=== PATIENT | male | born 1945 | race Caucasian/White ===

== ENCOUNTER 2023-05-05 20:52 | Emergency (ER) | payer OTHER ==
--- OUTSIDE RECORDS SUMMARY | 2023-05-05 21:01 | XMS REPORT | Clinical Summary ---
:1945 Author Organization [facility] MD [facility] Address [address] [place] [address] Care Team Providers Name Role Phone Rosa Walden MD Primary Care Provider Leonel Abbott MD Unavailable Helena Lemos MD Unavailable Carlene Tuttle MD Unavailable Helena Lemos MD Primary Care Provider Rosa Walden MD Unavailable Wanda Ahn MD Unavailable Vera De La Rosa DDS Unavailable [phone] Allergies Active Allergy Reactions Severity Noted Date Comments Iodinated Contrast Media Anaphylaxis High 02/14/2023 Iodine Anaphylaxis High 07/14/2022 Patient stopped breathing during administ ration of iodine. Penicillin 07/14/2022 childhood Medications Medication Sig Dispensed Refills Start Date End Date Status albuterol (VENTOLIN Inhale 1 puff by 0 Active HFA,PROAIR HFA) 90 mouth as needed. mcg/puff inhaler fluticasone Inhale 1 puff by 0 A ctive propionate-salmeterol mouth as needed. (ADVAIR) 250 mcg-50 mcg/inhalation diskus inhaler abiraterone (ZYTIGA) Take 4 tablets 120 tablet 3 02/01/2023 Active 250 mg (1,000 mg) by tabletIndications: mouth once daily. 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 atorvastatin (LIPITOR) Take 1 tablet (40 0 3 Active 40 mg tablet mg) by mouth at bedtime. clopidogrel (PLAVIX) Take 1 tablet (75 0 01/11/2023 Active 75 mg tablet mg) by mouth daily. predniSONE (DELTASONE) Take 1 tablet (5 60 tablet 3 02/15/2023 Active 5 mg mg) by mouth tabletIndications: twice daily. 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 xyloxylin oral Swish and swallow 480 mL 1 03/08/2023 Active suspension 10 mL every 6 (AMB-CMPD)Indications: (six) hours as Metastatic malignant needed for mouth neoplasm to bone, pain or throat Dysphagia, not pain. otherwise specified Additional Information Patient not taking. Reason: No longer taking, Reported on 04/19/2023 pantoprazole (Protonix) Take 1 tablet (40 30 tablet 2 03/09/20 23 Active 40 mg EC mg) by mouth every tabletIndications: morning before Metastatic malignant breakfast. neoplasm to bone lidocaine (XYLOCAINE) Swish and swallow 100 mL 3 03/09/2023 Active 20 mg/mL (2%) viscous 5 mL every 6 (six) solutionIndications: hours as needed Metastatic malignant (painful neoplasm to bone swallowing). metoprolol succinate Take 1 tablet (25 0 03/23/2023 Active (TOPROL XL) 25 mg 24 hr mg) by mouth tablet daily. indomethacin (INDOCIN) Take 1 capsule (50 0 04/08/20 23 Active 50 mg capsule mg) by mouth 4 (four) times a day as needed. fluoride, sodium, Apply 1 Dose to 100 mL 12 04/19/2023 Active (PreviDent 5000 Booster teeth twice daily. Plus) 1.1 % psteIndications: Malignant neoplasm of prostate, Metastatic malignant neoplasm to bone morphine (MS CONTIN) 30 Take 1 tablet (30 90 tablet 0 04/19/20 23 Active mg 12 hr mg) by mouth every tabletIndications: 8 (eight) hours. Malignant neoplasm of prostate, Cancer associated pain, Metastatic malignant neoplasm to bone morphine (MSIR) 15 mg Take 1 tablet (15 120 tablet 0 3 Active IR tabletIndications: mg) by mouth every Malignant neoplasm of 4 (four) hours as prostate, Cancer needed for pain. associated pain, Metastatic malignant neoplasm to bone senna (SENOKOT) 8.6 mg Take 2 tablets by 240 tablet 3 04/19/20 Active tabletIndications: mouth twice daily. Malignant neoplasm of May adjust up to 8 prostate, Slow transit tablets/day as constipation, needed. Metastatic malignant neoplasm to bone polyethylene glycol Take 17 g by mouth 255 g 3 04/19/2023 Active (Miralax) 17 gram/dose daily as needed powderIndications: (constipation). Malignant neoplasm of prostate, Slow transit constipation, Metastatic malignant neoplasm to bone lactulose 20 g/30 mL Take 15 mL (10 g) 900 mL 1 04/19/2023 Active soln by mouth 2 (two) solutionIndications: times a day as Malignant neoplasm of needed prostate, Metastatic (constipation). malignant neoplasm to bone metFORMIN Take 2 tablets 180 tablet 3 04/21/2023 Act stacia (GLUCOPHAGE-XR) 500 mg (1,000 mg) by 24 hr mouth 2 (two) tabletIndications: Drug times a day with induced diabetes meals. mellitus with hyperglycemia glipiZIDE (GlucotroL) 5 Take 0.5 tablets 60 tablet 3 3 Active mg tabletIndications: (2.5 mg) by mouth Drug induced diabetes daily as needed mellitus with (for blood glucose hyperglycemia greater than 150 mg/dL prior to taking prednisone). blood sugar diagnostic 1 strip by 200 strip 5 04/26/2023 Active (glucose blood) miscellaneous strpIndications: Drug route daily. 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 Type kit) kitIndications: 2 diabetes, ICD Drug induced diabetes 11.9 mellitus with hyperglycemia lancets 1 Units by 200 each 5 04/26/2023 Active miscIndications: Drug miscellaneous induced diabetes route daily. Check mellitus with glucose daily. hyperglycemia Type 2 diabetes, ICD 11.9 acetaminophen-codeine Take 1 tablet by 0 06/29/202207/06 Discontinued (TYLENOL #3) 300 mg-30 mouth as needed. 04/23 (Therapy mg tablet 22 completed) HYDROcodone-acetaminoph Take 1 tablet by 40 tablet 0 2 07/06 Discontinued en (Clemons) 7.5 mg-325 mouth every 6 04/23 (Therapy mg per (six) hours as 22 compl eted) tabletIndications: needed for Neoplasm related pain moderate pain. (acute) (chronic) miscellaneous medical Please provide 1 1 each 0 07/21/202207/05 Discontinued supply miscIndications: wheelchair, 1 Impaired mobility walker,1 bedside 22 commode. darolutamide (Nubeqa) Take 2 tablets 120 tablet 3 08/01/2022 0 Discontinued 300 mg (600 mg) by mouth 09/23 (T herapy tabletIndications: twice daily. 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 fentaNYL (DURAGESIC) 50 Place 1 patch (50 0 01/31/2002/02 mcg/hr transdermal mcg) on the skin. 09/05 0 patch 23 predniSONE (DELTASONE) Take 1 tablet (5 60 tablet 3 02/01/202302/02 Discontinued 5 mg tabletIndications: mg) by mouth twice 12/22 (Reorder) Malignant neoplasm of daily. 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 23 Malignant neoplasm of prostate, Cancer associated pain morphine (MSIR) 15 mg Take half of a 60 tablet 0 02/15/2023 Discontinued IR tabletIndications: tablet (7.5 mg) by 09/23 (Reorder) Malignant neoplasm of mouth every 4 23 prostate, Cancer (four) hours as associated pain needed for pain. senna-docusate Take 1 tablet by 0 02/02 Discontinued (SENOKOT-S) 8.6 mg-50 mouth 2 (two) 12/22 (Stop Taking at mg tablet times a day as 23 Disch arge) needed for constipation. polyethylene glycol Take 17 g by mouth 0 0 04/04 Discontinued (GLYCOLAX) 17 gram/dose daily as needed 02/21 powder (constipation). 23 senna (SENOKOT) 8.6 mg Take 2 tablets by 120 tablet 1 02/16/2004/04 Discontinued tabletIndications: Slow mouth twice daily. 02/21 transit constipation 23 lactulose (CHRONULAC) Take 15 mL (10 g) 473 mL 0 02/15/202304/04 Discontinued 10 gram/15 mL by mouth 2 (two) 02/21 solutionIndications: times a day as Slow transit needed for constipation constipation. morphine (MS CONTIN) 15 Take 1 tablet (15 30 tablet 0 03/15/2004/04 Discontinued mg ER mg) by mouth every 02/21 tabletIndications: 12 (twelve) hours. 23 Malignant neoplasm of prostate, Cancer associated pain morphine (MSIR) 15 mg Take half of a 35 tablet 0 03/24/2023 Discontinued IR tabletIndications: tablet (7.5 mg) by 02/21 (Reorder) Malignant neoplasm of mouth every 4 23 prostate, Cancer (four) hours as associated pain needed for pain. cyclobenzaprine Take 1 tablet (5 0 12/24/202204/04 Discontinued (FLEXERIL) 5 mg tablet mg) by mouth 02/21 nightly as needed. 23 blood sugar diagnostic 1 strip by 200 strip 5 04/21/202304/05 Discontinued (glucose blood) miscellaneous 11/21 (Reorder) strpIndications: Drug route 4 (four) 23 induced diabetes times a day before mellitus with meals and nightly. hyperglycemia lancets 1 Units by 200 each 5 04/21/202304/05 Disconti nued miscIndications: Drug miscellaneous 11/21 (Reorder) induced diabetes route 4 (four) 23 mellitus with times a day before hyperglycemia meals and nightly. blood-glucose meter Use to check blood 1 each 0 04/21/202304/05 Discontinued (glucose monitoring sugar 1-2 times a (Reorder) kit) kitIndications: day. 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 Malignant neoplasm of prostate 07/25/2022 Multinodular goiter 07/05/2022 Encounters Date Type Specialty Care Team Description 05/05/2023 Nurse Triage Maggie Lima RN 04/28/2023 Travel 04/27/2023 Hospital Encounter Gynecology Keshav, Malignant neoplasm of prostate; - AGUSTO Clemente Secondary and unspecified malignant neop lasm of lymph nodes of multiple regions, not otherwise specified; 04/28/2023 Jose Kunz, Encounter for other preprocedural examination Sona Solorio, Shalom Hassan MD 04/27/2023 Anesthesia Event Radiology Shalom Marvin MD Chan, Toi Nei, CRNA 04/27/2023 Hospital Encounter Cardiology Steffany Draper PA 04/27/2023 Hospital Encounter Lab Steffany Draper PA 04/27/2023 Travel 04/26/2023 Anesthesia Event Anesthesiology Mel Bains RN 04/26/2023 POEM Appointments Anesthesiology Steffany Draper PA 04/26/2023 Orders Only Endocrinology Brie, Drug induced d luis Mercado APRN mellitus with hyperglycemia 04/24/2023 Hospital Encounter Radiology Canelo, Encounter for other preprocedural examination (Primary Dx); MD Helena Pain in lumbar spine; Jose Kunz, Metastatic mal ignant neoplasm to bone; Malignant neopl asm of prostate 04/24/2023 Orders Only Radiology Maylin Riley PA 04/21/2023 Clinical Support Endocrinology Abraham, Drug induc ed diabetes MD Samantha mellitus with Sal, Diana hyperglycemia A, RD 04/21/2023 Follow-Up Endocrinology Abraham, Drug induced d iabetes mellitus with hyperglycemia (Primary Dx); MD Samantha Thyroid nodule 04/21/2023 Travel 04/20/2023 Infusion Infusion Services Deinert, Metastatic malignant neoplasm to bone; Chyna, ADMISSIONS RN 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, not otherwise specified 04/20/2023 Travel 04/19/2023 Ancillary Procedure Radiology Deinert, Malignan t neoplasm of prostate; Chyna, ADMISSIONS RN 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, not otherwise specified 04/19/2023 Ancillary Procedure Radiology Deinert, Malignan t neoplasm of prostate; Chyna, ADMISSIONS RN 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, not otherwise specified 04/19/2023 Follow-Up Genitourinary Deinert, Malignant neop lasm of prostate (Primary Dx); Oncology Chyna, ADMISSIONS RN 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, not otherwise specified 04/19/2023 Hospital Encounter Dental Oncology Vasquez-No Gonsales nter for Vera, observation for other DDS suspected disea se ruled out 04/19/2023 Hospital Encounter Dental Oncology VasquezRd Gonsales nter for observation for other suspected disease ruled out (Primary Dx); , Vera Gipson, Malignant neopl asm of prostate; DDS Secondary and u nspecified malignant neoplasm of lymph nodes of multiple regions, not otherwise specified; Metastatic justice gnant neoplasm to bone; Active dental c adele; Class II partia l loss of teeth due to other specified cause; Accretion on te eth 04/19/2023 Hospital Encounter Lab Deinert, Malignant neoplasm of prostate; Chyna, ADMISSIONS RN 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, not otherwise specified; Metastatic justice gnant neoplasm to bone; Other abnormal glucose 04/19/2023 Orders Only Endocrinology Brie, Drug induced d luis Mercado APRN mellitus with hyperglycemia (Primary Dx) 04/19/2023 Orders Only Genitourinary Deinert, Metastatic mal ignant neoplasm to bone (Primary Dx); Oncology AGUSTO Clemente Other abnormal glucose 04/19/2023 Orders Only Genitourinary Deinert, Metastatic mal ignant neoplasm to bone (Primary Dx); Oncology Chyna ADMISSIONS RN 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, not otherwise specified 04/19/2023 Travel 04/18/2023 Orders Only Dental Oncology Omar Mora, Xerostomia (Primary Dx); BDS Encounter for o bservation for other suspected disease ruled out 04/17/2023 Education Radiology Rafaela Savage MA 04/10/2023 Telephone Oncology Donavan Flaherty RN 04/06/2023 Travel 04/05/2023 Orders Only Genitourinary Deinert, Metastatic mal ignant neoplasm to bone (Primary Dx); Oncology AGUSTO Clemente 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, not otherwise specified 04/03/2023 Consult Pain Medicine Alysia, oysterman cur rent use of opiate analgesic (Primary Dx); Percy, Metastatic mal ignant neoplasm to bone; Neoplasm relate d pain (acute) (chronic) 04/03/2023 Travel 03/28/2023 Specialty Pharmacy Ibrahima Cash, PharmD 03/22/2023 Infusion Infusion Services Deinert, Antineopla stic AGUSTO Clemente chemotherapy i nduced anemia 03/22/2023 Travel 03/21/2023 Orders Only Genitourinary Deinert, Antineoplastic chemotherapy induced anemia (Primary Dx); Oncology AGUSTO Clemente Metastatic mal ignant neoplasm to bone 03/21/2023 Travel 03/21/2023 Orders Only Genitourinary Deinert, 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, not otherwise specified (Primary Dx); Oncology AGUSTO Clemente Malignant neop lasm of prostate 03/20/2023 Orders Only Genitourinary Deinert, Malignant neop lasm of prostate (Primary Dx); Oncology AGUSTO Clemente 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, not otherwise specified 03/16/2023 Orders Only Genitourinary Deinert, Malignant neop lasm of prostate (Primary Dx); Oncology Chyna, ADMISSIONS RN 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, not otherwise specified 03/15/2023 Hospital Encounter Infusion Services Harry, Justice gnant neoplasm of prostate; BREANA Lewis Anemia due to antineoplastic chemotherap y Elle Fields RN 03/15/2023 Hospital Encounter Lab Harry, Malignant neoplasm of prostate; BREANA Lewis Anemia due to antineoplastic chemotherapy 03/15/2023 Follow-Up Genitourinary Lemos, Metastatic mal ignant neoplasm to bone (Primary Dx); Oncology MD Helena Malignant neopl asm of prostate; Secondary and u nspecified malignant neoplasm of lymph nodes of multiple regions, not otherwise specified; Anemia due to a ntineoplastic chemotherapy 03/15/2023 Ancillary Procedure Radiology Deinert, Malignan t neoplasm of prostate; Chyna, ADMISSIONS RN 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, not otherwise specified; Dehydration; Metastatic justice gnant neoplasm to bone 03/15/2023 Hospital Encounter Lab Dedonya, Malignant neoplasm of prostate; Chyna, ADMISSIONS RN 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, not otherwise specified 03/15/2023 Travel 03/14/2023 Nutrition Nutrition Helena Lemos MD Martin, Cathy A, RD 03/13/2023 Clinical Support Radiation Oncology Corina Martinez MD 03/13/2023 Documentation Radiation Oncology Corina Martinez MD 03/13/2023 Travel 03/10/2023 Travel 03/09/2023 Clinical Support Radiation Oncology Corina Martinez MD neoplasm to britt rod (Primary Dx) 03/09/2023 Orders Only Radiation Oncology Safia, Metastati c malignant Emma neoplasm to BREANA Varma (Primary Dx) 03/09/2023 Travel 03/08/2023 Clinical Support Radiation Oncology Helena Lemos MD Perry, Amber L, RN 03/08/2023 Travel 03/08/2023 Orders Only Radiation Oncology Safia, Metastati c malignant neoplasm to bone (Primary Dx); Emma Dysphagia, not otherwise specified BREANA Donnelly 03/06/2023 Travel 03/03/2023 Travel 03/02/2023 Nutrition Nutrition Helena Lemos MD Martin, Cathy A, ELISHA 03/02/2023 Travel 03/01/2023 Travel 02/28/2023 Travel 02/27/2023 Clinical Support Radiation Oncology Corina Martinez MD 02/27/2023 Documentation Radiation Oncology Corina Martinez MD 02/27/2023 Travel 02/27/2023 Documentation Radiation Oncology Corina Martinez MD 02/23/2023 Consult Radiation Oncology Corina Martinez Malignant neoplasm of prostate; MD Allison Secondary and u nspecified malignant neoplasm of lymph nodes of multiple regions, not otherwise specified 02/23/2023 Documentation Radiation Oncology oCrina Martinez MD 02/23/2023 Documentation Radiation Oncology Corina Martinez MD 02/23/2023 Orders Only Genitourinary Deinert, Malignant neop lasm of prostate (Primary Dx); Oncology Chyna, ADMISSIONS RN Metastatic mal ignant neoplasm to bone; Secondary and u nspecified malignant neoplasm of lymph nodes of multiple regions, not otherwise specified 02/23/2023 Travel 02/23/2023 Orders Only Radiation Oncology Corina Martinez Metastati c malignant MD Allison neoplasm to bon e (Primary Dx) 02/22/2023 Orders Only Radiation Oncology Emma Baig PA 02/22/2023 Telephone Radiation Oncology Greta Justice RN 02/21/2023 Telephone Genitourinary Deinert, Oncology Chyna, ADMISSIONS RN 02/21/2023 Orders Only Radiology Steffany Draper PA 02/21/2023 Orders Only Genitourinary Deinert, Oncology Chyna, ADMISSIONS RN 02/16/2023 Orders Only Genitourinary Deinert, Malignant neop lasm of prostate (Primary Dx); Oncology Chyna, ADMISSIONS RN 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, not otherwise specified 02/15/2023 Orders Only Genitourinary Deinert, Malignant neop lasm of prostate; Oncology Chyna, ADMISSIONS RN 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, not otherwise specified 02/14/2023 Emergency Clinical Decision Markides, Acute low back pain (Primary Dx); - Flaquita Sherman MD Acute pelvic pain; 02/15/2023 Wattana, Pain in right h ip joint; MD Greta Anemia; Roly, Hypophosphatemi a; Shon Gipson, Metastatic justice gnant neoplasm to bone; Malignant neopl asm of prostate; Cancer associat ed pain; Slow transit co nstipation 02/14/2023 Travel 02/14/2023 Telephone Genitourinary Deinert, Oncology AGUSTO Clemente 02/13/2023 Orders Only Genitourinary Deinert, Malignant neop lasm of Oncology Chyna, ADMISSIONS RN prostate (Prim joelle Dx) 02/02/2023 Specialty Pharmacy [facility] Marilyn , [facility] 02/01/2023 Infusion Infusion Services Deinert, Dehydratio n (Primary Chyna, ADMISSIONS RN Dx) Sally Hale RN 02/01/2023 Follow-Up Genitourinary Lemos, Malignant neop lasm of prostate (Primary Dx); Oncology MD Helena Secondary and u nspecified malignant neoplasm of lymph nodes of multiple regions, not otherwise specified; Dehydration; Metastatic justice gnant neoplasm to bone 02/01/2023 Hospital Encounter Lab Deinert, Malignant neoplasm of prostate; AGUSTO Clemente 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, not otherwise specified 02/01/2023 Travel 01/31/2023 Orders Only Genitourinary Deinert, Malignant neop lasm of Oncology Chyna ADMISSIONS RN prostate (Prim joelle Dx) 01/31/2023 Orders Only Genitourinary Deinert, Malignant neop lasm of prostate (Primary Dx); Oncology Chyna ADMISSIONS RN 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, not otherwise specified 01/16/2023 Telephone Genitourinary Lemos, Canceled (Manuela ent Oncology MD Helena Request) 12/26/2022 Telephone Genitourinary Lemos, Canceled (Manuela ent Oncology MD Helena Request) 12/19/2022 Follow-Up Genitourinary Lemos, Malignant neop lasm of prostate (Primary Dx); Oncology MD Helena Secondary and u nspecified malignant neoplasm of lymph nodes of multiple regions, not otherwise specified 12/19/2022 Ancillary Procedure Radiology Deinert, Chyna, ADMISSIONS RN 12/19/2022 Ancillary Procedure Radiology Deinert, Malignan t neoplasm of prostate; Chyna, ADMISSIONS RN 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, not otherwise specified 12/19/2022 Travel 12/18/2022 Hospital Encounter Radiology Deinert, Malignant neoplasm of prostate; Chyna, ADMISSIONS RN 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, not otherwise specified 12/18/2022 Hospital Encounter Lab Deinert, Malignant neoplasm of prostate; Chyna, ADMISSIONS RN 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, not otherwise specified 12/18/2022 Travel 12/13/2022 Orders Only Genitourinary Deinert, Malignant neop lasm of prostate (Primary Dx); Oncology Chyna, ADMISSIONS RN 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, not otherwise specified 12/13/2022 Orders Only Genitourinary Deinert, Allergy to con trast media (Primary Dx); Oncology AMI ClementeN Malignant neop lasm of prostate 12/09/2022 Telephone Genitourinary Deinert, Oncology AGUSTO Clemente 12/09/2022 Hospital Encounter Lab Deinert, Malignant neoplasm of prostate; Chyna, ADMISSIONS RN 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, not otherwise specified; Metastatic darinel ocarcinoma to bone; Thyroid nodule 12/09/2022 Orders Only Genitourinary Jaelyn Oncology Michelle [facility] 11/18/2022 Consult Endocrinology Calderon, Malignant neop lasm of prostate; Eliza Sherman MD Thyroid nodule Samantha Rosario MD 11/18/2022 Travel 11/02/2022 Follow-Up Genitourinary Lemos, Malignant neop lasm of prostate (Primary Dx); Oncology MD Helena Secondary and u nspecified malignant neoplasm of lymph nodes of multiple regions, not otherwise specified; Secondary adeno carcinoma of bone 11/02/2022 Hospital Encounter Lab Deinert, Malignant neoplasm of prostate; Chyna ADMISSIONS RN 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, not otherwise specified; Secondary adeno carcinoma of bone 11/02/2022 Travel 10/23/2022 Orders Only Genitourinary Anita Wood Oncology BREANA Robertson 09/02/2022 Orders Only Genitourinary Deinert, Secondary darinel ocarcinoma of bone (Primary Dx); Oncology Chyna, ADMISSIONS RN 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, not otherwise specified; Malignant neopl asm of prostate 08/09/2022 Telephone Genitourinary Deinert, Oncology Chyna, ADMISSIONS RN 08/09/2022 Orders Only Genitourinary Deinert, Malignant neop lasm of prostate (Primary Dx); Oncology Chyna, ADMISSIONS RN 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, not otherwise specified 08/09/2022 Orders Only Genitourinary Deinert, Malignant neop lasm of prostate (Primary Dx); Oncology Chyna, ADMISSIONS RN 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, not otherwise specified; Secondary adeno carcinoma of bone 08/08/2022 Orders Only Genitourinary Deinert, Malignant neop lasm of prostate (Primary Dx); Oncology Chyna, ADMISSIONS RN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 nodes of multiple regions, not otherwise specified TOTAL PROTEIN Routine 03/15/2023 7:04 Malignant neoplasm of Re sults for AM CDT prostate this procedure Secondary and are in the unspecified malignant result s neoplasm of lymph section. nodes of multiple regions, not otherwise specified ASPARTATE Routine 03/15/2023 7:04 Malignant neoplasm of Res ults for AMINOTRANSFERASE AM CDT prostate this procedure Secondary and are in the unspecified malignant result s neoplasm of lymph section. nodes of multiple regions, not otherwise specified ALANINE Routine 03/15/2023 7:04 Malignant neoplasm of Res ults for AMINOTRANSFERASE AM CDT prostate this procedure Secondary and are in the unspecified malignant result s neoplasm of lymph section. nodes of multiple regions, not otherwise specified ALKALINE PHOSPHATASE Routine 03/15/2023 7:04 Malignant neoplas m of Results for AM CDT prostate this procedure Secondary and are in the unspecified malignant result s neoplasm of lymph section. nodes of multiple regions, not otherwise specified ALBUMIN LEVEL Routine 03/15/2023 7:04 Malignant neoplasm of Re sults for AM CDT prostate this procedure Secondary and are in the unspecified malignant result s neoplasm of lymph section. nodes of multiple regions, not otherwise specified CALCIUM LEVEL TOTAL Routine 03/15/2023 7:04 Malignant neoplasm of Results for AM CDT prostate this procedure Secondary and are in the unspecified malignant result s neoplasm of lymph section. nodes of multiple regions, not otherwise specified .GLOMERULAR FILTRATION Routine 03/15/2023 7:04 Malignant neopl asm of Results for RATE AM CDT prostate this procedure Secondary and are in the unspecified malignant result s neoplasm of lymph section. nodes of multiple regions, not otherwise specified SERUM CREATININE Routine 03/15/2023 7:04 Malignant neoplasm of Results for AM CDT prostate this procedure Secondary and are in the unspecified malignant result s neoplasm of lymph section. nodes of multiple regions, not otherwise specified ELECTROLYTE PANEL Routine 03/15/2023 7:04 Malignant neoplasm o f Results for AM CDT prostate this procedure Secondary and are in the unspecified malignant result s neoplasm of lymph section. nodes of multiple regions, not otherwise specified BLOOD UREA NITROGEN Routine 03/15/2023 7:04 Malignant neoplasm of Results for AM CDT prostate this procedure Secondary and are in the unspecified malignant result s neoplasm of lymph section. nodes of multiple regions, not otherwise specified GLUCOSE LEVEL Routine 03/15/2023 7:04 Malignant neoplasm of Re sults for AM CDT prostate this procedure Secondary and are in the unspecified malignant result s neoplasm of lymph section. nodes of multiple regions, not otherwise specified MANUAL DIFFERENTIAL Routine 03/15/2023 7:04 Malignant neoplasm of Results for AM CDT prostate this procedure Secondary and are in the unspecified malignant result s neoplasm of lymph section. nodes of multiple regions, not otherwise specified Results CBC Routine 03/15/2023 7:04 Malignant neoplasm of Res ults for AM CDT prostate this procedure Secondary and are in the unspecified malignant result s neoplasm of lymph section. nodes of multiple regions, not otherwise specified LACTATE DEHYDROGENASE Routine 03/15/2023 7:04 Malignant neopla sm of Results for AM CDT prostate this procedure Secondary and are in the unspecified malignant result s neoplasm of lymph section. 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 nodes of multiple regions, not otherwise specified TESTOSTERONE LEVEL Routine 03/15/2023 7:04 Malignant neoplasm of Results for AM CDT prostate this procedure Secondary and are in the unspecified malignant result s neoplasm of lymph section. nodes of multiple regions, not otherwise specified PROSTATE SPECIFIC Routine 03/15/2023 7:04 Malignant neoplasm o f Results for ANTIGEN AM CDT prostate this procedure Secondary and are in the unspecified malignant result s neoplasm of lymph section. nodes of multiple regions, not otherwise specified PHOSPHORUS LEVEL Routine 03/15/2023 7:04 Malignant neoplasm of Results for AM CDT prostate this procedure Secondary and are in the unspecified malignant result s neoplasm of lymph section. nodes of multiple regions, not otherwise specified MAGNESIUM LEVEL Routine 03/15/2023 7:04 Malignant neoplasm of Results for AM CDT prostate this procedure Secondary and are in the unspecified malignant result s neoplasm of lymph section. nodes of multiple regions, not otherwise specified COMPLETE BLOOD COUNT W/ Routine 03/15/2023 7:04 Malignant neop lasm of DIFFERENTIAL AM CDT prostate 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, not otherwise specified TMP INTERPRETATION Routine 02/20/2023 12:09 Resul ts for ANTIBODY SCREEN PM CDT this procedu re NEGATIVE are in the results section. CLOT EXPIRATION DATE Routine 02/20/2023 12:09 Res ults for PM CDT this procedure are in the results section. ANTIBODY SCREEN Routine 02/20/2023 12:09 Malignant neoplasm of Results for PM CDT prostate this procedure Secondary and are in the unspecified malignant result s neoplasm of lymph section. nodes of multiple regions, not otherwise specified ABORH Routine 02/20/2023 12:09 Malignant neoplasm of Re sults for PM CDT prostate this procedure Secondary and are in the unspecified malignant result s neoplasm of lymph section. nodes of multiple regions, not otherwise specified FRACTIONATED BILIRUBIN Routine 02/20/2023 12:09 Malignant neop lasm of Results for PM CDT prostate this procedure Secondary and are in the unspecified malignant result s neoplasm of lymph section. nodes of multiple regions, not otherwise specified TOTAL PROTEIN Routine 02/20/2023 12:09 Malignant neoplasm of R esults for PM CDT prostate this procedure Secondary and are in the unspecified malignant result s neoplasm of lymph section. nodes of multiple regions, not otherwise specified ASPARTATE Routine 02/20/2023 12:09 Malignant neoplasm of Re sults for AMINOTRANSFERASE PM CDT prostate this procedure Secondary and are in the unspecified malignant result s neoplasm of lymph section. nodes of multiple regions, not otherwise specified ALANINE Routine 02/20/2023 12:09 Malignant neoplasm of Re sults for AMINOTRANSFERASE PM CDT prostate this procedure Secondary and are in the unspecified malignant result s neoplasm of lymph section. nodes of multiple regions, not otherwise specified ALKALINE PHOSPHATASE Routine 02/20/2023 12:09 Malignant neopla sm of Results for PM CDT prostate this procedure Secondary and are in the unspecified malignant result s neoplasm of lymph section. nodes of multiple regions, not otherwise specified ALBUMIN LEVEL Routine 02/20/2023 12:09 Malignant neoplasm of R esults for PM CDT prostate this procedure Secondary and are in the unspecified malignant result s neoplasm of lymph section. nodes of multiple regions, not otherwise specified CALCIUM LEVEL TOTAL Routine 02/20/2023 12:09 Malignant neoplas m of Results for PM CDT prostate this procedure Secondary and are in the unspecified malignant result s neoplasm of lymph section. nodes of multiple regions, not otherwise specified .GLOMERULAR FILTRATION Routine 02/20/2023 12:09 Malignant neop lasm of Results for RATE PM CDT prostate this procedure Secondary and are in the unspecified malignant result s neoplasm of lymph section. nodes of multiple regions, not otherwise specified SERUM CREATININE Routine 02/20/2023 12:09 Malignant neoplasm o f Results for PM CDT prostate this procedure Secondary and are in the unspecified malignant result s neoplasm of lymph section. nodes of multiple regions, not otherwise specified ELECTROLYTE PANEL Routine 02/20/2023 12:09 Malignant neoplasm of Results for PM CDT prostate this procedure Secondary and are in the unspecified malignant result s neoplasm of lymph section. nodes of multiple regions, not otherwise specified BLOOD UREA NITROGEN Routine 02/20/2023 12:09 Malignant neoplas m of Results for PM CDT prostate this procedure Secondary and are in the unspecified malignant result s neoplasm of lymph section. nodes of multiple regions, not otherwise specified GLUCOSE LEVEL Routine 02/20/2023 12:09 Malignant neoplasm of R esults for PM CDT prostate this procedure Secondary and are in the unspecified malignant result s neoplasm of lymph section. nodes of multiple regions, not otherwise specified MANUAL DIFFERENTIAL Routine 02/20/2023 12:09 Malignant neoplas m of Results for PM CDT prostate this procedure Secondary and are in the unspecified malignant result s neoplasm of lymph section. nodes of multiple regions, not otherwise specified Results CBC Routine 02/20/2023 12:09 Malignant neoplasm of Re sults for PM CDT prostate this procedure Secondary and are in the unspecified malignant result s neoplasm of lymph section. 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 Results CBC AM 02/15/2023 12:38 Results for PM CDT this procedure are in the results section. CALCIUM LEVEL TOTAL AM 02/15/2023 12:38 Resu lts for PM CDT this procedure are in the results section. .GLOMERULAR FILTRATION AM 02/15/2023 12:38 R esults for RATE PM CDT this procedure are in the results section. SERUM CREATININE AM 02/15/2023 12:38 Results for PM CDT this procedure are in the results section. ELECTROLYTE PANEL AM 02/15/2023 12:38 Result s for PM CDT this procedure are in the results section. BLOOD UREA NITROGEN AM 02/15/2023 12:38 Resu lts for PM CDT this procedure are in the results section. GLUCOSE LEVEL AM 02/15/2023 12:38 Results fo r PM CDT this procedure are in the results section. COMPLETE BLOOD COUNT W/ AM 02/15/2023 12:38 DIFFERENTIAL PM CDT PHOSPHORUS LEVEL AM 02/15/2023 12:38 Results for PM CDT this procedure are in the results section. MAGNESIUM LEVEL AM 02/15/2023 12:38 Results for PM CDT this procedure are in the results section. BASIC METABOLIC PANEL, AM 02/15/2023 12:38 CALCIUM TOTAL PM CDT TRANSFUSE RED BLOOD Routine 02/15/2023 5:40 CELLS AM CDT TRANSFUSE RED BLOOD Routine 02/15/2023 1:35 CELLS AM CDT MRI CERVICAL THORACIC STAT 02/15/2023 12:44 Re sults for LUMBAR SPINE W WO AM CDT this proce dure CONTRAST are in the results section. URINALYSIS MICROSCOPIC Routine 02/14/2023 10:25 R esults for EXAM PM CDT this procedure are in the results section. URINALYSIS WITH Routine 02/14/2023 10:25 Results for MICROSCOPIC IF PM CDT this procedur e INDICATED are in the results section. URINE CULTURE Routine 02/14/2023 10:25 Results fo r PM CDT this procedure are in the results section. CONFIRM ABORH TYPE Routine 02/14/2023 7:51 Result s for PM CDT this procedure are in the results section. TMP CROSSMATCH Routine 02/14/2023 7:36 Results fo r INTERPRETATION PM CDT this procedur e are in the results section. TMP INTERPRETATION Routine 02/14/2023 7:36 Result s for ANTIBODY SCREEN PM CDT this procedu re NEGATIVE are in the results section. CLOT EXPIRATION DATE Routine 02/14/2023 7:36 Resu lts for PM CDT this procedure are in the results section. ANTIBODY SCREEN Routine 02/14/2023 7:36 Results f or PM CDT this procedure are in the results section. ABORH Routine 02/14/2023 7:36 Results for PM CDT this procedure are in the results section. 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 PREPARE RBC Routine 02/14/2023 7:26 Results for PM CDT this procedure are in the results section. XR HIP 2 OR 3 VW W Routine 02/14/2023 6:44 Result s for PELVIS RIGHT PM CDT this procedure are in the results section. FRACTIONATED BILIRUBIN Routine 02/14/2023 5:18 Re sults for PM CDT this procedure are in the results section. TOTAL PROTEIN Routine 02/14/2023 5:18 Results for PM CDT this procedure are in the results section. ASPARTATE Routine 02/14/2023 5:18 Results for AMINOTRANSFERASE PM CDT this proced ure are in the results section. ALANINE Routine 02/14/2023 5:18 Results for AMINOTRANSFERASE PM CDT this proced ure are in the results section. ALKALINE PHOSPHATASE Routine 02/14/2023 5:18 Resu lts for PM CDT this procedure are in the results section. ALBUMIN LEVEL Routine 02/14/2023 5:18 Results for PM CDT this procedure are in the results section. CALCIUM LEVEL TOTAL Routine 02/14/2023 5:18 Resul ts for PM CDT this procedure are in the results section. .GLOMERULAR FILTRATION Routine 02/14/2023 5:18 Re sults for RATE PM CDT this procedure are in the results section. SERUM CREATININE Routine 02/14/2023 5:18 Results for PM CDT this procedure are in the results section. ELECTROLYTE PANEL Routine 02/14/2023 5:18 Results for PM CDT this procedure are in the results section. BLOOD UREA NITROGEN Routine 02/14/2023 5:18 Resul ts for PM CDT this procedure are in the results section. GLUCOSE LEVEL Routine 02/14/2023 5:18 Results for PM CDT this procedure are in the results section. MANUAL DIFFERENTIAL STAT 02/14/2023 5:18 Resul ts for PM CDT this procedure are in the results section. Results CBC STAT 02/14/2023 5:18 Results for PM CDT this procedure are in the results section. APTT Routine 02/14/2023 5:18 Results for PM CDT this procedure are in the results section. PROTHROMBIN TIME Routine 02/14/2023 5:18 Results for PM CDT this procedure are in the results section. PHOSPHORUS LEVEL Routine 02/14/2023 5:18 Results for PM CDT this procedure are in the results section. MAGNESIUM LEVEL Routine 02/14/2023 5:18 Results f or PM CDT this procedure are in the results section. COMPREHENSIVE METABOLIC Routine 02/14/2023 5:18 PANEL PM CDT COMPLETE BLOOD COUNT W/ Routine 02/14/2023 5:18 DIFFERENTIAL PM CDT FRACTIONATED BILIRUBIN Routine 02/01/2023 7:10 Malignant neopl asm of Results for AM CDT prostate this procedure Secondary and are in the unspecified malignant result s neoplasm of lymph section. nodes of multiple regions, not otherwise specified TOTAL PROTEIN Routine 02/01/2023 7:10 Malignant neoplasm of Re sults for AM CDT prostate this procedure Secondary and are in the unspecified malignant result s neoplasm of lymph section. nodes of multiple regions, not otherwise specified ASPARTATE Routine 02/01/2023 7:10 Malignant neoplasm of Res ults for AMINOTRANSFERASE AM CDT prostate this procedure Secondary and are in the unspecified malignant result s neoplasm of lymph section. nodes of multiple regions, not otherwise specified ALANINE Routine 02/01/2023 7:10 Malignant neoplasm of Res ults for AMINOTRANSFERASE AM CDT prostate this procedure Secondary and are in the unspecified malignant result s neoplasm of lymph section. nodes of multiple regions, not otherwise specified ALKALINE PHOSPHATASE Routine 02/01/2023 7:10 Malignant neoplas m of Results for AM CDT prostate this procedure Secondary and are in the unspecified malignant result s neoplasm of lymph section. nodes of multiple regions, not otherwise specified ALBUMIN LEVEL Routine 02/01/2023 7:10 Malignant neoplasm of Re sults for AM CDT prostate this procedure Secondary and are in the unspecified malignant result s neoplasm of lymph section. nodes of multiple regions, not otherwise specified CALCIUM LEVEL TOTAL Routine 02/01/2023 7:10 Malignant neoplasm of Results for AM CDT prostate this procedure Secondary and are in the unspecified malignant result s neoplasm of lymph section. nodes of multiple regions, not otherwise specified .GLOMERULAR FILTRATION Routine 02/01/2023 7:10 Malignant neop lasm of Results for RATE AM CDT prostate this procedure Secondary and are in the unspecified malignant result s neoplasm of lymph section. nodes of multiple regions, not otherwise specified SERUM CREATININE Routine 02/01/2023 7:10 Malignant neoplasm of Results for AM CDT prostate this procedure Secondary and are in the unspecified malignant result s neoplasm of lymph section. nodes of multiple regions, not otherwise specified ELECTROLYTE PANEL Routine 02/01/2023 7:10 Malignant neoplasm o f Results for AM CDT prostate this procedure Secondary and are in the unspecified malignant result s neoplasm of lymph section. nodes of multiple regions, not otherwise specified BLOOD UREA NITROGEN Routine 02/01/2023 7:10 Malignant neoplasm of Results for AM CDT prostate this procedure Secondary and are in the unspecified malignant result s neoplasm of lymph section. nodes of multiple regions, not otherwise specified GLUCOSE LEVEL Routine 02/01/2023 7:10 Malignant neoplasm of Re sults for AM CDT prostate this procedure Secondary and are in the unspecified malignant result s neoplasm of lymph section. nodes of multiple regions, not otherwise specified MANUAL DIFFERENTIAL Routine 02/01/2023 7:10 Malignant neoplasm of Results for AM CDT prostate this procedure Secondary and are in the unspecified malignant result s neoplasm of lymph section. nodes of multiple regions, not otherwise specified Results CBC Routine 02/01/2023 7:10 Malignant neoplasm of Res ults for AM CDT prostate this procedure Secondary and are in the unspecified malignant result s neoplasm of lymph section. nodes of multiple regions, not otherwise specified VITAMIN D 25 HYDROXY Routine 02/01/2023 7:10 Malignant neoplas m of Results for LEVEL AM CDT prostate this procedure Secondary and are in the unspecified malignant result s neoplasm of lymph section. 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 nodes of multiple regions, not otherwise specified PROSTATE SPECIFIC Routine 02/01/2023 7:10 Malignant neoplasm o f Results for ANTIGEN AM CDT prostate this procedure Secondary and are in the unspecified malignant result s neoplasm of lymph section. nodes of multiple regions, not otherwise specified PHOSPHORUS LEVEL Routine 02/01/2023 7:10 Malignant neoplasm of Results for AM CDT prostate this procedure Secondary and are in the unspecified malignant result s neoplasm of lymph section. nodes of multiple regions, not otherwise specified MAGNESIUM LEVEL Routine 02/01/2023 7:10 Malignant neoplasm of Results for AM CDT prostate this procedure Secondary and are in the unspecified malignant result s neoplasm of lymph section. 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 nodes of multiple regions, not otherwise specified CT CHEST ABDOMEN PELVIS Routine 12/18/2022 6:25 Malignant neop lasm of Results for WO CONTRAST PM CDT prostate this procedure Secondary and are in the unspecified malignant result s neoplasm of lymph section. nodes of multiple regions, not otherwise specified FRACTIONATED BILIRUBIN Routine 12/18/2022 3:24 Malignant neopl asm of Results for PM CDT prostate this procedure Secondary and are in the unspecified malignant result s neoplasm of lymph section. nodes of multiple regions, not otherwise specified TOTAL PROTEIN Routine 12/18/2022 3:24 Malignant neoplasm of Re sults for PM CDT prostate this procedure Secondary and are in the unspecified malignant result s neoplasm of lymph section. nodes of multiple regions, not otherwise specified ASPARTATE Routine 12/18/2022 3:24 Malignant neoplasm of Res ults for AMINOTRANSFERASE PM CDT prostate this procedure Secondary and are in the unspecified malignant result s neoplasm of lymph section. nodes of multiple regions, not otherwise specified ALANINE Routine 12/18/2022 3:24 Malignant neoplasm of Res ults for AMINOTRANSFERASE PM CDT prostate this procedure Secondary and are in the unspecified malignant result s neoplasm of lymph section. nodes of multiple regions, not otherwise specified ALKALINE PHOSPHATASE Routine 12/18/2022 3:24 Malignant neoplas m of Results for PM CDT prostate this procedure Secondary and are in the unspecified malignant result s neoplasm of lymph section. nodes of multiple regions, not otherwise specified ALBUMIN LEVEL Routine 12/18/2022 3:24 Malignant neoplasm of Re sults for PM CDT prostate this procedure Secondary and are in the unspecified malignant result s neoplasm of lymph section. nodes of multiple regions, not otherwise specified CALCIUM LEVEL TOTAL Routine 12/18/2022 3:24 Malignant neoplasm of Results for PM CDT prostate this procedure Secondary and are in the unspecified malignant result s neoplasm of lymph section. nodes of multiple regions, not otherwise specified .GLOMERULAR FILTRATION Routine 12/18/2022 3:24 Malignant neopl asm of Results for RATE PM CDT prostate this procedure Secondary and are in the unspecified malignant result s neoplasm of lymph section. nodes of multiple regions, not otherwise specified SERUM CREATININE Routine 12/18/2022 3:24 Malignant neoplasm of Results for PM CDT prostate this procedure Secondary and are in the unspecified malignant result s neoplasm of lymph section. nodes of multiple regions, not otherwise specified ELECTROLYTE PANEL Routine 12/18/2022 3:24 Malignant neoplasm o f Results for PM CDT prostate this procedure Secondary and are in the unspecified malignant result s neoplasm of lymph section. nodes of multiple regions, not otherwise specified BLOOD UREA NITROGEN Routine 12/18/2022 3:24 Malignant neoplasm of Results for PM CDT prostate this procedure Secondary and are in the unspecified malignant result s neoplasm of lymph section. nodes of multiple regions, not otherwise specified GLUCOSE LEVEL Routine 12/18/2022 3:24 Malignant neoplasm of Re sults for PM CDT prostate this procedure Secondary and are in the unspecified malignant result s neoplasm of lymph section. nodes of multiple regions, not otherwise specified MANUAL DIFFERENTIAL Routine 12/18/2022 3:24 Malignant neoplasm of Results for PM CDT prostate this procedure Secondary and are in the unspecified malignant result s neoplasm of lymph section. nodes of multiple regions, not otherwise specified Results CBC Routine 12/18/2022 3:24 Malignant neoplasm of Res ults for PM CDT prostate this procedure Secondary and are in the unspecified malignant result s neoplasm of lymph section. nodes of multiple regions, not otherwise specified LACTATE DEHYDROGENASE Routine 12/18/2022 3:24 Malignant neopla sm of Results for PM CDT prostate this procedure Secondary and are in the unspecified malignant result s neoplasm of lymph section. 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 nodes of multiple regions, not otherwise specified TESTOSTERONE LEVEL Routine 12/18/2022 3:24 Malignant neoplasm of Results for PM CDT prostate this procedure Secondary and are in the unspecified malignant result s neoplasm of lymph section. nodes of multiple regions, not otherwise specified PROSTATE SPECIFIC Routine 12/18/2022 3:24 Malignant neoplasm o f Results for ANTIGEN PM CDT prostate this procedure Secondary and are in the unspecified malignant result s neoplasm of lymph section. nodes of multiple regions, not otherwise specified PHOSPHORUS LEVEL Routine 12/18/2022 3:24 Malignant neoplasm of Results for PM CDT prostate this procedure Secondary and are in the unspecified malignant result s neoplasm of lymph section. nodes of multiple regions, not otherwise specified MAGNESIUM LEVEL Routine 12/18/2022 3:24 Malignant neoplasm of Results for PM CDT prostate this procedure Secondary and are in the unspecified malignant result s neoplasm of lymph section. 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 THYROID STIMULATING Routine 12/09/2022 1:32 Thyroid nodule Res ults for HORMONE PM CDT this procedure are in the results section. VITAMIN D 25 HYDROXY Routine 12/09/2022 1:32 Malignant neoplas m of Results for LEVEL PM CDT prostate this procedure Secondary and are in the unspecified malignant result s neoplasm of lymph section. nodes of multiple regions, not otherwise specified Metastatic adenocarcinoma to bone TESTOSTERONE LEVEL Routine 12/09/2022 1:32 Malignant neoplasm of Results for PM CDT prostate this procedure Secondary and are in the unspecified malignant result s neoplasm of lymph section. nodes of multiple regions, not otherwise specified Metastatic adenocarcinoma to bone PROSTATE SPECIFIC Routine 12/09/2022 1:32 Malignant neoplasm o f Results for ANTIGEN PM CDT prostate this procedure Secondary and are in the unspecified malignant result s neoplasm of lymph section. nodes of multiple regions, not otherwise specified Metastatic adenocarcinoma to bone FRACTIONATED BILIRUBIN Routine 11/02/2022 1:30 Malignant neopl asm of Results for PM NURSERY HELPER prostate this procedure Secondary and are in the unspecified malignant result s neoplasm of lymph section. nodes of multiple regions, not otherwise specified Secondary adenocarcinoma of bone TOTAL PROTEIN Routine 11/02/2022 1:30 Malignant neoplasm of Re sults for PM NURSERY HELPER prostate this procedure Secondary and are in the unspecified malignant result s neoplasm of lymph section. nodes of multiple regions, not otherwise specified Secondary adenocarcinoma of bone ASPARTATE Routine 11/02/2022 1:30 Malignant neoplasm of Res ults for AMINOTRANSFERASE PM NURSERY HELPER prostate this procedure Secondary and are in the unspecified malignant result s neoplasm of lymph section. nodes of multiple regions, not otherwise specified Secondary adenocarcinoma of bone ALANINE Routine 11/02/2022 1:30 Malignant neoplasm of Res ults for AMINOTRANSFERASE PM NURSERY HELPER prostate this procedure Secondary and are in the unspecified malignant result s neoplasm of lymph section. nodes of multiple regions, not otherwise specified Secondary adenocarcinoma of bone ALKALINE PHOSPHATASE Routine 11/02/2022 1:30 Malignant neoplas m of Results for PM NURSERY HELPER prostate this procedure Secondary and are in the unspecified malignant result s neoplasm of lymph section. nodes of multiple regions, not otherwise specified Secondary adenocarcinoma of bone ALBUMIN LEVEL Routine 11/02/2022 1:30 Malignant neoplasm of Re sults for PM NURSERY HELPER prostate this procedure Secondary and are in the unspecified malignant result s neoplasm of lymph section. nodes of multiple regions, not otherwise specified Secondary adenocarcinoma of bone CALCIUM LEVEL TOTAL Routine 11/02/2022 1:30 Malignant neoplasm of Results for PM NURSERY HELPER prostate this procedure Secondary and are in the unspecified malignant result s neoplasm of lymph section. nodes of multiple regions, not otherwise specified Secondary adenocarcinoma of bone .GLOMERULAR FILTRATION Routine 11/02/2022 1:30 Malignant neopl asm of Results for RATE PM NURSERY HELPER prostate this procedure Secondary and are in the unspecified malignant result s neoplasm of lymph section. nodes of multiple regions, not otherwise specified Secondary adenocarcinoma of bone SERUM CREATININE Routine 11/02/2022 1:30 Malignant neoplasm of Results for PM NURSERY HELPER prostate this procedure Secondary and are in the unspecified malignant result s neoplasm of lymph section. nodes of multiple regions, not otherwise specified Secondary adenocarcinoma of bone ELECTROLYTE PANEL Routine 11/02/2022 1:30 Malignant neoplasm o f Results for PM NURSERY HELPER prostate this procedure Secondary and are in the unspecified malignant result s neoplasm of lymph section. nodes of multiple regions, not otherwise specified Secondary adenocarcinoma of bone BLOOD UREA NITROGEN Routine 11/02/2022 1:30 Malignant neoplasm of Results for PM NURSERY HELPER prostate this procedure Secondary and are in the unspecified malignant result s neoplasm of lymph section. nodes of multiple regions, not otherwise specified Secondary adenocarcinoma of bone GLUCOSE LEVEL Routine 11/02/2022 1:30 Malignant neoplasm of Re sults for PM NURSERY HELPER prostate this procedure Secondary and are in the unspecified malignant result s neoplasm of lymph section. nodes of multiple regions, not otherwise specified Secondary adenocarcinoma of bone MANUAL DIFFERENTIAL Routine 11/02/2022 1:30 Malignant neoplasm of Results for PM NURSERY HELPER prostate this procedure Secondary and are in the unspecified malignant result s neoplasm of lymph section. nodes of multiple regions, not otherwise specified Secondary adenocarcinoma of bone Results CBC Routine 11/02/2022 1:30 Malignant neoplasm of Res ults for PM NURSERY HELPER prostate this procedure Secondary and are in the unspecified malignant result s neoplasm of lymph section. nodes of multiple regions, not otherwise specified Secondary adenocarcinoma of bone MD NGS BLOOD CONTROL Routine 11/02/2022 1:30 Malignant neoplas m of Results for PM NURSERY HELPER prostate this procedure Secondary and are in the unspecified malignant result s neoplasm of lymph section. nodes of multiple regions, not otherwise specified Secondary adenocarcinoma of bone TESTOSTERONE LEVEL Routine 11/02/2022 1:30 Malignant neoplasm of Results for PM NURSERY HELPER prostate this procedure Secondary and are in the unspecified malignant result s neoplasm of lymph section. 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 Malignant neoplasm of prostate HEMATOPATHOLOGY BONE Routine 08/02/2022 2:35 Malignant neoplas m of Results for MARROW DIFFERENTIAL PM NURSERY HELPER prostate this pro cedure are in the results section. HEMATOPATHOLOGY BONE Routine 08/02/2022 2:35 Malignant neoplas m of Results for MARROW INTERPRETATION PM NURSERY HELPER prostate this p rocedure are in the results section. AR DIAGNOSTIC BONE Routine 08/02/2022 2:18 Malignant neoplasm of Results for MARROW BIOPSIES & PM NURSERY HELPER prostate this procedure ASPIRATIONS Secondary are in the adenocarcinoma o f bone results Secondary and section. unspecified malignant neoplasm of lymph nodes of multiple regions, not otherwise specified MANUAL DIFFERENTIAL Routine 08/02/2022 12:03 Malignant neoplas m of Results for PM NURSERY HELPER prostate this procedure Secondary are in the adenocarcinoma o f bone results Secondary and section. unspecified malignant neoplasm of lymph nodes of multiple regions, not otherwise specified Results CBC Routine 08/02/2022 12:03 Malignant neoplasm of Re sults for PM NURSERY HELPER prostate this procedure Secondary are in the adenocarcinoma o f bone results Secondary and section. 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 nodes of multiple regions, not otherwise specified Secondary adenocarcinoma of bone NM BONE SCAN WHOLE BODY Routine 08/01/2022 3:23 Malignant neop lasm of Results for PM NURSERY HELPER prostate this procedure are in the results section. APTT Routine 08/01/2022 11:28 Lymphadenopathy Results for AM NURSERY HELPER Abnormal radiologic this pro cedure finding on diagnostic are in the imaging of other results urinary organ section. 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 POC GLUCOSE SCREEN Routine 07/22/2022 10:27 Resul ts for AM NURSERY HELPER this procedure are in the results section. US THYROID Routine 07/15/2022 10:04 Lymphadenopathy Results for AM NURSERY HELPER this procedure are in the results section. MANUAL DIFFERENTIAL Routine 07/14/2022 3:29 Lymphadenopathy Re sults for PM NURSERY HELPER this procedure are in the results section. Results CBC Routine 07/14/2022 3:29 Lymphadenopathy Results f or PM NURSERY HELPER this procedure are in the results section. FRACTIONATED BILIRUBIN Routine 07/14/2022 3:29 Lymphadenopathy Results for PM NURSERY HELPER this procedure are in the results section. TOTAL PROTEIN Routine 07/14/2022 3:29 Lymphadenopathy Results for PM NURSERY HELPER this procedure are in the results section. ASPARTATE Routine 07/14/2022 3:29 Lymphadenopathy Results f or AMINOTRANSFERASE PM NURSERY HELPER this proced ure are in the results section. ALANINE Routine 07/14/2022 3:29 Lymphadenopathy Results f or AMINOTRANSFERASE PM NURSERY HELPER this proced ure are in the results section. ALKALINE PHOSPHATASE Routine 07/14/2022 3:29 Lymphadenopathy R esults for PM NURSERY HELPER this procedure are in the results section. ALBUMIN LEVEL Routine 07/14/2022 3:29 Lymphadenopathy Results for PM NURSERY HELPER this procedure are in the results section. CALCIUM LEVEL TOTAL Routine 07/14/2022 3:29 Lymphadenopathy Re sults for PM NURSERY HELPER this procedure are in the results section. .GLOMERULAR FILTRATION Routine 07/14/2022 3:29 Lymphadenopathy Results for RATE PM NURSERY HELPER this procedure are in the results section. SERUM CREATININE Routine 07/14/2022 3:29 Lymphadenopathy Resul ts for PM NURSERY HELPER this procedure are in the results section. ELECTROLYTE PANEL Routine 07/14/2022 3:29 Lymphadenopathy Resu lts for PM NURSERY HELPER this procedure are in the results section. BLOOD UREA NITROGEN Routine 07/14/2022 3:29 Lymphadenopathy Re sults for PM NURSERY HELPER this procedure are in the results section. GLUCOSE LEVEL Routine 07/14/2022 3:29 Lymphadenopathy Results for PM NURSERY HELPER this procedure are in the results section. PHOSPHORUS LEVEL Routine 07/14/2022 3:29 Lymphadenopathy Resul ts for PM NURSERY HELPER this procedure are in the results section. MAGNESIUM LEVEL Routine 07/14/2022 3:29 Lymphadenopathy Result s for PM NURSERY HELPER this procedure are in the results section. BETA 2 MICROGLOBULIN Routine 07/14/2022 3:29 Lymphadenopathy R esults for PM NURSERY HELPER this procedure are in the results section. PROSTATE SPECIFIC Routine 07/14/2022 3:29 Lymphadenopathy Resu lts for ANTIGEN PM NURSERY HELPER this procedure are in the results section. THYROXINE Routine 07/14/2022 3:29 Lymphadenopathy Results f or PM NURSERY HELPER this procedure are in the results section. THYROID STIMULATING Routine 07/14/2022 3:29 Lymphadenopathy Re sults for HORMONE PM NURSERY HELPER this procedure are in the results section. HEMOGLOBIN A1C Routine 07/14/2022 3:29 Lymphadenopathy Results for PM NURSERY HELPER this procedure are in the results section. HEPATITIS C VIRUS AB Routine 07/14/2022 3:29 Lymphadenopathy R esults for SCREEN W/REFLEX HCV PCR PM NURSERY HELPER this procedure are in the results section. HEPATITIS B CORE Routine 07/14/2022 3:29 Lymphadenopathy Resul ts for ANTIBODY PM NURSERY HELPER this procedure are in the results section. HEPATITIS B SURFACE Routine 07/14/2022 3:29 Lymphadenopathy Re sults for ANTIGEN, SERUM PM NURSERY HELPER this procedur e are in the results section. HEPATITIS B SURFACE Routine 07/14/2022 3:29 Lymphadenopathy Re sults for ANTIBODY, SERUM PM NURSERY HELPER this procedu re are in the results section. APTT Routine 07/14/2022 3:29 Lymphadenopathy Results f or PM NURSERY HELPER this procedure are in the results section. PROTHROMBIN TIME Routine 07/14/2022 3:29 Lymphadenopathy Resul ts for PM NURSERY HELPER this procedure are in the results section. COMPLETE BLOOD COUNT W/ Routine 07/14/2022 3:29 Lymphadenopath y DIFFERENTIAL PM NURSERY HELPER COMPREHENSIVE METABOLIC Routine 07/14/2022 3:29 Lymphadenopath y PANEL PM NURSERY HELPER EKG, 12-LEAD Routine 07/14/2022 Lymphadenopathy (SCHEDULED) OSI CT CHEST ABDOMEN Routine 06/29/2022 9:02 Cancer Resu lts for PELVIS AM CDT this procedure are in the results section. after 05/05/2022 Results (ABNORMAL) POC Glucose Screen (04/27/2023 11:37 PM CDT)Only the most recent of6 resultswithin the time period is included. P athologist Signature POC Glucose 282 (H) 70 - 99 POC [facility] mg/dL Comment: RN Notified Capillary blood samples, e.g. obtained b y fingerstick, may have inaccurate results in patients with decreased peripheral blood flow. All POC Glucose screen test results, inc luding critical values, must be interpreted and evaluated in the context of the patients clinical findings. It is recommended to confirm any questionable test results by core lab methodology. Method description: All results are avery ured using Electrochemistry test methodology. The glucose in the sample mixes with the reagents on the test strip. The reaction produces an electric current. The amount of current produced is proportion al to the glucose concentration in the blood. PO Sample Type Capillary POC [facility] Performing Lab [facility] POC [facility] R Comment: [facility], [address] [place] [address]; Lab Direct or: Belkis Pierson MD; Waived Point of Care Testing - Johanne Hilliard MD Specimen Anatomical Collection Method Collection Time Receive d Time (Source) Location / / Volume Laterality Blood 04/27/2023 11:37 04/27/2023 PM CDT 11:37 PM CDT Jose Kunz MD POCT ORDERABLES - DEVICE Performing Organization Address City/State/ZIP Code Phon e Number POC [facility] Unless otherwise noted, [place] [address] lab tests performed by: Division of Pathology and Laboratory Medicine [address] [place] [address] Guided Kyphoplasty Lumbar (04/27/2023 1:16 PM CDT) Anatomical Region Laterality Modality Spine Computed Tomography Specimen (Source) Anatomical Location Collection Method / Collectio n Time Received Time / Laterality Volume Narrative 04/28/2023 8:38 AM CDT Date of Procedure: 04/27/23 Attending Physician: Chong Kunz MD Principal Account Clerk: Chong Bustos Pre Procedure Diagnosis: Malignant himanshu plasm of prostate; 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, not otherwise specified; Encounter for other preprocedural examination Post Procedure Diagnosis: Unchanged Indication: Back pain with compression fracture rela juli to metastatic disease Title of Procedure: Percutaneous Image-Guided Vertebral Body Augmentation L2, 3, and 4 Radiofrequency Ablation utilizing OsteoC ool system of L2, 3, and 4 Augmentation System: Kyphon Image Guidance: Computerized Tomography Operative Findings: Successful percutaneous image-guided joanne tebral body augmentation L2, 3, and 4 Radiofrequency Ablation utilizing OsteoC ool system of L2, 3, and 4 Consent: The procedure, risks, indicatio ns and alternatives explained. All questions answered and informed consent obtained. I have reviewed the history and physical dictated by the mid-level practitioner/fellow. Sedation/Anesthesia: Anesthesia provided by Anesthesia Department. Insertion site prepped with: Chlorhexadi ne gluconate Procedure in Detail: A timeout performed prior to the start o f the procedure and the correct patient, procedure, presence of consent, and site confirmed with all members of the team. Insertion site prep ped and cleaned with aseptic technique. Sterile devices and equipment used. Doors closed and traffic kept to a minimum during the procedure. Skin prep agent allowed to dry prior to procedure. Maximum sterile monroe ier precautions utilized including sterile gloves, gown, cap, mask and ster ile full body drape. Hand hygiene performed prior to insertion by all pers ons performing/assisting with procedure. Lidocaine 1% used for local anesthesia. Under image guidance, a 10-gauge introducer needles was advanced into the posterior third of the vertebral body via bilateral transpedicular approa ch at L2, L3, and L4. Measuring bone drills were introduced th rough the working cannulas creating a tunnel into the anterior thir d of the vertebral body. After using the measuring bone drills to selec t the appropriate length, one OsteoCool tip length : 15 mm tip Osteo Cool RFA probes was placed through each working cannula, and ablation was p erformed according to the prescribed power and duration parameters under image guidance. Under image guidance, viscous todd ceme nt was injected through the cannulas. A small amount of cement went into the disc space at L1-2 and injection was immediately stopped. Other colmenares, there was no extravasation of cement or significant leakage. The ne edles were then removed without complication. While allowing time for th e cement to stabilize, incisions were dressed in usual fashion. The patie nt was awoken and transported to the PACU in stable baseline condition. Cement volume: 4cc Posterior wall disruption: No Associated Therapy: None Additional Comments: None Estimated Blood Loss: Minimal Specimens Removed: No Disposition: PACU Plan: Will admit to extended recovery for pain control and monitoring. Follow-up in 1-2 weeks with IR. I certify my physical presence at the ti me of the procedure. I personally reviewed the image(s) and the resident's /fellow's interpretation and agree with the written report. 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, not otherwise specified; Encounter for other preprocedural examination Post Procedure Diagnosis: Unchanged Indication: Back pain with compression fracture rela juli to metastatic disease Title of Procedure: Percutaneous Image-Guided Vertebral Body Augmentation L2, 3, and 4 Radiofrequency Ablation utilizing OsteoC ool system of L2, 3, and 4 Augmentation System: Kyphon Image Guidance: Computerized Tomography Operative Findings: Successful percutaneous image-guided joanne tebral body augmentation L2, 3, and 4 Radiofrequency Ablation utilizing OsteoC ool system of L2, 3, and 4 Consent: The procedure, risks, indicatio ns and alternatives explained. All questions answered and informed consent obtained. I have reviewed the history and physical dictated by the mid-level practitioner/fellow. Sedation/Anesthesia: Anesthesia provided by Anesthesia Department. Insertion site prepped with: Chlorhexadi ne gluconate Procedure in Detail: A timeout performed prior to the start o f the procedure and the correct patient, procedure, presence of consent, and site confirmed with all members of the team. Insertion site prep ped and cleaned with aseptic technique. Sterile devices and equipment used. Doors closed and traffic kept to a minimum during the procedure. Skin prep agent allowed to dry prior to procedure. Maximum sterile monroe ier precautions utilized including sterile gloves, gown, cap, mask and ster ile full body drape. Hand hygiene performed prior to insertion by all pers ons performing/assisting with procedure. Lidocaine 1% used for local anesthesia. Under image guidance, a 10-gauge introducer needles was advanced into the posterior third of the vertebral body via bilateral transpedicular approa ch at L2, L3, and L4. Measuring bone drills were introduced th rough the working cannulas creating a tunnel into the anterior thir d of the vertebral body. After using the measuring bone drills to selec t the appropriate length, one OsteoCool tip length : 15 mm tip Osteo Cool RFA probes was placed through each working cannula, and ablation was p erformed according to the prescribed power and duration parameters under image guidance. Under image guidance, viscous todd ceme nt was injected through the cannulas. A small amount of cement went into the disc space at L1-2 and injection was immediately stopped. Other colmenares, there was no extravasation of cement or significant leakage. The ne edles were then removed without complication. While allowing time for th e cement to stabilize, incisions were dressed in usual fashion. The patie nt was awoken and transported to the PACU in stable baseline condition. Cement volume: 4cc Posterior wall disruption: No Associated Therapy: None Additional Comments: None Estimated Blood Loss: Minimal Specimens Removed: No Disposition: PACU Plan: Will admit to extended recovery for pain control and monitoring. Follow-up in 1-2 weeks with IR. I certify my physical presence at the [facility] the procedure. I personally reviewed the image(s) and the resident's /fellow's interpretation and agree with the written report. Chyna Parr ADMISSIONS RN IMG IR ORDERABLES (ABNORMAL) Glucose, Random (04/27/2023 7:52 AM CDT) athologist Signature Glucose Random 228 (H) 70 - 199 [facility] mg/dL [facility] Comment: Effective 03/30/16, the glucose reference intervals have been updated based on [place] [employer] guidelines (Standards of Medical Care in Diabetes 2016. Diabetes Care 2016; 39: S13-S22). Fasting blood glucose: Normal: 70-99 mg/dL Impaired fasting glucose (increased risk for diabetes or pre-diabetes): 100- 125 mg/dL Diabetes mellitus: >/=126 mg/dL Random blood glucose: Normal: 70-199 mg/dL Note: Random glucose >100 mg/dL is assoc iated with increased risk for diabetes Specimen Anatomical Collection Method Collection Time Receive d Time (Source) Location / / Volume Laterality Blood 04/27/2023 7:52 AM 3 8:06 CDT AM CDT [facility] LAB BLOOD ORDERABLES Performing Organization Address City/[facility]/ZIP Code Phon e Number [facility] DIAGNOSTIC Unless otherwise noted, [address] all lab tests performed by: Division of Pathology and Laboratory Medicine [address] [place] [address] Anion Gap (04/27/2023 7:52 AM CDT) athologist Signature Anion Gap 6 4 - 14 [facility] mEq/L DIAGNOSTIC CENTER Specimen Anatomical Collection Method Collection Time Receive d Time (Source) Location / / Volume Laterality Blood 04/27/2023 7:52 AM 3 8:06 CDT AM CDT Steff[facility] LAB BLOOD ORDERABLES Performing Organization Address [facility] Phon e Number [facility] DIAGNOSTIC Unless otherwise noted, [address] all lab tests performed by: Division of Pathology and Laboratory Medicine [address] [place] [address] (ABNORMAL) .Serum Creatinine (04/27/2023 7:52 AM CDT)Only the most recent of10 resultswithin the time period is included. athologist Signature Creatinine 0.62 (L) 0.67 - [facility] 1.17 mg/dL DIAGNOSTIC CENTER Specimen Anatomical Collection Method Collection Time Receive d Time (Source) Location / / Volume Laterality Blood 04/27/2023 7:52 AM 3 8:06 CDT AM CDT Ste[facility] LAB BLOOD ORDERABLES Performing Organization Address City/[facility] Phon e Number [facility] DIAGNOSTIC Unless otherwise noted, [place] [phone] [address] all lab tests performed by: Division of Pathology and Laboratory Medicine [address] [place] [address] (ABNORMAL) .CBC (04/27/2023 7:52 AM CDT)Only the most recent of13 resultswithin the time period is included. Analysis Performed At Patho logist Time Signature WBC 4.2 4.1 - 10.5 [facility] K/uL DIAGNOSTIC CENTER RBC 3.37 (L) 4.30 - [facility] 6.04 M/uL DI[facility] CENTER Hgb 9.8 (L) 13.3 - [facility] 17.4 gm/dL DIAGNOSTIC CENTER Hct 30.0 (L) 39.5 - [facility] 51.8 % DIAG[facility]STIC CENTER MCV 89 82 - 99 fL [facility] DIAGNOSTIC CENTER MCH 29.1 26.6 - [facility] 33.2 pg DIAGNOSTIC CENTER MCHC 32.7 31.1 - [facility] 35.2 gm/dL DIAGNOSTIC CENTER RDW-SD 52.3 (H) 37.5 - [facility] 49.7 fL DIAGNOSTIC CENTER RDW-CV 16.2 (H) 11.6 - [facility] 15.5 % DIAG[facility]IC CENTER Platelet count 113 (L) 160 - 397 [facility] K/uL DIAGNOSTIC CENTER MPV 9.6 9.1 - 12.6 [facility] fL DIAGNOSTIC CENTER INRBC 0.0 0.0 - 0.1 [facility] /100 WBC DIAGNOSTIC CENTER Comment: The INRBC (instrument NRBC) value reflec ts the enumeration of nucleated red blood cells contained i n a 200uL sample of whole blood analyzed by the instrumen t. This value may differ from the NRBC value reported in a manual differential, which is based on a 100 cell differentia l. Specimen Anatomical Collection Method Collection Time Receive d Time (Source) Location / / Volume Laterality Blood 04/27/2023 7:52 AM 7:57 CDT AM CDT Ste[facility] LAB BLOOD ORDERABLES Performing Organization Address City/State/ZIP Code Phon e Number [facility] DIAGNOSTIC Unless otherwise noted, [place] [phone] [place] all lab tests performed by: Division of Pathology and Laboratory Medicine [facility] Clot Expiration Date (04/27/2023 7:52 AM CDT)Only the most recent of7 results within the time period is included. Patholo gist Method Time Signature T & S 04/30/2023 [facility] CANCER [place] Specimen Anatomical Collection Method Collection Time Receive d Time (Source) Location / / Volume Laterality Blood 04/27/2023 7:52 AM 3 8:17 CDT AM CDT Steff[facility] BLOOD BANK TEST ORDERABLES Performing Organization Address City/[facility] Phon e Number [facility] CANCER Unless otherwise noted, [place] [address] [place] all lab tests performed by: Division of Pathology and Laboratory Medicine [address] Glomerular Filtration Rate (04/27/2023 7:52 AM CDT)Only the most recent of10 resultswithin the time period is included. P athologist Signature eGFR 100 >=60 [facility] mL/min/1.73 DIAGNOSTIC sq. m CENTER Comment: The eGFRcr is calculated with the 2020 KD-EPI creatinine equation using creatinine, patient's age, and sex for adults 18 years of age and older. Other factors, especially muscle mass, may affect accuracy and need to be considered. According to the Kidney Disease: Improvi ng Global Outcomes (KDIGO) CKD Work Group 2012 Clinical Practice Guideline, chronic kidney disease (CKD) is defined as the abnormalities of kidney structure or function, present for more than 3 months, with implications for health. CKD should be c lassified by cause, GFR category, and albuminuria category. KDIGO guidelines provide the following GFR categories Stage Description GFR mL/min/1.73 m2 G1* Normal or high >= 90 G2* Mildly decreased 60-89 G3a Mildly to moderately decreased 45-59 G3b Moderately to severely decreased 30- 44 G4 Severely decreased 15-29 G5 Kidney failure <15 *In the absence of evidence of kidney da mage, neither G1 nor G2 fulfill criteria for CKD. Specimen Anatomical Collection Method Collection Time Receive d Time (Source) Location / / Volume Laterality Blood 04/27/2023 7:52 AM 3 8:06 CDT AM CDT Ste[facility] LAB BLOOD ORDERABLES Performing Organization Address City/[facility] Phon e Number [facility] DIAGNOSTIC Unless otherwise noted, [place], [place] [phone] [place] all lab tests performed by: Division of Pathology and Laboratory Medicine [address] [place] [address] TMP Interpretation Antibody Screen Negative (04/27/2023 7:52 AM CDT)Only the most recent of7 resultswithin the time period is included. Patholo gist Method Time Signature TMP Auto Neg At the [facility] Interp [facility], CANCER CENTER patient plasma shows no evidence of RBC alloantibodi es. Comment: MD Yu SIMONS [id number] Dictated by: MD Yu SIMONS Dictated Date/Time: 04.27.2023 13:42 PM CDT Transcribed Date/Time: 04.27.2023 13:42 PM CDT Electronically Signed By: MD Yu SIMONS76 on 04.27.2023 13:42 PM Specimen Anatomical Collection Method Collection Time Receive d Time (Source) Location / / Volume Laterality Blood 04/27/2023 7:52 AM 3 8:17 CDT AM CDT Steff[facility] BLOOD BANK TEST ORDERABLES Performing Organization Address City/State/ZIP Code Phon e Number [facility] Unless otherwise noted, [address] all lab tests performed by: Division of Pathology and Laboratory Medicine [address] [place] [address] ABORh (04/27/2023 7:52 AM CDT)Only the most recent of7 resultswithin the time period is included. P athologist Signature ABORh. A POS [facility] Specimen Anatomical Collection Method Collection Time Receive d Time (Source) Location / / Volume Laterality Blood 04/27/2023 7:52 AM 3 8:17 CDT AM CDT Steffany [facility] BLOOD BANK TEST ORDERABLES Performing Organization Address City/State/[facility] Phon e Number [facility] CANCER Unless otherwise noted, [address] all lab tests performed by: Division of Pathology and Laboratory Medicine [address] [place] [address] (ABNORMAL) Differential (04/27/2023 7:52 AM CDT)Only the most recent of13 resultswithin the time period is included. athologist Signature Neutrophil % 69.1 43.2 - [facility] 72.7 % DIAGNOSTIC CENTER Lymphocyte % 14.9 (L) 16.8 - [facility] 46.2 % DIAGNOSTIC CENTER Monocyte % 9.9 5.1 - 12.5 [facility] % DIAGNOSTIC CENTER Eosinophil % 1.4 0.4 - 6.3 [facility] % DIAGNOSTIC CENTER Basophil % 0.2 0.2 - 1.4 [facility] % DIAGNOSTIC CENTER IGRE % 4.5 (H) 0.1 - 1.5 [facility] % DIAGNOSTIC CENTER Comment: IGRE % count includes Metamyelo cytes, Myelocytes, and Promyelocytes. Neutrophil Abs 2.92 1.95 - 7.25 K/uL [facility] Lymphocyte Abs 0.63 (L) 1.01 - 3.24 K/uL [facility] Monocyte Abs 0.42 0.24 - 0.85 K/[facility]L [facility] Eosinophil Abs 0.06 0.02 - 0.50 K/uL [facility] Basophil Abs 0.01 (L) 0.02 - 0.09 K/uL [facility] IG Abs 0.19 (H) 0.01 - 0.12 K/uL [place] [facility] DORIE Villarreal [facility] Specimen Anatomical Collection Method Collection Time Receive d Time (Source) Location / / Volume Laterality Blood 04/27/2023 7:52 AM 7:57 CDT AM CDT Steff[facility] LAB BLOOD ORDERABLES Performing Organization Address City/State/ZIP Code Phon e Number [facility] DIAGNOSTIC Unless otherwise noted, [place], [place] [phone] CENTER all lab tests performed by: Division of Pathology and Laboratory Medicine [address] (ABNORMAL) Prothrombin Time (04/27/2023 7:52 AM CDT)Only the most recent of4 resultswithin the time period is included. athologist Signature PT 15.7 (H) 11.9 - 14.5 [facility] second(s) CANCER CENTER INR 1.25 (H) 0.87 - 1.12 [facility] Specimen Anatomical Collection Method Collection Time Receive d Time (Source) Location / / Volume Laterality Blood 04/27/2023 7:52 AM 3 7:59 CDT AM CDT Narrative [facility] - 3 9:31 AM CDT This lab cannot be scheduled at the foll owing locations due to collection/proccessing restrictions: [facility] and [facility]. Steffany [facility] LAB BLOOD ORDERABLES Performing Organization Address City/State/ZIP Code Phon e Number [facility] CANCER Unless otherwise noted, [place] [phone] [place] all lab tests performed by: Division of Pathology and Laboratory Medicine [address] [place] [address] Antibody Screen (04/27/2023 7:52 AM CDT)Only the most recent of7 resultswithin the time period is included. athologist Signature ABSC. Negative ABSC [facility] Specimen Anatomical Collection Method Collection Time Receive d Time (Source) Location / / Volume Laterality Blood 04/27/2023 7:52 AM 3 8:17 CDT AM CDT Steffany [facility] BLOOD BANK TEST ORDERABLES Performing Organization Address City/[facility] Phon e Number [facility] CANCER Unless otherwise noted, [address] all lab tests performed by: Division of Pathology and Laboratory Medicine [address] [place], [place] [address] BUN (04/27/2023 7:52 AM CDT)Only the most recent of10 resultswithin the time period is included. athologist Signature BUN 16 6 - 23 [facility] mg/dL DIAGNOSTIC CENTER Specimen Anatomical Collection Method Collection Time Receive d Time (Source) Location / / Volume Laterality Blood 04/27/2023 7:52 AM 3 8:06 CDT AM CDT Steffany [facility] LAB BLOOD ORDERABLES Performing Organization Address City/[facility]/ZIP Code Phon e Number [facility] DIAGNOSTIC Unless otherwise noted, [place], [place] [phone] [place] all lab tests performed by: Division of Pathology and Laboratory Medicine [facility] ([facility]) Sodium Level (04/27/2023 7:52 AM CDT) athologist Signature Sodium Lvl 132 (L) 136 - 145 [facility] mEq/L DIAGNOSTIC CENTER Specimen Anatomical Collection Method Collection Time Receive d Time (Source) Location / / Volume Laterality Blood 04/27/2023 7:52 AM 3 8:06 CDT AM CDT Steff[facility] LAB BLOOD ORDERABLES Performing Organization Address City/[facility]/ZIP [facility] Phon e Number [facility] DIAGNOSTIC Unless otherwise noted, [place] [phone] [place] all lab tests performed by: Division of Pathology and Laboratory Medicine [address] Potassium (04/27/2023 7:52 AM CDT) athologist Signature Potassium Lvl 4.1 3.5 - 5.1 [facility] mEq/L DIAGNOSTIC CENTER Specimen Anatomical Collection Method Collection Time Receive d Time (Source) Location / / Volume Laterality Blood 04/27/2023 7:52 AM 3 8:06 CDT AM CDT Steffany [facility] LAB BLOOD ORDERABLES Performing Organization Address City/[facility] Phon e Number [facility] DIAGNOSTIC Unless otherwise noted, [place], [place] [phone] [place] all lab tests performed by: Division of Pathology and Laboratory Medicine [address] (ABNORMAL) Hemoglobin A1c (04/27/2023 7:52 AM CDT)Only the most recent of3 resultswithin the time period is included. athologist Signature A1C 7.0 (H) 4.3 - 5.6 % [facility] CANCER [place] Comment: HbA1c values >=6.5% are diagnostic of di abetes mellitus. Diagnosis should be confirmed by repeat testing. Therapeutic Action suggested: >8.0% HbA1 c; Goal of therapy: <7.0% HbA1c Specimen Anatomical Collection Method Collection Time Receive d Time (Source) Location / / Volume Laterality Blood 04/27/2023 7:52 AM 3 8:28 CDT AM CDT Steffany [facility] LAB BLOOD ORDERABLES Performing Organization Address City/[facility]/ZIP Code Phon e Number [facility] CANCER Unless otherwise noted, [place] [address] [place] all lab tests performed by: Division of Pathology and Laboratory Medicine [address] Chloride Level (04/27/2023 7:52 AM CDT) P athologist Signature Chloride 100 98 - 107 [facility] mEq/L [facility] Specimen Anatomical Collection Method Collection Time Receive d Time (Source) Location / / Volume Laterality Blood 04/27/2023 7:52 AM 3 8:06 CDT AM CDT Steffany [facility] LAB BLOOD ORDERABLES Performing Organization Address [facility] Phon e Number [facility] DIAGNOSTIC Unless otherwise noted, [address] all lab tests performed by: Division of Pathology and Laboratory Medicine [address] Carbon Dioxide Level (04/27/2023 7:52 AM CDT) athologist Signature CO2 26 22 - 29 [facility] mEq/L [facility] Specimen Anatomical Collection Method Collection Time Receive d Time (Source) Location / / Volume Laterality Blood 04/27/2023 7:52 AM 3 8:06 CDT AM CDT Steffany [facility] LAB BLOOD ORDERABLES Performing Organization Address [facility] Phon e Number [facility] DIAGNOSTIC Unless otherwise noted, [address] all lab tests performed by: Division of Pathology and Laboratory Medicine [address] EKG, 12-Lead (Scheduled) (04/27/2023)Only the most recent of2 resultswithin the time period is included. Specimen (Source) Anatomical Location Collection Method / Collectio n Time Received Time / Laterality Volume Narrative This result has an attachment that is no t available. Steffany [facility] ECG ORDERABLES Performing Organization Address [facility] Phon e Number [facility] Transfuse RBC:Transfusion Date: 04/20/2023 (04/20/2023 2:55 PM CDT)Only the most recent of7 resultswithin the time period is included. 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 ACTIONABLE ITEMS/RECOMMENDATIONS: None. Narrative 04/19/2023 1:32 PM CDT FULL RESULT: Examination: XR SHOULDER 2+ VW RIGHT, XR SCAPULA RIGHT, 04/19/2023 12:23 PM. Clinical History: Malignant neoplasm of prostate Secondary and unspecified malignant neop lasm of lymph nodes of multiple regions, not otherwise specified Indication: worsening right shoulder jet n Comparison: CT chest assessment 12/19/19 and bone scan evaluation 12/19/2022. Technique: XR SHOULDER 2+ VW RIGHT, XR S CAPULA RIGHT Findings: Probably with December bone scan is not sca ttered heterogeneity of the marrow intensity of the visualized the scapula including glenoid and lateral scapular body consistent osseous chronic metastasis. Oste osclerotic metastasis also demonstrated affecting upper thoracic ribs. No lytic change or expansile changes detected. No impending fracture of shoulder detect ed. Mild osteoarthritic changes acromioclavicular joint appear chronic SHOULDER: Expected alignment of the josi ral head with the glenoid. No subluxation or dislocation demonstrated. Acromioclavicular joint intact. SCAPULA: Expected ossification of scapu la with no lytic or blastic process. Acromioclavicular joint intact. Normal articulation of humeral head with glenoid. Procedure Note Alex Mata MD - 04/19/2023Forma tting of this note might be different from the original. FULL RESULT: Examination: XR SHOULDER 2+ VW RIGHT, XR SCAPULA RIGHT, 04/19/2023 12:23 PM. Clinical History: Malignant neoplasm of prostate Secondary and unspecified malignant neop lasm of lymph nodes of multiple regions, not otherwise specified Indication: worsening right shoulder jet n Comparison: CT chest assessment 12/19/19 and bone scan evaluation 12/19/2022. Technique: XR SHOULDER 2+ VW RIGHT, XR S CAPULA RIGHT Findings: Probably with December bone scan is not sca ttered heterogeneity of the marrow intensity of the visualized the scapula including glenoid and lateral scapular body consistent osseous chronic metastasis. Osteosclerotic metastasis also demonstrated affecting u pper thoracic ribs. No lytic change or expansile changes detected. No impending fracture of shoulder detect ed. Mild osteoarthritic changes acromioclavicular joint appear chronic SHOULDER: Expected alignment of the josi ral head with the glenoid. No subluxation or dislocation demonstrated. Acromioclavicular joint intact. SCAPULA: Expected ossification of scapu la with no lytic or blastic process. Acromioclavicular joint intact. Normal articulation of humeral head with glenoid. IMPRESSION: Correlating with bone scan imaging are o steopenic sclerotic/blastic metastatic changes in the right shoulder region with no lytic change or impending fracture appreciated radiographically. ACTIONABLE ITEMS/RECOMMENDATIONS: None. Chyna Parr AG[facility]O IMG DIAGNOSTIC IMAGING ORDER SUSAN XR Scapula Right (04/19/2023 12:23 PM CDT) Anatomical Region Laterality Modality Shoulder, Extremity Digital Radiography Specimen (Source) Anatomical Collection Method Collection Time Re ceived Time Location / / Volume Laterality 04/19/2023 1:28 PM CDT Impressions 04/19/2023 1:32 PM CDT Correlating with bone scan imaging are osteopenic sclerotic/blastic metastatic changes in the right shoulder region with no lytic change or impending fracture appreciated radiographically. ACTIONABLE ITEMS/RECOMMENDATIONS: None. Narrative 04/19/2023 1:32 PM CDT FULL RESULT: Examination: XR SHOULDER 2+ VW RIGHT, XR SCAPULA RIGHT, 04/19/2023 12:23 PM. Clinical History: Malignant neoplasm of prostate Secondary and unspecified malignant neop lasm of lymph nodes of multiple regions, not otherwise specified Indication: worsening right shoulder jet n Comparison: CT chest assessment 12/19/19 and bone scan evaluation 12/19/2022. Technique: XR SHOULDER 2+ VW RIGHT, XR S CAPULA RIGHT Findings: Probably with December bone scan is not sca ttered heterogeneity of the marrow intensity of the visualized the scapula including glenoid and lateral scapular body consistent osseous chronic metastasis. Oste osclerotic metastasis also demonstrated affecting upper thoracic ribs. No lytic change or expansile changes detected. No impending fracture of shoulder detect ed. Mild osteoarthritic changes acromioclavicular joint appear chronic SHOULDER: Expected alignment of the josi ral head with the glenoid. No subluxation or dislocation demonstrated. Acromioclavicular joint intact. SCAPULA: Expected ossification of scapu la with no lytic or blastic process. Acromioclavicular joint intact. Normal articulation of humeral head with glenoid. Procedure Note Alex Mata MD - 04/19/2023Forma tting of this note might be different from the original. FULL RESULT: Examination: XR SHOULDER 2+ VW RIGHT, XR SCAPULA RIGHT, 04/19/2023 12:23 PM. Clinical History: Malignant neoplasm of prostate Secondary and unspecified malignant neop lasm of lymph nodes of multiple regions, not otherwise specified Indication: worsening right shoulder jet n Comparison: CT chest assessment 12/19/19 and bone scan evaluation 12/19/2022. Technique: XR SHOULDER 2+ VW RIGHT, XR S CAPULA RIGHT Findings: Probably with December bone scan is not sca ttered heterogeneity of the marrow intensity of the visualized the scapula including glenoid and lateral scapular body consistent osseous chronic metastasis. Osteosclerotic metastasis also demonstrated affecting u pper thoracic ribs. No lytic change or expansile changes detected. No impending fracture of shoulder detect ed. Mild osteoarthritic changes acromioclavicular joint appear chronic SHOULDER: Expected alignment of the josi ral head with the glenoid. No subluxation or dislocation demonstrated. Acromioclavicular joint intact. SCAPULA: Expected ossification of scapu la with no lytic or blastic process. Acromioclavicular joint intact. Normal articulation of humeral head with glenoid. IMPRESSION: Correlating with bone scan imaging are o steopenic sclerotic/blastic metastatic changes in the right shoulder region with no lytic change or impending fracture appreciated radiographically. ACTIONABLE ITEMS/RECOMMENDATIONS: None. Chyna Parr ADMISSIONS RN IMG DIAGNOSTIC IMAGING ORDER [facility] Add-On Test (04/19/2023 10:40 AM CDT)Only the most recent of3 resultswithin the time period is included. athologist Signature Ordered Test Added [facility] Comment: Test added to accession [id number] 04/19/2023 1:04:34 PM CDT by faheem Test Needed [facility] Specimen Anatomical Collection Method Collection Time Receive d Time (Source) Location / / Volume Laterality Existing 04/19/2023 10:40 04/19/2023 AM CDT 10:40 AM CDT Chyna Parr APRN LAB BLOOD ORDERABLES Performing Organization Address City/State/ZIP Code Phon e Number [facility] CANCER Unless otherwise noted, [address] all lab tests performed by: Division of Pathology and Laboratory Medicine [facility] RBC Product Ready for Shredding Machine Tender (04/19/2023 9:16 AM CDT)Only the most recent of4 resultswithin the time period is included. Analysis Performed At Patho logist Time Signature PRBC Product B2 Blood [facility] for [facility] Comment: Product is ready for curing pickling packer on April 19, 2023 13:35:36 CDT. Specimen Anatomical Collection Method Collection Time Receive d Time (Source) Location / / Volume Laterality Blood 04/19/2023 9:16 AM 9:17 CDT AM CDT Chyna Parr APRN BLOOD BANK PRODUCT ORDERABLE S Performing Organization Address City/State/ZIP Code Phon e Number [facility] CANCER Unless otherwise noted, [address] all lab tests performed by: Division of Pathology and Laboratory Medicine [address] [place] [address] [employer] Prepare RBC:LC, 2 Units (04/19/2023 9:16 AM CDT)Only the most recent of4 results within the time period is included. P athologist Signature PRBC Product 2 [facility] Comment: Red Blood Cells Available - Ord er Form 03 when ready for product issue. Specimen Anatomical Collection Method Collection Time Receive d Time (Source) Location / / Volume Laterality Blood 04/19/2023 9:16 AM 3 9:17 CDT AM CDT Chyna Parr APRN BLOOD BANK PRODUCT ORDERABLE S Performing Organization Address City/State/ZIP Code Phon e Number [facility] CANCER Unless otherwise noted, [address] all lab tests performed by: Division of Pathology and Laboratory Medicine [address] [place] [address] [employer] 3D Dental Imaging (iCAT) (04/19/2023 9:00 AM CDT) Specimen (Source) Anatomical Location Collection Method / Collectio n Time Received Time / Laterality Volume Narrative Systemgenerated, Documentation - 023 9:00 AM CDT This procedure requires no interpretatio n from the radiologist. Vera De La Rosa DDS IMG NON DI ORDERABLES Fractionated Bilirubin (04/19/2023 8:41 AM CDT)Only the most recent of8 results within the time period is included. athologist Signature Bili Total 0.6 <=1.2 mg/dL [facility] Comment: Indocyanine Green (ICG) may cause falsel y elevated bilirubin results. Total and direct bilirubin must not be measured from samples containing indocyanine green. False elevation of total bilirubin can b e seen in patients with IgG concentrations above 28 g/L. Bili Direct 0.2 <=0.3 mg/dL [facility] Comment: Indocyanine Green (ICG) may cau se falsely elevated bilirubin results. Total and direct bilirubin must not be measure d from samples containing indocyanine green. Bili Indirect 0.4 0.0 - 0.9 mg/dL [facility] Specimen Anatomical Collection Method Collection Time Receive d Time (Source) Location / / Volume Laterality Blood 04/19/2023 8:41 AM 3 9:05 CDT AM CDT Chyna Parr APRN LAB BLOOD ORDERABLES Performing Organization Address City/State/ZIP Code Phon e Number [facility] Unless otherwise noted, [place], [place] [address] CENTER all lab tests performed by: Division of Pathology and Laboratory Medicine [facility] [address] TMP Interpretation Crossmatch (04/19/2023 8:41 AM CDT)Only the most recent of4 resultswithin the time period is included. [facility] gist Method Time Signature TMP XM Interp RBC units [place] crossmatched for [facility] transfusion CANCER [facility] acceptable. Comment: YENI HODGE MD - [id number] Dictated by: YENI HODGE MD - [id number] Dictated Date/Time: 04.19.2023 16:04 PM CDT Transcribed Date/Time: 04.19.2023 16:04 PM CDT Electronically Signed By: YENI DE OLIVEIRA MD - [id number] on 04.19.2023 16:04 PM Specimen Anatomical Collection Method Collection Time Receive d Time (Source) Location / / Volume Laterality Blood 04/19/2023 8:41 AM 3 9:25 CDT AM CDT Chyna Parr ADMISSIONS RN BLOOD BANK TEST ORDERABLES Performing Organization Address [facility] Phon e Number [facility] CANCER Unless otherwise noted, [address] all lab tests performed by: Division of Pathology and Laboratory Medicine [address] [place] [address] Vitamin D 25OH (04/19/2023 8:41 AM CDT)Only the most recent of5 resultswithin the time period is included. P athologist Signature Vitamin D 25 OH 46 30 - 100 [facility] ng/mL CAN[facility]ER CENTER Comment: Reference Range: Deficiency: <=20 ng/mL Insufficiency: 21-29 ng/mL Sufficiency: 30-100 ng/mL Potential toxicity: >100 ng/mL Specimen Anatomical Collection Method Collection Time Receive d Time (Source) Location / / Volume Laterality Blood 04/19/2023 8:41 AM 3 9:03 CDT AM CDT Chynaguru Parr ADMISSIONS RN LAB BLOOD ORDERABLES Performing Organization Address [facility] Phon e Number [facility] CANCER Unless otherwise noted, [address] all lab tests performed by: Division of Pathology and Laboratory Medicine [address] [place] [address] [place] ALT (04/19/2023 8:41 AM CDT)Only the most recent of8 resultswithin the time period is included. P athologist Signature ALT 20 <=41 U/L [facility] DIAGNOSTIC CENTER Specimen Anatomical Collection Method Collection Time Receive d Time (Source) Location / / Volume Laterality Blood 04/19/2023 8:41 AM 3 9:05 CDT AM CDT Chynaguru Barnettt ADMISSIONS RN LAB BLOOD ORDERABLES Performing Organization Address City/State/ZIP Code Phon e Number [facility] DIAGNOSTIC Unless otherwise noted, [place] [phone] [place] all lab tests performed by: Division of Pathology and Laboratory Medicine [address] Aspartate Aminotransferase (04/19/2023 8:41 AM CDT)Only the most recent of8 resultswithin the time period is included. athologist Signature AST 19 <=40 U/L [facility] Specimen Anatomical Collection Method Collection Time Receive d Time (Source) Location / / Volume Laterality Blood 04/19/2023 8:41 AM 3 9:05 CDT AM CDT Chyna Keshav ADMISSIONS RN LAB BLOOD ORDERABLES Performing Organization Address City/[facility]/ZIP Code Phon e Number [facility] DIAGNOSTIC Unless otherwise noted, [place] [phone] [place] all lab tests performed by: Division of Pathology and Laboratory Medicine [address] (ABNORMAL) Testosterone Level (04/19/2023 8:41 AM CDT)Only the most recent of7 resultswithin the time period is included. athologist Signature Testoster Tot <3 (L) 193 - 740 [facility] ng/dL CAN[facility]ER CENTER Comment: Reference Ranges: Male: Age 20 - 49 249 - 836 Age >=50 1 93 - 740 Female: Age 20 - 49 8 - 48 Age >=50 3 - 41 Specimen Anatomical Collection Method Collection Time Receive d Time (Source) Location / / Volume Laterality Blood 04/19/2023 8:41 AM 3 9:04 CDT AM CDT Chyna Parr ADMISSIONS RN LAB BLOOD ORDERABLES Performing Organization Address City/[facility]/ZIP Code Phon e Number [facility] CANCER Unless otherwise noted, [place] [address] [place] all lab tests performed by: Division of Pathology and Laboratory Medicine [address] Total Protein (04/19/2023 8:41 AM CDT)Only the most recent of8 resultswithin the time period is included. athologist Signature Total Protein 6.6 6.4 - 8.3 [facility] g/dL DIAGNOSTIC CENTER Specimen Anatomical Collection Method Collection Time Receive d Time (Source) Location / / Volume Laterality Blood 04/19/2023 8:41 AM 3 9:05 CDT AM CDT Chyna Parr APRN LAB BLOOD ORDERABLES Performing Organization Address City/[facility]/ZIP Code Phon e Number [facility] DIAGNOSTIC Unless otherwise noted, [address] all lab tests performed by: Division of Pathology and Laboratory Medicine [address] (ABNORMAL) PSA (04/19/2023 8:41 AM CDT)Only the most recent of7 resultswithin the time period is included. athologist [facility] PSA 2,732.0 0.0 - 4.0 [facility] (H) ng/mL DIAGNOSTIC CENTER Comment: Results greater than 4519 ng/mL may not be reliable due to matrix effect with extended dilution as it exceeds the design engineer marine equipment's recommended limit. Caution should be exercised when interpreting sanon ch values and done in conjunction with clinical context. PSA Indication Diagnostic [facility] DIAGNOSTIC [place] Specimen Anatomical Collection Method Collection Time Receive d Time (Source) Location / / Volume Laterality Blood 04/19/2023 8:41 AM 3 9:05 CDT AM CDT Chyna Wilsondonya ADMISSIONS RN LAB BLOOD ORDERABLES Performing Organization Address City/[facility] Phon e Number [facility] DIAGNOSTIC Unless otherwise noted, [address] all lab tests performed by: Division of Pathology and Laboratory Medicine [address] Phosphorus Level (04/19/2023 8:41 AM CDT)Only the most recent of7 resultswithin the time period is included. [facility] Phosphorus 2.9 2.5 - 4.5 [facility] mg/dL DIAGNOSTIC CENTER Specimen Anatomical Collection Method Collection Time Receive d Time (Source) Location / / Volume Laterality Blood 04/19/2023 8:41 AM 3 9:05 CDT AM CDT Chyna Barnettyvette ADMISSIONS RN LAB BLOOD ORDERABLES Performing Organization Address City/[facility]/ZIP [facility] Phon e Number [facility] DIAGNOSTIC Unless otherwise noted, [address] all lab tests performed by: Division of Pathology and Laboratory Medicine [address] (ABNORMAL) Alkaline Phosphatase (04/19/2023 8:41 AM CDT)Only the most recent of8 resultswithin the time period is included. athologist Signature Alk Phos 2,199 (H) 40 - 129 [facility] U/L DIAGNOSTIC CENTER Specimen Anatomical Collection Method Collection Time Receive d Time (Source) Location / / Volume Laterality Blood 04/19/2023 8:41 AM 3 9:05 CDT AM CDT Chyna Barnettyvette LIZ LAB BLOOD ORDERABLES Performing Organization Address City/[facility]/ZIP Code Phon e Number [facility] DIAGNOSTIC Unless otherwise noted, [place] [phone] [place] all lab tests performed by: Division of Pathology and Laboratory Medicine [address] [facility] Magn[facility] Level (04/19/2023 8:41 AM CDT)Only the most recent of7 resultswithin the time period is included. [facility] Magnesium 2.1 1.6 - 2.6 [facility] mg/dL DIAGNOSTIC [place] Specimen Anatomical Collection Method Collection Time Receive d Time (Source) Location / / Volume Laterality Blood 04/19/2023 8:41 AM 3 9:05 CDT AM CDT Chyna Barnettyvette ADMISSIONS RN LAB BLOOD ORDERABLES Performing Organization Address City/[facility]/ZIP Code Phon e Number [facility] DIAGNOSTIC Unless otherwise noted, [place] [phone] [place] all lab tests performed by: Division of Pathology and Laboratory Medicine [address] (ABNORMAL) LDH (04/19/2023 8:41 AM CDT)Only the most recent of3 resultswithin the time period is included. athologist [facility] LDH 256 (H) 135 - 225 [facility] U/L DIAG[facility]STIC CENTER Comment: Results greater than 1651 U/L m ay not be reliable due to matrix effect with extended dilution as it exceeds the manu facturer's recommended limit. Caution should be exercised when interpreting such valu es and done in conjunction with clinical context. Specimen Anatomical Collection Method Collection Time Receive d Time (Source) Location / / Volume Laterality Blood 04/19/2023 8:41 AM 3 9:55 CDT AM CDT Chyna Parr APRN LAB BLOOD ORDERABLES Performing Organization Address City/State/ZIP Code Phon e Number [facility] DIAGNOSTIC Unless otherwise noted, [place] [phone] [place] all lab tests performed by: Division of Pathology and Laboratory Medicine [address] [place] [address] (ABNORMAL) Glucose Level (04/19/2023 8:41 AM CDT)Only the most recent of9 resultswithin the time period is included. athologist Signature Glucose Level 257 (H) 70 - 99 [facility] mg/dL DIAGNOSTIC CENTER Comment: Effective 03/30/16, the glucose reference intervals have been updated based on [place] [employer] guidelines (Standards of Medical Care in Diabetes 2016. Diabetes Care 2016; 39: S13-S22). Fasting blood glucose: Normal: 70-99 mg/dL Impaired fasting glucose (increased risk for diabetes or pre-diabetes): 100- 125 mg/dL Diabetes mellitus: >/=126 mg/dL Random blood glucose: Normal: 70-199 mg/dL Note: Random glucose >100 mg/dL is assoc iated with increased risk for diabetes Specimen Anatomical Collection Method Collection Time Receive d Time (Source) Location / / Volume Laterality Blood 04/19/2023 8:41 AM 3 9:05 CDT AM CDT Chyna Parr APRN LAB BLOOD ORDERABLES Performing Organization Address City/State/ZIP Code Phon e Number [facility] DIAGNOSTIC Unless otherwise noted, [place] [phone] [place] all lab tests performed by: Division of Pathology and Laboratory Medicine [facility] CEA (04/19/2023 8:41 AM CDT)Only the most recent of2 resultswithin the time period is included. athologist Signature CEA 1.6 <=3.8 ng/mL [facility] CANCER CENTER Comment: Reference Ranges: Smoker: 0.0 - 5.5 Non-Smoker: 0.0 - 3.8 This test is measured by electrochemilum inescence immunoassay on Richar Kayla immunoassay analyzers. Results obtained in different methods are not interchangeable. Specimen Anatomical Collection Method Collection Time Receive d Time (Source) Location / / Volume Laterality Blood 04/19/2023 8:41 AM 3 9:04 CDT AM CDT Chyna Barnettt ADMISSIONS RN LAB BLOOD ORDERABLES Performing Organization Address City/[facility]/ZIP [facility] Phon e Number [facility] CANCER Unless otherwise noted, [place] [address] [place] all lab tests performed by: Division of Pathology and Laboratory Medicine [address] Calcium Level (04/19/2023 8:41 AM CDT)Only the most recent of9 resultswithin the time period is included. athologist Signature Calcium Lvl 9.1 8.4 - 10.2 [facility] mg/dL DIAGNOSTIC CENTER Specimen Anatomical Collection Method Collection Time Receive d Time (Source) Location / / Volume Laterality Blood 04/19/2023 8:41 AM 3 9:05 CDT AM CDT Chyna Deinert ADMISSIONS RN LAB BLOOD ORDERABLES Performing Organization Address [facility] Phon e Number [facility] DIAGNOSTIC Unless otherwise noted, [place] [address] [place] all lab tests performed by: Division of Pathology and Laboratory Medicine [address] Albumin Level (04/19/2023 8:41 AM CDT)Only the most recent of8 resultswithin the time period is included. athologist [facility] Albumin Lvl 4.1 3.5 - 5.2 [facility] gm/dL DIAGNOSTIC CENTER Specimen Anatomical Collection Method Collection Time Receive d Time (Source) Location / / Volume Laterality Blood 04/19/2023 8:41 AM 3 9:05 CDT AM CDT Chyna Deinert ADMISSIONS RN LAB BLOOD ORDERABLES Performing Organization Address City/[facility]/ZIP [facility] Phon e Number [facility] DIAGNOSTIC Unless otherwise noted, [place], [place] [address] [place] all lab tests performed by: Division of Pathology and Laboratory Medicine [address] (ABNORMAL) Electrolyte Panel (04/19/2023 8:41 AM CDT)Only the most recent of9 resultswithin the time period is included. athologist Signature Sodium Lvl 133 (L) 136 - 145 [facility] mEq/L DIAGNOSTIC CENTER Potassium Lvl 3.9 3.5 - 5.1 [facility] mEq/L DIAGNOSTIC CENTER Chloride 100 98 - 107 [facility] mEq/L DIAGNOSTIC CENTER CO2 27 22 - 29 [facility] mEq/L DIAGNOSTIC CENTER Anion Gap 6 4 - 14 [facility] mEq/L DIAGNOSTIC CENTER Specimen Anatomical Collection Method Collection Time Receive d Time (Source) Location / / Volume Laterality Blood 04/19/2023 8:41 AM 3 9:05 CDT AM CDT Chyna Parr APRN LAB BLOOD ORDERABLES Performing Organization Address City/State/ZIP Code Phon e Number [facility] DIAGNOSTIC Unless otherwise noted, [place] [phone] CENTER all lab tests performed by: Division of Pathology and Laboratory Medicine [address] [facility] DXA Bone Density (03/15/2023 7:42 AM CDT) Anatomical Region Laterality Modality Spine Nuclear Medicine Specimen (Source) Anatomical Collection Method Collection Time Re ceived Time Location / / Volume Laterality 03/15/2023 9:38 AM CDT Impressions 03/15/2023 9:56 AM CDT Osteopenia as measured by the left femoral neck. I personally reviewed these image(s) tim perez with the resident's/fellow's interpretations, certify that if a procedure was performed I was physically present, and agree with the final report. Narrative 03/15/2023 9:56 AM CDT FULL RESULT: Examination: Bone Mineral Density (DXA), 03/15/2023 12:00 AM Clinical History: 77-year-old male with metastatic prostate cancer. Indication: Assessment of bone mineral d ensity. Comparison: None. Technique: Bone mineral density was obta ined using Hologic dual-energy X-ray absorptiometry. Findings: The findings are provided in t he below table(s). Bone Density: Region Exam Date BMD T- Z- g/cm2 Score Score AP Spine (L1-L4) 03/15/2023 1. 242 1.4 2.4 Femoral Neck (Left) 03/15/2023 0. 698 -1.7 -0.3 Total Hip (Left) 03/15/2023 1. 018 -0.1 0.8 Femoral Neck (Right) 03/15/2023 0. 793 -1.0 0.4 Total Hip (Right) 03/15/2023 1. 002 -0.2 0.6 For postmenopausal women and men age 50 and over, the World Health Organization criteria for BMD interpreta tion classify patients as: Normal (T-score at or above -1.0), Osteopenia ( T-score between -1.0 and -2.5), or Osteoporosis (T-score at or be low -2.5). Procedure Note Keven Almaraz MD - 03/15/2023Formatting of t his note might be different from the original. FULL RESULT: Examination: Bone Mineral Density (DXA), 03/15/2023 12:00 AM Clinical History: 77-year-old male with metastatic prostate cancer. Indication: Assessment of bone mineral d ensity. Comparison: None. Technique: Bone mineral density was obta ined using Hologic dual-energy X-ray absorptiometry. Findings: The findings are provided in t he below table(s). Bone Density: Region Exam Date BMD T- Z- g/cm2 Score Score AP Spine (L1-L4) 03/15/2023 1.242 1.4 2.4 Femoral Neck (Left) 03/15/2023 0.698 -1.7 -0.3 Total Hip (Left) 03/15/2023 1.018 -0.1 0.8 Femoral Neck (Right) 03/15/2023 0.793 -1.0 0.4 Total Hip (Right) 03/15/2023 1.002 -0.2 0.6 For postmenopausal women and men age 50 and over, the World Health Organization criteria for BMD interpreta tion classify patients as: Normal (T-score at or above -1.0), Osteopenia ( T-score between -1.0 and -2.5), or Osteoporosis (T-score at or be low -2.5). IMPRESSION: Osteopenia as measured by the left femor al neck. I personally reviewed these image(s) tim ng with the resident's/fellow's interpretations, certify that if a procedure was performed I was physically present, and agree with the final report. Chyna Parr APRN IMG DXA ORDERABLES MRI CERVICAL THORACIC LUMBAR SPINE W WO CONTRAST (02/15/2023 12:44 AM CDT) Anatomical Region Laterality Modality Spine, C-spine, T-spine, L-spine Magneti c Resonance Specimen (Source) Anatomical Collection Method Collection Time Re ceived Time Location / / Volume Laterality 02/15/2023 3:00 AM CDT Impressions 02/15/2023 9:45 AM CDT 1. Redemonstration of diffuse osseous metastases most significant for pathologic compression fractures at T2, T4 and T5 levels with mild retropulsion of the posterior cortices and trace epidural compo nents (Bilsky grade 1a) without any evid ence of cord edema. ACTIONABLE FINDINGS/RECOMMENDATIONS: I personally reviewed these image(s) tim perez with the resident's/fellow's interpretations, certify that if a procedure was performed I was physically present, and agree with the final report. Narrative 02/15/2023 9:45 AM CDT FULL RESULT: Examination: MRI CERVICAL THORACIC LUMBA R SPINE W WO CONTRAST, 02/15/2023 12:44 AM. Clinical History: Back pain Indication: Concern for cord compression Comparison: Correlation the bone scan CT CAP 12/18/2022 Technique: MRI of the cervical, thoracic and lumbar spine was performed without and with intravenous contrast. Findings: There is straightening of the cervical lordosis with preservation of the thoracolumbar curvature. There is is diffuse heterogeneous marrow noted within the spine, imaged sacroiliac bones and r ibs. Multiple enhancing osseous lesions and multilevel endplate bowing are noted was prominent at L2, L4 and L5 levels without retropulsion of the posterior cortex into the spinal canal. There is compre ssion fracture noted at T2 level with jesus wing of the posterior cortex into the spinal canal and epidural component effacing the ventral lateral CSF space (Bilsky grade 1A). Similar changes are also noted at the right ventral T4 and T5 levels. Mild degenerative changes are noted with posterior discussed right complexes from C3-C4 through C5-C6 levels slightly indenting the ventral CSF space. Pulmonary a nd intra-abdominal findings are better e valuated on the dedicated CT CAP study. The cord demonstrates normal caliber and T2 signal intensity. The conus terminates at T12-L1 level. There is no evidence of abnormal enhancement along the surface of the cord or cauda equina. Procedure Note Paulette Evans MD - 02/15/2023F ormatting of this note might be different from the original. FULL RESULT: Examination: MRI CERVICAL THORACIC LUMBA R SPINE W WO CONTRAST, 02/15/2023 12:44 AM. Clinical History: Back pain Indication: Concern for cord compression Comparison: Correlation the bone scan CT CAP 12/18/2022 Technique: MRI of the cervical, thoracic and lumbar spine was performed without and with intravenous contrast. Findings: There is straightening of the cervical lordosis with preservation of the thoracolumbar curvature. There is is diffuse heterogeneous marrow noted within the spine, imaged sacroiliac bones and ribs. Multiple enhancing osseous lesions and multilevel endplate bowing are noted was prominent at L2, L4 and L5 levels without retropulsion of the posterior cortex into the spinal canal. There is compression fracture noted at T2 level with bowing of the pos terior cortex into the spinal canal and epidural component effacing the ventral lateral CSF space (Bilsky grade 1A). Similar changes are also noted at the right ventral T4 and T5 levels. Mild degenerative changes are noted with posterior discussed right complexes from C3-C4 through C5-C6 levels slightly indenting the ventral CSF space. Pulmonary and intra-abdominal findings are better evaluated on the dedicated CT CAP study. The cord demonstrates normal caliber and T2 signal intensity. The conus terminates at T12-L1 level. There is no evidence of abnormal enhancement along the surface of the cord or cauda equina. IMPRESSION: 1. Redemonstration of diffuse osseous me tastases most significant for pathologic compression fractures at T2, T4 and T5 levels with mild retropulsion of the posterior cortices and trace epidural components (Bilsky grade 1a) without any evidence o f cord edema. ACTIONABLE FINDINGS/RECOMMENDATIONS: I personally reviewed these image(s) tim chris with the resident's/fellow's interpretations, certify that if a procedure was performed I was physically present, and agree with the final report. Flaquita Decker MD IMG MRI ORDERABLES (ABNORMAL) Urinalysis Microscopic Exam (02/14/2023 10:25 PM CDT) athologist Signature UA WBC 1 0 - 2 /HPF [facility] Comment: Some reporting parameters within the Uri nalysis test have changed due to the implementation of new instrumentation in the [facility], allowing greater sensitivity of measurement. Urinalysis results rep orted by the [facility] using existing instrumentation, as well as Urinalysis t esting performed manually or by backup methodology at the [facility] will remain relatively unchanged. New reporting parameters and units will not be reported for all campuses. UA RBC 1 0 - 2 /HPF [facility] UA Mucous NOT SEEN Not Seen-Trace /HPF [place] [facility] UA Bacteria 1+ (A) NOT SEEN /HPF [facility] UA Squam Epi NOT SEEN None-Occasional /HPF [facility] Specimen Anatomical Collection Method Collection Time Receive d Time (Source) Location / / Volume Laterality Urine 02/14/2023 10:25 02/14/2023 PM CDT 10:32 PM CDT Yves Lester MD LAB BLOOD ORDERABLES Performing Organization Address City/State/ZIP Code Phon e Number [facility] Unless otherwise noted, [address] all lab tests performed by: Division of Pathology and Laboratory Medicine [address] (ABNORMAL) Urinalysis w/Microscopic if Indicated (02/14/2023 10:25 PM CDT) [facility] Method Time Signature UA Color Straw [place] [facility] UA Appear Hazy (A) Clear [facility] UA Glucose NEG NEG mg/dL [facility] UA Bili NEG NEG [facility] UA Ketones NEG NEG mg/dL [facility] UA Spec Grav 1.011 1.003 - [facility] [[email or web address]] 1.035 [facility] UA Blood NEG NEG [facility] UA pH 7.0 5.0 - 9.0 [facility] UA Protein NEG NEG mg/dL [facility] UA Urobilinogen NEG NEG [facility] UA Nitrite NEG NEG [facility] UA Leuk Est NEG NEG [facility] Specimen Anatomical Collection Method Collection Time Receive d Time (Source) Location / / Volume Laterality Urine 02/14/2023 10:25 02/14/2023 PM CDT 10:32 PM CDT Yves Lester MD URINE ORDERABLES Performing Organization Address City/State/ZIP Code Phon e Number [facility] Unless otherwise noted, [address] all lab tests performed by: Division of Pathology and Laboratory Medicine [address] [employer] (ABNORMAL) Urine Culture (02/14/2023 10:25 PM CDT) [facility] Method Time Signature Final Report <10,000 cfu/ml Normal site isis present. [place] Generally of low significance. [place] Correlate with clinical data and culture history. [facility]ER CENTER (A) Specimen Anatomical Collection Method Collection Time Receive d Time (Source) Location / / Volume Laterality Urine 02/14/2023 10:25 02/14/2023 PM CDT 11:26 PM CDT Yves Lester MD MICROBIOLOGY - GENERAL ORDER SUSAN Performing Organization Address City/State/ZIP Code Phon e Number [facility] Unless otherwise noted, [address] all lab tests performed by: Division of Pathology and Laboratory Medicine [address] [facility] [place] Confirm ABORh (02/14/2023 7:51 PM CDT) P athologist Signature ABORh Confirm. A POS [facility] Specimen Anatomical Collection Method Collection Time Receive d Time (Source) Location / / Volume Laterality Blood 02/14/2023 7:51 PM 8:40 CDT PM CDT Flaquita Decker MD BLOOD BANK TEST ORDERABLES Performing Organization Address City/[facility]/ZIP Code Phon e Number [facility] Unless otherwise noted, [address] all lab tests performed by: Division of Pathology and Laboratory Medicine [facility]5 [address] [place] XR Hip 2 or 3 Views w Pelvis Right (02/14/2023 6:44 PM CDT) Anatomical Region Laterality Modality Hip, Extremity Digital Radiography Specimen (Source) Anatomical Collection Method Collection Time Re ceived Time Location / / Volume Laterality 02/14/2023 6:55 PM CDT Impressions 02/14/2023 6:59 PM CDT 1. Extensive blastic bone metastases. 2. No acute or impending pathologic fr acture. 3. 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 Narrative 02/14/2023 6:59 PM CDT FULL RESULT: Examination: XR Right Hip, Including Pel vis, 3 Views, 02/14/2023 6:44 PM. Clinical History: Prostate cancer. Indication: Right hip pain. Comparison: None. Technique: AP pelvis, and AP and frog-le g lateral views of right hip, 02/14/2023 Findings: Generalized osteoporosis is present. Diffuse blastic bone metastases are seen throughout the pelvis, visualized lower lumbosacral spine and bilateral proximal femurs. Osteoarthritis with disc space narrowing and eburnation along the pincer-type femoroacetabular impingement is seen in the right hip. The left hip is intact. Procedure Note Juan Luis Alexis MD - 02/14/2023Formatti ng of this note might be different from the original. FULL RESULT: Examination: XR Right Hip, Including Pel vis, 3 Views, 02/14/2023 6:44 PM. Clinical History: Prostate cancer. Indication: Right hip pain. Comparison: None. Technique: AP pelvis, and AP and frog-le g lateral views of right hip, 02/14/2023 Findings: Generalized osteoporosis is present. Diffuse blastic bone metastases are seen throughout the pelvis, visualized lower lumbosacral spine and bilateral proximal femurs. Osteoarthritis with disc space narrowing and eburnation along the pincer-type femoroacetabular impingement is seen in the right hip. The left hip is intact. IMPRESSION: 1. Extensive blastic bone metastases. 2. No acute or impending pathologic frac ture. 3. Osteoarthritis and femoroacetabular i mpingement in the right hip. Yves Lester MD IMG DIAGNOSTIC IMAGING ORDER SUSAN aPTT (02/14/2023 5:18 PM CDT)Only the most recent of3 resultswithin the time period is included. P athologist Signature aPTT 29.1 24.1 - 35.5 [place] [facility](s) [facility] CENTER Specimen Anatomical Collection Method Collection Time Receive d Time (Source) Location / / Volume Laterality Blood 02/14/2023 5:18 PM 3 5:40 CDT PM CDT Yves Lester MD LAB BLOOD ORDERABLES Performing Organization Address City/State/ZIP Code Phon e Number [facility] Unless otherwise noted, [place] [address] [address] all lab tests performed by: Division of Pathology and Laboratory Medicine [address] [place] [address] Bone Scan Whole Body (12/19/2022 10:21 AM CDT)Only the most recent of2 resultswithin the time period is included. Anatomical Region Laterality Modality Whole Body Nuclear Medicine Specimen (Source) Anatomical Collection Method Collection Time Re ceived Time Location / / Volume Laterality 12/19/2022 10:31 AM CDT Impressions 12/19/2022 11:09 AM CDT Extensive osseous metastatic disease within the axial and appendicular skeleton with some increase in the extent of activity, compatible with disease progression. I personally reviewed these image(s) tim ng with the resident's/fellow's interpretations, certify that if a procedure was performed I was physically present, and agree with the final report. Narrative 12/19/2022 11:09 AM CDT FULL RESULT: Examination: Whole-Body Bone Scan, 2022 10:21 AM Clinical History: 77-year-old male with metastatic prostate carcinoma Indication: Reevaluation of osseous meta stases Comparison: Bone scan from 08/01/[address] chest, abdomen and pelvis without contrast 12/18/2022 Technique: Following the intravenous adm inistration of 21.9 mCi of technetium- 99m MDP, anterior and posterior delayed whole body planar images were acquired. Findings: Redemonstrated is extensive foci of abno rmal radiotracer uptake within the axial and appendicular skeleton. Involved sites include the bilateral humeri, sternum, bilateral ribs, spine, pelvic bones, pro ximal bilateral femurs. Although many of the lesions appear stable, there are many sites which show increasing extent of activity, illustrated at the posterior skull and posterior ribs. Physiologic tracer uptake within the evelyne dder. Procedure Note Krystyna eMza MD - 12/19/2022 FULL RESULT: Examination: Whole-Body Bone Scan, 2022 10:21 AM Clinical History: 77-year-old male with metastatic prostate carcinoma Indication: Reevaluation of osseous meta stases Comparison: Bone scan from 08/01/[address] chest, abdomen and pelvis without contrast 12/18/2022 Technique: Following the intravenous adm inistration of 21.9 mCi of technetium- 99m MDP, anterior and posterior delayed whole body planar images were acquired. Findings: Redemonstrated is extensive foci of abno rmal radiotracer uptake within the axial and appendicular skeleton. Involved sites include the bilateral humeri, sternum, bilateral ribs, spine, pelvic bones, proximal bilateral femurs. Although many of the lesions gwendolyn ear stable, there are many sites which show increasing extent of activity, illustrated at the posterior skull and posterior ribs. Physiologic tracer uptake within the evelyne dder. IMPRESSION: Extensive osseous metastatic disease wit hin the axial and appendicular skeleton with some increase in the extent of activity, compatible with disease progression. I personally reviewed these image(s) tim perez with the resident's/fellow's interpretations, certify that if a procedure was performed I was physically present, and agree with the final report. Chyna Parr ADMISSIONS RN IMG NM ORDERABLES CT Chest Abdomen Pelvis without Contrast (12/18/2022 6:25 PM CDT) Anatomical Region Laterality Modality Abdomen, Pelvis, Chest Computed Tomograp hy Specimen (Source) Anatomical Collection Method Collection Time Re ceived Time Location / / Volume Laterality 12/19/2022 8:25 AM CDT Impressions 12/19/2022 9:16 AM CDT Increased sclerotic changes throughout t he bones, to be correlated with pending bone scan. See discussion above. Abdominopelvic lymphadenopathy demonstra jaqueline response to therapy. Multinodular thyroid gland was previousl y evaluated sonographically; consider repeat ultrasound with tissue sampling, if indicated. New small likely postinflammatory change s in the lungs with background mild pulmonary emphysema; chest CT follow-up suggested in 3 months. A few mediastinal nodes demonstrate mild interval enlargement, to be followed for reactive versus metastatic change. Prominent Schmorl's nodes have developed with associated central mild to moderate compression deformities in the lumbar spine. Narrative 12/19/2022 9:16 AM CDT Examination: CT CHEST ABDOMEN PELVIS W O CONTRAST, 12/18/2022 6:25 PM. Clinical History: Malignant neoplasm o f prostate. Indication: Restaging. Comparison: Outside hospital CT chest abdomen pelvis 06/29/2022. Technique: CT CHEST ABDOMEN PELVIS WO CONTRAST. Findings: The examination is limited without admin istration of IV contrast. [Chest] No suspicious pulmonary nodule, consolid ation or effusion. A few small scattered pulmonary micronod ules be followed. Diffuse peribronchial thickening again n oted with mild pulmonary emphysema. A few small groundglass regions compatib le with postinflammatory change will be followed such as in the left lower lobe on image 78 of series 301 and in the right lower lobe on image 97. Possibly reactive slight enlargement of 0.8 cm paraesophageal node on image 87 of series 301 adjacent to new suspected postinflammatory lung change, increased subcarinal nodes such as 1.1 cm node on gaviota ge 65 and mild enlargement of 1.1 cm rig ht lower paratracheal node on image 49 will be followed. No other enlarging lymph nodes identifie d. Shotty bilateral perihilar nodes redemon strated. Multinodular thyroid gland redemonstrate d. Trace gastroesophageal reflux noted. Low-density cardiac blood pool suggestin g anemia. Scattered coronary artery calcifications are present. Attenuated size of left subclavian artery redemonstrated. [Abdomen/Pelvis] The overall prostate size is within norm al limits; repeat MRI, if needed, to reassess local extension of prostate cancer. No suspicious lesion in the other solid organs. The pelvic and retroperitoneal lymphaden opathy has decreased; for example, the 0.7 cm left obturator node on image 245 of series 301 was previously 1.3 cm. The gallbladder is unremarkable. No biliary dilatation, ascites or bowel obstruction. Unchanged bilateral pelvicaliectasis of the renal collecting systems. Unremarkable appendix. [Bones] Increased sclerotic lesions are noted th roughout the bones, to be correlated with pending bone scan. Much of this change may relate to healing, however, rising serum PSA is noted since 11/02/2022, but n o imaging is available for comparison on 11/02/2022. Initial healing process with subsequent worsening is possible. Prominent Schmorl's nodes have developed with associated central mild to moderate compression deformities noted in the lumbar spine. Procedure Note Dave Cardenas MD - 12/19/2022Formatt ing of this note might be different from the original. Examination: CT CHEST ABDOMEN PELVIS WO CONTRAST, 12/18/2022 6:25 PM. Clinical History: Malignant neoplasm of prostate. Indication: Restaging. Comparison: Outside hospital CT chest ab domen pelvis 06/29/2022. Technique: CT CHEST ABDOMEN PELVIS WO CO NTRAST. Findings: The examination is limited without admin istration of IV contrast. [Chest] No suspicious pulmonary nodule, consolid ation or effusion. A few small scattered pulmonary micronod ules be followed. Diffuse peribronchial thickening again n oted with mild pulmonary emphysema. A few small groundglass regions compatib le with postinflammatory change will be followed such as in the left lower lobe on image 78 of series 301 and in the right lower lobe on image 97. Possibly reactive slight enlargement of 0.8 cm paraesophageal node on image 87 of series 301 adjacent to new suspected postinflammatory lung change, increased subcarinal nodes such as 1.1 cm node on image 65 and mild enlargement of 1.1 cm right lower p aratracheal node on image 49 will be followed. No other enlarging lymph nodes identifie d. Shotty bilateral perihilar nodes redemon strated. Multinodular thyroid gland redemonstrate d. Trace gastroesophageal reflux noted. Low-density cardiac blood pool suggestin g anemia. Scattered coronary artery calcifications are present. Attenuated size of left subclavian artery redemonstrated. [Abdomen/Pelvis] The overall prostate size is within norm al limits; repeat MRI, if needed, to reassess local extension of prostate cancer. No suspicious lesion in the other solid organs. The pelvic and retroperitoneal lymphaden opathy has decreased; for example, the 0.7 cm left obturator node on image 245 of series 301 was previously 1.3 cm. The gallbladder is unremarkable. No biliary dilatation, ascites or bowel obstruction. Unchanged bilateral pelvicaliectasis of the renal collecting systems. Unremarkable appendix. [Bones] Increased sclerotic lesions are noted th roughout the bones, to be correlated with pending bone scan. Much of this change may relate to healing, however, rising serum PSA is noted since 11/02/2022, but no imaging is available for comparison on 0 11/02/2022. Initial healing process with subsequent worsening is possible. Prominent Schmorl's nodes have developed with associated central mild to moderate compression deformities noted in the lumbar spine. IMPRESSION: Increased sclerotic changes throughout t he bones, to be correlated with pending bone scan. See discussion above. Abdominopelvic lymphadenopathy demonstra jaqueline response to therapy. Multinodular thyroid gland was previousl y evaluated sonographically; consider repeat ultrasound with tissue sampling, if indicated. New small likely postinflammatory change s in the lungs with background mild pulmonary emphysema; chest CT follow-up suggested in 3 months. A few mediastinal nodes demonstrate mild interval enlargement, to be followed for reactive versus metastatic change. Prominent Schmorl's nodes have developed with associated central mild to moderate compression deformities in the lumbar spine. Chyna Parr APRN IMG CT ORDERABLES TSH (12/09/2022 1:32 PM CDT)Only the most recent of2 resultswithin the time period is included. athologist Signature TSH 3.30 0.27 - 4.20 [facility] mcunit/mL Comment: Note: New Methodology and Reference Ra nge change effective 12/21/2017 at 1400 Testing Performed at [facility] Lab [facility] [employer], [address], [address], [place] [address] Specimen Anatomical Collection Method Collection Time Receive d Time (Source) Location / / Volume Laterality Blood 12/09/2022 1:32 PM 3 2:11 CDT PM CDT Samantha Rosario MD LAB BLOOD ORDERABLES Performing Organization Address City/State/ZIP Code Phon e Number [facility] [address] [address] [address] T4 Free (12/09/2022 1:32 PM CDT) athologist Signature T4 Free 1.04 0.93 - 1.70 [facility] ng/dL Comment: Testing Performed at [facility] Lab [facility], [address], [address], [place] [address] Specimen Anatomical Collection Method Collection Time Receive d Time (Source) Location / / Volume Laterality Blood 12/09/2022 1:32 PM 3 2:11 CDT PM CDT Samantha Rosario MD LAB BLOOD ORDERABLES Performing Organization Address City/State/ZIP Code Phon e Number [facility] [address] [place] [address]. [place] [address] [address] NGS Blood Control (11/02/2022 1:30 PM NURSERY HELPER) athologist Signature Molecular Yes [facility] Diagnostics CANCER CENTER (Received) Specimen Anatomical Collection Method Collection Time Receive d Time (Source) Location / / Volume Laterality Blood 11/02/2022 1:30 PM 3 1:29 NURSERY HELPER PM NURSERY HELPER Chyna Parr APRN MDA IP HP MOLECULAR DIAG IF ORDERABLES Performing Organization Address City/State/ZIP Code Phon e Number [facility] CANCER Unless otherwise noted, [place] [address] CENTER all lab tests performed by: Division of Pathology and Laboratory Medicine [address] [place] [address] MRI Pelvis with and without Contrast (08/02/2022 5:48 PM NURSERY HELPER) Anatomical Region Laterality Modality Pelvis Magnetic Resonance Specimen (Source) Anatomical Collection Method Collection Time Re ceived Time Location / / Volume Laterality 08/03/2022 8:16 AM NURSERY HELPER Impressions 08/03/2022 12:45 PM NURSERY HELPER OVERALL PI-RADS category: 5. 1. Diffuse prostate carcinoma spanning the base to apex with left extracapsular extension and invasion of bilateral seminal vesicles. 2. Bilateral pelvic lymphadenopathy. 3. Diffuse osseous metastases in the l umbar spine, bony pelvis, and bilateral femora. I personally reviewed these image(s) tim perez with the resident's/fellow's interpretations, certify that if a procedure was performed I was physically present, and agree with the final report. Narrative 08/03/2022 12:45 PM NURSERY HELPER FULL RESULT: Examination: MRI PELVIS W WO CONTRAST, 1 10/02/2021 5:48 PM. Clinical History: 77-year-old male with history of no prior malignancy until May 2022 when he developed low back pain and decreased strength in the lower extremities. CT abdomen and pelvis without contrast demonstrated numerous retroper itoneal lymph nodes and sclerotic bone metastases. History of enlarged prostate and elevated PSA for over 20 years prior prostate biopsies were reportedly negative for malignancy. PSA: 3830 ng/mL on 08/03/2022. Indication: Prostate cancer, primary, ne wly dx cancer with elevated PSA Comparison: PET/CT dated 07/22/2022 and nuclear medicine bone scan dated 08/01/2022. Technique: Prostate MRI acquired at 3 T with an endorectal coil. Three-plane localizer, axial T1W and axial DWI with ADC reconstruction of the pelvis were performed. Three plane T2W, axial T1W, and ax ial DWI with ADC reconstruction of the p rostate were performed. Axial dynamic contrast-enhanced images were acquired of the prostate. Image quality: Acceptable. Motion artifa ct: Mild. Findings: Prostate measurement (3-plane): 4.9 x 3. 3 x 5.4 cm (transverse by AP by craniocaudal). Hemorrhage: None Benign prostatic hypertrophy: Mild There is diffuse infiltrating tumor invo lving the prostate from the base to the apex with notable extracapsular extension along the left lateral base (10/15) with marked restricted diffusion (950/45) in the left peripheral zone at the level of the base. There is left neurovascular bundle invas ion: (series 07/20-14). There is extracapsular extension posteri roman (03/21-13) with extension into the bilateral seminal vesicles (7/8; 6/10). The prostate demonstrates diffuse abnorm al contrast enhancement on series 15, image 476 and 540. Lesion overall PI-RADS Category: 5. Lymphadenopathy: There is a 1.1 cm left obturator lymph node (4/) and a 1 cm right obturator lymph node (4/), in keeping with metastases. There are prominent mesorectal nodes (02/18-5) and a left pel sarah node anterior to the bladder, best s een on the sagittal projection (02/06) measuring up to 1.5 cm x 0.8 cm. No clear involvement of the distal sphin cter, or rectum. The tumor abuts the anterior rectal wall (07/23 and -); however, evaluation is suboptimal due to motion. No definite invasion is identified. The tumor bulges into the urinary bladde r without definite invasion. Bone lesions: Diffuse osseous metastases involving the lumbar spine, pelvis and bilateral femora. Other: Trabeculation of the bladder, lik oscar secondary to chronic bladder outlet obstruction. Procedure Note Angelina Aguiar MD - 08/03/2022Formatti ng of this note might be different from the original. FULL RESULT: Examination: MRI PELVIS W WO CONTRAST, 1 10/02/2021 5:48 PM. Clinical History: 77-year-old male with history of no prior malignancy until May 2022 when he developed low back pain and decreased strength in the lower extremities. CT abdomen and pelvis without contrast demonstrated numerous retroperitoneal ly mph nodes and sclerotic bone metastases. History of enlarged prostate and elevated PSA for over 20 years prior prostate biopsies were reportedly negative for malignancy. PSA: 3830 ng/mL on 08/03/2022. Indication: Prostate cancer, primary, ne wly dx cancer with elevated PSA Comparison: PET/CT dated 07/22/2022 and nuclear medicine bone scan dated 08/01/2022. Technique: Prostate MRI acquired at 3 T with an endorectal coil. Three-plane localizer, axial T1W and axial DWI with ADC reconstruction of the pelvis were performed. Three plane T2W, axial T1W, and axial DWI with ADC reconstruction of the prostate were performed. Axial dynamic contrast- enhanced images were acquired of the prostate. Image quality: Acceptable. Motion artifa ct: Mild. Findings: Prostate measurement (3-plane): 4.9 x 3. 3 x 5.4 cm (transverse by AP by craniocaudal). Hemorrhage: None Benign prostatic hypertrophy: Mild There is diffuse infiltrating tumor invo lving the prostate from the base to the apex with notable extracapsular extension along the left lateral base (10/15) with marked restricted diffusion (950/45) in the left peripheral zone at the level of the base . There is left neurovascular bundle invas ion: (series 11/16-14). There is extracapsular extension posteri roman (/18-13) with extension into the bilateral seminal vesicles (7/8; 6/10). The prostate demonstrates diffuse abnorm al contrast enhancement on series 15, image 476 and 540. Lesion overall PI-RADS Category: 5. Lymphadenopathy: There is a 1.1 cm left obturator lymph node (4/23) and a 1 cm right obturator lymph node (4/21), in keeping with metastases. There are prominent mesorectal nodes (6/17-5) and a left pelvic node anterior to the bladder, best seen on the sagittal p rojection (6/5) measuring up to 1.5 cm x 0.8 cm. No clear involvement of the distal sphin cter, or rectum. The tumor abuts the anterior rectal wall (/ and 23-25); however, evaluation is suboptimal due to motion. No definite invasion is identified. The tumor bulges into the urinary bladder without definite invasion. Bone lesions: Diffuse osseous metastases involving the lumbar spine, pelvis and bilateral femora. Other: Trabeculation of the bladder, lik oscar secondary to chronic bladder outlet obstruction. IMPRESSION: OVERALL PI-RADS category: 5. 1. Diffuse prostate carcinoma spanning t he base to apex with left extracapsular extension and invasion of bilateral seminal vesicles. 2. Bilateral pelvic lymphadenopathy. 3. Diffuse osseous metastases in the lum bar spine, bony pelvis, and bilateral femora. I personally reviewed these image(s) tim ng with the resident's/fellow's interpretations, certify that if a procedure was performed I was physically present, and agree with the final report. Chyna Parr [facility] MRI ORDERABLES Hematopathology Bone Marrow Interpretation (08/02/2022 2:35 PM NURSERY HELPER) Component Value Ref Test Analysis Performed Pathologis t Range Method Time At Signature Diagnosis Bone marrow, right posterior iliac crest, biopsy, clot section, aspirate smears and touch imprints: 08/04/2022 [facility] Electronically 1:01 PM signed by Jemma METASTATIC CARCINOMA, CONSIS TENT WITH PROSTATIC PRIMARY, EXTENSIVELY INVOLVING BONE MARROW (SEE COMMENT) NURSERY HELPER Zachary woodard MD on 08/04/2022 at Unremarkable trilineage maturation identified 1:01 PM Comment Immunohistochemical stains w ere performed on sections of the biopsy and show that the metastatic tumor cells are positive for cytokeratin and prostate specific antigen (PSA). 08/04/2022 [facility] 1:01 PM According to the clinical hi story, the patient presented in May 2022 developed low back pain and decreased strength in lower extremities. The patient also has a history of enlarged prostate with e NURSERY HELPER levated prostate specific an tigen levels for over 20 years but has not been diagnosed with prostatic carcinoma on previous prostatic biopsies (these biopsies have not been reviewed at [facility]). Microscopic BONE MARROW BIOPSY 08/04/2022 [facility] Description 1:01 PM Quality: Subcortical NURSERY HELPER Cellularity: 80-90% Megakaryocytes: Focally present, unremarkable morphology Infiltrate: Atypical glandul ar infiltrate consistent with metastatic carcinoma in a background of fibrosis and osteosclerosis, replacing approximately 80% of the medullary space BONE MARROW CLOT Quality: No particles, insufficient for evaluation BONE MARROW SMEARS Quality: No particles, markedly hypocellular and hemodiluted BONE MARROW TOUCH IMPRINT Quality: Hypocellular however, hematopoietic cells present Granulocytes: Undergoing maturation, generally with unrema rkable morphology Erythrocytes: Undergoing maturation, generally with unrema rkable morphology Megakaryocytes: Intact megakaryocytes are not identified Lymphocytes: Not significantly increased, small and mature-a ppearing Blasts: Not increased Other: Few scattered atypica l cells of intermediate to large size with round nuclei, and abundant clear cytoplasm are identified. The cells are rarely in clusters. The morphologic findings support metastatic tumor cells. Gross B: 08/04/2022 [facility] Description Iliac crest, right posterior, clot 1:0 1 PM Dimensions: 0.3 x 3.0 x 2.5 cm NURSERY HELPER Specimen is entirely submitted in 1. BB C: Iliac crest, right posterior, biopsy Length: 1.7 cm Submitted in a single cassette for decalcification. BB Disclaimer "Some tests reported 08/04/2022 [facility] here may have been 1:01 PM developed and NURSERY HELPER performance characteristics determined by [facility] Pathology and Laboratory Medicine. These tests have not been specifically cleared or approved by the U.S. Food and Drug Administration. If applicable, controls were reviewed and showed appropriate reactivity." Peripheral CBC w/ Differential 08/02/2022 08/04/20 22 [facility] Blood 1:01 PM 4.05 !Low RBC NURSERY HELPER 10.9 !Low HEMOGLOBIN 33.4 !Low HEMATOCRIT 26.9 !Low MEAN CELL HEMOGLOBIN 9.0 !High MONOCYTE % 0.7 !High IGRE % 5.7 WBC 82 MEAN CELL VOLUME 32.6 MEAN CELL HEMOGLOBIN CONCENTRATION 41.4 RDW-SD 13.9 RDW-CV 253 PLATELET COUNT 9.2 MEAN PLATELET VOLUME 0.0 INRBC 59.3 NEUTROPHIL % 27.1 LYMPHOCYTE % 3.4 EOSINOPHIL % 0.5 BASOPHIL % 3.35 NEUTROPHIL ABS 1.53 LYMPHOCYTE ABS 0.51 MONOCYTE ABS 0.19 EOSINOPHIL ABS 0.03 BASOPHIL ABS 0.04 IG ABS Specimen Anatomical Collection Method Collection Time Receive d Time (Source) Location / / Volume Laterality Bone Marrow Collection / 08/02/2022 2:35 PM 2 3:35 (Iliac Crest, Unknown NURSERY HELPER PM NURSERY HELPER Right Posterior, Aspirate) Bone Marrow Collection / 08/02/2022 2:35 PM 2 3:08 (Iliac Crest, Unknown NURSERY HELPER PM NURSERY HELPER Right Posterior, Clot) Bone Marrow 08/02/2022 2:35 PM 2 3:08 (Iliac Crest, NURSERY HELPER PM NURSERY HELPER Right Posterior, Biopsy) Rosa Walden MD LAB PATHOLOGY ORDERABLES Performing Organization Address City/State/ZIP Code Phon e Number [facility] [place] [phone] (ABNORMAL) Hematopathology Bone Marrow Differential (08/02/2022 2:35 PM NURSERY HELPER) Component Value Ref Test Analysis Performed At [facility] gist Range Method Time Signature Method Touch Prep 08/03/2022 [facility] 1:58 PM NURSERY HELPER Adequacy Suboptimal 08/03/2022 [facility] for 1:58 PM NURSERY HELPER evaluation Total cells 300 08/03/2022 [facility] counted 1:58 PM NURSERY HELPER BM Blast % 0 0 - 5 % 08/03/2022 [facility] 1:58 PM NURSERY HELPER BM Progranulocyte 08/03/2022 [facility] % 1:58 PM NURSERY HELPER BM Myelocyte % 4 (L) 5 - 20 % 08/03/2022 [facility] 1:58 PM NURSERY HELPER BM Metamyelocyte % 8 (L) 13 - 32 08/03/2022 [facility] % 1:58 PM NURSERY HELPER BM Granulocyte % 56 (H) 7 - 30 % 08/03/2022 [facility] 1:58 PM NURSERY HELPER BM Eosinophil % 3 0 - 4 % 08/03/2022 [facility] 1:58 PM NURSERY HELPER BM Lymphocyte % 15 3 - 17 % 08/03/2022 [facility] 1:58 PM NURSERY HELPER BM Plasma Cell % 1 0 - 2 % 08/03/2022 [facility] 1:58 PM NURSERY HELPER BM Monocyte % 1 0 - 5 % 08/03/2022 [facility] 1:58 PM NURSERY HELPER BM Reticulum Cell 08/03/2022 [facility] % 1:58 PM NURSERY HELPER BM Pronormoblast % 08/03/2022 [facility] 1:58 PM NURSERY HELPER BM Normoblast % 12 7 - 32 % 08/03/2022 [facility] 1:58 PM NURSERY HELPER BM M:E Ratio 6.0 (H) 3.0 - 08/03/2022 [facility] 4.0 1:58 PM NURSERY HELPER BM Tumor Cell % 08/03/2022 [facility] 1:58 PM NURSERY HELPER Comment: Few scattered tumor cells and r are clusters noted Specimen Anatomical Collection Method Collection Time Receive d Time (Source) Location / / Volume Laterality Bone Marrow Collection / 08/02/2022 2:35 PM 2 3:35 (Iliac Crest, Unknown NURSERY HELPER PM NURSERY HELPER Right Posterior, Aspirate) Narrative [facility] - 08/03/2022 1:58 PM NURSERY HELPER DISCLAIMER Preliminary BM Diff may have been comple juli by a senior medical billing specialist or a hematopathology fellow and is subject to change. Any pathologist updates will be included on interpretation and appear in the f inal result. Please use caution in evalu ating your patient based on preliminary results. Rosa Walden MD LAB PATHOLOGY ORDERABLES Performing Organization Address City/State/ZIP Code Phon e Number [facility] [place] [place] [address] [id number] [facility] [place] DIAGNOSTIC BONE MARROW BIOPSIES & ASPIRATIONS (08/02/2022 2:18 PM NURSERY HELPER) Specimen (Source) Anatomical Location Collection Method / Collectio n Time Received Time / Laterality Volume Bone Marrow Narrative [facility] - 2 2:18 PM NURSERY HELPER BREANA Cuba 08/02/2022 4:55 PM Procedure: Bone marrow aspiration/biopsy Date/Time: 08/02/2022 2:18 PM Provider Information: Performed by: BREANA Cuba Authorized by: Chyna Parr APN Principal Account Clerk present: yes Principal Account Clerk: Lilo Loepz wash driller helper used?: shareholder n ot needed Patient Diagnosis: 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 Post-procedure diagnosis: unchanged Indication: Indication: evaluation of disease status and diagnosis/evaluation of hematopoietic dysfunction Anesthesia: Anesthesia: local infiltration Patient anesthetized by: advanced practi ce provider Local anesthetic: lidocaine 1% without e pinephrine Anesthetic total (ml): 20 Sedation: Patient sedated?: patient not sedated Aspirate Site(s): Laterality: right Site location: posterior iliac crest Instrument(s) used: [place] needle Instruments placed by: advanced practice provider Biopsy Site(s): Laterality: right Site location: posterior iliac crest Instrument(s) used: Sb needle Instruments placed by: advanced practice provider Dressing: Dressing: compression bandage Post-Procedure Patient Assessment: Patient tolerance: fair Estimated blood loss: minimal Complications/Observations: no complicat ions Pre-procedure pain scale: 0/10 Greater than 20ccs of Lidocaine given?: No Post-procedure pain scale: 0/10 Discharge/Disposition: Discharge instructions: verbal, printed discharge instructions given to patient and patient verbalized understan kay Patient discharged to: discharge to home Disposition mode: wheelchair Sample Disposition: Research samples(s): no Aspirate volume obtained (mL) - right: 2 Visual assessment for aspirate specimen adequacy - right: particles Visual assessment for biopsy specimen ad equacy (cm) - right: 1.7 Biopsy specimen integrity - right: fragm ented Comments: Yuko Haddad PA-C performed the entire bone marrow aspiration and biopsy procedure under my supervision. Patient was identified by name, MRN and . Risks and allergies were reviewed. Consent was obtained. The patient tolerated the procedure well. No complic ations. Hemostasis was obtained. Aspiration and biopsy were obtained. Pat ient was instructed to keep the site clean and dry for 48 hours, no show ers or baths. The patient verbalized understanding. Post-care inst ructions were given. Chyna Parr APRN PROCEDURE/MINOR SURGICAL ORD ERABLES Performing Organization Address City/[facility]/ZIP Code Phon e Number [facility] Unless otherwise noted, [address] all lab tests performed by: Division of Pathology and Laboratory Medicine [address] [place] [address] STEPHANIE (08/01/2022 11:28 AM NURSERY HELPER) athologist Signature Stephanie See Note [facility] Comment: Specimen for genetic testing hull s been obtained, processed, and sent out to the reference laboratory. Your care team will contact you when the results are available. Specimen Anatomical Collection Method Collection Time Receive d Time (Source) Location / / Volume Laterality Varies 08/01/2022 11:28 08/01/2022 AM NURSERY HELPER 11:41 AM NURSERY HELPER Narrative This result has an attachment that is no t available. Chyna Parr APRN LAB BLOOD ORDERABLES Performing Organization Address [facility] Code Phon e Number [facility] Unless otherwise noted, [address] all lab tests performed by: Division of Pathology and Laboratory Medicine [address] [place] [address] PETCT Initial Treatment Strategy (07/22/2022 12:23 PM NURSERY HELPER) Anatomical Region Laterality Modality Whole Body Positron Emission To mography (PET) Specimen (Source) Anatomical Collection Method Collection Time Re ceived Time Location / / Volume Laterality 07/27/2022 3:22 PM NURSERY HELPER Impressions 07/27/2022 3:40 PM NURSERY HELPER 1. Heterogeneously FDG uptake throughout the visualized skeleton, suspicious for diffuse osseous metastases. 2. Retroperitoneal and bilateral pelvic lymphadenopathy without abnormal FDG uptake on the PET. Of note, with the patient's high PSA level, such nodes could represent metastatic adenopathy from prostate malignancy. A PSMA PET is recommended t o better characterize the disease. 3. No obvious FDG avid lesion seen in th e prostate gland. MRI pelvis exam could better characterize the prostate malignancy. 4. Bilateral thyroid nodules are not FDG avid. Narrative 07/27/2022 3:40 PM NURSERY HELPER FULL RESULT: Examination: FDG PET/CT, 07/22/2022 12:2 3 PM Clinical History: A 77-year-old male wit h malignant neoplasm of the prostate gland has lymphadenopathy outside CT exam. Indication: To evaluate for metastatic d isease. Comparison: Outside CT chest abdomen and pelvis on 06/29/2022. Technique: F-18 fluorodeoxyglucose (FDG) 8.9 mCi was administered intravenously via right antecubital fossa. To allow for distribution and uptake of radiotracer, the patient was asked to rest quietly for approximately 60-90 minutes. PET/C T imaging was performed from the skull base to mid thighs. CT scanning was done for attenuation correction, image registration, and diagnosis with scan parameters optimized to minimize radiation exposur e to the patient. SUV measurements are reported as maximum SUV based on body weight unless otherwise specified. Findings: HEAD and NECK: Brain is minimally visual ized and not reliably evaluated. Visualized paranasal sinuses are clear. No FDG-avid lesion in the Aerodigestive tract. Physiologic oropharyngeal uptake is seen. Thyroid is enlarged with multiple hypo dense nodules bilaterally, which are not FDG avid on the PET. No obvious FDG avid or pathologically enlarged cervical or supraclavicular node is seen. CHEST: No FDG avid axillary, hilar or me diastinal nodes. No FDG-avid lesion in the lungs. Small punctate pulmonary nodules are seen on the low-dose CT, which are not FDG avid. No pleural or pericardial effusion. Aortic atherosclerosis and cor onary calcifications are seen on CT. No FDG-avid lesion in the chest wall. ABDOMEN and PELVIS: No FDG avid lesion i s seen in the liver, gallbladder, spleen, pancreas, or bilateral adrenal glands. Physiologic FDG excretion in the kidneys with small left hydronephrosis. No focally FDG-avid lesion in the GI tract. Enlarged prostate gland seen on the CT w ith multiple coarse calcifications, which are not FDG avid on the PET. No ascites. No FDG avid abdominal, retro peritoneal or pelvic lymph node is seen. Multiple prominent retroperitoneal and bilateral pelvic lymph nodes are seen on CT without suspicious FDG uptake. MUSCULOSKELETAL: There is heterogeneous FDG uptake throughout the skeleton, which correlate with mixed lytic and sclerotic lesions seen on the CT. For example, the left iliac crest sclerotic lesion measures SUV 4.0 on axial image #190. Procedure Note Garland Ling MD - 07/27/2022 FULL RESULT: Examination: FDG PET/CT, 07/22/2022 12:2 3 PM Clinical History: A 77-year-old male wit h malignant neoplasm of the prostate gland has lymphadenopathy outside CT exam. Indication: To evaluate for metastatic d isease. Comparison: Outside CT chest abdomen and pelvis on 06/29/2022. Technique: F-18 fluorodeoxyglucose (FDG) 8.9 mCi was administered intravenously via right antecubital fossa. To allow for distribution and uptake of radiotracer, the patient was asked to rest quietly for approximately 60-90 minutes. PET/CT imag ing was performed from the skull base to mid thighs. CT scanning was done for attenuation correction, image registration, and diagnosis with scan parameters optimized to minimize radiation exposure to the patient. SUV m easurements are reported as maximum SUV based on body weight unless otherwise specified. Findings: HEAD and NECK: Brain is minimally visual ized and not reliably evaluated. Visualized paranasal sinuses are clear. No FDG-avid lesion in the Aerodigestive tract. Physiologic oropharyngeal uptake is seen. Thyroid is enlarged with multiple hypode nse nodules bilaterally, which are not FDG avid on the PET. No obvious FDG avid or pathologically enlarged cervical or supraclavicular node is seen. CHEST: No FDG avid axillary, hilar or me diastinal nodes. No FDG-avid lesion in the lungs. Small punctate pulmonary nodules are seen on the low-dose CT, which are not FDG avid. No pleural or pericardial effusion. Aortic atherosclerosis and coronary calc ifications are seen on CT. No FDG-avid lesion in the chest wall. ABDOMEN and PELVIS: No FDG avid lesion i s seen in the liver, gallbladder, spleen, pancreas, or bilateral adrenal glands. Physiologic FDG excretion in the kidneys with small left hydronephrosis. No focally FDG-avid lesion in the GI tract. Enlarged prostate gland seen on the CT w ith multiple coarse calcifications, which are not FDG avid on the PET. No ascites. No FDG avid abdominal, retro peritoneal or pelvic lymph node is seen. Multiple prominent retroperitoneal and bilateral pelvic lymph nodes are seen on CT without suspicious FDG uptake. MUSCULOSKELETAL: There is heterogeneous FDG uptake throughout the skeleton, which correlate with mixed lytic and sclerotic lesions seen on the CT. For example, the left iliac crest sclerotic lesion measures SUV 4.0 on axial image #190. IMPRESSION: 1. Heterogeneously FDG uptake throughout the visualized skeleton, suspicious for diffuse osseous metastases. 2. Retroperitoneal and bilateral pelvic lymphadenopathy without abnormal FDG uptake on the PET. Of note, with the patient's high PSA level, such nodes could represent metastatic adenopathy from prostate malignancy. A PSMA PET is recommended to better charac terize the disease. 3. No obvious FDG avid lesion seen in th e prostate gland. MRI pelvis exam could better characterize the prostate malignancy. 4. Bilateral thyroid nodules are not FDG avid. Katy Castellon APRN IMG PETCT ORDERABLES US Thyroid (07/15/2022 10:04 AM NURSERY HELPER) Anatomical Region Laterality Modality Neck Ultrasound Specimen (Source) Anatomical Collection Method Collection Time Re ceived Time Location / / Volume Laterality 07/15/2022 10:02 AM NURSERY HELPER Impressions 07/15/2022 10:55 AM NURSERY HELPER Bilateral multinodular thyroid. 3.5 cm spongiform nodule in the right mi d and inferior gland with spongiform component involving at least 50% of the abnormality, although there is a large degree of solid and isoechoic tissue. Based on the size and large solid component, fin e-needle aspiration is recommended. Adjacent 1.4 and 1.2 cm TR 4 nodules in the left mid and inferior thyroid. Consider fine-needle aspiration of the larger nodule that is nearly at the sides threshold for biopsy. No suspicious lymph nodes. Narrative 07/15/2022 10:55 AM NURSERY HELPER FULL RESULT: Examination: ULTRASOUND SOFT TISSUE HEAD &NECK on 07/15/2022 10:02 AM Clinical History: Incidental thyroid nod ules seen on outside CT chest. Indication: Incidental thyroid nodules o n outside study requiring further evaluation with ultrasound. Comparison: OSI CT chest, abdomen, and p alisa June 29, 2022 Technique: Real-time ultrasound examinat ion of the neck soft tissues was performed. FINDINGS: Incidental nodule seen on comparison CT. Spongiform dominant right nodule. Hypoechoic left-sided nodules. No suspicious lymph nodes. Right Thyroid Lobe/Bed: The right lobe m easures 4.8 x 2.2 x 3.3 cm. A dominant nodule encompasses most of the right lobe and is centered in the mid and inferior gland. This nodule has a large spongiform component that does involve at least 50 % of the lesion with a prominent solid and isoechoic component within the posterior aspect of this nodule there are the overall size approximates 2.9 x 3.5 x 2.1 cm. An isoechoic nodule in the superior pole measures 8 x 10 x 5 mm (TR 3). Left Thyroid Lobe/Bed: The left lobe jd sures 3.9 x 1.6 x 1.6 cm. A hypoechoic and solid nodule in the midpole measures 1.1 x 1.4 x 1.0 cm (TR 4). An adjacent, hypoechoic, and solid nodule in the inferior pole measures 1.1 x 1.2 x 0.7 cm (TR 4). Suprasternal and Superior Mediastinal: C lear. Right Lateral Neck: A reniform benign-ap pearing nodule in the inferior neck approximates 8 x 14 x 6 mm. Left Lateral Neck: Clear. Submental to Cricoid: Clear. Procedure Note Carmine Meza MD - 07/15/2022Formattin g of this note might be different from the original. FULL RESULT: Examination: ULTRASOUND SOFT TISSUE HEAD &NECK on 07/15/2022 10:02 AM Clinical History: Incidental thyroid nod ules seen on outside CT chest. Indication: Incidental thyroid nodules o n outside study requiring further evaluation with ultrasound. Comparison: OSI CT chest, abdomen, and p alisa June 29, 2022 Technique: Real-time ultrasound examinat ion of the neck soft tissues was performed. FINDINGS: Incidental nodule seen on comparison CT. Spongiform dominant right nodule. Hypoechoic left-sided nodules. No suspicious lymph nodes. Right Thyroid Lobe/Bed: The right lobe m easures 4.8 x 2.2 x 3.3 cm. A dominant nodule encompasses most of the right lobe and is centered in the mid and inferior gland. This nodule has a large spongiform component that does involve at least 50% of the lesion with a prominent solid and isoechoic component within the posterior aspect of this nodule there are the overall size approximates 2.9 x 3.5 x 2.1 cm. An isoechoic nodule in the superior pole measures 8 x 10 x 5 mm (TR 3). Left Thyroid Lobe/Bed: The left lobe jd sures 3.9 x 1.6 x 1.6 cm. A hypoechoic and solid nodule in the midpole measures 1.1 x 1.4 x 1.0 cm (TR 4). An adjacent, hypoechoic, and solid nodule in the inferior pole measures 1.1 x 1.2 x 0.7 cm (TR 4). Suprasternal and Superior Mediastinal: C lear. Right Lateral Neck: A reniform benign-ap pearing nodule in the inferior neck approximates 8 x 14 x 6 mm. Left Lateral Neck: Clear. Submental to Cricoid: Clear. IMPRESSION: Bilateral multinodular thyroid. 3.5 cm spongiform nodule in the right mi d and inferior gland with spongiform component involving at least 50% of the abnormality, although there is a large degree of solid and isoechoic tissue. Based on the size and large solid component, fine-needle a spiration is recommended. Adjacent 1.4 and 1.2 cm TR 4 nodules in the left mid and inferior thyroid. Consider fine-needle aspiration of the larger nodule that is nearly at the sides threshold for biopsy. No suspicious lymph nodes. Katy Castellon APRN G US ORDERABLES Hepatitis C Virus Ab (07/14/2022 3:29 PM NURSERY HELPER) [facility] Method Time Signature HCVAb. Non Reactive Non Reactive [facility] Comment: Antibody detection in the immunocompromi sed and immunosuppressed population may be delayed or absent entirely. Therefore serial testing, correlation with other clinical findings, and supplemental testin g (if available) should be taken into co nsideration when interpreting the results. Specimen Anatomical Collection Method Collection Time Receive d Time (Source) Location / / Volume Laterality Blood 07/14/2022 3:29 PM 7:18 NURSERY HELPER AM NURSERY HELPER Katy Castellon APRN LAB BLOOD ORDERABLES Performing Organization Address City/State/ZIP Code Phon e Number [facility] Unless otherwise noted, [place] [address] CENTER all lab tests performed by: Division of Pathology and Laboratory Medicine [place] (ABNORMAL) Hepatitis B Total Ig Core Ab (SCREENING) (anti-HBc total Ig; HBcAb total Ig) (07/14/2022 3:29 PM NURSERY HELPER) [facility] Method Time Signature HBcAb. Reactive (A) Non Reactive [facility] Specimen Anatomical Collection Method Collection Time Receive d Time (Source) Location / / Volume Laterality Blood 07/14/2022 3:29 PM 2 7:18 NURSERY HELPER AM NURSERY HELPER Katy Castellon APRN LAB BLOOD ORDERABLES Performing Organization Address [facility] Phon e Number [facility] Unless otherwise noted, [address] all lab tests performed by: Division of Pathology and Laboratory Medicine [address] [place] [address] (ABNORMAL) Hepatitis B Surface Antibody (07/14/2022 3:29 PM NURSERY HELPER) [facility] Method Time Signature HBs Ab Reactive (A) Non Reactive [facility] Specimen Anatomical Collection Method Collection Time Receive d Time (Source) Location / / Volume Laterality Blood 07/14/2022 3:29 PM 2 7:18 NURSERY HELPER AM NURSERY HELPER Katy Castellon APRN LAB BLOOD ORDERABLES Performing Organization Address [facility] Phon e Number [facility] Unless otherwise noted, [address] all lab tests performed by: Division of Pathology and Laboratory Medicine [address] [place] [address] Hepatitis B Surface Ag (07/14/2022 3:29 PM NURSERY HELPER) [facility] Method Time Signature HBsAg. Non Reactive Non Reactive [facility] Specimen Anatomical Collection Method Collection Time Receive d Time (Source) Location / / Volume Laterality Blood 07/14/2022 3:29 PM 2 7:18 NURSERY HELPER AM NURSERY HELPER Katy Castellon APRN LAB BLOOD ORDERABLES Performing Organization Address [facility] Phon e Number [facility] Unless otherwise noted, [address] all lab tests performed by: Division of Pathology and Laboratory Medicine [address] [place], [place] [address]d Thyroxine (07/14/2022 3:29 PM NURSERY HELPER) P athologist Signature T4 5.8 4.5 - 11.7 [facility] Specimen Anatomical Collection Method Collection Time Receive d Time (Source) Location / / Volume Laterality Blood 07/14/2022 3:29 PM 2 3:45 NURSERY HELPER PM NURSERY HELPER Katy Castellon ADMISSIONS RN LAB BLOOD ORDERABLES Performing Organization Address City/State/ZIP Code Phon e Number [facility] Unless otherwise noted, [place] [address] CENTER all lab tests performed by: Division of Pathology and Laboratory Medicine [address] [facility] Beta 2 Microglobulin (07/14/2022 3:29 PM NURSERY HELPER) P athologist Signature Beta2 Microglob 2.3 0.8 - 2.3 [facility]/L [facility] Comment: This test is measured by turbid imetric methodology on the [facility] Optilite analyzer. Results obtained from different methods are not interchangeable. Specimen Anatomical Collection Method Collection Time Receive d Time (Source) Location / / Volume Laterality Blood 07/14/2022 3:29 PM 7:01 NURSERY HELPER AM NURSERY HELPER Katy Castellon APRN LAB BLOOD ORDERABLES Performing Organization Address City/State/ZIP Code Phon e Number [facility] Unless otherwise noted, [address] all lab tests performed by: Division of Pathology and Laboratory Medicine [address] [facility] OSI CT CHEST ABDOMEN PELVIS (06/29/2022 9:02 AM CDT) Specimen (Source) Anatomical Location Collection Method / Collectio n Time Received Time / Laterality Volume Narrative Systemgenerated, Documentation - 022 9:02 AM NURSERY HELPER Study acquired at another institution. For comparison only. No MD Shaikh originated interpretation requested or a vailable. Rosa Walden MD IMG OUTSIDE IMAGE ORDERABLES after 05/05/2022 Insurance Payer Benefit Plan Subscriber ID Effective Phone Address Typ e / Group Dates MEDICARE MEDICARE PART [id number] 2012-Prese [phone] [facility] Medicare A AND B nt [id number] [place] [address] [employer] SENIOR AETNA SENIOR [id number] 2019-Pres [address] [employer] SUPPLEMENT SUPPLEMENT-SE ent [id number] [place] [address] [phone] (Work) Yoel Villarreal Personal/Family Self 1945 [address] (Home) [place], [place] [phone] (Work) Advance Directives Code Status Date Activated Date Inactivated Comments Full Code 04/27/2023 6:37 PM 04/28/2023 12:25 PM Code Status Date Activated Date Inactivated Comments Full Code 02/14/2023 8:35 PM 02/15/2023 6:49 PM Care Teams Director Of Valuation Relationship Specialty Start Date End Date Rosa Walden MD PCP - General Internal Medicine 07/05/22 10/23/[address] [place] [id number] Leonel Abbott MD PCP - External Family Practice 07/13/[address] [place] [address] Referring [address] [place] [address] Helena Lemos MD PCP - General Genitourinary Oncology 10/24/[address] [place] [id number] Helena Lemos MD Consulting Physician Genitourinary Oncology 08/01/[address] [place] [id number] Carlene Tuttle MD Consulting Physician Radiation Oncology 08/02/[address] [place] [phone] Rosa Walden MD Consulting Physician Internal Medicine 10/24/[address] [place] [id number] Wanda Ahn MD Cardiology 02/21/[address] [place] [address] [address] [place] [address] Vera De La Rosa Consulting Physician Dental Oncology 04/19/23 LASHAY GipsonS [address] [place] [address]
[2023-05-05] MEDS ORDERED: HYDROMORPHONE HCL 1 MG/ML INJ ONE (21:18)
--- OUTSIDE RECORDS SUMMARY | 2023-05-05 21:21 | XMS REPORT | Continuity of Care Document ---
:1945 Author Organization [facility] t Address [address] [place] [address] Care Team Providers Name Role Phone Ethan Rojas Primary Care Physician SYSTEM, PROVIDER NOT IN Attending Clinician Unavailable GERALDO DIAL Attending Clinician Unavailable Maggie Lima RN Attending Clinician Unavailable Jimy AMBROCIO, Wanda Attending Clinician Chyna Mccracken APRN Attending Clinician Mk Bravo MD Attending Clinician Sona Wesley CRNA Attending Clinician Unavailable Shalom Marvin MD Attending Clinician MK BRAVO Attending Clinician Unavailable Woody Yadav CRNA Attending Clinician Newton Kraft Attending Clinician NEWTON DRAPER Attending Clinician Unavailable Mel Bains RN Attending Clinician Rogelio Baird APRN Attending Clinician Donta Daly MD Attending Clinician DONTA DALY Attending Clinician Unavailable Maylin Strauss Attending Clinician Abraham AMBROCIO, Waylon Attending Clinician Jonelle TELLO, Diana Donato Attending Clinician Unavailable WYALON COMBS Attending Clinician Unavailable CHYNA MCCRACKEN Attending Clinician Unavailable Estrella HERNANDEZ, Vera Gipson Attending Clinician [phone] VERA US Attending Clinician Unavailable DANI HAIDER Attending Clinician Unavailable Morgan BDS, Omar Attending Clinician Unavailable Rafaela Savage MA Attending Clinician Unavailable GENE PERRY Attending Clinician Unavailable Reynold CALZADA, Donavan Medina Attending Clinician Alysia AMBROCIO, Percy Attending Clinician [phone] WANDA AHN Attending Clinician Unavailable Shailesh Reinoso, Ibrahima Villeda Attending Clinician Unavailable Edward Warren Attending Clinician Diamond CALZADA, Elle Singleton Attending Clinician Unavailable Derrick TELLO, Kiera Donato Attending Clinician Juan AMBROCIO, Michael Cooper Attending Clinician Emma Munoz Attending Clinician [phone] Gilbert CALZADA, Angelique Cortés Attending Clinician Unavailable JONEL EDMONDS Attending Clinician Unavailable MICHAEL MARTINEZ Attending Clinician Unavailable Vinh CALZADA, Greta Sherman Attending Clinician Flaquita Decker MD Attending Clinician Greta Lovell MD Attending Clinician Shon Dunham MD Attending Clinician Fern [facility], Marilyn H Attending Clinician Geoffrey CALZADA, Sally Echavarria Attending Clinician UnavailAMANDA Rodriguez Attending Clinician Unavailable Amanda Wong DO Attending Clinician ASTRID LEOS Attending Clinician Unavailable Gene Perry MD Attending Clinician Dafne AMBROCIO, Astrid Attending Clinician Todd Muñiz MD Attending Clinician Doctor Unassigned, Vaiden Attending Clinician Unavailable FINESSE SULLIVAN Attending Clinician Unavailable Nate AMBROCIO, Finesse Attending Clinician Kenji AMBROCIO, Sundar Tobin Attending Clinician [phone] Nikia AMBROCIO, Freeman Carrasco Attending Clinician [phone], [facility] Attending Clinician Unavailable Jaelyn [facility], Michelle Attending Clinician Kvng AMBROCIO, Eliza Sherman Attending Clinician Anita Casillas Attending Clinician Jacklyn Kearns Attending Clinician Pricila Chavez Attending Clinician Bhavesh Amaya MD Attending Clinician Diamond CALZADA, Belkis Attending Clinician Unavailable Katy Castellon APRN Attending Clinician Sanjiv CALZADA, Amanda Hagen Attending Clinician Rosa Walden MD Attending Clinician Patt Gaitan PT, Kailey Attending Clinician MK BRAVO Admitting Clinician Unavailable GRETA LOVELL Admitting Clinician Unavailable AMANDA WONG Admitting Clinician Unavailable ASTRID LEOS Admitting Clinician Unavailable Astrid Leos MD Admitting Clinician GENE PERRY Admitting Clinician Unavailable Orlando AMBROCIO, Gene Admitting Clinician WANDA AHN Admitting Clinician Unavailable Payers Payer Name Policy Type Policy Number Effective Date Expiration Date S ource Problems Condition Condition Condition Status Onset Resolution Last Treating Co mments Source Name Details Category Date Date Treatment Clinician Date Compressio Compressio Disease Active U rohan lee fracture n fracture 6-14 it y of of of 00:00: [place] thoracic thoracic 00 vertebra vertebra Aj lee [facility] Back pain Back pain Disease Active Uni vers 6-13 ity of 00:00: [place] 00 MD Charissa lee [facility] 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 1-28 ity of unspecifie unspecifie [place] d 00 malignant malignant Barrie rso 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 nodes of nodes of Center multiple multiple regions regions Malignant Malignant Disease Active 2021-09 Uni vers neoplasm neoplasm 1-21 ity of of of 00:00: [place] prostate prostate 00 MD Charissa lee [facility] 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 1- ity of 00:00: [place] 00 MD [facility] Allergies, Adverse Reactions, Alerts Allergy Allergy Status Severity Reaction(s) Onset Inactive Treating Comm ents Source Name Type Date Date Clinician Iodinate Propensi Active Anaphylaxis 3-0 U nivers d ty to 6-13 ity of Contrast adverse 00:00: [place] Media reaction 00 MD say lee [facility] IODINATE Drug Active High Anaphylaxis 3-0 MD D Class 6-13 Anderso CONTRAST 00:00: n MEDIA 00 IODINATE Drug Active High Anaphylaxis 2023-0 MD D Class 6-13 Anderso CONTRAST 00:00: n MEDIA 00 IODINATE Drug Active High Anaphylaxis 2023-0 MD D Class 6-13 Anderso CONTRAST 00:00: n MEDIA 00 IODINATE Drug Active High Anaphylaxis 2023-0 MD D Class 6-13 Anderso CONTRAST 00:00: n MEDIA 00 IODINATE Drug Active High Anaphylaxis 2023-0 MD D Class 6-13 Anderso CONTRAST 00:00: n MEDIA 00 IODINATE Drug Active High Anaphylaxis 2023-0 MD D Class 6-13 Anderso CONTRAST 00:00: n MEDIA 00 IODINATE Drug Active High Anaphylaxis 2023-0 MD D Class 6-13 Anderso CONTRAST 00:00: n MEDIA 00 IODINATE Drug Active High Anaphylaxis 2023-0 MD D Class 6-13 Anderso CONTRAST 00:00: n MEDIA 00 IODINATE Drug Active High Anaphylaxis 2023-0 MD D Class 6-13 Anderso CONTRAST 00:00: n MEDIA 00 IODINATE Drug Active High Anaphylaxis 2023-0 MD D Class 6-13 Anderso CONTRAST 00:00: n MEDIA 00 IODINATE Drug Active High Anaphylaxis 2023-0 MD D Class 6-13 Anderso CONTRAST 00:00: n MEDIA 00 IODINATE Drug Active High Anaphylaxis 2023-0 MD D Class 6-13 Anderso CONTRAST 00:00: n MEDIA 00 IODINATE Drug Active High Anaphylaxis 2023-0 MD D Class 6-13 Anderso CONTRAST 00:00: n MEDIA 00 IODINATE Drug Active High Anaphylaxis 2023-0 MD D Class 6-13 Anderso CONTRAST 00:00: n MEDIA 00 IODINATE Drug Active High Anaphylaxis 2023-0 MD D Class 6-13 Anderso CONTRAST 00:00: n MEDIA 00 IODINATE Drug Active High Anaphylaxis 2023-0 MD D Class 6-13 Anderso CONTRAST 00:00: n MEDIA 00 IODINATE Drug Active High Anaphylaxis 2023-0 MD D Class 6-13 Anderso CONTRAST 00:00: n MEDIA 00 IODINATE Drug Active High Anaphylaxis 2023-0 MD D Class 6-13 Anderso CONTRAST 00:00: n MEDIA 00 IODINATE Drug Active High Anaphylaxis 2023-0 MD D Class 6-13 Anderso CONTRAST 00:00: n MEDIA 00 IODINATE Drug Active High Anaphylaxis 2023-0 MD D Class 6-13 Anderso CONTRAST 00:00: n MEDIA 00 IODINATE Drug Active High Anaphylaxis 2023-0 MD D Class 6-13 Anderso CONTRAST 00:00: n MEDIA 00 IODINATE Drug Active High Anaphylaxis 2023-0 MD D Class 6-13 Anderso CONTRAST 00:00: n MEDIA 00 IODINATE Drug Active High Anaphylaxis 2023-0 MD D Class 6-13 Anderso CONTRAST 00:00: n MEDIA 00 IODINATE Drug Active High Anaphylaxis 2023-0 MD D Class 6-13 Anderso CONTRAST 00:00: n MEDIA 00 IODINATE Drug Active High Anaphylaxis 2023-0 MD D Class 6-13 Anderso CONTRAST 00:00: n MEDIA 00 IODINATE Drug Active High Anaphylaxis 2023-0 MD D Class 6-13 Anderso CONTRAST 00:00: n MEDIA 00 IODINATE Drug Active High Anaphylaxis 2023-0 MD D Class 6-13 Anderso CONTRAST 00:00: n MEDIA 00 IODINATE Drug Active High Anaphylaxis 2023-0 MD D Class 6-13 Anderso CONTRAST 00:00: n MEDIA 00 IODINATE Drug Active High Anaphylaxis 2023-0 MD D Class 6-13 Anderso CONTRAST 00:00: n MEDIA 00 IODINATE Drug Active High Anaphylaxis 2023-0 MD D Class 6-13 Anderso CONTRAST 00:00: n MEDIA 00 IODINATE Drug Active High Anaphylaxis 2023-0 MD D Class 6-13 Anderso CONTRAST 00:00: n MEDIA 00 IODINATE Drug Active High Anaphylaxis 2023-0 MD D Class 6-13 Anderso CONTRAST 00:00: n MEDIA 00 IODINATE Drug Active High Anaphylaxis 2023-0 MD D Class 6-13 Anderso CONTRAST 00:00: n MEDIA 00 IODINATE Drug Active High Anaphylaxis 2023-0 MD D Class 6-13 Anderso CONTRAST 00:00: n MEDIA 00 IODINATE Drug Active High Anaphylaxis 2023-0 MD D Class 6-13 Anderso CONTRAST 00:00: n MEDIA 00 IODINATE Drug Active High Anaphylaxis 2023-0 MD D Class 6-13 Anderso CONTRAST 00:00: n MEDIA 00 IODINATE Drug Active High Anaphylaxis 2023-0 MD D Class 6-13 Anderso CONTRAST 00:00: n MEDIA 00 IODINATE Drug Active High Anaphylaxis 2023-0 MD D Class 6-13 Anderso CONTRAST 00:00: n MEDIA 00 IODINATE Drug Active High Anaphylaxis 2023-0 MD D Class 6-13 Anderso CONTRAST 00:00: n MEDIA 00 IODINATE Drug Active High Anaphylaxis 2023-0 MD D Class 6-13 Anderso CONTRAST 00:00: n MEDIA 00 IODINATE Drug Active High Anaphylaxis 2023-0 MD D Class 6-13 Anderso CONTRAST 00:00: n MEDIA 00 IODINATE Drug Active High Anaphylaxis 2023-0 MD D Class 6-13 Anderso CONTRAST 00:00: n MEDIA 00 IODINATE Drug Active High Anaphylaxis 2023-0 MD D Class 6-13 Anderso CONTRAST 00:00: n MEDIA 00 IODINATE Drug Active High Anaphylaxis 2023-0 MD D Class 6-13 Anderso CONTRAST 00:00: n MEDIA 00 IODINATE Drug Active High Anaphylaxis 2023-0 MD D Class 6-13 Anderso CONTRAST 00:00: n MEDIA 00 IODINATE Drug Active High Anaphylaxis 2023-0 MD D Class 6-13 Anderso CONTRAST 00:00: n MEDIA 00 IODINATE Drug Active High Anaphylaxis 2023-0 MD D Class 6-13 Anderso CONTRAST 00:00: n MEDIA 00 IODINATE Drug Active High Anaphylaxis 2023-0 MD D Class 6-13 Anderso CONTRAST 00:00: n MEDIA 00 IODINATE Drug Active High Anaphylaxis 2023-0 MD D Class 6-13 Anderso CONTRAST 00:00: n MEDIA 00 IODINATE Drug Active High Anaphylaxis 2023-0 MD D Class 6-13 Anderso CONTRAST 00:00: n MEDIA 00 IODINATE Drug Active High Anaphylaxis 2023-0 MD D Class 6-13 Anderso CONTRAST 00:00: n MEDIA 00 IODINATE Drug Active High Anaphylaxis 2023-0 MD D Class 6-13 Anderso CONTRAST 00:00: n MEDIA 00 IODINATE Drug Active High Anaphylaxis 2023-0 MD D Class 6-13 Anderso CONTRAST 00:00: n MEDIA 00 IODINATE Drug Active High Anaphylaxis 2023-0 MD D Class 6-13 Anderso CONTRAST 00:00: n MEDIA 00 IODINATE Drug Active High Anaphylaxis 2023-0 MD D Class 6-13 Anderso CONTRAST 00:00: n MEDIA 00 IODINATE Drug Active High Anaphylaxis 2023-0 MD D Class 6-13 Anderso CONTRAST 00:00: n MEDIA 00 IODINATE Drug Active High Anaphylaxis 2023-0 MD D Class 6-13 Anderso CONTRAST 00:00: n MEDIA 00 IODINATE Drug Active High Anaphylaxis 2023-0 MD D Class 6-13 Anderso CONTRAST 00:00: n MEDIA 00 IODINATE Drug Active High Anaphylaxis 2023-0 MD D Class 6-13 Anderso CONTRAST 00:00: n MEDIA 00 IODINATE Drug Active High Anaphylaxis 2023-0 MD D Class 6-13 Anderso CONTRAST 00:00: n MEDIA 00 IODINATE Drug Active High Anaphylaxis 2023-0 MD D Class 6-13 Anderso CONTRAST 00:00: n MEDIA 00 IODINATE Drug Active High Anaphylaxis 2023-0 MD D Class 6-13 Anderso CONTRAST 00:00: n MEDIA 00 IODINATE Drug Active High Anaphylaxis 2023-0 MD D Class 6-13 Anderso CONTRAST 00:00: n MEDIA 00 IODINATE Drug Active High Anaphylaxis 2023-0 MD D Class 6-13 Anderso CONTRAST 00:00: n MEDIA 00 IODINATE Drug Active High Anaphylaxis 2023-0 MD D Class 6-13 Anderso CONTRAST 00:00: n MEDIA 00 IODINATE Drug Active High Anaphylaxis 2023-0 MD D Class 6-13 Anderso CONTRAST 00:00: n MEDIA 00 IODINATE Drug Active High Anaphylaxis 2023-0 MD D Class 6-13 Anderso CONTRAST 00:00: n MEDIA 00 IODINATE Drug Active High Anaphylaxis 2023-0 MD D Class 6-13 Anderso CONTRAST 00:00: n MEDIA 00 IODINATE Drug Active High Anaphylaxis 2023-0 MD D Class 6-13 Anderso CONTRAST 00:00: n MEDIA 00 IODINATE Drug Active High Anaphylaxis 2023-0 MD D Class 6-13 Anderso CONTRAST 00:00: n MEDIA 00 IODINATE Drug Active High Anaphylaxis 2023-0 MD D Class 6-13 Anderso CONTRAST 00:00: n MEDIA 00 IODINATE Drug Active High Anaphylaxis 2023-0 MD D Class 6-13 Anderso CONTRAST 00:00: n MEDIA 00 IODINATE Drug Active High Anaphylaxis 2023-0 MD D Class 6-13 Anderso CONTRAST 00:00: n MEDIA 00 IODINATE Drug Active High Anaphylaxis 2023-0 MD D Class 6-13 Anderso CONTRAST 00:00: n MEDIA 00 IODINATE Drug Active High Anaphylaxis 2023-0 MD D Class 6-13 Anderso CONTRAST 00:00: n MEDIA 00 IODINATE Drug Active High Anaphylaxis 2023-0 MD D Class 6-13 Anderso CONTRAST 00:00: n MEDIA 00 IODINATE Drug Active High Anaphylaxis 2023-0 MD D Class 6-13 Anderso CONTRAST 00:00: n MEDIA 00 IODINATE Drug Active High Anaphylaxis 2023-0 MD D Class 6-13 Anderso CONTRAST 00:00: n MEDIA 00 IODINATE Drug Active High Anaphylaxis 2023-0 MD D Class 6-13 Anderso CONTRAST 00:00: n MEDIA 00 IODINATE Drug Active High Anaphylaxis 2023-0 MD D Class 6-13 Anderso CONTRAST 00:00: n MEDIA 00 IODINATE Drug Active High Anaphylaxis 2023-0 MD D Class 6-13 Anderso CONTRAST 00:00: n MEDIA 00 IODINATE Drug Active High Anaphylaxis 2023-0 MD D Class 6-13 Anderso CONTRAST 00:00: n MEDIA 00 IODINATE Drug Active High Anaphylaxis 2023-0 MD D Class 6-13 Anderso CONTRAST 00:00: n MEDIA 00 IODINATE Drug Active High Anaphylaxis 2023-0 MD D Class 6-13 Anderso CONTRAST 00:00: n MEDIA 00 IODINATE Drug Active High Anaphylaxis 2023-0 MD D Class 6-13 Anderso CONTRAST 00:00: n MEDIA 00 IODINATE Drug Active High Anaphylaxis 2023-0 MD D Class 6-13 Anderso CONTRAST 00:00: n MEDIA 00 IODINATE Drug Active High Anaphylaxis 2023-0 MD D Class 6-13 Anderso CONTRAST 00:00: n MEDIA 00 IODINATE Drug Active High Anaphylaxis 2023-0 MD D Class 6-13 Anderso CONTRAST 00:00: n MEDIA 00 IODINATE Drug Active High Anaphylaxis 2023-0 MD D Class 6-13 Anderso CONTRAST 00:00: n MEDIA 00 IODINATE Drug Active High Anaphylaxis 2023-0 MD D Class 6-13 Anderso CONTRAST 00:00: n MEDIA 00 IODINATE Drug Active High Anaphylaxis 2023-0 MD D Class 6-13 Anderso CONTRAST 00:00: n MEDIA 00 IODINATE Drug Active High Anaphylaxis 2023-0 MD D Class 6-13 Anderso CONTRAST 00:00: n MEDIA 00 IODINATE Drug Active High Anaphylaxis 2023-0 MD D Class 6-13 Anderso CONTRAST 00:00: n MEDIA 00 IODINATE Drug Active High Anaphylaxis 2023-0 MD D Class 6-13 Anderso CONTRAST 00:00: n MEDIA 00 IODINATE Drug Active High Anaphylaxis 2023-0 MD D Class 6-13 Anderso CONTRAST 00:00: n MEDIA 00 IODINATE Drug Active High Anaphylaxis 2023-0 MD D Class 6-13 Anderso CONTRAST 00:00: n MEDIA 00 IODINATE Drug Active High Anaphylaxis 2023-0 MD D Class 6-13 Anderso CONTRAST 00:00: n MEDIA 00 IODINATE Drug Active High Anaphylaxis 2023-0 MD D Class 6-13 Anderso CONTRAST 00:00: n MEDIA 00 IODINATE Drug Active High Anaphylaxis 2023-0 MD D Class 6-13 Anderso CONTRAST 00:00: n MEDIA 00 IODINATE Drug Active High Anaphylaxis 2023-0 MD D Class 6-13 Anderso CONTRAST 00:00: n MEDIA 00 IODINATE Drug Active High Anaphylaxis 2023-0 MD D Class 6-13 Anderso CONTRAST 00:00: n MEDIA 00 IODINATE Drug Active High Anaphylaxis 2023-0 MD D Class 6-13 Anderso CONTRAST 00:00: n MEDIA 00 IODINATE Drug Active High Anaphylaxis 2023-0 MD D Class 6-13 Anderso CONTRAST 00:00: n MEDIA 00 IODINATE Drug Active High Anaphylaxis 2023-0 MD D Class 6-13 Anderso CONTRAST 00:00: n MEDIA 00 IODINATE Drug Active High Anaphylaxis 2023-0 MD D Class 6-13 Anderso CONTRAST 00:00: n MEDIA 00 IODINATE Drug Active High Anaphylaxis 2023-0 MD D Class 6-13 Anderso CONTRAST 00:00: n MEDIA 00 IODINATE Drug Active High Anaphylaxis 2023-0 MD D Class 6-13 Anderso CONTRAST 00:00: n MEDIA 00 IODINATE Drug Active High Anaphylaxis 2023-0 MD D Class 6-13 Anderso CONTRAST 00:00: n MEDIA 00 IODINATE Drug Active High Anaphylaxis 2023-0 MD D Class 6-13 Anderso CONTRAST 00:00: n MEDIA 00 IODINATE Drug Active High Anaphylaxis 2023-0 MD D Class 6-13 Anderso CONTRAST 00:00: n MEDIA 00 IODINATE Drug Active High Anaphylaxis 2023-0 MD D Class 6-13 Anderso CONTRAST 00:00: n MEDIA 00 IODINATE Drug Active High Anaphylaxis 2023-0 MD D Class 6-13 Anderso CONTRAST 00:00: n MEDIA 00 IODINATE Drug Active High Anaphylaxis 2023-0 MD D Class 6-13 Anderso CONTRAST 00:00: n MEDIA 00 IODINATE Drug Active High Anaphylaxis 2023-0 MD D Class 6-13 Anderso CONTRAST 00:00: n MEDIA 00 IODINATE Drug Active High Anaphylaxis 2023-0 MD D Class 6-13 Anderso CONTRAST 00:00: n MEDIA 00 IODINATE Drug Active High Anaphylaxis 2023-0 MD D Class 6-13 Anderso CONTRAST 00:00: n MEDIA 00 IODINATE Drug Active High Anaphylaxis 2023-0 MD D Class 6-13 Anderso CONTRAST 00:00: n MEDIA 00 IODINATE Drug Active High Anaphylaxis 2023-0 MD D Class 6-13 Anderso CONTRAST 00:00: n MEDIA 00 IODINATE Drug Active High Anaphylaxis 2023-0 MD D Class 6-13 Anderso CONTRAST 00:00: n MEDIA 00 IODINATE Drug Active High Anaphylaxis 2023-0 MD D Class 6-13 Anderso CONTRAST 00:00: n MEDIA 00 IODINATE Drug Active High Anaphylaxis 2023-0 MD D Class 6-13 Anderso CONTRAST 00:00: n MEDIA 00 IODINATE Drug Active High Anaphylaxis 2023-0 MD D Class 6-13 Anderso CONTRAST 00:00: n MEDIA 00 IODINATE Drug Active High Anaphylaxis 2023-0 MD D Class 6-13 Anderso CONTRAST 00:00: n MEDIA 00 IODINATE Drug Active High Anaphylaxis 2023-0 MD D Class 6-13 Anderso CONTRAST 00:00: n MEDIA 00 IODINATE Drug Active High Anaphylaxis 2023-0 MD D Class 6-13 Anderso CONTRAST 00:00: n MEDIA 00 IODINATE Drug Active High Anaphylaxis 2023-0 MD D Class 6-13 Anderso CONTRAST 00:00: n MEDIA 00 IODINATE Drug Active High Anaphylaxis 2023-0 MD D Class 6-13 Anderso CONTRAST 00:00: n MEDIA 00 IODINATE Drug Active High Anaphylaxis 2023-0 MD D Class 6-13 Anderso CONTRAST 00:00: n MEDIA 00 IODINATE Drug Active High Anaphylaxis 2023-0 MD D Class 6-13 Anderso CONTRAST 00:00: n MEDIA 00 IODINATE Drug Active High Anaphylaxis 2023-0 MD D Class 6-13 Anderso CONTRAST 00:00: n MEDIA 00 IODINATE Drug Active High Anaphylaxis 2023-0 MD D Class 6-13 Anderso CONTRAST 00:00: n MEDIA 00 IODINATE Drug Active High Anaphylaxis 2023-0 MD D Class 6-13 Anderso CONTRAST 00:00: n MEDIA 00 IODINATE Drug Active High Anaphylaxis 2023-0 MD D Class 6-13 Anderso CONTRAST 00:00: n MEDIA 00 IODINATE Drug Active High Anaphylaxis 2023-0 MD D Class 6-13 Anderso CONTRAST 00:00: n MEDIA 00 IODINATE Drug Active High Anaphylaxis 2023-0 MD D Class 6-13 Anderso CONTRAST 00:00: n MEDIA 00 IODINATE Drug Active High Anaphylaxis 2023-0 MD D Class 6-13 Anderso CONTRAST 00:00: n MEDIA 00 IODINATE Drug Active High Anaphylaxis 2023-0 MD D Class 6-13 Anderso CONTRAST 00:00: n MEDIA 00 IODINATE Drug Active High Anaphylaxis 2023-0 MD D Class 6-13 Anderso CONTRAST 00:00: n MEDIA 00 IODINATE Drug Active High Anaphylaxis 2023-0 MD D Class 6-13 Anderso CONTRAST 00:00: n MEDIA 00 IODINATE Drug Active High Anaphylaxis 2023-0 MD D Class 6-13 Anderso CONTRAST 00:00: n MEDIA 00 IODINATE Drug Active High Anaphylaxis 2023-0 MD D Class 6-13 Anderso CONTRAST 00:00: n MEDIA 00 IODINATE Drug Active High Anaphylaxis 2023-0 MD D Class 6-13 Anderso CONTRAST 00:00: n MEDIA 00 IODINATE Drug Active High Anaphylaxis 2023-0 MD D Class 6-13 Anderso CONTRAST 00:00: n MEDIA 00 IODINATE Drug Active High Anaphylaxis 2023-0 MD D Class 6-13 Anderso CONTRAST 00:00: n MEDIA 00 IODINATE Drug Active High Anaphylaxis 2023-0 MD D Class 6-13 Anderso CONTRAST 00:00: n MEDIA 00 IODINATE Drug Active High Anaphylaxis 2023-0 MD D Class 6-13 Anderso CONTRAST 00:00: n MEDIA 00 IODINATE Drug Active High Anaphylaxis 2023-0 MD D Class 6-13 Anderso CONTRAST 00:00: n MEDIA 00 IODINATE Drug Active High Anaphylaxis 2023-0 MD D Class 6-13 Anderso CONTRAST 00:00: n MEDIA 00 IODINATE Drug Active High Anaphylaxis 2023-0 MD D Class 6-13 Anderso CONTRAST 00:00: n MEDIA 00 IODINATE Drug Active High Anaphylaxis 2023-0 MD D Class 6-13 Anderso CONTRAST 00:00: n MEDIA 00 IODINATE Drug Active High Anaphylaxis 2023-0 MD D Class 6-13 Anderso CONTRAST 00:00: n MEDIA 00 IODINATE Drug Active High Anaphylaxis 2023-0 MD D Class 6-13 Anderso CONTRAST 00:00: n MEDIA 00 IODINATE Drug Active High Anaphylaxis 2023-0 MD D Class 6-13 Anderso CONTRAST 00:00: n MEDIA 00 IODINATE Drug Active High Anaphylaxis 2023-0 MD D Class 6-13 Anderso CONTRAST 00:00: n MEDIA 00 IODINATE Drug Active High Anaphylaxis 2023-0 MD D Class 6-13 Anderso CONTRAST 00:00: n MEDIA 00 IODINATE Drug Active High Anaphylaxis 2023-0 MD D Class 6-13 Anderso CONTRAST 00:00: n MEDIA 00 IODINATE Drug Active High Anaphylaxis 2023-0 MD D Class 6-13 Anderso CONTRAST 00:00: n MEDIA 00 IODINATE Drug Active High Anaphylaxis 2023-0 MD D Class 6-13 Anderso CONTRAST 00:00: n MEDIA 00 IODINATE Drug Active High Anaphylaxis 2023-0 MD D Class 6-13 Anderso CONTRAST 00:00: n MEDIA 00 IODINATE Drug Active High Anaphylaxis 2023-0 MD D Class 6-13 Anderso CONTRAST 00:00: n MEDIA 00 IODINATE Drug Active High Anaphylaxis 2023-0 MD D Class 6-13 Anderso CONTRAST 00:00: n MEDIA 00 IODINATE Drug Active High Anaphylaxis 2023-0 MD D Class 6-13 Anderso CONTRAST 00:00: n MEDIA 00 IODINATE Drug Active High Anaphylaxis 2023-0 MD D Class 6-13 Anderso CONTRAST 00:00: n MEDIA 00 IODINATE Drug Active High Anaphylaxis 2023-0 MD D Class 6-13 Anderso CONTRAST 00:00: n MEDIA 00 IODINATE Drug Active High Anaphylaxis 2023-0 MD D Class 6-13 Anderso CONTRAST 00:00: n MEDIA 00 IODINATE Drug Active High Anaphylaxis 2023-0 MD D Class 6-13 Anderso CONTRAST 00:00: n MEDIA 00 IODINATE Drug Active High Anaphylaxis 2023-0 MD D Class 6-13 Anderso CONTRAST 00:00: n MEDIA 00 IODINATE Drug Active High Anaphylaxis 2023-0 MD D Class 6-13 Anderso CONTRAST 00:00: n MEDIA 00 IODINATE Drug Active High Anaphylaxis 2023-0 MD D Class 6-13 Anderso CONTRAST 00:00: n MEDIA 00 IODINATE Drug Active High Anaphylaxis 2023-0 MD D Class 6-13 Anderso CONTRAST 00:00: n MEDIA 00 IODINATE Drug Active High Anaphylaxis 2023-0 MD D Class 6-13 Anderso CONTRAST 00:00: n MEDIA 00 IODINATE Drug Active High Anaphylaxis 2023-0 MD D Class 6-13 Anderso CONTRAST 00:00: n MEDIA 00 IODINATE Drug Active High Anaphylaxis 2023-0 MD D Class 6-13 Anderso CONTRAST 00:00: n MEDIA 00 IODINATE Drug Active High Anaphylaxis 2023-0 MD D Class 6-13 Anderso CONTRAST 00:00: n MEDIA 00 IODINATE Drug Active High Anaphylaxis 2023-0 MD D Class 6-13 Anderso CONTRAST 00:00: n MEDIA 00 IODINATE Drug Active High Anaphylaxis 2023-0 MD D Class 6-13 Anderso CONTRAST 00:00: n MEDIA 00 Penicill Propensi Active Other - See 2022-0 U nivers ins ty to comments 3-20 ity of adverse 00:00: [place] reaction 00 [facility] s [facility] PENICILL Drug Active Other-Cmnt 2022-0 Univ ers INS Class 3-20 ity of 00:00: [place] 00 [facility] PENICILL DRUG Active 2021-1 MD IN INGREDI 1-10 Anderso 00:00: n 00 PENICILL DRUG Active 2021-1 MD IN INGREDI 1-10 Anderso 00:00: n 00 PENICILL DRUG Active 2-1 MD IN INGREDI 1-10 Anderso 00:00: n 00 PENICILL DRUG Active 2-1 MD IN INGREDI 1-10 Anderso 00:00: n 00 PENICILL DRUG Active 2021-1 MD IN INGREDI 1-10 Anderso 00:00: n 00 PENICILL DRUG Active 2022-1 MD IN INGREDI 1-10 Anderso 00:00: n 00 PENICILL DRUG Active 2022-1 MD IN INGREDI 1-10 Anderso 00:00: n 00 PENICILL DRUG Active 2022-1 MD IN [facility] 1[facility]10 Anderso 00:00: n 00 PENICILL DRUG Active 2022-1 MD IN [facility] 1[facility]10 Anderso 00:00: n 00 PENICILL DRUG Active 2022-1 MD IN [facility] 1-10 Anderso 00:00: n 00 PENICILL DRUG Active 2022-1 MD IN [facility] 1-10 Anderso 00:00: n 00 PENICILL DRUG Active 2022-1 MD IN [facility] 1-10 Anderso 00:00: n 00 PENICILL DRUG Active 2022-1 MD IN [facility] 1-10 Anderso 00:00: n 00 PENICILL DRUG Active 2022-1 MD IN [facility] 1-10 Anderso 00:00: n 00 PENICILL DRUG Active 2022-1 MD IN [facility] 1-10 Anderso 00:00: n 00 PENICILL DRUG Active 2022-1 MD IN [facility] 1-10 Anderso 00:00: n 00 PENICILL DRUG Active 2022-1 MD IN [facility] 1[facility]10 Anderso 00:00: n 00 PENICILL DRUG Active 2022-1 MD IN [facility] 1[facility]10 Anderso 00:00: n 00 PENICILL DRUG Active 2022-1 MD IN [facility] 1-10 Anderso 00:00: n 00 PENICILL DRUG Active 2022-1 MD IN [facility] 1[facility]10 Anderso 00:00: n 00 PENICILL DRUG Active 2022-1 MD IN [facility] 1-10 Anderso 00:00: n 00 PENICILL DRUG Active 2022-1 MD IN [facility] 1-10 Anderso 00:00: n 00 PENICILL DRUG Active 2022-1 MD IN [facility] 1-10 Anderso 00:00: n 00 PENICILL DRUG Active 2022-1 MD IN [facility] 1-10 Anderso 00:00: n 00 PENICILL DRUG Active 2022-1 MD IN [facility] 1-10 Anderso 00:00: n 00 PENICILL DRUG Active 2022-1 MD IN [facility] 1-10 Anderso 00:00: n 00 PENICILL DRUG Active 2022-1 MD IN [facility] 1-10 Anderso 00:00: n 00 PENICILL DRUG Active 2022-1 MD IN [facility] 1-10 Anderso 00:00: n 00 PENICILL DRUG Active 2022-1 MD IN [facility] 1-10 Anderso 00:00: n 00 PENICILL DRUG Active 2022-1 MD IN [facility] 1-10 Anderso 00:00: n 00 PENICILL DRUG Active 2022-1 MD IN [facility] 1-10 Anderso 00:00: n 00 PENICILL DRUG Active 2022-1 MD IN [facility] 1-10 Anderso 00:00: n 00 PENICILL DRUG Active 2022-1 MD IN [facility] 1-10 Anderso 00:00: n 00 PENICILL DRUG Active 2022-1 MD IN [facility] 1-10 Anderso 00:00: n 00 PENICILL DRUG Active 2022-1 MD IN [facility] 1-10 Anderso 00:00: n 00 PENICILL DRUG Active 2022-1 MD IN [facility] 1-10 Anderso 00:00: n 00 PENICILL DRUG Active 2022-1 MD IN [facility] 1-10 Anderso 00:00: n 00 PENICILL DRUG Active 2022-1 MD IN [facility] 1-10 Anderso 00:00: n 00 PENICILL DRUG Active 2022-1 MD IN [facility] 1-10 Anderso 00:00: n 00 PENICILL DRUG Active 2022-1 MD IN [facility] 1-10 Anderso 00:00: n 00 PENICILL DRUG Active 2022-1 MD IN [facility] 1-10 Anderso 00:00: n 00 PENICILL DRUG Active 2022-1 MD IN [facility] 1-10 Anderso 00:00: n 00 PENICILL DRUG Active 2022-1 MD IN [facility] 1-10 Anderso 00:00: n 00 PENICILL DRUG Active 2022-1 MD IN [facility] 1-10 Anderso 00:00: n 00 PENICILL DRUG Active 2022-1 MD IN [facility] 1-10 Anderso 00:00: n 00 PENICILL DRUG Active 2022-1 MD IN [facility] 1-10 Anderso 00:00: n 00 PENICILL DRUG Active 2022-1 MD IN [facility] 1-10 Anderso 00:00: n 00 PENICILL DRUG Active 2022-1 MD IN [facility] 1-10 Anderso 00:00: n 00 PENICILL DRUG Active 2022-1 MD IN [facility] 1-10 Anderso 00:00: n 00 PENICILL DRUG Active 2022-1 MD IN [facility] 1-10 Anderso 00:00: n 00 PENICILL DRUG Active 2022-1 MD IN [facility] 1-10 Anderso 00:00: n 00 PENICILL DRUG Active 2022-1 MD IN [facility] 1-10 Anderso 00:00: n 00 PENICILL DRUG Active 2022-1 MD IN [facility] 1[facility]10 Anderso 00:00: n 00 PENICILL DRUG Active 2022-1 MD IN [facility] 1[facility]10 Anderso 00:00: n 00 PENICILL DRUG Active 2022-1 MD IN [facility] 1-10 Anderso 00:00: n 00 PENICILL DRUG Active 2022-1 MD IN [facility] 1[facility]10 Anderso 00:00: n 00 PENICILL DRUG Active 2022-1 MD IN [facility] 1[facility]10 Anderso 00:00: n 00 PENICILL DRUG Active 2022-1 MD IN [facility] 1[facility]10 Anderso 00:00: n 00 PENICILL DRUG [facility] 2022[facility] Anderso 00:00: n 00 PENICILL DRUG Active 2022-1 MD IN [facility] 1[facility]10 Anderso 00:00: n 00 PENICILL DRUG Active 2022-1 MD IN [facility] 1[facility]10 Anderso 00:00: n 00 PENICILL DRUG Active 2022-1 [facility] Anderso 00:00: n 00 PENICILL DRUG Active 2022-1 MD IN [facility] 1[facility]10 Anderso 00:00: n 00 PENICILL DRUG Active 2022-1 MD IN [facility] 1-10 Anderso 00:00: n 00 PENICILL DRUG Active 2022-1 MD IN [facility] 1-10 Anderso 00:00: n 00 PENICILL DRUG Active 2022-1 MD IN [facility] 1-10 Anderso 00:00: n 00 PENICILL DRUG Active 2022-1 MD IN [facility] 1-10 Anderso 00:00: n 00 PENICILL DRUG Active 2022-1 MD IN [facility] 1-10 Anderso 00:00: n 00 PENICILL DRUG Active 2022-1 MD IN [facility] 1-10 Anderso 00:00: n 00 PENICILL DRUG Active 2022-1 MD IN [facility] 1-10 Anderso 00:00: n 00 PENICILL DRUG Active 2022-1 MD IN [facility] 1-10 Anderso 00:00: n 00 PENICILL DRUG Active 2022-1 MD IN [facility] 1-10 Anderso 00:00: n 00 PENICILL DRUG Active 2022-1 MD IN [facility] 1-10 Anderso 00:00: n 00 PENICILL DRUG Active 2022-1 MD IN [facility] 1-10 Anderso 00:00: n 00 PENICILL DRUG Active 2022-1 MD IN [facility] 1-10 Anderso 00:00: n 00 PENICILL DRUG Active 2022-1 MD IN [facility] 1-10 Anderso 00:00: n 00 PENICILL DRUG Active 2022-1 MD IN [facility] 1-10 Anderso 00:00: n 00 PENICILL DRUG Active 2022-1 MD IN [facility] 1-10 Anderso 00:00: n 00 PENICILL DRUG Active 2022-1 MD IN [facility] 1-10 Anderso 00:00: n 00 PENICILL DRUG Active 2022-1 MD IN [facility] 1-10 Anderso 00:00: n 00 PENICILL DRUG Active 2022-1 MD IN [facility] 1-10 Anderso 00:00: n 00 PENICILL DRUG Active 2022-1 MD IN [facility] 1-10 Anderso 00:00: n 00 PENICILL DRUG Active 2022-1 MD IN [facility] 1-10 Anderso 00:00: n 00 PENICILL DRUG Active 2022-1 MD IN [facility] 1-10 Anderso 00:00: n 00 PENICILL DRUG Active 2022-1 MD IN [facility] 1-10 Anderso 00:00: n 00 PENICILL DRUG Active 2022-1 MD IN [facility] 1-10 Anderso 00:00: n 00 PENICILL DRUG Active 2022-1 MD IN [facility] 1-10 Anderso 00:00: n 00 PENICILL DRUG Active 2022-1 MD IN [facility] 1-10 Anderso 00:00: n 00 PENICILL DRUG Active 2022-1 MD IN [facility] 1-10 Anderso 00:00: n 00 PENICILL DRUG Active 2022-1 MD IN [facility] 1-10 Anderso 00:00: n 00 PENICILL DRUG Active 2022-1 MD IN [facility] 1-10 Anderso 00:00: n 00 PENICILL DRUG Active 2022-1 MD IN [facility] 1-10 Anderso 00:00: n 00 PENICILL DRUG Active 2022-1 MD IN [facility] 1-10 Anderso 00:00: n 00 PENICILL DRUG Active 2022-1 MD IN [facility] 1-10 Anderso 00:00: n 00 PENICILL DRUG Active 2022-1 MD IN [facility] 1-10 Anderso 00:00: n 00 PENICILL DRUG Active 2022-1 MD IN [facility] 1-10 Anderso 00:00: n 00 PENICILL DRUG Active 2022-1 MD IN [facility] 1-10 Anderso 00:00: n 00 PENICILL DRUG Active 2022-1 MD IN [facility] 1-10 Anderso 00:00: n 00 PENICILL DRUG Active 2022-1 MD IN [facility] 1-10 Anderso 00:00: n 00 PENICILL DRUG Active 2022-1 MD IN [facility] 1-10 Anderso 00:00: n 00 PENICILL DRUG Active 2022-1 MD IN [facility] 1-10 Anderso 00:00: n 00 PENICILL DRUG Active 2022-1 MD IN [facility] 1-10 Anderso 00:00: n 00 PENICILL DRUG Active 2022-1 MD IN [facility] 1-10 Anderso 00:00: n 00 PENICILL DRUG Active 2022-1 MD IN [facility] 1-10 Anderso 00:00: n 00 PENICILL DRUG Active 2022-1 MD IN [facility] 1-10 Anderso 00:00: n 00 PENICILL DRUG Active 2022-1 MD IN [facility] 1-10 Anderso 00:00: n 00 PENICILL DRUG Active 2022-1 MD IN [facility] 1-10 Anderso 00:00: n 00 PENICILL DRUG Active 2022-1 MD IN [facility] 1-10 Anderso 00:00: n 00 PENICILL DRUG Active 2022-1 MD IN [facility] 1-10 Anderso 00:00: n 00 PENICILL DRUG Active 2022-1 MD IN [facility] 1-10 Anderso 00:00: n 00 PENICILL DRUG Active 2022-1 MD IN [facility] 1-10 Anderso 00:00: n 00 PENICILL DRUG Active 2022-1 MD IN [facility] 1-10 Anderso 00:00: n 00 PENICILL DRUG Active 2022-1 MD IN [facility] 1-10 Anderso 00:00: n 00 PENICILL DRUG Active 2022-1 MD IN [facility] 1-10 Anderso 00:00: n 00 PENICILL DRUG Active 2022-1 MD IN [facility] 1-10 Anderso 00:00: n 00 PENICILL DRUG Active 2022-1 MD IN [facility] 1-10 Anderso 00:00: n 00 PENICILL DRUG Active 2022-1 MD IN [facility] 1-10 Anderso 00:00: n 00 PENICILL DRUG Active 2022-1 MD IN [facility] 1-10 Anderso 00:00: n 00 PENICILL DRUG Active 2022-1 MD IN [facility] 1-10 Anderso 00:00: n 00 PENICILL DRUG Active 2022-1 MD IN [facility] 1-10 Anderso 00:00: n 00 PENICILL DRUG Active 2022-1 MD IN [facility] 1-10 Anderso 00:00: n 00 PENICILL DRUG Active 2022-1 MD IN [facility] 1-10 Anderso 00:00: n 00 PENICILL DRUG Active 2022-1 MD IN [facility] 1-10 Anderso 00:00: n 00 PENICILL DRUG Active 2022-1 MD IN [facility] 1-10 Anderso 00:00: n 00 PENICILL DRUG Active 2022-1 MD IN [facility] 1-10 Anderso 00:00: n 00 PENICILL DRUG Active 2022-1 MD IN [facility] 1-10 Anderso 00:00: n 00 PENICILL DRUG Active 2022-1 MD IN [facility] 1-10 Anderso 00:00: n 00 PENICILL DRUG Active 2022-1 MD IN [facility] 1-10 Anderso 00:00: n 00 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 MD [facility] 1-10 Anderso 00:00: n 00 PENICILL DRUG Active 2022-1 MD IN [facility] 1-10 Anderso 00:00: n 00 PENICILL DRUG Active 2022-1 MD IN [facility] 1-10 Anderso 00:00: n 00 PENICILL DRUG Active 2022-1 MD IN [facility] 1-10 Anderso 00:00: n 00 PENICILL DRUG Active 2022-1 MD IN [facility] 1-10 Anderso 00:00: n 00 PENICILL DRUG Active 2022-1 MD IN [facility] 1-10 Anderso 00:00: n 00 PENICILL DRUG Active 2022-1 MD IN [facility] 1-10 Anderso 00:00: n 00 PENICILL DRUG Active 2022-1 MD IN [facility] 1-10 Anderso 00:00: n 00 PENICILL DRUG Active 2022-1 MD IN [facility] 1-10 Anderso 00:00: n 00 PENICILL DRUG Active 2022-1 MD IN [facility] 1-10 Anderso 00:00: n 00 PENICILL DRUG Active 2022-1 MD IN [facility] 1-10 Anderso 00:00: n 00 PENICILL DRUG Active 2022-1 MD IN [facility] 1-10 Anderso 00:00: n 00 PENICILL DRUG Active 2022-1 MD IN [facility] 1-10 Anderso 00:00: n 00 PENICILL DRUG Active 2022-1 MD IN [facility] 1-10 Anderso 00:00: n 00 PENICILL DRUG Active 2022-1 MD IN [facility] 1-10 Anderso 00:00: n 00 PENICILL DRUG Active 2022-1 MD IN [facility] 1-10 Anderso 00:00: n 00 PENICILL DRUG Active 2022-1 MD IN [facility] 1-10 Anderso 00:00: n 00 PENICILL DRUG Active 2022-1 MD IN [facility] 1-10 Anderso 00:00: n 00 PENICILL DRUG Active 2022-1 MD IN [facility] 1-10 Anderso 00:00: n 00 PENICILL DRUG Active 2022-1 MD IN [facility] 1-10 Anderso 00:00: n 00 PENICILL DRUG Active 2022-1 MD IN [facility] 1-10 Anderso 00:00: n 00 PENICILL DRUG Active 2022-1 MD IN [facility] 1-10 Anderso 00:00: n 00 PENICILL DRUG Active 2022-1 MD IN [facility] 1-10 Anderso 00:00: n 00 PENICILL DRUG Active 2022-1 MD IN [facility] 1-10 Anderso 00:00: n 00 PENICILL DRUG Active 2022-1 MD IN [facility] 1-10 Anderso 00:00: n 00 PENICILL DRUG Active 2022-1 MD IN [facility] 1-10 Anderso 00:00: n 00 PENICILL DRUG Active 2022-1 MD IN [facility] 1-10 Anderso 00:00: n 00 PENICILL DRUG Active 2022-1 MD IN [facility] 1-10 Anderso 00:00: n 00 PENICILL DRUG Active 2022-1 MD IN [facility] 1-10 Anderso 00:00: n 00 PENICILL DRUG Active 2022-1 MD IN [facility] 1-10 Anderso 00:00: n 00 PENICILL DRUG Active 2022-1 MD IN [facility] 1-10 Anderso 00:00: n 00 PENICILL DRUG Active 2022-1 MD IN [facility] 1-10 Anderso 00:00: n 00 PENICILL DRUG Active 2022-1 MD IN [facility] 1-10 Anderso 00:00: n 00 PENICILL DRUG Active 2022-1 MD IN [facility] 1-10 Anderso 00:00: n 00 PENICILL DRUG Active 2022-1 MD IN [facility] 1-10 Anderso 00:00: n 00 PENICILL DRUG Active 2022-1 MD IN [facility] 1-10 Anderso 00:00: n 00 PENICILL DRUG Active 2022-1 MD IN [facility] 1-10 Anderso 00:00: n 00 PENICILL DRUG Active 2022-1 MD IN [facility] 1-10 Anderso 00:00: n 00 PENICILL DRUG Active 2022-1 MD IN [facility] 1-10 Anderso 00:00: n 00 PENICILL DRUG Active 2022-1 MD IN [facility] 1-10 Anderso 00:00: n 00 PENICILL DRUG Active 2022-1 MD IN [facility] 1-10 Anderso 00:00: n 00 PENICILL DRUG Active 2022-1 MD IN [facility] 1-10 Anderso 00:00: n 00 PENICILL DRUG Active 2022-1 MD IN [facility] 1-10 Anderso 00:00: n 00 PENICILL DRUG Active 2022-1 MD IN [facility] 1-10 Anderso 00:00: n 00 PENICILL DRUG Active 2022-1 MD IN [facility] 1-10 Anderso 00:00: n 00 PENICILL DRUG Active 2022-1 MD IN [facility] 1-10 Anderso 00:00: n 00 PENICILL DRUG Active 2022-1 MD IN [facility] 1-10 Anderso 00:00: n 00 PENICILL DRUG Active 2022-1 MD IN [facility] 1-10 Anderso 00:00: n 00 PENICILL DRUG Active 2022-1 MD IN [facility] 1-10 Anderso 00:00: n 00 PENICILL DRUG Active 2022-1 MD IN [facility] 1-10 Anderso 00:00: n 00 PENICILL DRUG Active 2022-1 MD IN [facility] 1-10 Anderso 00:00: n 00 PENICILL DRUG Active 2022-1 MD IN [facility] 1-10 Anderso 00:00: n 00 PENICILL DRUG Active 2022-1 MD IN [facility] 1-10 Anderso 00:00: n 00 PENICILL DRUG Active 2022-1 MD IN [facility] 1-10 Anderso 00:00: n 00 PENICILL DRUG Active 2022-1 MD IN [facility] 1-10 Anderso 00:00: n 00 PENICILL DRUG Active 2022-1 MD IN [facility] 1-10 Anderso 00:00: n 00 PENICILL DRUG Active 2022-1 MD IN [facility] 1-10 Anderso 00:00: n 00 PENICILL DRUG Active 2022-1 MD IN [facility] 1-10 Anderso 00:00: n 00 PENICILL DRUG Active 2022-1 MD IN [facility] 1-10 Anderso 00:00: n 00 PENICILL DRUG Active 2022-[facility] Anderso 00:00: n 00 PENICILL DRUG Active 2022-1 [facility] Anderso 00:00: n 00 PENICILL DRUG Active 2022-1 MD IN [facility] 1-10 Anderso 00:00: n 00 PENICILL DRUG Active 2022-1 MD IN [facility] 1-10 Anderso 00:00: n 00 PENICILL DRUG Active 2022-1 MD IN [facility] 1-10 Anderso 00:00: n 00 PENICILL DRUG Active 2022-1 MD IN [facility] 1-10 Anderso 00:00: n 00 PENICILL DRUG Active 2022-1 MD IN [facility] 1-10 Anderso 00:00: n 00 PENICILL DRUG Active 2022-1 MD IN [facility] 1-10 Anderso 00:00: n 00 PENICILL DRUG Active 2022-1 MD IN [facility] 1-10 Anderso 00:00: n 00 PENICILL DRUG Active 2022-1 MD IN [facility] 1-10 Anderso 00:00: n 00 PENICILL DRUG Active 2022-1 MD IN [facility] 1-10 Anderso 00:00: n 00 PENICILL DRUG Active 2022-1 MD IN [facility] 1-10 Anderso 00:00: n 00 PENICILL DRUG Active 2022-1 MD IN [facility] 1-10 Anderso 00:00: n 00 PENICILL DRUG Active 2022-1 MD IN [facility] 1-10 Anderso 00:00: n 00 PENICILL DRUG Active 2022-1 MD IN [facility] 1-10 Anderso 00:00: n 00 PENICILL DRUG Active 2022-1 MD IN [facility] 1-10 Anderso 00:00: n 00 PENICILL DRUG Active 2022-1 MD IN [facility] 1-10 Anderso 00:00: n 00 PENICILL DRUG Active 2022-1 MD IN [facility] 1-10 Anderso 00:00: n 00 PENICILL DRUG Active 2022-1 MD IN [facility] 1-10 Anderso 00:00: n 00 PENICILL DRUG Active 2022-1 MD IN [facility] 1-10 Anderso 00:00: n 00 PENICILL DRUG Active 2022-1 MD IN [facility] 1-10 Anderso 00:00: n 00 PENICILL DRUG Active 2022-1 MD IN [facility] 1-10 Anderso 00:00: n 00 PENICILL DRUG Active 2022-1 MD IN [facility] 1-10 Anderso 00:00: n 00 PENICILL DRUG Active 2022-1 MD IN [facility] 1-10 Anderso 00:00: n 00 PENICILL DRUG Active 2022-1 MD IN [facility] 1-10 Anderso 00:00: n 00 PENICILL DRUG Active 2022-1 MD IN [facility] 1-10 Anderso 00:00: n 00 PENICILL DRUG Active 2022-1 MD IN [facility] 1-10 Anderso 00:00: n 00 PENICILL DRUG Active 2022-1 MD IN [facility] 1-10 Anderso 00:00: n 00 PENICILL DRUG Active 2022-1 MD IN [facility] 1-10 Anderso 00:00: n 00 PENICILL DRUG Active 2022-1 MD IN [facility] 1-10 Anderso 00:00: n 00 PENICILL DRUG Active 2022-1 MD IN [facility] 1-10 Anderso 00:00: n 00 PENICILL DRUG Active 2022-1 MD IN [facility] 1-10 Anderso 00:00: n 00 PENICILL DRUG Active 2022-1 MD IN [facility] 1-10 Anderso 00:00: n 00 PENICILL DRUG Active 2022-1 MD IN [facility] 1-10 Anderso 00:00: n 00 PENICILL DRUG Active 2022-1 MD IN [facility] 1-10 Anderso 00:00: n 00 PENICILL DRUG Active 2022-1 MD IN [facility] 1-10 Anderso 00:00: n 00 PENICILL DRUG Active 2022-1 MD IN [facility] 1-10 Anderso 00:00: n 00 PENICILL DRUG Active 2022-1 MD IN [facility] 1-10 Anderso 00:00: n 00 PENICILL DRUG Active 2022-1 MD IN [facility] 1-10 Anderso 00:00: n 00 PENICILL DRUG Active 2022-1 MD IN [facility] 1-10 Anderso 00:00: n 00 PENICILL DRUG Active 2022-1 MD IN [facility] 1-10 Anderso 00:00: n 00 PENICILL DRUG Active 2022-1 MD IN [facility] 1-10 Anderso 00:00: n 00 PENICILL DRUG Active 2022-1 MD IN [facility] 1-10 Anderso 00:00: n 00 PENICILL DRUG Active 2022-1 MD IN [facility] 1-10 Anderso 00:00: n 00 PENICILL DRUG Active 2022-1 MD IN [facility] 1-10 Anderso 00:00: n 00 PENICILL DRUG Active 2022-1 MD IN [facility] 1-10 Anderso 00:00: n 00 PENICILL DRUG Active 2022-1 MD IN [facility] 1-10 Anderso 00:00: n 00 PENICILL DRUG Active 2022-1 MD IN [facility] 1-10 Anderso 00:00: n 00 PENICILL DRUG Active 2022-1 MD IN [facility] 1-10 Anderso 00:00: n 00 PENICILL DRUG Active 2022-1 MD IN [facility] 1-10 Anderso 00:00: n 00 PENICILL DRUG Active 2022-1 MD IN [facility] 1-10 Anderso 00:00: n 00 PENICILL DRUG Active 2022-1 MD IN [facility] 1-10 Anderso 00:00: n 00 PENICILL DRUG Active 2022-1 MD IN [facility] 1-10 Anderso 00:00: n 00 PENICILL DRUG Active 2022-1 MD IN [facility] 1-10 Anderso 00:00: n 00 PENICILL DRUG Active 2022-1 MD IN [facility] 1-10 Anderso 00:00: n 00 PENICILL DRUG Active 2022-1 MD IN [facility] 1-10 Anderso 00:00: n 00 PENICILL DRUG Active 2022-1 MD IN [facility] 1-10 Anderso 00:00: n 00 PENICILL DRUG Active 2021-1 MD IN [facility] 1-10 Anderso 00:00: n 00 PENICILL DRUG Active 2-1 MD IN [facility] 1-10 Anderso 00:00: n 00 PENICILL DRUG Active 2-1 MD IN [facility] 1-10 Anderso 00:00: n 00 PENICILL DRUG Active 2022-1 MD IN [facility] 1-10 Anderso 00:00: n 00 PENICILL DRUG Active 2-1 MD IN [facility] 1-10 Anderso 00:00: n 00 PENICILL DRUG Active 2022-1 MD IN [facility] 1-10 Anderso 00:00: n 00 PENICILL DRUG Active 2022-1 MD IN [facility] 1-10 Anderso 00:00: n 00 PENICILL DRUG Active 2022-1 MD IN [facility] 1-10 Anderso 00:00: n 00 PENICILL DRUG Active 2022-1 MD IN [facility] 1-10 Anderso 00:00: n 00 PENICILL DRUG Active 2021-1 MD IN [facility] 1-10 Anderso 00:00: n 00 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 Unive rs INGREDI 09-13 ity of 00:00: [place] [facility] PENICILL DRUG Active 2021-1 IN IN[facility] 1-10 Anderso 00:00: n 00 PENICILL DRUG Active 2-1 IN [facility] 1-10 Anderso 00:00: n 00 PENICILL DRUG Active 2-1 IN [facility] 1-10 Anderso 00:00: n 00 PENICILL DRUG Active 2-1 MD IN [facility] 1-10 Anderso 00:00: n 00 PENICILL DRUG Active 2022-1 MD IN [facility] 1-10 Anderso 00:00: n 00 PENICILL DRUG Active 2022-1 MD IN [facility] 1-10 Anderso 00:00: n 00 PENICILL DRUG Active 2022-1 MD IN [facility] 1-10 Anderso 00:00: n 00 PENICILL DRUG Active 2022-1 MD IN [facility] 1-10 Anderso 00:00: n 00 PENICILL DRUG Active 2022-1 MD IN [facility] 1-10 Anderso 00:00: n 00 PENICILL DRUG Active 2022-1 MD IN [facility] 1-10 Anderso 00:00: n 00 PENICILL DRUG Active 2022-1 MD IN [facility] 1-10 Anderso 00:00: n 00 PENICILL DRUG Active 2022-1 MD IN [facility] 1-10 Anderso 00:00: n 00 PENICILL DRUG Active 2022-1 MD IN [facility] 1-10 Anderso 00:00: n 00 PENICILL DRUG Active 2022-1 MD IN [facility] 1-10 Anderso 00:00: n 00 PENICILL DRUG Active 2022-1 MD IN [facility] 1-10 Anderso 00:00: n 00 PENICILL DRUG Active 2022-1 MD IN [facility] 1-10 Anderso 00:00: n 00 PENICILL DRUG Active 2022-1 MD IN [facility] 1-10 Anderso 00:00: n 00 PENICILL DRUG Active 2022-1 MD IN [facility] 1-10 Anderso 00:00: n 00 PENICILL DRUG Active 2022-1 MD IN [facility] 1-10 Anderso 00:00: n 00 PENICILL DRUG Active 2022-1 MD IN [facility] 1-10 Anderso 00:00: n 00 PENICILL DRUG Active 2022-1 MD IN [facility] 1-10 Anderso 00:00: n 00 PENICILL DRUG Active 2022-1 MD IN [facility] 1-10 Anderso 00:00: n 00 PENICILL DRUG Active 2022-1 MD IN [facility] 1-10 Anderso 00:00: n 00 PENICILL DRUG Active 2022-1 MD IN [facility] 1-10 Anderso 00:00: n 00 PENICILL DRUG Active 2022-1 MD IN [facility] 1-10 Anderso 00:00: n 00 PENICILL DRUG Active 2022-1 MD IN [facility] 1-10 Anderso 00:00: n 00 PENICILL DRUG Active 2022-1 MD IN [facility] 1-10 Anderso 00:00: n 00 PENICILL DRUG Active 2022-1 MD IN [facility] 1-10 Anderso 00:00: n 00 NO KNOWN Drug Active [facility] [place] [facility] Family History Family Member Diagnosis Comments Start Date Stop Date Source Natural father Heart attack [facility] [place] [facility] Vigil Canmadonna [facility] [place] Social History Social Habit Start Date Stop Date Quantity Comments Source History of tobacco Cigarette Smoker [facility] [place] [facility] History SDOH Social [facility] [place] [facility] History SDOH Social [facility]ive [facility] History SDOH Social [facility] [place] [facility] History SDOH Social [facility] [place] [facility] Gender identity [facility] Sexual orientation [facility] Alcohol intake 2023-04-28 2023-04-28 Current drinker Unive rsity of 00:00:00 00:00:00 of alcohol Andrea AMBROCIO Arnol [facility]finding[facility] Exposure to 2023-01-22 2023-02-01 Not sure University of SARS-CoV-2 (event) 00:00:00 10:40:00 [facility] History SDOH Social 2023-01-19 2023-01-19 5 Unive rsity of Connections Phone 00:00:00 00:00:00 [place] [facility] History SDOH Social 2023-01-19 2023-01-19 3 Unive rsity of Connections Living 00:00:00 00:00:00 [place] [facility] History SDOH 2023-01-19 2023-01-19 0 University o f Physical Activity 00:00:00 00:00:00 [place] [facility] DPW [facility] History SDOH 2023-01-19 2023-01-19 0 University o f Physical Activity 00:00:00 00:00:00 [place] [facility] MPS [facility] History SDOH 2023-01-19 2023-01-19 5 University o f Financial 00:00:00 00:00:00 [place] [facility] History SDOH Food 2023-01-19 2023-01-19 1 Univers ity of Worry 00:00:00 00:00:00 [place] [facility] History SDOH Food 2023-01-19 2023-01-19 1 Univers ity of Scarcity 00:00:00 00:00:00 [place] [facility] History SDOH 2023-01-19 2023-01-19 2 University o f Transport Med 00:00:00 00:00:00 [place] [facility] History SDOH 2023-01-19 2023-01-19 2 University o f Transport Non-Med 00:00:00 00:00:00 [place] [facility] History SDOH 2023-01-19 2023-01-19 2 University o f Housing Unable to 00:00:00 00:00:00 [place] [facility] Pay [facility] History SDOH 2023-01-19 2023-01-19 1 University o f Housing Places 00:00:00 00:00:00 [place] [facility] Lived [facility] History SDOH 2023-01-19 2023-01-19 2 University o f Housing Homeless 00:00:00 00:00:00 [facility] dical Last Year Branch History of Social 2022-12-26 2022-12-26 Univers ity of function 00:00:00 00:00:00 [facility] Cigarettes smoked 2022-07-14 2022-07-14 Univers ity of current (pack per 00:00:00 00:00:[address] [facility] [place] [place] ) - Reported Cancer Ce nter Tobacco use and 2022-07-14 2022-07-14 Smokeless Universit y of exposure 00:00:00 00:00:00 tobacco non-user [facility] History SDMS 2022-07-14 2022-07-14 3 University o f Alcohol Frequency 00:00:00 00:00:00 [facility] History SDOH 2022-07-14 2022-07-14 0 University o f Alcohol Std Drinks 00:00:00 00:00:00 [facility] History SDOH 2022-07-14 2022-07-14 1 University o f Alcohol Binge 00:00:00 00:00:00 Andrea cardona [facility] Alcohol Comment 2022-07-14 2022-07-14 social Universit y of 00:00:00 00:00:00 drinker-vodka Andrea cardona [facility] Sex [birth year] At [birth year] Universit y of 00:00:00 00:00:00 [facility] Smoking Status Start Date Stop Date Source Ex-smoker 2022-07-14 00:00:00 2022-07-14 00:00:00 [facility] [place] [facility] Medications Ordered Filled Start Stop Current Ordering Indication Dosage Frequency Signature Comments Components Source Medication Medication Date Date Medication? Clinician (SIG) Name Name albuterol Yes 1{puff} Inhale 1 U nivers (VENTOLIN 8-25 puff by ity of HFA,PROAIR 10:20: mouth as Yemi as HFA) 90 16 needed. mcg/puff [facility] inhaler n Cancer [place] fluticasone Yes 1{puff} Inhale 1 Univers propionate- 825 puff by ity o f salmeterol 10:20: mouth as Yemi as (ADVAIR) 16 needed. 250 mcg-50 Anderso mcg/inhalat n ion diskus Cancer inhaler Center megestrol Yes [facility] by [facility] (MEG[facility]) 20 8-25 mouth ity of mg tablet 10:20: daily. [place] [id number] MD Charissa lee [facility] blood sugar Yes Drug 1{strip 1 strip by Univers diagnostic 04-26 induced } miscellane ity of (glucose 00:00: diabetes ous route [place] blood) strp 00 mellitus daily. with Type 2 [facility]o hyperglycem diabetes, [place] ICD 11.9 Cancer Center blood-gluco Yes Drug Use to [facility] ers se meter 04-26 induced check [place]y of (glucose 00:00[place] 00 mellitus sugar MD kit) kit with daily. Anderso hyperglycem Type 2 n [place] diabetes, Cancer ICD 11.9 Center lancets Yes Drug 1U 1 Units by [facility] ers misc 04-26 induced [place] 00:00[place] 00 [place] daily. with Check Anderso hyperglycem glucose n ia daily. Cancer Type 2 Center diabetes, ICD 11.9 metFORMIN Yes Drug 1000mg Take 2 Univ ers (GLUCOPHAGE 8-18 induced tablets it y of -XR) 500 mg 00:00: diabetes (1,000 mg) [place] 24 hr 00 mellitus by mouth 2 MD tablet with (two) Anderso hyperglycem times a n ia day with Cancer meals. [place] glipiZIDE Yes Drug 2.5mg Take 0.5 Uni vers (GlucotroL) 8-18 induced tablets it y of 5 mg tablet 00:00: diabetes (2.5 mg) [place] 00 mellitus by mouth MD with daily as Anderso hyperglycem needed n ia (for blood Cancer glucose Center greater than 150 mg/dL prior to taking prednisone ). blood sugar 2022- No Drug 1{strip 1 strip by Univers diagnostic 04-21 induced } miscellane ity of (glucose 00:00: 00:00 diabetes ous route [place] blood) strp 00 :00 mellitus 4 (four) MD with times a [place] hyperglycem day before n ia meals and Cancer nightly. Center lancets 2022- No Drug 1U 1 Units by Uni vers misc 04-21 induced miscellane ity o f 00:00: 00:00 diabetes ous route [place] as 00 :00 mellitus 4 (four) MD with times a [place] hyperglycem day before n ia meals and Cancer nightly. Center blood-gluco 2022- No Drug Use to Uni vers se meter 04-21 induced check ity of (glucose 00:00: 00:00 diabetes blood [place] as monitoring 00 :00 mellitus sugar 1-2 MD kit) kit with times a [place] hyperglycem day. n ia Cancer Center polyethylen 2022- No 17g Take 17 g Univers e glycol 04-19 by mouth ity of (GLYCOLAX) 16:24: 00:00 daily as [place] 17 55 :00 needed MD gram/dose (constipat Barrie rso powder ion). n Cancer Center fluoride, Yes Metastatic 1{dose} Apply 1 Univers sodium, 16 malignant Dose to ity of (PreviDent 00:00: neoplasm to teeth [place] 5000 00 bone twice MD Booster daily. [place] Plus) 1.1 % n pste Cancer Center morphine Yes Metastatic 30mg Take 1 U nivers (MS CONTIN) 8-16 malignant tablet (30 ity of 30 mg 12 hr 00:00: neoplasm to mg) by [place] tablet 00 bone mouth MD every 8 Anderso (eight) n hours. Cancer Center morphine Yes Metastatic 15mg Take 1 U nivers (MSIR) 15 -16 malignant tablet (15 ity of mg IR 00:00: neoplasm to mg) by [place] tablet 00 bone mouth MD every 4 [place]o (four) n hours as Cancer needed for Center pain. senna Yes Metastatic 2{tbl} Take 2 Un justen (SENOKOT) 8-16 malignant tablets by ity of 8.6 mg 00:00: neoplasm to mouth [place] tablet 00 bone twice MD daily. January Anders adjust up n to 8 Cancer tablets/da Center y as needed. polyethylen Yes Metastatic 17g Take 17 g Univers e glycol 8-16 malignant by mouth it y of (Miralax) 00:00: neoplasm to daily as [place] 17 00 bone needed MD gram/dose (constipat Barrie rso powder ion). n [facility] lactulose Yes Metastatic 10g Take 15 mL Univers 20 g/30 mL 8-16 malignant (10 g) by ity of soln 00:00: neoplasm to mouth 2 [place] as solution 00 bone (two) MD times a [place]o day as n needed Cancer (constipat Center ion). indomethaci Yes 50mg Take 1 Univ ers n (INDOCIN) 8-05 capsule ity o f 50 mg 00:00: (50 mg) by [place] capsule 00 mouth 4 MD (four) Anderso times a n day as Cancer needed. [place] albuterol Yes 1{puff} Inhale 1 U nivers (VENTOLIN 7-31 puff by ity of HFA,PROAIR 14:12: mouth as [place] as HFA) 90 04 needed. MD mcg/puff [place] inhaler [facility] fluticasone Yes 1{puff} Inhale 1 Univers propionate- 7-31 puff by ity o f salmeterol 14:12: mouth as [place] (ADVAIR) 04 needed. MD 250 mcg-50 [place] mcg/inhalat n ion diskus Cancer inhaler Center polyethylen Yes 17g Take 17 g U nivers e glycol 7-31 by mouth ity of (GLYCOLAX) 14:12: daily as [place] as 17 04 needed MD gram/dose (constipat Barrie rso powder ion). n [facility] megestrol Yes Take by Unive rs (MEGACE) 20 7-31 mouth ity of mg tablet 14:12: daily. [place] 04 [facility] Cancer Center morphine Yes Cancer 7.5mg Take half U nivers (MSIR) 15 7-21 associated of a ity of mg IR 00:00: pain tablet [place] tablet 00 (7.5 mg) MD by mouth Anderso every 4 n (four) Cancer hours as Center needed for pain. morphine 2022-2022- No Cancer 7.5mg Take half Univers (MSIR) 15 7-21 08-16 associated of a ity of mg IR 00:00: 00:00 pain tablet [place] tablet 00 :00 (7.5 mg) MD by mouth Anderso every 4 n (four) Cancer hours as Center needed for pain. metoprolol Yes 25mg Take 1 Unive rs succinate 7-20 tablet by ity o f XL 25 mg 24 00:00: mouth in [place] hr tablet 00 the Medical morning. Branch metoprolol 0 Yes 25mg Take 1 Unive rs succinate 7-20 tablet by ity o f XL 25 mg 24 00:00: mouth in [place] hr tablet 00 the Medical morning. Branch metoprolol 0 Yes 25mg Take 1 Unive rs succinate 7-20 tablet (25 ity of (TOPROL XL) 00:00: mg) by [place] 25 mg 24 hr 00 mouth MD tablet daily. [facility] Center tc 2022- No [id number] 43mCi 43 Univer s 99m-tetrofo 03-21 millicurie i ty of smin 15:30: 15:23 , [place] (MYOVIEW) 00 :00 Intravenou Medi katie injection s, ONCE, 1 Bran ch 43 dose, On millicurie 03/21/23 at 1030, Routine regadenoson 2022- No [id number] .4mg 0.4 mg, IV Univers (LEXISCAN) 03-21 Push, ity of injection 15:15: 15:35 ONCE, 1 [place] 0.4 mg 00 :00 dose, On Medical Tue Branch 03/21/23 at 1015, Routine
membership director approving Restricted medication : AWNDA AHN tc 2022- No [id number] 15.4mCi 15.4 Univ ers 99m-tetrofo 03-21 millicurie i ty of smin 14:00: 13:53 , [place] (MYOVIEW) 00 :00 Intravenou Medi katie injection s, ONCE, 1 Bran ch 15.4 dose, On millicurie 03/21/23 at 0900, Routine morphine Yes Cancer 15mg Take 1 Unive rs (MS CONTIN) 12 associated tablet (15 ity of 15 mg ER 00:00: pain mg) by [place] tablet 00 mouth MD every 12 Anderso (twelve) n hours. Cancer Center morphine 2022- Cancer 15mg Take 1 Univ ers (MS CONTIN) 03-15 08-16 associated tablet (15 ity of 15 mg ER 00:00: 00:00 pain mg) by [place] tablet 00 :00 mouth MD every 12 Anderso (twelve) n hours. Cancer Center pantoprazol Yes Metastatic 40mg Take 1 Univers e -06 malignant tablet (40 ity of (Protonix) 00:00: neoplasm to mg) by [place] 40 mg EC 00 bone mouth MD tablet every Anderso morning n before Cancer breakfast. Center lidocaine Yes Metastatic 5mL Swish and Univers (XYLOCAINE) 706 malignant swallow 5 ity of 20 mg/mL 00:00: neoplasm to mL every 6 [place] (2%) 00 bone (six) MD viscous hours as Anderso solution needed n (painful Cancer swallowing Center ). pantoprazol Yes Metastatic 40mg Take 1 Univers e -06 malignant tablet (40 ity of (Protonix) 00:00: neoplasm to mg) by [place] 40 mg EC 00 bone mouth MD tablet every Anderso morning n before Cancer breakfast. Center lidocaine Yes Metastatic 5mL Swish and Univers (XYLOCAINE) 706 malignant swallow 5 ity of 20 mg/mL 00:00: neoplasm to mL every 6 [place] (2%) 00 bone (six) MD viscous hours as Anderso solution needed n (painful Cancer swallowing Center ). xyloxylin Yes Dysphagia, 10mL Swish and Univers oral 7-05 not swallow 10 ity of suspension 00:00: otherwise mL every 6 [place] (AMB-CMPD) 00 specified (six) MD hours as Anderso needed for n mouth pain Cancer or throat Center pain. xyloxylin Yes Dysphagia, 10mL Swish and Univers oral 7-05 not swallow 10 ity of suspension 00:00: otherwise mL every 6 [place] (AMB-CMPD) 00 specified (six) MD hours as Anderso needed for n mouth pain Cancer or throat Center pain. senna-docus 2022- No 1{tbl} Take 1 U nivers ate 6-14 06-14 tablet by ity of (SENOKOT-S) 23:08: 00:00 mouth 2 [place] 8.6 mg-50 19 :00 (two) MD mg tablet times a Anderso day as n needed for Cancer constipati Center on. senna-docus 2022- No 1{tbl} Take 1 U nivers ate 6-14 06-14 tablet by ity of (SENOKOT-S) 23:08: 00:00 mouth 2 [place] 8.6 mg-50 19 :00 (two) MD mg tablet times a Anderso day as n needed for Cancer constipati Center on. morphine Yes Cancer 15mg Take 1 Unive rs (MS CONTIN) 6-14 associated tablet (15 ity of 15 mg ER 00:00: pain mg) by [place] tablet 00 mouth MD every 12 [place] (twelve) n hours. Cancer Center senna Yes Slow 2{tbl} Take 2 Univers (SENOKOT) 6-14 transit tablets by i ty of 8.6 mg 00:00: constipatio mouth [place] as tablet 00 n twice MD daily. Anderso n Cancer Center lactulose Yes Slow 10g Take 15 mL Un justen (CHRONULAC) 6-14 transit (10 g) by ity of 10 gram/15 00:00: constipatio mouth 2 [place] mL solution 00 n (two) MD times a [place] day as n needed for Cancer constipati Center on. predniSONE Yes Secondary 5mg Take 1 Univers (DELTASONE) 6-14 and tablet (5 ity of 5 mg tablet 00:00: unspecified mg) by [place] 00 malignant mouth MD neoplasm of twice Anderso lymph nodes daily. n of multiple Cancer regions, Center not otherwise specified predniSONE Yes Secondary 5mg Take 1 Univers (DELTASONE) 02-15 and tablet (5 ity of 5 mg tablet 00:00: unspecified mg) by 00 malignant mouth MD neoplasm of twice [place] lymph nodes daily. n of multiple Cancer regions, Center not otherwise specified morphine 2022- No Cancer 15mg Take 1 Univ ers (MS CONTIN) 02-1516 associated tablet (15 ity of 15 mg ER 00:00: 00:00 pain mg) by [place] tablet 00 :00 mouth MD every 12 Anderso (twelve) n hours. Cancer Center senna 2022- No Slow 2{tbl} Take 2 Univers (SENOKOT) 02-15 transit tablets by ity of 8.6 mg 00:00: 00:00 constipatio mouth [place] tablet 00 :00 n twice MD daily. [place] n Cancer Center lactulose No Slow 10g Take 15 mL U nivers (CHRONULAC) 02-15 transit (10 g) by ity of 10 gram/15 00:00: 00:00 constipatio mouth 2 [place] mL solution 00 :00 n (two) MD times a [place] day as n needed for Cancer constipati Center on. morphine 2022- No Cancer 7.5mg Take half Univers (MSIR) 15 02-15 associated of a ity of mg IR 00:00: 00:00 pain tablet [place] tablet 00 :00 (7.5 mg) MD by mouth Anderso every 4 n (four) Cancer hours as Center needed for pain. morphine 2022- No Cancer 7.5mg Take half Univers (MSIR) 15 02-15- associated of a ity of mg IR 00:00: 00:00 pain tablet [place] tablet 00 :00 (7.5 mg) MD by mouth Anderso every 4 n (four) Cancer hours as Center needed for pain. albuterol Yes 1{puff} Inhale 1 U nivers (VENTOLIN 5-31 puff by ity of HFA,PROAIR 08:18: mouth as [place] as HFA) 90 13 needed. MD mcg/puff [place] inhaler n Cancer Center fluticasone Yes 1{puff} Inhale 1 Univers propionate- 5-31 puff by ity o f salmeterol 08:18: mouth as [place] as (ADVAIR) 13 needed. 250 mcg-50 [place] mcg/inhalat n [facility] Cancer inhaler Center abiraterone Yes Secondary 1000mg Take 4 Univers (ZYTIGA) 5-31 and tablets ity of 250 mg 00:00: unspecified (1,000 mg) [place] tablet 00 malignant by mouth MD neoplasm of once Anderso lymph nodes daily. n of multiple Cancer regions, Center not otherwise specified abiraterone Yes Secondary 1000mg Take 4 Univers (ZYTIGA) 5-31 and tablets ity of 250 mg 00:00: unspecified (1,000 mg) [place] tablet 00 malignant by mouth MD neoplasm of once Anderso lymph nodes daily. n of multiple Cancer regions, Center not otherwise specified predniSONE Yes Secondary 5mg Take 1 Univers (DELTASONE) 5- and tablet (5 ity of 5 mg tablet 00:00: unspecified mg) by [place] 00 malignant mouth MD neoplasm of twice Anderso lymph nodes daily. n of multiple Cancer regions, Center not otherwise specified abiraterone Yes Secondary 1000mg Take 4 Univers (ZYTIGA) 5-31 and tablets ity of 250 mg 00:00: unspecified (1,000 mg) [place] tablet 00 malignant by mouth MD neoplasm of once [place] lymph nodes daily. n of multiple Cancer regions, Center not otherwise specified predniSONE 0 2022- No Secondary 5mg Take 1 Univers (DELTASONE) 5--14 and tablet (5 it y of 5 mg tablet 00:00: 00:00 unspecified mg) by [place] 00 :00 malignant mouth MD neoplasm of twice Anderso lymph nodes daily. n of [facility] Cancer regions, Center not otherwise specified predniSONE 0 2022- No Secondary 5mg Take 1 Univers (DELTASONE) 5-31 -14 and tablet (5 it y of 5 mg tablet 00:00: 00:00 unspecified mg) by [place] 00 :00 malignant mouth neoplasm of twice Anderso lymph nodes daily. n of multiple Cancer regions, Center not otherwise specified FENTanyl Yes 1{patch 1 Patch, Un justen (DURAGESIC) 01-30 } Transderma it y of 50 mcg/hr 14:00: l (Apply [place] patch 1 00 To Skin), Medical Patch Administer Branch over 72 Hours, Q72H, First dose on Mon01/30/23 at 0900, Until Discontinu ed, Routine FENTanyl PF 2022- No 50ug 50 mcg, Un justen (SUBLIMAZE 01-30 Slow IV ity o f (PF)) 13:00: 12:34 Push, [place] injection 00 :00 ONCE, 1 Medical 50 mcg dose, On Branch Mon01/30/23 at 0800, Routine fentaNYL 2022- No 50ug Place 1 Unive rs (DURAGESIC) 01-30 patch (50 it y of 50 mcg/hr 00:00: 04:59 mcg) on [place] transdermal 00 :00 the skin. MD [facility] fentaNYL 2022- No 50ug Place 1 Unive rs (DURAGESIC) 01-30 patch (50 it y of 50 mcg/hr 00:00: 04:59 mcg) on [place] transdermal 00 :00 the skin. MD [facility] FENTanyl 50 2022- No 2745 1{patch Apply 1 Univers mcg/hr 01-30 } Patch to ity of patch 00:00: 04:59 skin every [place] 00 :00 72 Medical (seventy-t Branch wo) hours for 5 doses. Indication s: chronic pain, metastatic cancer fentaNYL 2022- No 50ug Place 1 Unive rs (DURAGESIC) 01-3012 patch (50 it y of 50 mcg/hr 00:00: 04:59 mcg) on [place] transdermal 00 :00 the skin. MD [facility] ALBUTEROL Yes Inhale. Unive rs INHALE 5-19 ity of 11:58: [place] 50 Medical Branch fluticasone 0 Yes Inhale. Uni vers propion/hai 5-19 ity of meterol 11:58: [place] (ADVAIR 50 Medical DISKUS Branch INHALE) ALBUTEROL Yes Inhale. Unive rs INHALE 5-19 ity of 11:58: [place] [address] Medical Branch fluticasone 2022-0 Yes Inhale. Uni vers propion/hai 5-19 ity of meterol 11:58: [place] (ADVAIR 50 Medical DISKUS Branch INHALE) ALBUTEROL 2022-0 Yes Inhale. Unive rs INHALE 5-19 ity of 11:58: [address] Branch fluticasone 2022-0 Yes Inhale. Uni vers propion/hai 5-19 ity of meterol 11:58: [place] (ADVAIR 50 Medical DISKUS Branch INHALE) ALBUTEROL 2022-0 Yes Inhale. Unive rs INHALE 5-19 ity of 11:58: [address] Branch fluticasone 2022-0 Yes Inhale. Uni vers propion/hai 5-19 ity of meterol 11:58: [place] (ADVAIR 50 Medical DISKUS Branch INHALE) ALBUTEROL 2022-0 Yes Inhale. Unive rs INHALE 5-19 ity of 11:58: [address] Branch fluticasone 2022-0 Yes Inhale. Uni vers propion/hai 5-19 ity of meterol 11:58: [place] (ADVAIR 50 Medical DISKUS Branch INHALE) ALBUTEROL 2022-0 Yes Inhale. Unive rs INHALE 5-19 ity of 11:58: [address] fluticasone 2022-0 Yes Inhale. Uni vers propion/hai 5-19 ity of meterol 11:58: [place] (ADVAIR 50 Medical DISKUS Branch INHALE) ALBUTEROL 2022-0 Yes Inhale. Unive rs INHALE 5-19 ity of 11:58: [address] Branch fluticasone 2022-0 Yes Inhale. Uni vers propion/hai 5-19 ity of meterol 11:58: [place] (ADVAIR 50 Medical DISKUS Branch INHALE) ALBUTEROL 2022-0 Yes Inhale. Unive rs INHALE 5-19 ity of 11:58: [address] Branch fluticasone 2022-0 Yes Inhale. Uni vers propion/hai 5-19 ity of meterol 11:58: [place] (ADVAIR 50 Medical DISKUS Branch INHALE) ALBUTEROL 2022-0 Yes Inhale. Unive rs INHALE 5-19 ity of 11:58: [place] [address] Medical Branch fluticasone 2022-0 Yes Inhale. Uni vers propion/hai 5-19 ity of meterol 11:58: [place] (ADVAIR 50 Medical DISKUS Branch INHALE) ALBUTEROL 2022-0 Yes Inhale. Unive rs INHALE 5-19 ity of 11:58: [place] [address] Medical Branch fluticasone 2022-0 Yes Inhale. Uni vers propion/hai 5-19 ity of meterol 11:58: [place] (ADVAIR 50 Medical DISKUS Branch INHALE) ALBUTEROL 2022-0 Yes Inhale. Unive rs INHALE 5-19 ity of 11:58: [place] [address] Medical Branch fluticasone 2022-0 Yes Inhale. Uni vers propion/hai 5-19 ity of meterol 11:58: [place] (ADVAIR 50 Medical DISKUS Branch INHALE) ALBUTEROL 2022-0 Yes Inhale. Unive rs INHALE 5-19 ity of 11:58: [place] [address] Medical Branch fluticasone 2022-0 Yes Inhale. Uni vers propion/hai 5-19 ity of meterol 11:58: [place] (ADVAIR 50 Medical DISKUS Branch INHALE) ALBUTEROL 2022-0 Yes Inhale. Unive rs INHALE 5-19 ity of 11:58: [address] Branch fluticasone 2022-0 Yes Inhale. Uni vers propion/hai 5-19 ity of meterol 11:58: [place] (ADVAIR 50 Medical DISKUS Branch INHALE) ALBUTEROL 2022-0 Yes Inhale. Unive rs INHALE 5-19 ity of 11:58: [address] Branch fluticasone 2022-0 Yes Inhale. Uni vers propion/hai 5-19 ity of meterol 11:58: [place] (ADVAIR 50 Medical DISKUS Branch INHALE) ALBUTEROL 2022-0 Yes Inhale. Unive rs INHALE 5-19 ity of 11:58: [place] [address] Medical Branch fluticasone 2022-0 Yes Inhale. Uni vers propion/hai 5-19 ity of meterol 11:58: [place] (ADVAIR 50 Medical DISKUS Branch INHALE) ALBUTEROL 2022-0 Yes Inhale. Unive rs INHALE 5-19 ity of 11:58: [address] fluticasone 2022-0 Yes Inhale. Uni vers propion/hai 5-19 ity of meterol 11:58: [place] (ADVAIR 50 Medical DISKUS Branch INHALE) ALBUTEROL 2022-0 Yes Inhale. Unive rs INHALE 5-19 ity of 11:58: [address] fluticasone 2022-0 Yes Inhale. Uni vers propion/hai 5-19 ity of meterol 11:58: [place] (ADVAIR Medical DISKUS Branch INHALE) ALBUTEROL 2022-0 Yes Inhale. Unive rs INHALE 5-19 ity of 11:58: [address] fluticasone 2022-0 Yes Inhale. Uni vers propion/hai 5-19 ity of meterol 11:58: [place] ([place] [address] Medical DISKUS Branch INHALE) ALBUTEROL 2022-0 Yes Inhale. Unive rs INHALE 5-19 ity of 11:58: [address] fluticasone 2022-0 Yes Inhale. Uni vers propion/hai 5-19 ity of meterol 11:58: [place] (ADVAIR Medical DISKUS Branch INHALE) ALBUTEROL 2022-0 Yes Inhale. Unive rs INHALE 5-19 ity of 11:58: [address] fluticasone 2022-0 Yes Inhale. Uni vers propion/hai 5-19 ity of meterol 11:58: [place] ([facility] DISKUS Branch INHALE) melatonin 2022- No 3mg 3 mg, Univer s (MELATIN) 01-20 Oral, ity of tablet 3 mg 08:30: 07:39 ONCE, 1 [place] 00 :00 dose, On Medical Fri Branch 01/20/23 at 0330, Routine melatonin 2022- No 3mg 3 mg, Univer s (MELATIN) 01-20 Oral, ity of tablet 3 mg 08:30: 07:39 ONCE, 1 [place] 00 :00 dose, On Medical Fri Branch 01/20/23 at 0330, Routine lactulose 2022- No 30mL 30 mL, Unive rs (CEPHULAC) 01-20 Oral, ity of solution 30 07:45: 07:12 ONCE, 1 [place] mL 00 :00 dose, On [facility] Branch 01/20/23 at 0245, Routine lactulose 3-0 3- No 30mL 30 mL, Unive rs (CEPHULAC) 01-20 Oral, ity of solution 30 07:45: 07:12 ONCE, 1 [place] mL 00 :00 dose, On [facility] 01/20/23 at 0245, Routine lactulose 2022-0 2022- No 30mL 30 mL, Unive rs (CEPHULAC) 01-20 Oral, ity of solution 30 03:15: 02:34 ONCE, 1 [place] mL 00 :00 dose, On [facility] 01/19/23 at 2215, Routine lactulose 3-0 3- No 30mL 30 mL, Unive rs (CEPHULAC) 01-20 Oral, ity of solution 30 03:15: 02:34 ONCE, 1 [place] mL 00 :00 dose, On [facility] 01/19/23 at 2215, Routine ticagrelor 3-0 3- No [id number] 90mg Take 1 Univers 90 mg 01-20 [id number] tablet by ity of tablet 00:00: 04:59 mouth in [place] 00 :[address] [facility] Branch and 1 tablet in the evening. Do all this for 30 days. ticagrelor 3-0 3- No [id number] 90mg Take 1 Univers 90 mg 01-20 [id number] tablet by ity of tablet 00:00: 04:59 mouth in [place] 00 :[address] [facility] Branch and 1 tablet in the evening. Do all this for 30 days. ticagrelor 2023-0 2023- No [id number] 90mg Take 1 Univers 90 mg 01-20 [id number] tablet by ity of tablet 00:00: 04:59 mouth in [place] 00 :[address] [facility] and 1 tablet in the evening. Do all this for 30 days. ticagrelor 2023-0 3- No [id number] 90mg Take 1 Univers 90 mg 01-20 [id number] tablet by ity of tablet 00:00: 04:59 mouth in [place] 00 :00 the Medical morning Branch and 1 tablet in the evening. Do all this for 30 days. ticagrelor 2022-0 Yes 90mg 90 mg, Unive rs (BRILINTA) -18 Oral, BID, ity of tablet 90 19:57: First dose [place] mg 13 (after Medical last Branch modificati on) on [facility] 01/19/23 at 1999, Until Discontinu ed, Routine ticagrelor 2022-0 2022- No 90mg 90 mg, Univ ers (BRILINTA) 01-1919 Oral, BID, it y of tablet 90 19:57: 18:58 First dose [place] mg 13 :52 (after Medical last Branch modificati on) on [facility] 01/19/23 at 1999, Until Discontinu ed, Routine iron 2022-0 2022- No 200mg 200 mg, IV Unive rs sucrose 01-19 Infusion, ity of (VENOFER) 17:45: 19:53 ONCE, [place] 200 mg in 00 :00 Administer Medi katie NaCl 0.9% over 1.5 Branch (NS) 100 mL Hours, On infusion [facility] 01/19/23 at 1245, For 1 dose iron 2022-0 2022- No 200mg 200 mg, IV Unive rs sucrose 01-19 Infusion, ity of (VENOFER) 17:45: 19:53 ONCE, [place] 200 mg in 00 :00 Administer Medi katie NaCl 0.9% over 1.5 Branch (NS) 100 mL Hours, On infusion [facility] 01/19/23 at 1245, For 1 dose sennosides- 2022-0 Yes 1{tbl} 1 tablet, Univers docusate 01-19 Oral, ity of sodium 17:15: DAILY, [place] (SENOKOT-S) 00 First dose Me dical 8.6-50 mg on [place] Branch per tablet 01/19/23 at 1 tablet 1215, Until Discontinu ed, Routine polyethylen 2022-0 Yes 17g 17 g, Unive rs e glycol 18 Oral, ity of 3350 powder 17:15: DAILY, [place] 17 g 00 First dose Medical (after Branch last modificati on) on [facility] 01/19/23 at 1215, Until Discontinu ed, Routine sennosides- 2022- No 1{tbl} 1 tablet, Univers docusate 01-19 Oral, ity of sodium 17:15: 18:58 DAILY, [place] (SENOKOT-S) 00 :52 First dose Me dical 8.6-50 mg on [facility] per tablet 01/19/23 at 1 tablet 1215, Until Discontinu ed, Routine polyethylen 2022- No 17g 17 g, Univ ers e glycol 01-19 Oral, ity of 3350 powder 17:15: 18:58 DAILY, [place] 17 g 00 :52 First dose Medical (after Branch last modificati on) on [facility] 01/19/23 at 1215, Until Discontinu ed, Routine ticagrelor 2022- No 180mg 180 mg, Un justen (BRILINTA) 01-19 Oral, ity of tablet 180 16:45: 18:49 ONCE, 1 [place] mg 00 :00 dose, On Medical [facility] 01/19/23 at 1145, Routine ticagrelor 2022- No 180mg 180 mg, Un justen (BRILINTA) 01-19 Oral, ity of tablet 180 16:45: 18:49 ONCE, 1 [place] mg 00 :00 dose, On [facility] 01/19/23 at 1145, Routine atorvastati Yes 40mg 40 mg, Univ ers n (LIPITOR) 01-19 Oral, ity of tablet 40 14:00: DAILY, [place] mg 00 First dose Medical on [facility] 01/19/23 at 0900, Until Discontinu ed, Routine aspirin Yes 81mg 81 mg, Univers chewable 01-19 Oral, ity of tablet 81 14:00: DAILY, [place] mg 00 First dose Medical on [facility] 01/19/23 at 0900, Until Discontinu ed, Routine, CV Recovery to Floor atorvastati 2022- No 40mg 40 mg, Uni vers n (LIPITOR) 01-19 Oral, ity of tablet 40 14:00: 18:58 DAILY, [place] mg 00 :52 First dose Medical on [facility] 01/19/23 at 0900, Until Discontinu ed, Routine aspirin 2022- No 81mg 81 mg, Univers chewable 01-19 Oral, ity of tablet 81 14:00: 18:58 DAILY, [place] mg 00 :52 First dose Medical on [facility] 01/19/23 at 0900, Until Discontinu ed, Routine, CV Recovery to Floor magnesium 2022- No 400mg 400 mg, Uni vers oxide 01-19 Oral, ity of (MAG-OX 12:00: 11:32 ONCE, 1 [place] 400) tablet 00 :00 dose, On Medi katie 400 mg [facility] 01/19/23 at 0700, Routine magnesium 2022- No 400mg 400 mg, Uni vers oxide 01-19 Oral, ity of (MAG-OX 12:00: 11:32 ONCE, 1 [place] 400) tablet 00 :00 dose, On Medi katie 400 mg [facility] 01/19/23 at 0700, Routine KCL No 20meq 20 mEq, Univers (KLOR-CON 01-19 Oral, ity of M20) tablet 11:45: 11:32 ONCE, 1 [place] 20 mEq 00 :00 dose, On [facility] 01/19/23 at 0645, Routine KCL 2022- No 20meq 20 mEq, Univers (KLOR-CON 01-19 Oral, ity of M20) tablet 11:45: 11:32 ONCE, 1 [place] 20 mEq 00 :00 dose, On [facility] 01/19/23 at 0645, Routine acetaminoph Yes 1{tbl} 1 tablet, Univers en-codeine 01-19 Oral, ity of (TYLENOL 05:20: Q4HPRN, 2 [place] #3) 300-30 23 doses, Medical mg tablet 1 Starting Bran ch tablet on [facility] 01/19/23 at 0020, Until Discontinu ed, Routine, Pain (scale 7-10) acetaminoph 2022- No 1{tbl} 1 tablet, Univers en-codeine 01-19 Oral, ity of (TYLENOL 05:20: 18:58 Q4HPRN, 2 [place] #3) 300-30 23 :52 doses, Medical mg tablet 1 Starting Bran ch tablet on Mon01/19/23 at 0020, Until Mon01/20/23 at 1358, Routine, Pain (scale 7-10) gabapentin 2022- No 300mg 300 mg, Un justen (NEURONTIN) 01-19- Oral, ONCE i ty of capsule 300 03:45: 03:09 NOW, 1 [place] mg 00 :00 dose, On Mon Branch 01/18/23 at 2245, Routine gabapentin 2022- No 300mg 300 mg, Un justen (NEURONTIN) 01-19-18 Oral, ONCE i ty of capsule 300 03:45: 03:09 NOW, 1 [place] mg 00 :00 dose, On Mon Branch 01/18/23 at 2245, Routine aspirin 81 Yes 81mg Chew 1 Unive rs mg chewable 5-18 tablet (81 it y of tablet 00:00: mg) daily. MD [facility] aspirin 81 Yes 81mg Chew 1 Unive rs mg chewable 5-18 tablet (81 it y of tablet 00:00: mg) daily. MD [facility] aspirin 81 2023- No [id number] 81mg Take 1 [facility] mg chewable 5-18 05-18 [id number] tablet by ity of tablet 00:00: 04:59 mouth in [place] 00 :00 the Medical morning. [place] atorvastati 2022-0 2023- No [id number] 40mg Take 1 Univers n 40 mg 5-18 05-18 tablet by ity of tablet 00:00: 04:59 mouth in [place] 00 :00 the Medical morning. Branch aspirin 81 2022-0 2023- No [id number] 81mg Take 1 [facility] mg chewable 5-18 05-18 [id number] tablet by ity of tablet 00:00: 04:59 mouth in [place] 00 :00 the Medical morning. [place] atorvastati 2022-0 2023- No [id number] 40mg Take 1 [facility] n 40 mg 5-18 05-18 tablet by ity of tablet 00:00: 04:59 mouth in [place] 00 :00 the Medical morning. Branch aspirin 81 2022-4- No [id number] 81mg Take 1 [facility] mg chewable 5-18 05-18 [id number] tablet by ity of tablet 00:00: 04:59 mouth in [place] 00 :00 the Medical morning. Branch atorvastati 2022-4- No [id number] 40mg Take 1 [facility] n 40 mg 5-18 05-18 tablet by ity of tablet 00:00: 04:59 mouth in [place] 00 :00 the Medical morning. Branch aspirin 81 2022-2023- No [id number] 81mg Take 1 [facility] mg chewable 5-18 05-18 [id number] tablet by ity of tablet 00:00: 04:59 mouth in [place] 00 :00 the Medical morning. Branch atorvastati 2022-4- No [id number] 40mg Take 1 [facility] n 40 mg 5-18 05-18 tablet by ity of tablet 00:00: 04:59 mouth in [place] 00 :00 the Medical morning. Branch aspirin 81 2022-2023- No [id number] 81mg Take 1 [facility] mg chewable 5-18 05-18 [id number] tablet by ity of tablet 00:00: 04:59 mouth in [place] 00 :00 the Medical morning. Branch atorvastati 2022-4- No [id number] 40mg Take 1 [facility] n 40 mg 5-18 05-18 tablet by ity of tablet 00:00: 04:59 mouth in [place] 00 :00 the Medical morning. Branch aspirin 81 2022-4- No [id number] 81mg Take 1 [facility] mg chewable 5-18 05-18 [id number] tablet by ity of tablet 00:00: 04:59 mouth in [place] 00 :00 the Medical morning. Branch atorvastati 2022-4- No [id number] 40mg Take 1 [facility] n 40 mg 5-18 05-18 tablet by ity of tablet 00:00: 04:59 mouth in [place] 00 :00 the Medical morning. Branch aspirin 81 2022-4- No [id number] 81mg Take 1 [facility] mg chewable 5-18 05-18 [id number] tablet by ity of tablet 00:00: 04:59 mouth in [place] 00 :00 the Medical morning. Branch atorvastati 2022-0 4- No [id number] 40mg Take 1 [facility] n 40 mg 5-18 05-18 tablet by ity of tablet 00:00: 04:59 mouth in [place] 00 :00 the Medical morning. Branch aspirin 81 3-0 4- No [id number] 81mg Take 1 [facility] mg chewable 5-18 05-18 [id number] tablet by ity of tablet 00:00: 04:59 mouth in [place] 00 :00 the Medical morning. Branch atorvastati 2022-0 4- No [id number] 40mg Take 1 [facility] n 40 mg 5-18 05-18 tablet by ity of tablet 00:00: 04:59 mouth in [place] 00 :00 the Medical morning. Branch aspirin 81 2022-0 4- No [id number] 81mg Take 1 [facility] mg chewable 5-18 05-18 [id number] tablet by ity of tablet 00:00: 04:59 mouth in [place] 00 :00 the Medical morning. Branch atorvastati 2022-0 4- No [id number] 40mg Take 1 [facility] n 40 mg 5-18 05-18 tablet by ity of tablet 00:00: 04:59 mouth in [place] 00 :00 the Medical morning. Branch aspirin 81 2022-0 4- No [id number] 81mg Take 1 [facility] mg chewable 5-18 05-18 [id number] tablet by ity of tablet 00:00: 04:59 mouth in [place] 00 :00 the Medical morning. Branch atorvastati 2022-0 4- No [id number] 40mg Take 1 [facility] n 40 mg 5-18 05-18 tablet by ity of tablet 00:00: 04:59 mouth in [place] 00 :00 the Medical morning. Branch aspirin 81 2022-0 4- No [id number] 81mg Take 1 [facility] mg chewable 5-18 05-18 [id number] tablet by ity of tablet 00:00: 04:59 mouth in [place] 00 :00 the Medical morning. Branch atorvastati 3-0 4- No [id number] 40mg Take 1 [facility] n 40 mg 5-18 05-18 tablet by ity of tablet 00:00: 04:59 mouth in [place] 00 :00 the Medical morning. Branch aspirin 81 3-0 4- No [id number] 81mg Take 1 [facility] mg chewable 5-18 05-18 [id number] tablet by ity of tablet 00:00: 04:59 mouth in [place] 00 :00 the Medical morning. Branch atorvastati 2022-0 4- No [id number] 40mg Take 1 [facility] n 40 mg 5-18 05-18 tablet by ity of tablet 00:00: 04:59 mouth in [place] 00 :00 the Medical morning. Branch aspirin 81 2022-0 4- No [id number] 81mg Take 1 [facility] mg chewable 5-18 05-18 [id number] tablet by ity of tablet 00:00: 04:59 mouth in [place] 00 :00 the Medical morning. Branch atorvastati 2022-0 4- No [id number] 40mg Take 1 [facility] n 40 mg 5-18 05-18 tablet by ity of tablet 00:00: 04:59 mouth in [place] 00 :00 the Medical morning. Branch aspirin 81 2022-0 4- No [id number] 81mg Take 1 [facility] mg chewable 5-18 05-18 [id number] tablet by ity of tablet 00:00: 04:59 mouth in [place] 00 :00 the Medical morning. Branch atorvastati 2022-4- No [id number] 40mg Take 1 [facility] n 40 mg 5-18 05-18 tablet by ity of tablet 00:00: 04:59 mouth in [place] 00 :00 the Medical morning. Branch aspirin 81 2022-0 4- No [id number] 81mg Take 1 [facility] mg chewable 5-18 05-18 [id number] tablet by ity of tablet 00:00: 04:59 mouth in [place] 00 :00 the Medical morning. Branch atorvastati 2022-0 4- No [id number] 40mg Take 1 [facility] n 40 mg 5-18 05-18 tablet by ity of tablet 00:00: 04:59 mouth in [place] 00 :00 the Medical morning. Branch aspirin 81 2022-0 4- No [id number] 81mg Take 1 [facility] mg chewable 5-18 05-18 [id number] tablet by ity of tablet 00:00: 04:59 mouth in [place] 00 :00 the Medical morning. Branch atorvastati 2022-0 4- No [id number] 40mg Take 1 [facility] n 40 mg 5-18 05-18 tablet by ity of tablet 00:00: 04:59 mouth in [place] 00 :00 the Medical morning. Branch aspirin 81 2022-0 4- No [id number] 81mg Take 1 [facility] mg chewable 5-18 05-18 [id number] tablet by ity of tablet 00:00: 04:59 mouth in [place] 00 :00 the Medical morning. Branch atorvastati 2023- No [id number] 40mg Take 1 [facility] n 40 mg 5-18 05-18 tablet by ity of tablet 00:00: 04:59 mouth in [place] 00 :00 the Medical morning. Branch ferrous 2022- No [id number] 325mg Take 1 [facility] sulfate 5-18 08-17 [id number] tablet by ity of (FERROUSUL) 00:00: 04:59 mouth [place] 325 mg (65 00 :00 every Medical mg iron) other day Branch tablet for 90 days. ferrous 2022-2022- No [id number] 325mg Take 1 [facility] sulfate 5-18 08-17 [id number] tablet by ity of (FERROUSUL) 00:00: 04:59 mouth [place] 325 mg (65 00 :00 every Medical mg iron) other day Branch tablet for 90 days. ferrous 2022- No [id number] 325mg Take 1 [facility] sulfate 5-18 -17 [id number] tablet by ity of (FERROUSUL) 00:00: 04:59 mouth [place] 325 mg (65 00 :00 every Medical mg iron) other day Branch tablet for 90 days. ferrous 2022- No [id number] 325mg Take 1 [facility] sulfate 5-18 -17 [id number] tablet by ity of (FERROUSUL) 00:00: 04:59 mouth [place] 325 mg (65 00 :00 every Medical mg iron) other day Branch tablet for 90 days. ferrous 2022- No [id number] 325mg Take 1 [facility] sulfate 5-18 08-17 [id number] tablet by ity of (FERROUSUL) 00:00: 04:59 mouth [place] 325 mg (65 00 :00 every Medical mg iron) other day Branch tablet for 90 days. ferrous 2022- No [id number] 325mg Take 1 [facility] sulfate 5-18 08-17 [id number] tablet by ity of (FERROUSUL) 00:00: 04:59 mouth [place] 325 mg (65 00 :00 every Medical mg iron) other day Branch tablet for 90 days. ferrous 2022- No [id number] 325mg Take 1 [facility] sulfate 5-18 08-17 [id number] tablet by ity of (FERROUSUL) 00:00: 04:59 mouth [place] 325 mg (65 00 :00 every Medical mg iron) other day Branch tablet for 90 days. ferrous 2022- No [id number] 325mg Take 1 [facility] sulfate 5-18 08-17 [id number] tablet by ity of (FERROUSUL) 00:00: 04:59 mouth [place] 325 mg (65 00 :00 every Medical mg iron) other day Branch tablet for 90 days. ferrous 2022- No [id number] 325mg Take 1 [facility] sulfate 5-18 08-17 [id number] tablet by ity of (FERROUSUL) 00:00: 04:59 mouth [place] 325 mg (65 00 :00 every Medical mg iron) other day Branch tablet for 90 days. ferrous 2022- No [id number] 325mg Take 1 [facility] sulfate 5-18 08-17 [id number] tablet by ity of (FERROUSUL) 00:00: 04:59 mouth [place] 325 mg (65 00 :00 every Medical mg iron) other day Branch tablet for 90 days. ferrous 2022- No [id number] 325mg Take 1 [facility] sulfate 5-18 08-17 [id number] tablet by ity of (FERROUSUL) 00:00: 04:59 mouth [place] 325 mg (65 00 :00 every Medical mg iron) other day Branch tablet for 90 days. ferrous 2022- No [id number] 325mg Take 1 [facility] sulfate 5-18 08-17 [id number] tablet by ity of (FERROUSUL) 00:00: 04:59 mouth [place] 325 mg (65 00 :00 every Medical mg iron) other day Branch tablet for 90 days. ferrous 2022- No [id number] 325mg Take 1 [facility] sulfate 5-18 08-17 [id number] tablet by ity of (FERROUSUL) 00:00: 04:59 mouth [place] 325 mg (65 00 :00 every Medical mg iron) other day Branch tablet for 90 days. ferrous 2022- No [id number] 325mg Take 1 [facility] sulfate 5-18 08-17 [id number] tablet by ity of (FERROUSUL) 00:00: 04:59 mouth [place] 325 mg (65 00 :00 every Medical mg iron) other day Branch tablet for 90 days. ferrous 2022- No [id number] 325mg Take 1 [facility] sulfate 01-19 [id number] tablet by ity of (FERROUSUL) 00:00: 04:59 mouth [place] 325 mg (65 00 :00 every Medical mg iron) other day Branch tablet for 90 days. ferrous 2022-0 2022- No [id number] 325mg Take 1 [facility] sulfate 01-19 [id number] tablet by ity of (FERROUSUL) 00:00: 04:59 mouth [place] 325 mg (65 00 :00 every Medical mg iron) other day Branch tablet for 90 days. acetaminoph Yes 650mg 650 mg, Un justen en 01-18 Oral, ity of (TYLENOL) 23:42: Q6HPRN, [place] tablet 650 28 Starting Medic al mg on Mon01/18/23 at 1842, Until Discontinu ed, Routine, Pain (scale 1-3) acetaminoph 2022- No 650mg 650 mg, U nivers en 01-18 Oral, ity of (TYLENOL) 23:42: 18:58 Q6HPRN, [place] tablet 650 28 :52 Starting Medic al mg on Mon01/18/23 at 1842, Until Mon01/20/23 at 1358, Routine, Pain (scale 1-3) gabapentin Yes 100mg 100 mg, Uni vers (NEURONTIN) 01-18 Oral, TID, it y of capsule 100 22:00: First dose [place] mg 00 on Mon01/18/23 at Branch 1700, Until Discontinu ed, Routine gabapentin 2022- No 100mg 100 mg, Un justen (NEURONTIN) 01-18 Oral, TID, i ty of capsule 100 22:00: 18:58 First dose [place] mg 00 :52 on Mon01/18/23 at Branch 1700, Until Discontinu ed, Routine iodixanol 2022- No ONCE INTRA U nivers (VISIPAQUE 01-18 PROCEDURE, it y of 320-100 mL) 17:27: 17:43 Starting [place] injection 53 :23 on Mon01/18/23 at Branch 1227, Until Mon01/18/23 at 1243, Routine, CV Intraproce dure clopidogreL 2022- No 75mg 75 mg, Uni vers (PLAVIX) 75 01-18 Oral, ity of mg tablet 16:00: 15:08 ONCE, 1 [place] 75 mg 00 :00 dose, On Wed Branch 01/18/23 at 1100, Routine clopidogreL 2022- No 75mg 75 mg, Uni vers (PLAVIX) 75 01-18 Oral, ity of mg tablet 16:00: 15:08 ONCE, 1 [place] 75 mg 00 :00 dose, On Wed Branch 01/18/23 at 1100, Routine heparin 2022- No ONCE INTRA Uni vers 1,000 01-18 PROCEDURE, ity of unit/mL 15:51: 17:43 Starting [place] injection 04 :23 on Mon Medical 01/18/23 at Branch 1051, Until Mon01/18/23 at 1243, Routine, CV Intraproce dure nitroglycer 2022- No ONCE INTRA Univers in (TRIDIL) 01-18 PROCEDURE, i ty of 2 mg in 10 15:50: 17:43 Starting [place] mL D5W for 00 :23 on Mon Cardiac 01/18/23 at Branch Cath 1050, Until Mon01/18/23 at 1243, Routine, CV Intraproce dure lidocaine 2022- No ONCE INTRA U nivers 1% (PF) 01-18 PROCEDURE, ity o f (XYLOCAINE) 15:46: 17:43 Starting [place] injection 01 :23 on Mon01/18/23 at Branch 1046, Until Mon01/18/23 at 1243, Routine, CV Intraproce dure lidocaine 2022- No ONCE INTRA U nivers 1% (PF) 01-18 PROCEDURE, ity o f (XYLOCAINE) 15:36: 17:43 Starting [place] injection 33 :23 on Mon Medical 01/18/23 at Branch 1036, Until Mon01/18/23 at 1243, Routine, CV Intraproce dure midazolam 2022- No ONCE INTRA U nivers (VERSED) 01-18 PROCEDURE, ity of injection 15:27: 17:43 Starting [place] 19 :23 on Mon [facility] 01/18/23 at Branch 1027, Until Mon01/18/23 at 1243, Routine, CV Intraproce dure FENTanyl PF 2022-0 2022- No ONCE INTRA Univers (SUBLIMAZE 01-18 PROCEDURE, it y of (PF)) 15:27: 17:43 Starting [place] injection 00 :23 on Mon01/18/23 at Branch 1027, Until Mon01/18/23 at 1243, Routine, CV Intraproce dure gabapentin 2022-0 2022- No 300mg 300 mg, Un justen (NEURONTIN) 01-15 Oral, ity of capsule 300 21:00: 20:54 ONCE, 1 [place] mg 00 :00 dose, On [facility] 01/15/23 at 1600, TAE gabapentin 2022-0 Yes [id number] 100mg Take 1 Univers (NEURONTIN) 5-14 capsule by it y of 100 mg 00:00: mouth in [place] capsule the and 1 capsule at noon and 1 capsule in the evening. gabapentin 2023-0 Yes [id number] 100mg Take 1 [facility] (NEURONTIN) 5-14 capsule by it y of 100 mg 00:00: mouth in [place] capsule the and 1 capsule at noon and 1 capsule in the evening. gabapentin 2023-0 Yes [id number] 100mg Take 1 [facility] (NEURONTIN) 5-14 capsule by it y of 100 mg 00:00: mouth in [place] capsule 00 the morning Branch and 1 capsule at noon and 1 capsule in the evening. gabapentin 2023-0 Yes [id number] 100mg Take 1 [facility] (NEURONTIN) 5-14 capsule by it y of 100 mg 00:00: mouth in [place] capsule 00 the morning Branch and 1 capsule at noon and 1 capsule in the evening. gabapentin 2023-0 Yes [id number] 100mg Take 1 [facility] (NEURONTIN) 5-14 capsule by it y of 100 mg 00:00: mouth in [place] capsule 00 the morning Branch and 1 capsule at noon and 1 capsule in the evening. gabapentin 2023-0 Yes [id number] 100mg Take 1 [facility] (NEURONTIN) 5-14 capsule by it y of 100 mg 00:00: mouth in [place] capsule 00 the Medical morning Branch and 1 capsule at noon and 1 capsule in the evening. gabapentin 2023-0 Yes [id number] 100mg Take 1 [facility] (NEURONTIN) 5-14 capsule by it y of 100 mg 00:00: mouth in [place] capsule 00 the Medical morning Branch and 1 capsule at noon and 1 capsule in the evening. gabapentin 2023-0 Yes [id number] 100mg Take 1 [facility] (NEURONTIN) 5-14 capsule by it y of 100 mg 00:00: mouth in [place] capsule 00 the Medical morning Branch and 1 capsule at noon and 1 capsule in the evening. gabapentin 2023-0 Yes [id number] 100mg Take 1 [facility] (NEURONTIN) 5-14 capsule by it y of 100 mg 00:00: mouth in [place] capsule 00 the Medical morning Branch and 1 capsule at noon and 1 capsule in the evening. gabapentin 2023-0 Yes [id number] 100mg Take 1 [facility] (NEURONTIN) 5-14 capsule by it y of 100 mg 00:00: mouth in [place] capsule 00 the Medical morning Branch and 1 capsule at noon and 1 capsule in the evening. gabapentin 2023-0 Yes [id number] 100mg Take 1 Univers (NEURONTIN) 5-14 capsule by it y of 100 mg 00:00: mouth in [place] capsule 00 the Medical morning Branch and 1 capsule at noon and 1 capsule in the evening. gabapentin 2023-0 Yes [id number] 100mg Take 1 [facility] (NEURONTIN) 5-14 capsule by it y of 100 mg 00:00: mouth in [place] capsule 00 the Medical morning Branch and 1 capsule at noon and 1 capsule in the evening. gabapentin 2023-0 Yes [id number] 100mg Take 1 Univers (NEURONTIN) 5-14 capsule by it y of 100 mg 00:00: mouth in [place] capsule 00 the Medical morning Branch and 1 capsule at noon and 1 capsule in the evening. gabapentin 2023-0 Yes [id number] 100mg Take 1 Univers (NEURONTIN) 5-14 capsule by it y of 100 mg 00:00: mouth in [place] capsule 00 the Medical morning Branch and 1 capsule at noon and 1 capsule in the evening. gabapentin 2023-0 Yes [id number] 100mg Take 1 Univers (NEURONTIN) 5-14 capsule by it y of 100 mg 00:00: mouth in [place] capsule the Branch and 1 capsule at noon and 1 capsule in the evening. gabapentin 2023-0 Yes [id number] 100mg Take 1 [facility] (NEURONTIN) 5-14 capsule by it y of 100 mg 00:00: mouth in [place] capsule the Branch and 1 capsule at noon and 1 capsule in the evening. gabapentin 2023-0 Yes [id number] 100mg Take 1 Univers (NEURONTIN) 5-14 capsule by it y of 100 mg 00:00: mouth in [place] capsule the and 1 capsule at noon and 1 capsule in the evening. gabapentin 2023-0 Yes [id number] 100mg Take 1 Univers (NEURONTIN) 5-14 capsule by it y of 100 mg 00:00: mouth in [place] capsule the and 1 capsule at noon and 1 capsule in the evening. aspirin 3-0 Yes 81mg 81 mg, Univers chewable 5-11 Oral, ity of tablet 81 14:00: DAILY, [place] mg 00 First dose Medical on [facility] 01/12/23 at 0900, Until Discontinu ed, Routine, CV Recovery to Floor aspirin 3-0 2023- No 81mg 81 mg, Univers chewable 5-11 05-10 Oral, ity of tablet 81 14:00: 21:54 DAILY, [place] mg 00 :29 First dose Medical on [facility] 01/12/23 at 0900, Until Discontinu ed, Routine, CV Recovery to Floor aspirin 81 2023-0 Yes [id number] 81mg Take 1 [facility] mg chewable 5-11 [id number] tablet by i ty of tablet 00:00: mouth in [place] the Medical morning. Branch aspirin 81 2023-0 Yes [id number] 81mg Take 1 [facility] mg chewable 5-11 [id number] tablet by i ty of tablet 00:00: mouth in [place] the Medical morning. Branch aspirin 81 2023-0 Yes [id number] 81mg Take 1 [facility] mg chewable 5-11 [id number] tablet by i ty of tablet 00:00: mouth in [place] the Medical morning. Branch aspirin 81 2023-0 Yes [id number] 81mg Take 1 [facility] mg chewable 5-11 [id number] tablet by i ty of tablet 00:00: mouth in [place] the Medical morning. Branch aspirin 81 2023-0 Yes [id number] 81mg Take 1 [facility] mg chewable 5-11 [id number] tablet by i ty of tablet 00:00: mouth in [place] 00 the Medical morning. Branch aspirin 81 2022-0 Yes [id number] 81mg Take 1 [facility] mg chewable 5-11 [id number] tablet by i ty of tablet 00:00: mouth in [place] 00 the Medical morning. Branch aspirin 81 2022-0 2023- No [id number] 81mg Take 1 [facility] mg chewable 5-11 05-18 [id number] tablet by ity of tablet 00:00: 00:00 mouth in [place] 00 :00 the Medical morning. Branch aspirin 81 2022-0 3- No [id number] 81mg Take 1 [facility] mg chewable 5-11 05-18 [id number] tablet by ity of tablet 00:00: 00:00 mouth in [place] 00 :00 the Medical morning. Branch FENTanyl PF 0 2022- No [id number] 25ug 25 mcg, Univers (SUBLIMAZE 5-10 05-10 Slow IV ity o f (PF)) 16:45: 16:02 [place], [place] injection 00 :00 ONCE, 1 Medical 25 mcg dose, On [place] Mon01/11/23 at 1145, Routine FENTanyl PF 2022- No [id number] 25ug 25 mcg, Univers (SUBLIMAZE 5-10 05-10 Slow IV ity o f (PF)) 16:45: 16:02 [place], [place] injection 00 :00 ONCE, 1 Medical 25 mcg dose, On Branch Mon01/11/23 at 1145, Routine ALBUTEROL 0 Yes Inhale. Unive rs INHALE 5-10 ity of 14:54: [address] fluticasone 2022-0 Yes Inhale. Uni vers propion/hai 5-10 ity of meterol 14:54: [place] ([facility] Medical DISKUS Branch INHALE) ALBUTEROL 2022-0 Yes Inhale. Unive rs INHALE 5-10 ity of 14:54: [address] fluticasone 2022-0 Yes Inhale. Uni vers propion/hai 5-10 ity of meterol 14:54: [place] ([facility] Medical DISKUS Branch INHALE) ALBUTEROL 2022-0 Yes Inhale. Unive rs INHALE 5-10 ity of 14:54: [address] fluticasone Yes Inhale. Uni vers propion/hai 5-10 ity of meterol 14:54: [place] ([facility] Medical DISKUS Branch INHALE) ALBUTEROL Yes Inhale. [facility] INHALE 5-10 ity of 14:54: [address] fluticasone Yes Inhale. Uni vers propion/hai 5-10 ity of meterol 14:54: [place] ([place] [id number] Medical DISKUS Branch INHALE) ALBUTEROL 0 Yes Inhale. [facility] INHALE 5-10 ity of 14:54: [address] fluticasone Yes Inhale. Uni vers propion/hai 5-10 ity of meterol 14:54: [place] ([place] [id number] Medical DISKUS Branch INHALE) lidocaine 2022- No ONCE INTRA U nivers 1% (PF) 01-11 PROCEDURE, ity o f (XYLOCAINE) 13:28: 14:30 Starting [place] injection 33 :06 on Mon01/11/23 at Branch 0828, Until Mon01/11/23 at 0930, Routine, CV Intraproce dure midazolam 2022- No ONCE INTRA U nivers (VERSED) 01-11 PROCEDURE, ity of injection 13:26: 14:30 Starting [place] 00 :06 on Mon01/11/23 at Branch 0826, Until Mon01/11/23 at 0930, Routine, CV Intraproce dure FENTanyl PF 2022- No ONCE INTRA Univers (SUBLIMAZE 01-11 PROCEDURE, it y of (PF)) 13:26: 14:30 Starting [place] injection 00 :06 on Mon Medical 01/11/23 at Branch 0826, Until Mon01/11/23 at 0930, Routine, CV Intraproce dure aspirin 2022- No ONCE INTRA Uni vers tablet 01-11 PROCEDURE, ity of 12:58: 14:30 Starting [place] 37 :06 on Mon01/11/23 at Branch 0758, Until Mon01/11/23 at 0930, Routine, CV Intraproce dure ALBUTEROL 2023-0 Yes Inhale. Unive rs INHALE 5-10 ity of 09:42: [place] 31 Medical Branch fluticasone 2022-0 Yes Inhale. Uni vers propion/hai 5-10 ity of meterol 09:42: [place] ([place] 31 Medical DISKUS Branch INHALE) clopidogrel 2022-0 Yes 75mg Take 1 Univ ers (PLAVIX) 75 5-10 tablet (75 it y of mg tablet 00:00: mg) by [place] 00 mouth MD daily. [facility] clopidogrel 2022-0 Yes 75mg Take 1 Univ ers (PLAVIX) 75 5-10 tablet (75 it y of mg tablet 00:00: mg) by [place] 00 mouth MD daily. [facility] diphenhydrA 2022-0 Yes [id number] Take 1 Univers MINE 25 mg 5-10 oral tab ity o f tablet 00:00: every 12 [place] 00 hrs. Start Medical one day Branch before procedure and last dose on morning of procedure famotidine 2022-0 Yes [id number] Take 1 Univers (PEPCID) 20 5-10 oral tab ity of mg tablet 00:00: every 12 [place] 00 hrs. Start Medical one day Branch before procedure and last dose on morning of procedure predniSONE 2022-0 Yes [id number] Take two Univers 20 mg 5-10 20mg tabs ity of tablet 00:00: every 6 [place] 00 hrs. Start Medical one day Branch before procedure and last dose on morning of procedure clopidogreL 2022-0 Yes [id number] 75mg Take 1 Univers 75 mg 5-10 [id number] tablet by ity of tablet 00:00: mouth in [place] 00 the Medical morning. Branch clopidogreL 2022-0 Yes [id number] 75mg Take 1 [facility] 75 mg 5-10 [id number] tablet by ity of tablet 00:00: mouth in [place] 00 the Medical morning. Branch diphenhydrA 2022-0 Yes [id number] Take 1 [facility] MINE 25 mg 5-10 oral tab ity o f tablet 00:00: every 12 [place] 00 hrs. Start Medical one day Branch before procedure and last dose on morning of procedure famotidine 2022-0 Yes [id number] Take 1 [facility] (PEPCID) 20 5-10 oral tab ity of mg tablet 00:00: every 12 [place] 00 hrs. Start Medical one day Branch before procedure and last dose on morning of procedure predniSONE 3-0 Yes [id number] Take two Univers 20 mg 5-10 20mg tabs ity of tablet 00:00: every 6 [place] 00 hrs. Start Medical one day Branch before procedure and last dose on morning of procedure clopidogreL 2022-0 Yes [id number] 75mg Take 1 Univers 75 mg 5-10 [id number] tablet by ity of tablet 00:00: mouth in [place] 00 the Medical morning. Branch diphenhydrA 2022-0 Yes [id number] Take 1 [facility] MINE 25 mg 5-10 oral tab ity o f tablet 00:00: every 12 [place] 00 hrs. Start Medical one day Branch before procedure and last dose on morning of procedure famotidine 2022-0 Yes [id number] Take 1 [facility] (PEPCID) 20 5-10 oral tab ity of mg tablet 00:00: every 12 [place] 00 hrs. Start Medical one day Branch before procedure and last dose on morning of procedure predniSONE 2022-0 Yes [id number] Take two Univers 20 mg 5-10 20mg tabs ity of tablet 00:00: every 6 [place] 00 hrs. Start Medical one day Branch before procedure and last dose on morning of procedure clopidogreL 2022-0 Yes [id number] 75mg Take 1 Univers 75 mg 5-10 [id number] tablet by ity of tablet 00:00: mouth in [place] 00 the Medical morning. Branch diphenhydrA 2022-0 Yes [id number] Take 1 Univers MINE 25 mg 5-10 oral tab ity o f tablet 00:00: every 12 [place] 00 hrs. Start Medical one day Branch before procedure and last dose on morning of procedure famotidine 2022-0 Yes [id number] Take 1 Univers (PEPCID) 20 5-10 oral tab ity of mg tablet 00:00: every 12 [place] 00 hrs. Start Medical one day Branch before procedure and last dose on morning of procedure predniSONE 3-0 Yes [id number] Take two Univers 20 mg 5-10 20mg tabs ity of tablet 00:00: every 6 [place] 00 hrs. Start Medical one day Branch before procedure and last dose on morning of procedure clopidogreL 2022-0 Yes [id number] 75mg Take 1 Univers 75 mg 5-10 [id number] tablet by ity of tablet 00:00: mouth in [place] 00 the Medical morning. Branch diphenhydrA 2022-0 2022- No [id number] Take 1 [facility] MINE 25 mg 5-10 05-18 oral tab ity of tablet 00:00: 00:00 every 12 [place] 00 :00 hrs. Start Medical one day Branch before procedure and last dose on morning of procedure famotidine No [id number] Take 1 Univers (PEPCID) 20 5-10 05-18 oral tab ity of mg tablet 00:00: 00:00 every 12 [place] 00 :00 hrs. Start Medical one day Branch before procedure and last dose on morning of procedure predniSONE No [id number] Take two [facility] 20 mg 5-10 05-18 20mg tabs ity of tablet 00:00: 00:00 every 6 [place] 00 :00 hrs. Start Medical one day Branch before procedure and last dose on morning of procedure clopidogreL 2022-2022- No [id number] 75mg Take 1 [facility] 75 mg 5-10 05-18 [id number] tablet by ity of tablet 00:00: 00:00 mouth in [place] 00 :00 the Medical morning. Branch diphenhydrA No [id number] Take 1 [facility] MINE 25 mg 5-10 05-18 oral tab ity of tablet 00:00: 00:00 every 12 [place] 00 :00 hrs. Start Medical one day Branch before procedure and last dose on morning of procedure famotidine No [id number] Take 1 [facility] (PEPCID) 20 5-10 05-18 oral tab ity of mg tablet 00:00: 00:00 every 12 [place] 00 :00 hrs. Start Medical one day Branch before procedure and last dose on morning of procedure predniSONE No [id number] Take two [facility] 20 mg 5-10 05-18 20mg tabs ity of tablet 00:00: 00:00 every 6 [place] 00 :00 hrs. Start Medical one day Branch before procedure and last dose on morning of procedure clopidogreL 2022-2022- No [id number] 75mg Take 1 [facility] 75 mg 5-10 05-18 [id number] tablet by ity of tablet 00:00: 00:00 mouth in [place] 00 :00 the Medical morning. Branch diphenhydrA Yes [id number] Take 1 [facility] MINE 25 mg 4-24 [id number] oral tab ity of tablet 00:00: every 12 [place] 00 hrs. Start Medical one day Branch before procedure and last dose on morning of procedure famotidine 2023-0 Yes [id number] Take 1 [facility] (PEPCID) 20 4-24 [id number] oral tab it y of mg tablet 00:00: [place] 00 hrs. Start Medical one day Branch before procedure and last dose on morning of procedure predniSONE 2023-0 Yes Take two [facility] 20 mg 4-24 [id number] 20mg tabs ity of tablet 00:00: every 6 [place] 00 hrs. Start Medical one day Branch before procedure and last dose on morning of procedure diphenhydrA 2023-0 Yes Take 1 [facility] MINE 25 mg 4-24 [id number] oral tab ity of tablet 00:00: every 12 [place] 00 hrs. Start Medical one day Branch before procedure and last dose on morning of procedure famotidine 2023-0 Yes Take 1 [facility] (PEPCID) 20 4-24 [id number] oral tab it y of mg tablet 00:00: [place] 00 hrs. Start Medical one day Branch before procedure and last dose on morning of procedure predniSONE 2023-0 Yes [id number] Take two [facility] 20 mg 4-24 [id number] 20mg tabs ity of tablet 00:00: every 6 [place] 00 hrs. Start Medical one day Branch before procedure and last dose on morning of procedure diphenhydrA 2023-0 Yes [id number] Take 1 [facility] MINE 25 mg 4-24 [id number] oral tab ity of tablet 00:00: every 12 [place] 00 hrs. Start Medical one day Branch before procedure and last dose on morning of procedure famotidine 2023-0 Yes Take 1 [facility] (PEPCID) 20 4-24 [id number] oral tab it y of mg tablet 00:00: [place] 00 hrs. Start Medical one day Branch before procedure and last dose on morning of procedure predniSONE 2023-0 Yes [id number] Take two [facility] 20 mg 4-24 [id number] 20mg tabs ity of tablet 00:00: every 6 [place] 00 hrs. Start Medical one day Branch before procedure and last dose on morning of procedure diphenhydrA 2023-0 Yes [id number] Take 1 [facility] MINE 25 mg 4-24 [id number] oral tab ity of tablet 00:00: every 12 [place] 00 hrs. Start Medical one day Branch before procedure and last dose on morning of procedure famotidine Yes [id number] Take 1 [facility] (PEPCID) 20 4-24 [id number] oral tab it y of mg tablet 00:00: every [place] 00 hrs. Start Medical one day Branch before procedure and last dose on morning of procedure predniSONE 2022-0 Yes [id number] Take two [facility] 20 mg 4-24 [id number] 20mg tabs ity of tablet 00:00: every 6 [place] 00 hrs. Start Medical one day Branch before procedure and last dose on morning of procedure diphenhydrA 2022- No [id number] Take 1 [facility] MINE 25 mg 4-24 05-10 [id number] oral tab it y of tablet 00:00: 00:00 every 12 [place] 00 :00 hrs. Start Medical one day Branch before procedure and last dose on morning of procedure famotidine 2022- No [id number] Take 1 [facility] (PEPCID) 20 4-24 05-10 [id number] oral tab i ty of mg tablet 00:00: 00:00 every 12 [place] 00 :00 hrs. Start Medical one day Branch before procedure and last dose on morning of procedure predniSONE 2022- No [id number] Take two [facility] 20 mg 4-24 05-10 [id number] 20mg tabs ity of tablet 00:00: 00:00 every 6 [place] 00 :00 hrs. Start Medical one day Branch before procedure and last dose on morning of procedure diphenhydrA 2022- No [id number] Take 1 [facility] MINE 25 mg 4-24 05-10 [id number] oral tab it y of tablet 00:00: 00:00 every 12 [place] 00 :00 hrs. Start Medical one day Branch before procedure and last dose on morning of procedure famotidine 2022- No [id number] Take 1 [facility] (PEPCID) 20 4-24 05-10 [id number] oral tab i ty of mg tablet 00:00: 00:00 every 12 [place] 00 :00 hrs. Start Medical one day Branch before procedure and last dose on morning of procedure predniSONE 2022-0 2022- No [id number] Take two [facility] 20 mg 4-24 05-10 [id number] 20mg tabs ity of tablet 00:00: 00:00 every 6 [place] 00 :00 hrs. Start Medical one day Branch before procedure and last dose on morning of procedure cyclobenzap 2022- No 5mg Take 1 Uni vers rine 4-22 08-16 tablet (5 ity of (FLEXERIL) 00:00: 00:00 mg[place] 5 [place] tablet 00 :00 mouth MD nightly as [place] needed. [facility] albuterol Yes 1{puff} Inhale 1 U nivers (VENTOLIN 4-17 puff by ity of HFA,PROAIR 11:37: mouth as [place] as HFA) 90 06 needed. mcg/puff [place] inhaler [facility] fluticasone Yes 1{puff} Inhale 1 [facility] propionate- 4-17 puff by ity o f salmeterol 11:37: mouth as [place] (ADVAIR) 06 needed. 250 mcg-50 [place] mcg/inhalat n [facility] albuterol Yes 1{puff} Inhale 1 U nivers (VENTOLIN 4-17 puff by ity of HFA,PROAIR 11:37: mouth as [place] as HFA) 90 06 needed. mcg/puff [place] inhaler [facility] fluticasone Yes 1{puff} Inhale 1 [facility] propionate- 4-17 puff by ity o f salmeterol 11:37: mouth as [place] (ADVAIR) 06 needed. 250 mcg-50 [place] mcg/inhalat n [facility] diskus Rust inhaler [place] predniSONE Yes Allergy to Take 1 [facility] (DELTASONE) 4-11 contrast tablet by ity of 50 mg 00:00: media mouth 13 [place] tablet 00 hours and 7 hours Anderso before [facility] t time, 3rd tablet when instructed by Diagnostic Imaging staff. predniSONE Yes Allergy to Take 1 [facility] (DELTASONE) 4-11 contrast tablet by ity of 50 mg 00:00: media mouth 13 [place] tablet 00 hours and 7 hours Anderso before [facility] t time, 3rd tablet when instructed by Diagnostic Imaging staff. predniSONE 2022- No Allergy to Take 1 [facility] (DELTASONE) 4-11 05-31 contrast tablet by ity of 50 mg 00:00: 00:00 media mouth 13 [place] tablet 00 :00 hours and MD 7 hours Anderso before n scan [facility] t time, 3rd tablet when instructed by Diagnostic Imaging staff. predniSONE 2022- No Allergy to Take 1 [facility] (DELTASONE) 4- 05-31 contrast tablet by ity of 50 mg 00:00: 00:00 media mouth 13 [place] tablet 00 :00 hours and MD 7 hours Anderso before n scan [facility] t time, 3rd tablet when instructed by Diagnostic Imaging staff. predniSONE 2022- No Allergy to Take 1 [facility] (DELTASONE) 4-11 05-31 contrast tablet by ity of 50 mg 00:00: 00:00 media mouth 13 [place] tablet 00 :00 hours and MD 7 hours Anderso before n scan [facility] t time, 3rd tablet when instructed by Diagnostic Imaging staff. atorvastati Yes 40mg Take 1 Univ ers n (LIPITOR) 3-28 tablet (40 it y of 40 mg 00:00: mg) by [place] tablet 00 mouth at MD bedtime. [facility] atorvastati Yes 40mg Take 1 Univ ers n (LIPITOR) 3-28 tablet (40 it y of 40 mg 00:00: mg) by [place] tablet 00 mouth at MD bedtime. [facility] aspirin 81 2022-0 Yes [id number] 81mg Take 1 [facility] mg EC 3-28 tablet by ity of tablet 00:00: mouth in [place] 00 the Medical morning. [place] atorvastati 2022-0 Yes [id number] 40mg Take 1 [facility] n 40 mg 3-28 tablet by ity of tablet 00:00: mouth in [place] 00 the Medical morning. [place] aspirin 81 2022-0 Yes [id number] 81mg Take 1 [facility] mg EC 3-28 tablet by ity of tablet 00:00: mouth in [place] 00 the Medical morning. [place] atorvastati 2022-0 Yes [id number] 40mg Take 1 [facility] n 40 mg 3-28 tablet by ity of tablet 00:00: mouth in [place] 00 the Medical morning. Branch aspirin 81 2022-0 Yes [id number] 81mg Take 1 [facility] mg EC 3-28 tablet by ity of tablet 00:00: mouth in [place] 00 the Medical morning. Branch atorvastati 2023-0 Yes [id number] 40mg Take 1 [facility] n 40 mg 3-28 tablet by ity of tablet 00:00: mouth in [place] 00 the Medical morning. Branch atorvastati 2023-0 Yes [id number] 40mg Take 1 [facility] n 40 mg 3-28 tablet by ity of tablet 00:00: mouth in [place] 00 the Medical morning. Branch atorvastati 2023-0 Yes [id number] 40mg Take 1 [facility] n 40 mg 3-28 tablet by ity of tablet 00:00: mouth in [place] 00 the Medical morning. Branch atorvastati 2023-0 Yes [id number] 40mg Take 1 [facility] n 40 mg 3-28 tablet by ity of tablet 00:00: mouth in [place] 00 the Medical morning. Branch atorvastati 2023-0 Yes [id number] 40mg Take 1 [facility] n 40 mg 3-28 tablet by ity of tablet 00:00: mouth in [place] 00 the Medical morning. Branch atorvastati 2023-0 Yes [id number] 40mg Take 1 [facility] n 40 mg 3-28 tablet by ity of tablet 00:00: mouth in [place] the Medical morning. Branch atorvastati 2023-0 Yes [id number] 40mg Take 1 [facility] n 40 mg 3-28 tablet by ity of tablet 00:00: mouth in [place] the Medical morning. Branch aspirin 81 3-0 Yes [id number] 81mg Take 1 [facility] mg EC 3-28 tablet by ity of tablet 00:00: mouth in [place] 00 the Medical morning. Branch atorvastati 2023-0 Yes [id number] 40mg Take 1 [facility] n 40 mg 3-28 tablet by ity of tablet 00:00: mouth in [place] 00 the Medical morning. Branch aspirin 81 2023-0 Yes [id number] 81mg Take 1 [facility] mg EC 3-28 tablet by ity of tablet 00:00: mouth in [place] 00 the Medical morning. Branch atorvastati 2023-0 Yes [id number] 40mg Take 1 [facility] n 40 mg 3-28 tablet by ity of tablet 00:00: mouth in [place] 00 the Medical morning. Branch aspirin 81 2023-0 Yes [id number] 81mg Take 1 [facility] mg EC 3-28 tablet by ity of tablet 00:00: mouth in [place] 00 the Medical morning. Branch atorvastati 2023-0 Yes [id number] 40mg Take 1 [facility] n 40 mg 3-28 tablet by ity of tablet 00:00: mouth in [place] 00 the Medical morning. Branch aspirin 81 3-0 Yes [id number] 81mg Take 1 [facility] mg EC 3-28 tablet by ity of tablet 00:00: mouth in [place] 00 the Medical morning. Branch atorvastati 3-0 Yes [id number] 40mg Take 1 [facility] n 40 mg 3-28 tablet by ity of tablet 00:00: mouth in [place] 00 the Medical morning. Branch aspirin 81 3-0 Yes [id number] 81mg Take 1 [facility] mg EC 3-28 tablet by ity of tablet 00:00: mouth in [place] 00 the Medical morning. Branch atorvastati 3-0 Yes [id number] 40mg Take 1 [facility] n 40 mg 3-28 tablet by ity of tablet 00:00: mouth in [place] 00 the Medical morning. Branch atorvastati 3-0 3- No [id number] 40mg Take 1 [facility] n 40 mg 3-28 05-18 tablet by ity of tablet 00:00: 00:00 mouth in [place] 00 :00 the Medical morning. Branch atorvastati 3-0 3- No [id number] 40mg Take 1 [facility] n 40 mg 3-28 05-18 tablet by ity of tablet 00:00: 00:00 mouth in [place] 00 :00 the Medical morning. Branch atorvastati 3-0 3- No [id number] 40mg Take 1 [facility] n 40 mg 3-28 05-18 tablet by ity of tablet 00:00: 00:00 mouth in [place] 00 :00 the Medical morning. Branch atorvastati 2023-0 3- No [id number] 40mg Take 1 [facility] n 40 mg 3-28 05-18 tablet by ity of tablet 00:00: 00:00 mouth in [place] 00 :00 the Medical morning. Branch atorvastati 2023-0 3- No [id number] 40mg Take 1 [facility] n 40 mg 3-28 05-18 tablet by ity of tablet 00:00: 00:00 mouth in [place] 00 :00 the Medical morning. Branch aspirin 81 3-0 3- No [id number] 81mg Take 1 [facility] mg EC 3-28 05-10 tablet by ity of tablet 00:00: 00:00 mouth in [place] 00 :00 the Medical morning. Branch aspirin 81 2022-0 2022- No [id number] 81mg Take 1 [facility] mg EC 3-28 05-10 tablet by ity of tablet 00:00: 00:00 mouth in [place] 00 :00 the Medical morning. Branch aspirin 81 2022-0 2022- No [id number] 81mg Take 1 [facility] mg EC 3-28 05-10 tablet by ity of tablet 00:00: 00:00 mouth in [place] 00 :00 the Medical morning. Branch aspirin 81 2022-0 2022- No [id number] 81mg Take 1 [facility] mg EC 3-28 05-10 tablet by ity of tablet 00:00: 00:00 mouth in [place] 00 :00 the Medical morning. Branch aspirin 81 2022-0 2022- No [id number] 81mg Take 1 [facility] mg EC 3-28 05-10 tablet by ity of tablet 00:00: 00:00 mouth in [place] 00 :00 the Medical morning. Branch ALBUTEROL 0 Yes Inhale. Unive rs INHALE 3-20 ity of 13:22: [address] fluticasone 0 Yes Inhale. Uni vers propion/hai 3-20 ity of meterol 13:22: [place] ([place] [id number] Medical DISKUS Branch INHALE) ALBUTEROL 0 Yes Inhale. Unive rs INHALE 3-20 ity of 13:22: [address] fluticasone 0 Yes Inhale. Uni vers propion/hai 3-20 ity of meterol 13:22: [place] ([place] [address] Medical DISKUS Branch INHALE) ALBUTEROL 0 Yes Inhale. Unive rs INHALE 3-20 ity of 13:22: [address] fluticasone 0 Yes Inhale. Uni vers propion/hai 3-20 ity of meterol 13:22: [place] ([place] [address] Medical DISKUS Branch INHALE) ALBUTEROL 0 Yes Inhale. Unive rs INHALE 3-20 ity of 13:22: [address] fluticasone 0 Yes Inhale. Uni vers propion/hai 3-20 ity of meterol 13:22: [place] ([place] [address] Medical DISKUS Branch INHALE) ALBUTEROL 2022-0 Yes Inhale. Unive rs INHALE 3-20 ity of 13:22: [place] [address] Medical Branch fluticasone 2022-0 Yes Inhale. Uni vers propion/hai 3-20 ity of meterol 13:22: [place] ([place] [address] Medical DISKUS Branch INHALE) ALBUTEROL 2022-0 Yes Inhale. Unive rs INHALE 3-20 ity of 13:22: [place] [address] Medical Branch fluticasone 2022-0 Yes Inhale. Uni vers propion/hai 3-20 ity of meterol 13:22: [place] ([place] [address] Medical DISKUS Branch INHALE) ALBUTEROL 2022-0 Yes Inhale. Unive rs INHALE 3-20 ity of 13:22: [address] Branch fluticasone 2022-0 Yes Inhale. Uni vers propion/hai 3-20 ity of meterol 13:22: [place] ([place] [address] Medical DISKUS Branch INHALE) ALBUTEROL 2022-0 Yes Inhale. Unive rs INHALE 3-20 ity of 13:22: [place] [address] Medical Branch fluticasone 2022-0 Yes Inhale. Uni vers propion/hai 3-20 ity of meterol 13:22: [place] ([place] [address] Medical DISKUS Branch INHALE) ALBUTEROL 2022-0 Yes Inhale. Unive rs INHALE 3-20 ity of 13:22: [address] fluticasone 2022-0 Yes Inhale. Uni vers propion/hai 3-20 ity of meterol 13:22: [place] ([place] [address] Medical DISKUS Branch INHALE) ALBUTEROL 2022-0 Yes Inhale. Unive rs INHALE 3-20 ity of 13:22: [place] [address] Medical Branch fluticasone 2022-0 Yes Inhale. Uni vers propion/hai 3-20 ity of meterol 13:22: [place] ([place] [address] Medical DISKUS Branch INHALE) ALBUTEROL 2022-0 Yes Inhale. Unive rs INHALE 3-20 ity of 13:22: [place] [address] Medical Branch fluticasone 2022-0 Yes Inhale. Uni vers propion/hai 3-20 ity of meterol 13:22: [place] ([place] [address] Medical DISKUS Branch INHALE) albuterol Yes 1{puff} Inhale 1 U nivers (VENTOLIN 3-17 puff by ity of HFA,PROAIR 15:28: mouth as [place] as HFA) 90 06 needed. mcg/puff [place] inhaler n [facility] fluticasone Yes 1{puff} Inhale 1 [facility] propionate- 3-17 puff by ity o f salmeterol 15:28: mouth as [place] (ADVAIR) 06 needed. 250 mcg-50 [place] mcg/inhalat n [facility] albuterol Yes 1{puff} Inhale 1 U nivers (VENTOLIN 3-17 puff by ity of HFA,PROAIR 15:28: mouth as [place] HFA) 90 06 needed. MD mcg/puff [place] inhaler n [facility] fluticasone Yes 1{puff} Inhale 1 [facility] propionate- 3-17 puff by ity o f salmeterol 15:28: mouth as [place] (ADVAIR) 06 needed. 250 mcg-50 [place] mcg/inhalat n [facility] diskus Cancer inhaler [place] albuterol Yes 1{puff} Inhale 1 U nivers (VENTOLIN 3-17 puff by ity of HFA,PROAIR 15:28: mouth as [place] as HFA) 90 06 needed. MD mcg/puff [place] inhaler n [facility] fluticasone Yes 1{puff} Inhale 1 [facility] propionate- 3-17 puff by ity o f salmeterol 15:28: mouth as [place] (ADVAIR) 06 needed. 250 mcg-50 [place] mcg/inhalat n [facility] bicalutamid 2021-09- No Secondary 50mg Take 1 Univers e (CASODEX) 10-10 and tablet (50 i ty of 50 mg 00:00: 00:00 unspecified mg) by [place] tablet 00 :00 malignant mouth MD neoplasm of daily. Aj o lymph nodes n of multiple Cancer regions, Center not otherwise specified bicalutamid 2021-09- No Secondary 50mg Take 1 Univers e (CASODEX) 10-10 and tablet (50 i ty of 50 mg 00:00: 00:00 unspecified mg) by [place] tablet 00 :00 malignant mouth MD neoplasm of daily. Aj o lymph nodes n of multiple Cancer regions, Center not otherwise specified bicalutamid 2021-09- No Secondary 50mg Take 1 Univers e (CASODEX) 10-10 and tablet (50 i ty of 50 mg 00:00: 00:00 unspecified mg) by [place] tablet 00 :00 malignant mouth MD neoplasm of daily. Aj o lymph nodes n of multiple Cancer regions, Center not otherwise specified bicalutamid 2021-09- No Secondary 50mg Take 1 Univers e (CASODEX) 10-10 and tablet (50 i ty of 50 mg 00:00: 00:00 unspecified mg) by [place] tablet 00 :00 malignant mouth MD neoplasm of daily. Aj o lymph nodes n of multiple Cancer regions, Center not otherwise specified bicalutamid 2021-09- No Secondary 50mg Take 1 Univers e (CASODEX) 10-10 and tablet (50 i ty of 50 mg 00:00: 00:00 unspecified mg) by [place] tablet 00 :00 malignant mouth MD neoplasm of daily. Aj o lymph nodes n of multiple Cancer regions, Center not otherwise specified bicalutamid 2021-09- No Secondary 50mg Take 1 Univers e (CASODEX) 10-10 and tablet (50 i ty of 50 mg 00:00: 00:00 unspecified mg) by [place] tablet 00 :00 malignant mouth MD neoplasm of daily. Aj o lymph nodes n of multiple Cancer regions, Center not otherwise specified bicalutamid 2021-09- No Secondary 50mg Take 1 Univers e (CASODEX) 10-10 and tablet (50 i ty of 50 mg 00:00: 00:00 unspecified mg) by [place] tablet 00 :00 malignant mouth MD neoplasm of daily. Aj o lymph nodes n of multiple Cancer regions, Center not otherwise specified bicalutamid 2021-09- No Secondary 50mg Take 1 Univers e (CASODEX) 10-10 and tablet (50 i ty of 50 mg 00:00: 00:00 unspecified mg) by [place] tablet 00 :00 malignant mouth MD neoplasm of daily. 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 n of multiple Cancer regions, Center not otherwise specified darolutamid 2021-09- No Secondary 600mg Take 2 Univers e (Nubeqa) 10-01 and tablets ity o f 300 mg 00:00: 00:00 unspecified (600 mg) [place] tablet 00 :00 malignant by mouth neoplasm of twice Anderso lymph nodes daily. 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 n of multiple Cancer regions, [facility] not otherwise [facility] 2021-09[place] Impaired Please [facility] 09-20 mobility provide 1 ity of supply misc 00:00: 00:00 wheelchair [place] 00 :00 , 1 MD best,1 Anderso bedside n commode. [facility] 2021-09- No Impaired Please [facility] 09-20 mobility provide 1 ity of supply misc 00:00: 00:00 wheelchair [place] 00 :00 , 1 MD best,1 Anderso bedside n commode. [facility] 2021-09- No Impaired Please [facility] 09-20 mobility provide 1 ity of supply misc 00:00: 00:00 wheelchair [place] 00 :00 , 1 MD best,1 Anderso bedside n commode. [facility] 2021-09- No Impaired Please [facility] 09-20 mobility provide 1 ity of supply misc 00:00: 00:00 wheelchair [place] 00 :00 , 1 MD best,1 Anderso bedside n commode. [facility] 2021-09- No Impaired Please [facility] 09-20 mobility provide 1 ity of supply misc 00:00: 00:00 wheelchair [place] 00 :00 , 1 MD best,1 Anderso bedside n commode. [facility] 2021-09- No Impaired Please [facility] 09-20 mobility provide 1 ity of supply misc 00:00: 00:00 wheelchair [place] 00 :00 , 1 MD best,1 Anderso bedside n commode. Cancer [facility] 2021-09- No Impaired Please [facility] 09-20 mobility provide 1 ity of supply misc 00:00: 00:00 wheelchair [place] 00 :00 , 1 MD best,1 Anderso bedside n commode. Cancer [facility] 2021-09- No Impaired Please [facility] 09-20 mobility provide 1 ity of supply misc 00:00: 00:00 wheelchair [place] 00 :00 , 1 MD best,1 Anderso bedside n commode. Cancer [place] HYDROcodone 2021-09- No Neoplasm 1{tbl} Take 1 [facility] -acetaminop 1-16 11-28 related tablet by ity of [place] 00:00: 00:00 pain mouth [place] 7.5 mg-325 00 :00 (acute) every 6 MD mg per (chronic) (six) [place] tablet hours as n needed for [facility] pain. HYDROcodone 2021-09- No Neoplasm 1{tbl} Take 1 [facility] -acetaminop 1-16 11-28 related tablet by ity of [place] ([place] 00:00: 00:00 pain mouth [place] 7.5 mg-325 00 :00 (acute) every 6 MD mg per (chronic) (six) [place] tablet hours as n needed for [facility] pain. HYDROcodone 2021-09- No Neoplasm 1{tbl} Take 1 [facility] -acetaminop 1-16 11-28 related tablet by ity of [place] ([place] 00:00: 00:00 pain mouth [place] 7.5 mg-325 00 :00 (acute) every 6 MD mg per (chronic) (six) [place] tablet hours as n needed for [facility] pain. HYDROcodone 2021-09- No Neoplasm 1{tbl} Take 1 [facility] -acetaminop 1-16 11-28 related tablet by ity of [place] ([place] 00:00: 00:00 pain mouth [place] 7.5 mg-325 00 :00 (acute) every 6 MD mg per (chronic) (six) [place] tablet hours as n needed for [facility] pain. HYDROcodone 2021-09- No Neoplasm 1{tbl} Take 1 [facility] -acetaminop 1-16 11-28 related tablet by ity of [place] ([place] 00:00: 00:00 pain mouth [place] 7.5 mg-325 00 :00 (acute) every 6 MD mg per (chronic) (six) [place] tablet hours as n needed for [facility] pain. HYDROcodone 2021-09- No Neoplasm 1{tbl} Take 1 [facility] -acetaminop 1-16 11-28 related tablet by ity of [place] ([place] 00:00: 00:00 pain mouth [place] 7.5 mg-325 00 :00 (acute) every 6 MD mg per (chronic) (six) [place] tablet hours as n [facility] for [facility]. HYDROcodone 2021-09- No Neoplasm 1{tbl} Take 1 [facility] -acetaminop 1-16 11-28 related tablet by [facility] [place] ([place] 7[place]5 [place]-325 [place] :00 (acute) every 6 MD mg per (chronic) (six) Anderso tablet hours as n needed for [facility] pain. HYDROcodone 2021-09- No Neoplasm 1{tbl} Take 1 [facility] -acetaminop 1-16 11-28 related tablet by [facility] [place] 00:00: 00[place] 7[place]5 mg-325 00 :00 (acute) every 6 MD mg per (chronic) (six) Anderso tablet hours as n needed for [facility] pain. acetaminoph 2021-09 No 1{tbl} Take 1 U nivers en-codeine 0-26 11-28 tablet by ity of (TYLEN[place] 00:00[place] 00[place] #3[place] 300 00 :00 needed. MD mg-30 mg Anderso tablet n [facility] acetaminoph 2021-09 No 1{tbl} Take 1 U nivers en-codeine 0-26 11-28 tablet by ity of (TYLENOL 00:00[place] 00[place] #3[place] 300 00 :00 needed. MD mg-30 mg Anderso tablet [facility] 2021-09- No 1{tbl} Take 1 U nivers en-codeine 0-26 11-28 tablet by ity of (TYLENOL 00:00: 00:[place] #3[place] 300 00 :00 needed. MD mg-30 mg Anderso tablet [facility] 2021-09- No 1{tbl} Take 1 U nivers en-codeine 0-26 11-28 tablet by ity of (TYLENOL 00:00: 00:[place] #[place] 300 00 :00 needed. MD mg-30 mg Anderso tablet [facility] 2021-09 No 1{tbl} Take 1 U nivers en-codeine 0-26 11-28 tablet by ity of (TYLENOL 00:00: 00:[place] #3[place] 300 00 :00 needed. MD mg-30 mg Anderso tablet [facility] 2021-09- No 1{tbl} Take 1 U nivers en-codeine 0-26 11-28 tablet by ity of (TY[place] 00:00: 00:[place] #[place] 300 00 :00 needed. MD mg-30 mg Anderso tablet [facility] 2021-09- No 1{tbl} Take 1 U nivers en-codeine 0-26 11-28 tablet by ity of (TYLENOL 00:00: 00:[place] #[place] 300 00 :00 needed. MD mg-30 mg Anderso tablet [facility] 2021-09- No 1{tbl} Take 1 U nivers en-codeine 0-26 11-28 tablet by ity of (TYLENOL 00:00: 00:[place] #3[place] 300 00 :00 needed. MD mg-30 mg Anderso tablet [facility] Vital Signs Vital Name Observation Time Observation Value Comments Source Systolic blood 2023-01-30 145 mm[Hg] [facility] of pressure 14:01:00 [facility] Diastolic blood 2023-01-30 70 mm[Hg] University o f pressure 14:01:00 [facility] Heart rate 2023-01-30 93 /min [facility] of 14:01:00 [facility] Respiratory rate 2023-01-30 20 /min [facility] of 14:01:00 [facility] Oxygen saturation 2023-01-30 98 /min [facility] of in Arterial blood 14:01:00 [place] [facility] Pulse oxim[facility] Body temperature 2023-01-30 37.22 Krista University of 11:57:00 [facility] Body weight 2023-01-30 69.4 kg University of 11:57:00 [facility] BMI 2023-01-30 21.95 kg/m2 University of 11:57:00 [facility] Systolic blood 2023-01-20 126 mm[Hg] [facility] of pressure 12:13:00 [facility] Diastolic blood 2023-01-20 58 mm[Hg] University o f pressure 12:13:00 [facility] Heart rate 2023-01-20 98 /min University of 12:13:00 [facility] Body temperature 2023-01-20 37 Krista University of 12:13:00 [facility] Respiratory rate 2023-01-20 18 /min University of 12:13:00 [facility] Oxygen saturation 2023-01-20 95 /min University of in Arterial blood 12:13:00 [facility] katie by Pulse oximetry Branch Body height 2023-01-19 177.8 cm University of 00:00:00 [facility] Body weight 2023-01-19 69.599 kg standing scale University of 00:00:00 [facility] BMI 2023-01-19 22.02 kg/m2 University of 00:00:00 [facility] Systolic blood 2023-01-18 145 mm[Hg] [facility] of pressure 17:03:20 [facility] Diastolic blood 2023-01-18 63 mm[Hg] University o f pressure 17:03:20 [facility] Respiratory rate 2023-01-18 19 /min [facility] of 17:03:20 [facility] Oxygen saturation 2023-01-18 94 /min [facility] of in Arterial blood 17:03:20 [place] [facility] [place] [facility] o[facility] Systolic blood 2023-01-15 161 mm[Hg] [facility] pressure 22:00:00 [place] [facility] Diastolic blood 2023-01-15 62 mm[Hg] University o f pressure 22:00:00 [facility] Heart rate 2023-01-15 82 /min University of 22:00:00 [facility] Respiratory rate 2023-01-15 22 /min [facility] of 22:00:00 [facility] Oxygen saturation 2023-01-15 96 /min [facility] of in Arterial blood 22:00:00 [place] [facility] Body temperature 2023-01-15 36.39 Krista University of 20:32:00 [facility] Body weight 2023-01-15 72.576 kg University of 20:32:00 [facility] BMI 2023-01-15 23.63 kg/m2 University of 20:32:00 [facility] Systolic blood 2023-01-11 138 mm[Hg] [facility] of pressure 19:00:00 [facility] Diastolic blood 2023-01-11 56 mm[Hg] University o f pressure 19:00:00 [facility] Oxygen saturation 2023-01-11 95 /min [facility] of in Arterial blood 19:00:00 [place] [facility] [place] [facility] Respiratory rate 2023-01-11 16 /min University of 18:15:00 [facility] Heart rate 2023-01-11 91 /min University of 12:59:23 [facility] Body height 2023-01-11 175.3 cm University of 12:08:00 [facility] Body weight 2023-01-11 72.576 kg University of 12:08:00 [facility] BMI 2023-01-11 23.63 kg/m2 University of 12:08:00 [facility] Systolic blood 2023-01-11 154 mm[Hg] [facility] of pressure 13:25:22 [facility] Diastolic blood 2023-01-11 74 mm[Hg] University o f pressure 13:25:22 [facility] Respiratory rate 2023-01-11 16 /min University of 13:25:22 [facility] Oxygen saturation 2023-01-11 100 /min University of in Arterial blood 13:25:22 [place] [facility] [facility] Heart rate 2023-01-11 91 /min University of 12:59:23 [facility] Body height 2023-01-11 175.3 cm University of 12:08:00 [facility] Body weight 2023-01-11 72.576 kg University of 12:08:00 [facility] BMI 2023-01-11 23.63 kg/m2 University of 12:08:00 [facility] Systolic blood 2022-12-26 136 mm[Hg] [facility] of pressure 16:17:00 [facility] Diastolic blood 2022-12-26 52 mm[Hg] University o f pressure 16:17:00 [facility] Heart rate 2022-12-26 82 /min University of 16:17:00 [facility] Oxygen saturation 2022-12-26 99 /min University of in Arterial blood 16:14:00 [place] [facility] [facility] Respiratory rate 2022-12-26 19 /min University of 16:14:00 [facility] Body height 2022-12-26 175.3 cm University of 16:14:00 [facility] Body weight 2022-12-26 72.848 kg University of 16:14:00 [facility] BMI 2022-12-26 23.72 kg/m2 University of 16:14:00 [facility] Systolic blood 2022-11-21 72 mm[Hg] [facility] of pressure 18:27:00 [facility] Diastolic blood 2022-11-21 50 mm[Hg] University o f pressure 18:27:00 [facility] Heart rate 2022-11-21 85 /min University of 18:27:00 [facility] Body temperature 2022-11-21 36.11 Krista University of 18:25:00 [facility] Respiratory rate 2022-11-21 18 /min University of 18:25:00 [facility] Body height 2022-11-21 177.8 cm University of 18:25:00 [facility] Body weight 2022-11-21 73.619 kg University of 18:25:00 [facility] BMI 2022-11-21 23.29 kg/m2 University of 18:25:00 [facility] Oxygen saturation 2022-11-21 97 /min University of in Arterial blood 18:25:00 [place] [facility] [place] [facility] Systolic blood 2023-04-28 131 mm[Hg] [facility] pressure 12:55:46 [facility] Diastolic blood 2023-04-28 63 mm[Hg] University o f pressure 12:55:46 [facility] Heart rate 2023-04-28 110 /min University of 12:55:46 [facility] Body temperature 2023-04-28 36.5 Krista University of 12:55:46 [facility] Respiratory rate 2023-04-28 18 /min University of 12:55:46 [facility] Oxygen saturation 2023-04-28 95 /min University of in Arterial blood 12:55:46 Andrea AMBROCIO by Pulse oximetry [facility] Body height 2023-04-28 175.3 cm University of 01:41:00 [facility] Body weight 2023-04-28 64.2 kg University of 01:41:00 [facility] BMI 2023-04-28 20.90 kg/m2 University of 01:41:00 [facility] Body weight 2023-04-03 63.1 kg University of 19:07:00 [facility] BMI 2023-04-03 20.84 kg/m2 University of 19:07:00 [facility] Systolic blood 2023-04-03 128 mm[Hg] [facility] pressure 19:05:59 [facility] Diastolic blood 2023-04-03 72 mm[Hg] [facility] o f pressure 19:05:59 [facility] Heart rate 2023-04-03 116 /min University of 19:05:59 [facility] Body temperature 2023-04-03 36.72 Krista University of 19:05:59 [facility] Respiratory rate 2023-04-03 16 /min University of 19:05:59 [facility] Oxygen saturation 2023-04-03 97 /min University of in Arterial blood 19:05:59 Andrea AMBROCIO by Pulse oximetry [facility] Body height 2023-03-15 174 cm University of 12:26:00 [facility] Systolic blood 2023-02-01 107 mm[Hg] [facility] pressure 15:46:59 [facility] Diastolic blood 2023-02-01 67 mm[Hg] University o f pressure 15:46:59 [facility] Heart rate 2023-02-01 108 /min University of 15:46:59 [facility] Body temperature 2023-02-01 36.61 Krista University of 15:46:59 [facility] Respiratory rate 2023-02-01 20 /min University of 15:46:59 [facility] Body weight 2023-02-01 67.9 kg University of 15:46:59 [facility] BMI 2023-02-01 22.43 kg/m2 University of 15:46:59 [facility] Oxygen saturation 2023-02-01 96 /min University of in Arterial blood 15:46:59 Andrea AMBROCIO by Pulse oximetry [facility] Body height 2023-02-01 174 cm University of 12:37:00 [facility] Systolic blood 2022-12-19 94 mm[Hg] [facility] of pressure 15:48:06 [facility] Diastolic blood 2022-12-19 62 mm[Hg] University o f pressure 15:48:06 [facility] Heart rate 2022-12-19 79 /min University of 15:48:06 [facility] Body temperature 2022-12-19 36.5 Krista University of 15:48:06 [facility] Respiratory rate 2022-12-19 18 /min University of 15:48:06 [facility] Oxygen saturation 2022-12-19 96 /min University of in Arterial blood 15:48:06 Andrea AMBROCIO by Pulse oximetry [facility] Body height 2022-12-19 174 cm University of 15:46:00 [facility] Body weight 2022-12-19 72.6 kg University of 15:46:00 [facility] BMI 2022-12-19 23.98 kg/m2 University of 15:46:00 [facility] Systolic blood 2022-11-18 144 mm[Hg] [facility] of pressure 18:27:23 [facility] Diastolic blood 2022-11-18 65 mm[Hg] University o f pressure 18:27:23 [facility] Heart rate 2022-11-18 76 /min University of 18:27:23 [facility] Body temperature 2022-11-18 35 Krista University of 18:27:23 [facility] Respiratory rate 2022-11-18 17 /min University of 18:27:23 [facility] Body weight 2022-11-18 72.4 kg University of 18:27:23 [facility] BMI 2022-11-18 23.91 kg/m2 University of 18:27:23 [facility] Oxygen saturation 2022-11-18 98 /min [facility] Arterial blood 18:27:23 Andrea AMBROCIO by Pulse oximetry [facility] Body height 2022-11-02 174 cm [facility] 19:57:00 [facility] Procedures Procedure Date / Time Performing Clinician Source Performed POC GLUCOSE SCREEN 2023-04-28 04:37:00 Ze [facility] [place] [facility] POC GLUCOSE SCREEN 2023-04-27 23:40:00 Ze [facility] POC GLUCOSE SCREEN 2023-04-27 22:03:00 Chyna Mccracken [facility] Center POC GLUCOSE SCREEN 2023-04-27 18:27:00 Chyna Mccracken [facility] IR CT GUIDED 2023-04-27 18:16:15 Chyna [facility] RADIOFREQUENCY ABLATION MD [facility] BONE/SOFT TISSUE [address] GUIDED KYPHOPLASTY 2023-04-27 18:16:15 [facility] 150 [facility] Center POC GLUCOSE SCREEN 2023-04-27 14:56:00 Chyna Mccracken [facility] COMPLETE BLOOD COUNT W/ 2023-04-27 12:52:00 Newton Draper [facility] DIFFERENTIAL [facility] Center PROTHROMBIN TIME 2023-04-27 12:52:00 Newton Draper [facility] Center TYPE AND SCREEN 2023-04-27 12:52:00 Newton Draper [facility] SERUM CREATININE 2023-04-27 12:52:00 Newton Draper [facility] Center BLOOD UREA NITROGEN 2023-04-27 12:52:00 Newton Draper [facility] Center CARBON DIOXIDE LEVEL 2023-04-27 12:52:00 Newton Draper [facility] er Center CHLORIDE LEVEL 2023-04-27 12:52:00 Newton Draper [place] [facility] Center SODIUM LEVEL 2023-04-27 12:52:[address] [facility] POTASSIUM LEVEL 2023-04-27 12:52:00 Baron [facility] GLUCOSE, RANDOM 2023-04-27 12:52:00 Baron [facility] HEMOGLOBIN A1C 2023-04-27 12:52:00 Baron [facility] Results CBC 2023-04-27 12:52:00 Baron [facility] MANUAL DIFFERENTIAL 2023-04-27 12:52:00 Newton Draper [facility] SERUM CREATININE 2023-04-27 12:52:00 Baron [facility] .GLOMERULAR FILTRATION 2023-04-27 12:52:00 [facility] ABORH 2023-04-27 12:52:[address] [facility] ANTIBODY SCREEN 2023-04-27 12:52:[address] [facility] ANION GAP 2023-04-27 12:52:[address] [facility] CLOT EXPIRATION DATE 2023-04-27 12:52:00 Newton Draper [facility] TMP INTERPRETATION 2023-04-27 12:52:00 Newton Draper [facility] ANTIBODY SCREEN NEGATIVE MD Sood [facility] EKG, 12-LEAD (SCHEDULED) 2023-04-27 00:00:00 Newton Draper [facility] TRANSFUSE RED BLOOD CELLS 2023-04-20 17:10:00 Chyna Mccracken [facility] TRANSFUSE RED BLOOD CELLS 2023-04-20 14:10:00 Chyna Mccracken [facility] XR SHOULDER 2+ VW RIGHT 2023-04-19 17:23:58 Chyna Mccracken [facility] XR SCAPULA RIGHT 2023-04-19 17:23:41 Chyna Mccracken [facility] GENERAL LABORATORY ADD ON 2023-04-19 15:40:00 [facility] TEST [facility] GENERAL LABORATORY ADD ON 2023-04-19 15:38:00 Chyna Mccracken [facility] TEST [facility] PREPARE RBC 2023-04-19 14:16:00 Chyna Mccracken [facility] PRBC PRODUCT READY FOR 2023-04-19 14:16:00 Chyna Mccracken [facility] CUTTING SUPERVISOR [facility] 3D DENTAL IMAGING (ICAT) 2023-04-19 14:00:14 Omar Mora [facility] COMPLETE BLOOD COUNT W/ 2023-04-19 13:41:00 Chyna Mccracken [facility] DIFFERENTIAL [facility] MAGNESIUM LEVEL 2023-04-19 13:41:00 Chyna Mccracken [facility] PHOSPHORUS LEVEL 2023-04-19 13:41:00 Chyna Mccracken [facility] PROSTATE SPECIFIC ANTIGEN 2023-04-19 13:41:00 Chyna Mccracken [facility] TESTOSTERONE LEVEL 2023-04-19 13:41:00 Chyna Mccracken [facility] VITAMIN D 25 HYDROXY LEVEL 2023-04-19 13:41:00 Chyna Mccracken [facility] LACTATE DEHYDROGENASE 2023-04-19 13:41:00 [facility] COMPREHENSIVE METABOLIC 2023-04-19 13:41:00 [facility] PANEL [facility] TYPE AND SCREEN 2023-04-19 13:41:00 Chyna Mccracken [facility] Results CBC 2023-04-19 13:41:00 Chyna Mccarcken [facility] MANUAL DIFFERENTIAL 2023-04-19 13:41:00 Chyna Mccracken [facility] GLUCOSE LEVEL 2023-04-19 13:41:00 Chyna Mccracken [facility] BLOOD UREA NITROGEN 2023-04-19 13:41:00 Chyna Mccracken [facility] ELECTROLYTE PANEL 2023-04-19 13:41:00 Chyna Mccracken [facility] SERUM CREATININE 2023-04-19 13:41:00 Donnell Mccrackenssica [facility] .GLOMERULAR FILTRATION 2023-04-19 13:41:00 Chyna Mccracken [facility] CALCIUM LEVEL TOTAL 2023-04-19 13:41:00 Chyna Mccracken [facility] ALBUMIN LEVEL 2023-04-19 13:41:00 Donnell Mccrackenssica [facility] ALKALINE PHOSPHATASE 2023-04-19 13:41:00 Chyna Mccracken [facility] ALANINE AMINOTRANSFERASE 2023-04-19 13:41:00 Chyna Mccracken [facility] ASPARTATE AMINOTRANSFERASE 2023-04-19 13:41:00 Chyna Mccracken [facility] TOTAL PROTEIN 2023-04-19 13:41:00 Chyna Mccracken [facility] FRACTIONATED BILIRUBIN 2023-04-19 13:41:00 Chyna Mccracken [facility] ABORH 2023-04-19 13:41:00 Kaykay Chyna [facility] ANTIBODY SCREEN 2023-04-19 13:41:00 Kaykay Chyna [facility] CLOT EXPIRATION DATE 2023-04-19 13:41:00 Chyna Mccracken [facility] TMP INTERPRETATION 2023-04-19 13:41:00 Chyna Mccracken [facility] ANTIBODY SCREEN NEGATIVE MD Sood patricia [facility] HEMOGLOBIN A1C 2023-04-19 13:41:00 Chyna Mccracken [facility] CARCINOEMBRYONIC ANTIGEN 2023-04-19 13:41:00 [facility] T[facility] CROSSMATCH 2023-04-19 13:41:00 Ch[facility]rack[facility] INTERPRETATION [facility] COMPLETE BLOOD COUNT W/ 2023-04-06 16:50:52 Chyna Mccracken [facility] DIFFERENTIAL [facility] TYPE AND SCREEN 2023-04-06 16:50:52 Chyna Mccracken [facility] Results CBC 2023-04-06 16:50:52 Chyna Mccracken [facility] MANUAL DIFFERENTIAL 2023-04-06 16:50:52 Chyna Mccracken [facility] ABORH 2023-04-06 16:50:52 Chyna Mccracken [facility] ANTIBODY SCREEN 2023-04-06 16:50:52 Chyna Mccracken [facility] TMP INTERPRETATION 2023-04-06 16:50:52 Chyna Mccracken [facility] ANTIBODY SCREEN NEGATIVE MD Sood patricia [facility] CLOT EXPIRATION DATE 2023-04-06 16:50:52 [facility] RED BLOOD CELLS 2023-03-22 18:19:00 Chyna Mccracken [facility] TRANSFUSE RED BLOOD CELLS 2023-03-22 14:17:00 [facility] RBC 2023-03-21 18:12:00 Chyna Mccracken [facility] PRBC PRODUCT READY FOR 2023-03-21 18:12:00 Chyna Mccracken [facility] CUTTING SUPERVISOR [facility] COMPLETE BLOOD COUNT W/ 2023-03-21 18:00:56 Chyna Mccracken [facility] DIFFERENTIAL [facility] TYPE AND SCREEN 2023-03-21 18:00:56 Chyna Mccracken [facility] Center Results CBC 2023-03-21 18:00:56 Donnell Mccrackenssica [facility] Center MANUAL DIFFERENTIAL 2023-03-21 18:00:56 Chyna Mccracken [facility] er Center ABORH 2023-03-21 18:00:56 Donnell Mccrackenssica [facility] ANTIBODY SCREEN 2023-03-21 18:00:56 Chyna Mccracken [facility] Center CLOT EXPIRATION DATE 2023-03-21 18:00:56 Chyna Mccracken [facility] TMP INTERPRETATION 2023-03-21 18:00:56 Chyna Mccracken [facility] ANTIBODY SCREEN NEGATIVE MD Sood [facility] TMP CROSSMATCH 2023-03-21 18:00:56 Donnell [facility]ens[facility] INTERPRETATION [facility] TRANSFUSE RED BLOOD CELLS 2023-03-15 22:50:00 Edward Mcdonald [facility] er Center TYPE AND SCREEN 2023-03-15 17:01:00 Edward Mcdonald [facility] er Center ABORH 2023-03-15 17:01:00 Edward Mcdonald [facility] Center ANTIBODY SCREEN 2023-03-15 17:01:00 Edward Mcdonald [facility] er Center CLOT EXPIRATION DATE 2023-03-15 17:01:00 Edward Mcdonald [facility] er Center TMP INTERPRETATION 2023-03-15 17:01:00 Edward Mcdonald [facility] ANTIBODY SCREEN NEGATIVE MD Sood [facility] TMP CROSSMATCH 2023-03-15 17:01:00 Edward Mcdonald [facility] INTERPRETATION [facility] PREPARE RBC 2023-03-15 16:25:00 Edward Mcdonald [facility] PRBC PRODUCT READY FOR 2023-03-15 16:25:00 [facility] CUTTING SUPERVISOR [facility] DEXA BONE MINERAL DENSITY 2023-03-15 12:42:51 Chyna Mccracken [facility] BOTH HIPS AND SPINE [facility] [place] COMPLETE BLOOD COUNT W/ 2023-03-15 12:04:00 Chyna Mccracken [facility] DIFFERENTIAL [facility] MAGNESIUM LEVEL 2023-03-15 12:04:00 Chyna Mccracken [facility] PHOSPHORUS LEVEL 2023-03-15 12:04:00 Chyna Mccracken [facility] PROSTATE SPECIFIC ANTIGEN 2023-03-15 12:04:00 Chyna Mccracken [facility] TESTOSTERONE LEVEL 2023-03-15 12:04:00 [facility] D 25 HYDROXY LEVEL 2023-03-15 12:04:00 Chyna Mccracken [facility] COMPREHENSIVE METABOLIC 2023-03-15 12:04:00 Chyna Mccracken [facility] PANEL [facility] LACTATE DEHYDROGENASE 2023-03-15 12:04:00 Chyna Mccracken [facility] Results CBC 2023-03-15 12:04:00 Chyna Mccracken [facility] MANUAL DIFFERENTIAL 2023-03-15 12:04:00 Chyna Mccracken [facility] GLUCOSE LEVEL 2023-03-15 12:04:00 Chyna Mccracken [facility] BLOOD UREA NITROGEN 2023-03-15 12:04:00 Deinert, Chyna [facility] ELECTROLYTE PANEL 2023-03-15 12:04:00 Chyna Mccracken [facility] SERUM CREATININE 2023-03-15 12:04:00 Chyna Mccracken [facility] .GLOMERULAR FILTRATION 2023-03-15 12:04:00 Chyna Mccracken [facility] RATE [facility] CALCIUM LEVEL TOTAL 2023-03-15 12:04:00 Chyna Mccracken [facility] ALBUMIN LEVEL 2023-03-15 12:04:00 Donnell Mccrackenssica [facility] ALKALINE PHOSPHATASE 2023-03-15 12:04:00 Chyna Mccracken [facility] ALANINE AMINOTRANSFERASE 2023-03-15 12:04:00 [facility] ASPARTATE AMINOTRANSFERASE 2023-03-15 12:04:00 [facility] TOTAL PROTEIN 2023-03-15 12:04:00 Kaykay [facility] FRACTIONATED BILIRUBIN 2023-03-15 12:04:00 Chyna Mccracken [facility] COMPLETE BLOOD COUNT W/ 2023-02-20 17:09:00 Chyna Mccracken [facility] DIFFERENTIAL [facility] COMPREHENSIVE METABOLIC 2023-02-20 17:09:00 Chyna Mccracken [facility] PANEL [facility] TYPE AND SCREEN 2023-02-20 17:09:00 [facility] Results CBC 2023-02-20 17:09:00 Kaykay Chyna [facility] MANUAL DIFFERENTIAL 2023-02-20 17:09:00 Chyna Mccracken [facility] GLUCOSE LEVEL 2023-02-20 17:09:00 Kaykay [facility] BLOOD UREA NITROGEN 2023-02-20 17:09:00 Chyna Mccracken [facility] ELECTROLYTE PANEL 2023-02-20 17:09:00 Chyna Mccracken [facility] SERUM CREATININE 2023-02-20 17:09:00 Kaykay [facility] .GLOMERULAR FILTRATION 2023-02-20 17:09:00 Chyna Mccracken [facility] RATE [facility] CALCIUM LEVEL TOTAL 2023-02-20 17:09:00 Kaykay Chyna [facility] ALBUMIN LEVEL 2023-02-20 17:09:00 Kaykay [facility] ALKALINE PHOSPHATASE 2023-02-20 17:09:00 Kaykay Chyna [facility] ALANINE AMINOTRANSFERASE 2023-02-20 17:09:00 Chyna Mccracken [facility] ASPARTATE AMINOTRANSFERASE 2023-02-20 17:09:00 Kaykay [facility] TOTAL PROTEIN 2023-02-20 17:09:00 Kaykay [facility] FRACTIONATED BILIRUBIN 2023-02-20 17:09:00 Kaykay [facility] ABORH 2023-02-20 17:09:00 Kaykay [facility] ANTIBODY SCREEN 2023-02-20 17:09:00 Kaykay [facility] CLOT EXPIRATION DATE 2023-02-20 17:09:00 Donnell Mccrackenssica [facility] TMP INTERPRETATION 2023-02-20 17:09:00 Chyna Mccracken [facility] ANTIBODY SCREEN NEGATIVE MD Sood [facility] BASIC METABOLIC PANEL, 2023-02-15 17:38:00 Renee Ortiz [facility] CALCIUM TOTAL [facility] MAGNESIUM LEVEL 2023-02-15 17:38:00 Diana, [facility] PHOSPHORUS LEVEL 2023-02-15 17:38:00 Diana, [facility] COMPLETE BLOOD COUNT W/ 2023-02-15 17:38:00 Diana, [facility] DIFFERENTIAL [facility] GLUCOSE LEVEL 2023-02-15 17:38:00 Diana [facility] BLOOD UREA NITROGEN 2023-02-15 17:38:00 Diana, [facility] ELECTROLYTE PANEL 2023-02-15 17:38:00 Diana, [facility] SERUM CREATININE 2023-02-15 17:38:00 Diana, [facility] .GLOMERULAR FILTRATION 2023-02-15 17:38:00 Diana [facility] RATE [facility] CALCIUM LEVEL TOTAL 2023-02-15 17:38:00 Diana, [facility] Results CBC 2023-02-15 17:38:00 Diana [facility] MANUAL DIFFERENTIAL 2023-02-15 17:38:00 Diana, [facility] TRANSFUSE RED BLOOD CELLS 2023-02-15 10:40:00 Flaquita Decker [facility] TRANSFUSE RED BLOOD CELLS 2023-02-15 06:35:00 Flaquita Decker [facility] MRI CERVICAL THORACIC 2023-02-15 05:44:57 Flaquita Decker [facility] LUMBAR SPINE W WO CONTRAST MD Betina cardona [facility] URINE CULTURE 2023-02-15 03:25:00 [facility] URINALYSIS WITH 2023-02-15 03:25:00 Yves Lester [facility] MICROSCOPIC IF INDICATED MD Sood patricia [facility] URINALYSIS MICROSCOPIC 2023-02-15 03:25:00 Yves Lester [facility] EXAM [facility] CONFIRM ABORH TYPE 2023-02-15 00:51:00 Flaquita Decker [facility] TYPE AND SCREEN 2023-02-15 00:36:00 Flaquita Decker [facility] ABORH 2023-02-15 00:36:00 Flaquita Decker [facility] ANTIBODY SCREEN 2023-02-15 00:36:00 Flaquita Decker [facility] CLOT EXPIRATION DATE 2023-02-15 00:36:00 Flaquita Decker [facility] TMP INTERPRETATION 2023-02-15 00:36:00 Flaquita Decker [facility] ANTIBODY SCREEN NEGATIVE MD Sood [facility] TMP CROSSMATCH 2023-02-15 00:36:00 Flaquita [facility]cker [facility] INTERPRETATION [facility] PREPARE RBC 2023-02-15 00:26:00 Flaquita Decker [facility] PRBC PRODUCT READY FOR 2023-02-15 00:26:00 Flaquita Decker [facility] CUTTING SUPERVISOR [facility] XR HIP 2 OR 3 VW W PELVIS 2023-02-14 23:44:06 [facility] COMPLETE BLOOD COUNT W/ 2023-02-14 22:18:00 Yves Lester [facility] DIFFERENTIAL [facility] COMPREHENSIVE METABOLIC 2023-02-14 22:18:00 Yves Lester [facility] PANEL [facility] MAGNESIUM LEVEL 2023-02-14 22:18:[address] [facility] PHOSPHORUS LEVEL 2023-02-14 22:18:00 Yves Lester [facility] PROTHROMBIN TIME 2023-02-14 22:18:00 Yves Lester [facility] APTT 2023-02-14 22:18:00 Yves Lester [place] [facility] Results CBC 2023-02-14 22:18:00 Yves Lester [place] [facility] MANUAL DIFFERENTIAL 2023-02-14 22:18:00 Yves Lester [facility] GLUCOSE LEVEL 2023-02-14 22:18:00 Yves Lester [place] [facility] BLOOD UREA NITROGEN 2023-02-14 22:18:00 Yves Lester [facility] ELECTROLYTE PANEL 2023-02-14 22:18:00 Yves Lester [facility] SERUM CREATININE 2023-02-14 22:18:00 Yves Lester [facility] .GLOMERULAR FILTRATION 2023-02-14 22:18:00 [facility] RATE [facility] CALCIUM LEVEL TOTAL 2023-02-14 22:18:00 Yves Lester [facility] ALBUMIN LEVEL 2023-02-14 22:18:[address] [facility] ALKALINE PHOSPHATASE 2023-02-14 22:18:00 Yves Lester [facility] ALANINE AMINOTRANSFERASE 2023-02-14 22:18:00 Yves Lester [facility] ASPARTATE AMINOTRANSFERASE 2023-02-14 22:18:00 [facility] TOTAL PROTEIN 2023-02-14 22:18:[address] [facility] FRACTIONATED BILIRUBIN 2023-02-14 22:18:00 [facility] COMPLETE BLOOD COUNT W/ 2023-02-01 12:10:00 Chyna Mccracken [facility] DIFFERENTIAL [facility] MAGNESIUM LEVEL 2023-02-01 12:10:00 Chyna Mccracken [facility] PHOSPHORUS LEVEL 2023-02-01 12:10:00 Chyna Mccracken [facility] PROSTATE SPECIFIC ANTIGEN 2023-02-01 12:10:00 [facility] TESTOSTERONE LEVEL 2023-02-01 12:10:00 [facility] COMPREHENSIVE METABOLIC 2023-02-01 12:10:00 Chyna Mccracken [facility] VITAMIN D 25 HYDROXY LEVEL 2023-02-01 12:10:00 Chyna Mccracken [facility] Results CBC 2023-02-01 12:10:00 Chyna Mccracken [facility] MANUAL DIFFERENTIAL 2023-02-01 12:10:00 Chyna Mccracken [facility] GLUCOSE LEVEL 2023-02-01 12:10:00 Chyna Mccracken [facility] BLOOD UREA NITROGEN 2023-02-01 12:10:00 Chyna Mccracken [facility] ELECTROLYTE PANEL 2023-02-01 12:10:00 [facility] CREATININE 2023-02-01 12:10:00 Donnell Mccrackenssica [facility] .GLOMERULAR FILTRATION 2023-02-01 12:10:00 Chyna Mccracken [facility] CALCIUM LEVEL TOTAL 2023-02-01 12:10:00 Chyna Mccracken [facility] ALBUMIN LEVEL 2023-02-01 12:10:00 Chyna Mccracken [facility] ALKALINE PHOSPHATASE 2023-02-01 12:10:00 [facility] ALANINE AMINOTRANSFERASE 2023-02-01 12:10:00 [facility] ASPARTATE AMINOTRANSFERASE 2023-02-01 12:10:00 Chyna Mccracken [facility] TOTAL PROTEIN 2023-02-01 12:10:00 Chyna Mccracken [facility] Center FRACTIONATED BILIRUBIN 2023-02-01 12:10:00 Chyna Mccracken [facility] er Center CT ABDOMEN PELVIS WO 2023-01-30 12:29:00 Amanda Wong [facility] CONTRAST Medical Branch CONSENT/REFUSAL FOR 2023-01-30 11:49:00 Doctor Unassigned, [facility] DIAGNOSIS AND TREATMENT [facility] DUPLEX ARTERIAL ARM LEFT - 2023-01-19 19:19:[facility] DUPLEX ARTERIAL ARM LEFT - 2023-01-19 19:19:35 [facility] BY VASCULAR LAB [facility] CBC WITH DIFF 2023-01-19 15:30:00 [facility], [facility] CBC WITH DIFF 2023-01-19 15:30:00 [facility] IRON PANEL 2023-01-19 15:09:00 [facility] 2023-01-19 15:09:00 Zern, [facility] MAGNESIUM 2023-01-19 10:15:00 Zern, [facility] FERRITIN SERUM 2023-01-19 10:15:00 [facility] BASIC METABOLIC PANEL (NA, 2023-01-19 10:15:00 Zern, [facility] K, CL, CO2, GLUCOSE, BUN, [facility] CREATININE, [place]) CBC WITH DIFF 2023-01-19 10:15:00 [facility] 2023-01-19 10:15[facility] FERR[facility]IN SERUM 2023-01-19 10:15:00 [facility] BASIC METABOLIC PANEL (NA, 2023-01-19 10:15:00 [facility], [facility] K, CL, CO2, GLUCOSE, BUN, [facility] CREATININE, CA) CBC WITH DIFF 2023-01-19 10:15:00 Katlin [facility] POCT ACT LOW RANGE 2023-01-18 17:22:00 [place], [facility] POCT ACT LOW RANGE 2023-01-18 17:22:00 [place], [facility] CARDIAC CATHETERIZATION 2023-01-18 17:15:00 [place], [facility] CARDIAC CATHETERIZATION 2023-01-18 17:15:00 [place], [facility] CARDIAC CATHETERIZATION 2023-01-18 17:15:00 [place], [facility] CARDIAC CATHETERIZATION 2023-01-18 17:15:00 [place], [facility] CARDIAC CATHETERIZATION 2023-01-18 17:15:00 [place], [facility] CARDIAC CATHETERIZATION 2023-01-18 17:15:00 [place], [facility] CARDIAC CATHETERIZATION 2023-01-18 17:15:00 [place], [facility] CARDIAC CATHETERIZATION 2023-01-18 17:15:00 [place], [facility] POCT ACT LOW RANGE 2023-01-18 15:54:00 [place], [facility] POCT ACT LOW RANGE 2023-01-18 15:54:00 [place], [facility] OUTPATIENT CARDIAC 2023-01-18 05:01:00 Doctor Adalid [facility] CATHETERIZATION DOCUMENTS [facility] PROSTATIC SPECIFIC ANTIGEN 2023-01-15 20:54:00 Finesse Sullivan [facility] COMP. METABOLIC PANEL 2023-01-15 20:54:00 Finesse Sullivan [facility] ([id number]) Medical [place] CBC WITH DIFF 2023-01-15 20:54:00 Finesse Sullivan [facility] CONSENT/REFUSAL FOR 2023-01-15 20:27:36 Doctor Adalid [facility] DIAGNOSIS AND TREATMENT [facility] CARDIAC CATHETERIZATION 2023-01-11 14:03:40 Gene Perry [facility] CARDIAC CATHETERIZATION 2023-01-11 14:03:40 Gene Perry [facility] OUTPATIENT CARDIAC 2023-01-11 05:01:00 Doctor Unassigned, [facility] CATHETERIZATION DOCUMENTS [facility] OUTPATIENT CARDIAC 2023-01-11 05:01:00 Doctor Unassigned, [facility] CATHETERIZATION DOCUMENTS [facility] CONSENT/REFUSAL FOR 2023-01-06 16:40:20 Doctor Unassgold [facility] DIAGNOSIS AND TREATMENT [facility] CONSENT/REFUSAL FOR 2023-01-06 16:40:20 Doctor Ingassigned, [facility] DIAGNOSIS AND TREATMENT [facility] ASSIGNMENT OF BENEFITS 2023-01-06 16:40:02 Doctor Unassigned, Un [facility] ASSIGNMENT OF BENEFITS 2023-01-06 16:40:02 Doctor Unassigned, Un [facility] NM BONE SCAN WHOLE BODY 2022-12-19 15:21:00 Chyna Mccracken [facility] CT CHEST ABDOMEN PELVIS WO 2022-12-18 23:25:00 [facility] CONTRAST [facility] COMPLETE BLOOD COUNT W/ 2022-12-18 20:24:00 Chyna Mccracken [facility] DIFFERENTIAL [facility] MAGNESIUM LEVEL 2022-12-18 20:24:00 Chyna Mccracken [facility] PHOSPHORUS LEVEL 2022-12-18 20:24:00 Chyna Mccracken [facility] PROSTATE SPECIFIC ANTIGEN 2022-12-18 20:24:00 [facility] TESTOSTERONE LEVEL 2022-12-18 20:24:00 Chyna Mccracken [facility] VITAMIN D 25 HYDROXY LEVEL 2022-12-18 20:24:00 Chyna Mccracken [facility] COMPREHENSIVE METABOLIC 2022-12-18 20:24:00 Chyna Mccracken [facility] PANEL [facility] LACTATE DEHYDROGENASE 2022-12-18 20:24:00 Chyna Mccracken [facility] Results CBC 2022-12-18 20:24:00 Chyna Mccracken [facility] MANUAL DIFFERENTIAL 2022-12-18 20:24:00 Chyna Mccracken [facility] GLUCOSE LEVEL 2022-12-18 20:24:00 Chyna Mccracken [facility] BLOOD UREA NITROGEN 2022-12-18 20:24:00 Chyna Mccracken [facility] ELECTROLYTE PANEL 2022-12-18 20:24:00 [facility] SERUM CREATININE 2022-12-18 20:24:00 Kaykay [facility] .GLOMERULAR FILTRATION 2022-12-18 20:24:00 Chyna Mccracken [facility] RATE [facility] CALCIUM LEVEL TOTAL 2022-12-18 20:24:00 Chyna Mccracken [facility] ALBUMIN LEVEL 2022-12-18 20:24:00 Donnell Mccrackenssica [facility] ALKALINE PHOSPHATASE 2022-12-18 20:24:00 Chyna Mccracken [facility] ALANINE AMINOTRANSFERASE 2022-12-18 20:24:00 [facility] ASPARTATE AMINOTRANSFERASE 2022-12-18 20:24:00 [facility] T[facility] PROTEIN 2022-12-18 20:24:00 [facility] FRACTIONATED BILIRUBIN 2022-12-18 20:24:00 Chyna Mccracken [facility] PROSTATE SPECIFIC ANTIGEN 2022-12-09 18:32:00 Chyna Mccracken [facility] TESTOSTERONE LEVEL 2022-12-09 18:32:00 Chyna Mccracken [facility] VITAMIN D 25 HYDROXY LEVEL 2022-12-09 18:32:00 Chyna Mccracken [facility] THYROID STIMULATING 2022-12-09 18:32:00 Waylon Combs [facility] HORMONE [facility] FREE THYROXINE 2022-12-09 18:32:[address] [facility] COMPLETE BLOOD COUNT W/ 2022-11-02 19:30:00 Chyna Mccracken [facility] DIFFERENTIAL [facility] PROSTATE SPECIFIC ANTIGEN 2022-11-02 19:30:00 [facility] COMPREHENSIVE METABOLIC 2022-11-02 19:30:00 Chyna Mccracken [facility] PANEL [facility] TESTOSTERONE LEVEL 2022-11-02 19:30:00 [facility] NGS BLOOD CONTROL 2022-11-02 19:30:00 Chyna Mccracken [facility] Results CBC 2022-11-02 19:30:00 Chyna Mccracken [facility] MANUAL DIFFERENTIAL 2022-11-02 19:30:00 Chyna Mccracken [facility] GLUCOSE LEVEL 2022-11-02 19:30:00 Chyna Mccracken [facility] BLOOD UREA NITROGEN 2022-11-02 19:30:00 Chyna Mccracken [facility] ELECTROLYTE PANEL 2022-11-02 19:30:00 Chyna Mccracken y [facility] SERUM CREATININE 2022-11-02 19:30:00 Chyna Mccracken [facility] .GLOMERULAR FILTRATION 2022-11-02 19:30:00 Chyna Mccracken [facility] RATE [facility] CALCIUM LEVEL TOTAL 2022-11-02 19:30:00 Chyna Mccracken [facility] ALBUMIN LEVEL 2022-11-02 19:30:00 Chyna Mccracken [facility] ALKALINE PHOSPHATASE 2022-11-02 19:30:00 [facility] ALANINE AMINOTRANSFERASE 2022-11-02 19:30:00 [facility] ASPARTATE AMINOTRANSFERASE 2022-11-02 19:30:00 Chyna Mccracken [facility] TOTAL PROTEIN 2022-11-02 19:30:00 Chyna Mccracken [facility] FRACTIONATED BILIRUBIN 2022-11-02 19:30:00 Chyna Mccracken [facility] MRI PELVIS W WO CONTRAST 2022-08-02 23:48:00 [facility] HEM[facility] BONE 2022-08-02 20:35:00 Rosa Walden [facility] MARROW INTERPRETATION MD Charissa lee [facility] HEMATOPATHOLOGY BONE 2022-08-02 20:35:00 Rosa Walden [facility] MARROW DIFFERENTIAL [facility] [place] DIAGNOSTIC BONE MARROW 2022-08-02 20:18:42 Chyna Mccracken [facility] BIOPSIES & ASPIRATIONS MD Rocha [facility] COMPLETE BLOOD COUNT W/ 2022-08-02 18:03:00 [facility] Results CBC 2022-08-02 18:03:00 Chyna Mccracken [facility] MANUAL DIFFERENTIAL 2022-08-02 18:03:00 Chyna Mccracken [facility] GENERAL LABORATORY ADD ON 2022-08-01 22:26:00 Chyna Mccracken [facility] TEST [facility] NM BONE SCAN WHOLE BODY 2022-08-01 21:23:00 Chyna Mccracken [facility] ZINVITAE 2022-08-01 17:28:00 Chyna Mccracken [facility] CARCINOEMBRYONIC ANTIGEN 2022-08-01 17:28:00 Chyna [facility]ccrack[facility] TESTOSTERONE LEVEL 2022-08-01 17:28:00 Chyna Mccracken [facility] PROTHROMBIN TIME 2022-08-01 17:28:00 Kaykay Chyna [facility] APTT 2022-08-01 17:28:00 Kaykay [facility] PETCT INITIAL TREATMENT 2022-07-22 18:23:49 Katy Castellon [facility] STRATEGY [facility] POC GLUCOSE SCREEN 2022-07-22 16:27:00 Katy Castellon [facility] US THYROID 2022-07-15 16:04:[address] [facility] COMPREHENSIVE METABOLIC 2022-07-14 21:29:00 Katy Castellon [facility] PANEL [facility] COMPLETE BLOOD COUNT W/ 2022-07-14 21:29:00 Katy Castellon [facility] DIFFERENTIAL [facility] PROTHROMBIN TIME 2022-07-14 21:29:00 Ravinder [facility] APTT 2022-07-14 21:29:00 Ravinder [facility] HEPATITIS B SURFACE 2022-07-14 21:29:00 Katy Castellon [facility] ANTIBODY, SERUM [facility] HEPATITIS B SURFACE 2022-07-14 21:29:00 Katy Castellon [facility] ANTIGEN, SERUM [facility] HEPATITIS B CORE ANTIBODY 2022-07-14 21:29:00 Katy Castellon [facility] HEPATITIS C VIRUS AB 2022-07-14 21:29:00 Ravinder [facility] SCREEN W/REFLEX HCV PCR MD Ambrose [facility] HEMOGLOBIN A1C 2022-07-14 21:29:00 Ravinder [facility] THYROID STIMULATING 2022-07-14 21:29:00 Ravinder [facility] HORMONE [facility] THYROXINE 2022-07-14 21:29:00 Ravinder [facility] PROSTATE SPECIFIC ANTIGEN 2022-07-14 21:29:00 [facility] BETA 2 MICROGLOBULIN 2022-07-14 21:29:00 Ravinder [facility] MAGNESIUM LEVEL 2022-07-14 21:29:00 Ravinder [facility] PHOSPHORUS LEVEL 2022-07-14 21:29:00 Ravinder [facility] GLUCOSE LEVEL 2022-07-14 21:29:00 Ravinder [facility] BLOOD UREA NITROGEN 2022-07-14 21:29:00 Ravinder [facility] ELECTROLYTE PANEL 2022-07-14 21:29:00 Ravinder [facility] SERUM CREATININE 2022-07-14 21:29:00 Ravinder [facility] .GLOMERULAR FILTRATION 2022-07-14 21:29:00 Katy Castellon [facility] RATE [facility] CALCIUM LEVEL TOTAL 2022-07-14 21:29:00 Ravinder [facility] ALBUMIN LEVEL 2022-07-14 21:29:00 Ravinder [facility] ALKALINE PHOSPHATASE 2022-07-14 21:29:00 Ravinder Katy [facility] ALANINE AMINOTRANSFERASE 2022-07-14 21:29:00 Ravinder [facility] ASPARTATE AMINOTRANSFERASE 2022-07-14 21:29:00 Katy [facility]ellon [facility] TOTAL PROTEIN 2022-07-14 21:29:00 Katy Castellon o f [facility] FRACTIONATED BILIRUBIN 2022-07-14 21:29:00 Katy Castellon Unive rsity [facility] Results CBC 2022-07-14 21:29:00 Katy Castellon o [facility] MANUAL DIFFERENTIAL 2022-07-14 21:29:00 Katy Castelloni ty [facility] EKG, 12-LEAD (SCHEDULED) 2022-07-14 00:00:00 Katy Castellon Uni versity of [facility] OSI CT CHEST ABDOMEN 2022-06-29 14:02:00 Rosa [place]den [facility] [place] PELVIS [facility] Plan of Care Planned Activity Planned Date Details Comments Source Future Scheduled 2023-05-05 COVID-19 Vaccination [facility] [place] Test 19:48:16 (#1) [code = COVID-19 [facility] (#1)] Center Future Scheduled 2023-04-07 COVID-19 Vaccination [facility] [place] Test 12:46:18 (#1) [code = COVID-19 [facility] (#1)] Center Future Scheduled 2023-02-02 COVID-19 Vaccination [facility] [place] Test 07:40:36 (#1) [code = COVID-19 [facility] (#1)] Center Future Scheduled 2023-01-23 COVID-19 Vaccination [facility] [place] Test 13:27:47 (#1) [code = COVID-19 [facility]ination (#1)] Center Future Scheduled 2022-12-23 COVID-19 Vaccination [facility] [place] Test 08:16:59 (#1) [code = COVID-19 [facility]ination (#1)] Center Future Scheduled 2022-11-22 COVID-19 Vaccination [facility] [place] Test 09:37:22 (#1) [code = COVID-19 [facility]ination (#1)] Center Future Scheduled 2022-11-22 COVID-19 Vaccination [facility] [place] Test 09:37:22 (#1) [code = COVID-19 [facility] Vaccination (#1)] Center Future Scheduled 2022-11-18 COVID-19 Vaccination [facility] [place] Test 11:13:38 (#1) [code = COVID-19 [facility] Vaccination (#1)] Center Encounters Start End Encounter Admission Attending Care Care Encounter Source Date/Time Date/Time Type Type Clinicians Facility Department ID 2023-04-06 Outpatient SYSTEM, BALJEET DELONG [id number] 10:33:09 PROVIDER Aj lee 2022-06-30 Outpatient SYSTEM, BALJEET DELONG [id number] 10:23:52 PROVIDER Aj lee 2023-05-05 2023-05-05 Nurse Clarence 1.2.840.1 [id number] Univers 00:00:00 00:00:00 Triage Maggie Donato 91600.1.1 ity of 3.412.2.7 Andrea .3Kiera064296 .8 [facility] 2023-05-02 2023-05-02 Telephone [facility] 1.2.264.025 [id number] [id number] Univers 00:00:00 00:00:00 Wanda JACK 350.1.13.10 ity of [place] 4.2.7.2.686 Geronimo deal PROFESSIO [id number] Wy [place] [id number] [facility] 2023-04-27 2023-04-28 [facility] Chyna Mccracken 1.2.840.1 [id number] Univers 15:38:00 10:19:00 Encounter Mk Bravo 58258.1.1 ity of Sona Wesley 3.412.2.[address] Qureshi8 [facility] 2023-04-27 2023-04-28 Outpatient BALJEET HERZOG Rad [id number] 15:38:00 10:19:00 MK lee 2023-04-28 2023-04-28 Travel 1.2.840.1 1.2.643.355 [id number] [id number] Univers 00:00:00 00:00:00 65031.1.1 350.1.13.41 it[place] of 3[place]412.2.[place].698 [place] .3.477[place] 084.8 .8 [facility] 2023-04-27 2023-04-27 Anesthesia Shalom Marvin 1.2.840.1 [id number] [facility] 12:22:00 15:44:00 Event Woody Yadav 65023.1.1 ity of 3.412.2.7 [place] .3.246382 MD Qureshi8 [facility] 2023-04-27 2023-04-27 Outpatient ADRIAN BRAVO MDA Inter Rad [id number] 20-20 MD 15:38:00 15:38:00 MK [id number] Aj lee 2023-04-27 2023-04-27 [facility] 1.2.840.1 [id number] [facility] 07:25:41 08:09:00 Encounter Newton 81704.1.1 it y of 3.412.2.7 [place] .3.781644 MD Qureshi8 [facility] 2023-04-27 2023-04-27 Outpatient ADRIAN DRAPER MDA [facility] [id number] 07:25:41 08:09:00 NEWTON lee 2023-04-27 2023-04-27 [facility] 1.2.840.1 [id number] [facility] 07:25:12 08:09:00 Encounter Newton 73721.1.1 it y of 3.412.2.7 [place] .3.498748 MD [facility] 2023-04-27 2023-04-27 Outpatient BALJEET DRAPER [facility] [id number] MD 07:25:12 08:09:00 NEWTON lee 2023-04-27 2023-04-27 Travel 1.2.840.1 1.2.363.158 6864 [id number] Univers 00:00:00 00:00:00 13231.1.1 350.1.13.41 ity of 3.412.2.[place].3.698 [place] .3.744057 084.8 .8 [facility] 2023-04-26 2023-04-26 Falguni Bains, 1.2.840.1 [id number] 1 [id number] Univers 23:59:59 23:59:59 Event Mel Crockett 31897.1.1 ity of 3.412.2.7 [place] .3.731925 .8 [facility] 2023-04-26 2023-04-26 CAROLINE Draper, 1.2.840.1 [id number] Univers 16:30:00 17:00:00 Ender Jeter 92783.1.1 i ty of ts 3.412.2.7 [place] .3.240566 MD Qureshi8 [facility] 2023-04-26 2023-04-26 Outpatient ADRIAN DRAPER MDA MDA [id number] 07:50:08 07:50:08 NEWTON lee 2023-04-26 2023-04-26 Blaise Baird, 1.2.840.1 [id number] Univers 00:00:00 00:00:00 Only Rogelio 37575.1.1 ity of 3.412.2.7 [place] .3.932998 MD Qureshi8 [facility] 2023-04-24 2023-04-24 [facility] Donta Daly 1.2.840.1 [id number] Univers 10:15:00 23:59:00 Mk Chong 79356.1.1 ity of 3.412.2.7 [place] .3.366974 MD [facility]8 [facility] 2023-04-24 2023-04-24 Outpatient BALJEET DALY MDA [id number] MD 10:15:00 23:59:00 DONTA lee 2023-04-24 2023-04-24 Outpatient BALJEET DALY MDA [id number] 20-20 MD 10:15:00 10:15:00 DONTA [id number] Aj lee 2023-04-24 2023-04-24 Orders Riley, 1.2.840.1 [id number] Univers 00:00:00 00:00:00 Only Maylin 07293.1.1 ity of 3.412.2.7 [place] .3.099476 MD [facility] 2023-04-21 2023-04-21 Clinical Waylon Combs 1.2.840.1 [id number] [facility] 15:45:00 15:54:14 Support Diana Sal 29557.1.1 ity of 3.412.2.7 [place] .3.190421 MD Qureshi8 [facility] 2023-04-21 2023-04-21 Outpatient ADRIAN COMBS MDA MDA [id number] 15:37:17 15:54:14 WAYLON Aj rosa 2023-04-21 2023-04-21 Follow-Up Abraham 1.2.840.1 [id number] [facility] 14:30:00 15:27:44 Waylon 71925.1.1 ity of 3.412.2.7 [place] .3.820745 MD Qureshi8 [facility] 2023-04-21 2023-04-21 Outpatient ADRIAN COMBS MDA MDA [id number] 14:24:20 15:27:44 WAYLON Aj rosa 2023-04-21 2023-04-21 Travel 1.2.840.1 1.2.619.974 8347 [id number] [facility] 00:00:00 00:00:00 14308.1.1 350.1.13.41 ity of 3.412.2.[place].3.698 [place] .3.392746 084.8 MD Qureshi8 [facility] 2023-04-20 2023-04-20 Outpatient ADRIAN MCCRACKEN MDA MDA [id number] 07:58:11 14:26:32 CHYNA lee 2023-04-20 2023-04-20 Javon Olson.2.840.1 [id number] [id number] Univers 07:30:00 14:26:32 Chyna 48379.1.1 ity of 3.412.2.7 [place] .3.079616 .8 [facility] 2023-04-20 2023-04-20 Travel 1.2.840.1 1.2.216.865 5217 [id number] Univers 00:00:00 00:00:00 87530.1.1 350.1.13.41 ity of 3.412.2.7 [place].3.698 [place] .3.187296 084.8 .8 [facility] 2023-04-19 2023-04-19 [facility] 1.2.840.1 [id number] 1 [id number] Univers 09:00:13 23:59:00 Encounter on, Vera Gipson 36688.1.1 ity of [place].412.2.7 [place] .3.223791 MD Qureshi8 [facility] 2023-04-19 2023-04-19 Outpatient [facility] MDA [id number] MD 09:00:13 23:59:00 ON, VERA cardoza 2023-04-19 2023-04-19 Outpatient [facility] MDA [id number] MD 14:36:15 16:04:12 NOBLEPATRICIA Nickersone o 2023-04-19 2023-04-19 Ancillary Kaykay, 1.2.840.1 [id number] Univers 14:00:00 14:15:00 Procedure Chyna 64107.1.1 it y of 3.412.2.7 [place] .3.963340 MD [facility] 2023-04-19 2023-04-19 Ancillary Deinert, 1.2.840.1 [id number] Univers 13:30:00 13:45:00 Procedure Chyna 77193.1.1 it y of 3.412.2.7 [place] .3.832592 MD [facility] 2023-04-19 2023-04-19 Outpatient EL KAYKAY MDA MDA [id number] 12:00:04 12:00:04 CHYNA lee 2023-04-19 2023-04-19 Outpatient KAYKAY [facility] [id number] 11:59:56 11:59:56 CHYNA lee 2023-04-19 2023-04-19 Follow-Up Kaykay, 1.2.840.1 [id number] [facility] 11:00:00 11:55:35 Chyna 73831.1.1 ity of 3.412.2.7 [place] .3.519403 .8 [facility] 2023-04-19 2023-04-19 Outpatient KAYKAY [facility] [id number] 10:53:11 11:55:35 CHYNA lee 2023-04-19 2023-04-19 [facility] 1.2.840.1 [id number] 1 [id number] Liz 08:47:22 08:59:00 Encounter onVera 36264.1.1 ity of 3.412.2.7 [place] .3.488414 .8 [facility] 2023-04-19 2023-04-19 Outpatient [facility] [id number] 08:47:22 08:59:00 ONVERA 2023-04-19 2023-04-19 [facility], 1.2.840.1 [id number] [id number] [facility] 08:15:00 08:46:00 Encounter Chyna 20591.1.1 it y of 3.412.2.7 [place] .3.023313 .8 [facility] 2023-04-19 2023-04-19 Outpatient KAYKAY [facility] MDA [id number] 08:15:00 08:46:00 CHYNA lee 2023-04-19 2023-04-19 [facility] Brie, 1.2.840.1 [id number] Univers 00:00:00 00:00:00 Only Rogelio 88776.1.1 ity of 3.412.2.7 [place] .3.477934 MD [facility] 2023-04-19 2023-04-19 Orders Deolenat, 1.2.840.1 [id number] Univers 00:00:00 00:00:00 Only Chyna 88422.1.1 ity of 3.412.2.7 [place] .3.240481 MD [facility] 2023-04-19 2023-04-19 Orders Anibalt, 1.2.840.1 [id number] Univers 00:00:00 00:00:00 Only Chyna 69141.1.1 ity of 3.412.2.7 [place] .3.958956 MD [facility] 2023-04-19 2023-04-19 Travel 1.2.840.1 1.2.909.749 3795 [id number] Univers 00:00:00 00:00:00 47344.1.1 350.1.13.41 ity of 3.412.2.7 [place]7.3.698 [place] .3.049334 084.8 MD [facility] 2023-04-18 2023-04-18 Orders Morgan, 1.2.840.1 [id number] 0197 Univers 00:00:00 00:00:00 Only Omar 07286.1.1 ity of 3.412.2.7 [place] .3.619306 MD [facility] 2023-04-17 2023-04-17 Education Janette, 1.2.840.1 [id number] 1109 [id number] Univers 00:00:00 00:00:00 Martesa 27494.1.1 ity of 3.412.2.7 [place] .3.913106 MD [facility] 2023-04-10 2023-04-10 Outpatient R ORLANDO, [facility] [id number] Univers 11:00:00 11:00:00 AFAQ ity of [facility] 2023-04-10 2023-04-10 Telephone Reynold, 1.2.840.1 [id number] [id number] Univers 00:00:00 00:00:00 Macaela T 05456.1.1 it y of 3.412.2.7 [place] .3.163000 MD [facility] 2023-04-08 2023-04-08 Outpatient [facility] [id number] Harry 10:19:19 10:19:19 43740 F Hussein 2023-04-06 2023-04-06 Outpatient ADRIAN MCCRACKEN MDA [facility] [id number] 11:37:04 11:51:42 CHYNA lee 2023-04-06 2023-04-06 Travel 1.2.840.1 1.2.106.371 1548 [id number] Univers 00:00:00 00:00:00 75827.1.1 350.1.13.41 ity of 3.412.2.7 [place]7.3.698 [place] .3.701094 084.Tiffanie [facility] 2023-04-06 2023-04-06 Travel 1.2.840.1 1.2.709.261 3774 [id number] Univers 00:00:00 00:00:00 00667.1.1 350.1.13.41 ity of 3.412.2.7 [place]7.3.698 [place] .3.333198 084.8 MD [facility] 2023-04-05 2023-04-05 Blaise Mccracken, 1.2.840.1 [id number] Univers 00:00:00 00:00:00 Only Chyna 15499.1.1 ity of 3.412.2.7 [place] .3.438103 MD [facility] 2023-04-05 2023-04-05 Blaise Mccracken 1.2.840.1 [id number] 86957 Univers 00:00:00 00:00:00 Only Chyna 06388.1.1 ity of 3.412.2.7 [place] .3.177694Warren [facility] 2023-04-03 2023-04-03 Consult Anneliese 1.2.840.1 [id number] 11 [id number] Univers 14:00:00 14:35:52 a, 70773.1.1 ity of [place]2.[place] .3.501936 MD [facility] 2023-04-03 2023-04-03 Consult EL Anneliese 1.2.840.1 [id number] 11 [id number] Univers 14:00:00 14:35:52 a, 81515.1.1 ity of [place]2.7 [place] .3.062800 MD [facility] 2023-04-03 2023-04-03 Outpatient Smita AHN, [facility] [id number] Univers 00:00:00 00:00:00 WANDA trevino [facility] 2023-04-03 2023-04-03 Travel 1.2.840.1 1.2.600.185 3719 [id number] Univers 00:00:00 00:00:00 94883.1.1 350.1.13.41 ity of 3.412.2.7 [place].7.3.698 [place] .3.046721 Kael [facility] 2023-04-03 2023-04-03 Travel 1.2.840.1 1.2.540.147 6400 [id number] Univers 00:00:00 00:00:00 79036.1.1 350.1.13.41 ity of 3.412.2.7 [place].7.3.698 [place] .3.018785 Kael [facility] 2023-03-28 2023-03-28 Specialty Shailesh, 1.2.840.1 [id number] 1108 [id number] Univers 00:00:00 00:00:00 Pharmacy Ibrahima Villeda 08680.1.1 it y of 3.412.2.7 [place] .3.379350 MD .8 [facility] 2023-03-28 2023-03-28 Specialty Olumba, 1.2.840.1 [id number] 1108 [id number] Univers 00:00:00 00:00:00 Pharmacy Ibrahima Villeda 84860.1.1 it y of 3.412.2.7 [place] .3.819023 MD Qureshi8 [facility] 2023-03-23 2023-03-23 [facility] 1.2.585.112 3369 [id number] Univers 00:00:00 00:00:00 Qiacuong [place] 350.1.13.10 it[place].7.2.[place] 195.5998751 Wy dical NAL 9 [facility] 2023-03-23 2023-03-23 [facility] 1.2.255.348 9767 72111 Univers 00:00:00 00:00:00 Qiangyon [place] 350.1.13.10 [place] 4.2.7.2.[place] [id number] Wy dical NAL 9 [facility] 2023-03-22 2023-03-22 Infusion Deinert, 1.2.840.1 [id number] 1108 [id number] Univers 07:30:00 16:08:36 Chyna 67800.1.1 ity of 3.412.2.7 [place] .3.798793 MD [facility] 2023-03-22 2023-03-22 Infusion EL Deinert, 1.2.840.1 [id number] 1108 [id number] Univers 07:30:00 16:08:36 Chyna 26315.1.1 ity of 3.412.2.7 [place] .3.986761 MD [facility] 2023-03-22 2023-03-22 Travel 1.2.840.1 1.2.026.759 2725 [id number] Univers 00:00:00 00:00:00 85831.1.1 350.1.13.41 ity of 3.412.2.7 [place].7.3.698 [place] .3.378340 084.8 .8 [facility] 2023-03-22 2023-03-22 Travel 1.2.840.1 1.2.906.218 0311 [id number] Univers 00:00:00 00:00:00 80711.1.1 350.1.13.41 ity of 3.412.2.7 [place].7.3.698 [place] .3.698487 084.8 .8 [facility] 2023-03-21 2023-03-21 [facility] 1.2.840.114 [id number] Univers 08:47:14 23:59:00 Encounter Qiangjun [place] 350.1.13.10 [facility] 4.2.7.2.686 [facility] [id number] [address] 2023-03-21 2023-03-21 Outpatient ADRIAN MCCRACKEN MDA [facility] [id number] 12:52:40 13:01:10 CHYNA lee 2023-03-21 2023-03-21 [facility] 1.2.840.114 [id number] Univers 08:46:58 08:46:58 Encounter Qiangjun [place] 350.1.13.10 ity of [place] 4.2.7.2.6 [facility] [id number] [address] 2023-03-21 2023-03-21 [facility] 1.2.840.114 [id number] 5548 Univers 08:46:41 08:46:41 Encounter Qiangjun [place] 350.1.13.10 [facility] 4.2.7.[address] [place] [id number] 2023-03-21 2023-03-21 Outpatient [facility] [id number] Univers 08:46:07 08:46:07 WANDA knight o f [facility] 2023-03-21 2023-03-21 [facility] 1.2.840.114 [id number] Univers 08:46:07 08:46:07 Encounter Qiangjun [place] 350.1.13.10 ity of [place] 4.2.7.2.686 [facility] [id number] [facility] [address] [place] 2023-03-21 2023-03-21 Orders Deinert, 1.2.840.1 [id number] Univers 00:00:00 00:00:00 Only Chyna 65044.1.1 ity of 3.412.2.7 [place] .3.276562 MD [facility] 2023-03-21 2023-03-21 Travel 1.2.840.1 1.2.489.509 8755 [id number] Univers 00:00:00 00:00:00 69089.1.1 350.1.13.41 ity of 3.412.2.7 [place].7.3.698 [place] .3.604484 084.8 MD [facility] 2023-03-21 2023-03-21 Orders Deinert, 1.2.840.1 [id number] 38405 36091 Univers 00:00:00 00:00:00 Only Chyna 92970.1.1 ity of 3.412.2.7 [place] .3.769102 MD [facility] 2023-03-21 2023-03-21 Orders Deinert, 1.2.840.1 [id number] 06485 51920 Univers 00:00:00 00:00:00 Only Chyna 38857.1.1 ity of 3.412.2.7 [place] .3.067254 MD [facility] 2023-03-21 2023-03-21 Travel 1.2.840.1 1.2.718.086 9855 [id number] Univers 00:00:00 00:00:00 79089.1.1 350.1.13.41 ity of 3.412.2.7 [place].2.7.3.698 [place] .3.513373 084.8 MD [facility] 2023-03-21 2023-03-21 Orders Steveinert, 1.2.840.1 [id number] 89427 [id number] Univers 00:00:00 00:00:00 Only Chyna 83278.1.1 ity of 3.412.2.7 [place] .3.386580 MD Qureshi8 [facility] 2023-03-20 2023-03-20 Orders Deinert, 1.2.840.1 [id number] 51660 25943 Univers 00:00:00 00:00:00 Only Chyna 65136.1.1 ity of 3.412.2.7 [place] .3.102962 MD Qureshi8 [facility] 2023-03-20 2023-03-20 Orders Deinert, 1.2.840.1 [id number] [id number] Univers 00:00:00 00:00:00 Only Chyna 95965.1.1 ity of 3.412.2.7 [place] .3.323862 MD [facility] 2023-03-16 2023-03-16 Orders Deinert, 1.2.840.1 [id number] 42148 06349 Univers 00:00:00 00:00:00 Only Chyna 49315.1.1 ity of 3.412.2.7 [place] .3.693201 MD [facility] 2023-03-16 2023-03-16 Orders Deinert, 1.2.840.1 [id number] 32584 66052 Univers 00:00:00 00:00:00 Only Chyna 86657.1.1 ity of 3.412.2.7 [place] .3.942476 MD [facility] 2023-03-15 2023-03-15 [facility] Edward Mcdnoald 1.2.840.1 1010 02366 [id number] Univers 12:21:16 23:59:00 Elle Murillo 82204.1.1 ity of 3.412.2.7 [place] .3.626251 MD [facility] 2023-03-15 2023-03-15 [facility] Edward Mcdonald 1.2.840.1 1010 18511 [id number] Univers 12:21:16 23:59:00 Encounter Elle Fieldsbrayan 99698.1.1 ity of 3.412.2.7 [place] .3.559476 MD Qureshi8 [facility] 2023-03-15 2023-03-15 [facility], 1.2.840.1 [id number] 1108 [id number] Univers 11:44:56 12:20:00 Encounter Tachoe K 97503.1.1 ity of 3.412.2.7 [place] .3.893995 MD Qureshi8 [facility] 2023-03-15 2023-03-15 [facility], 1.2.840.1 [id number] 1108 [id number] Univers 11:44:56 12:20:00 Encounter Tachoe K 43346.1.1 ity of 3.412.2.7 [place] .3.928380 MD Qureshi8 [facility] [place] 2023-03-15 2023-03-15 [facility], 1.2.840.1 [id number] 1107 [id number] Univers 06:30:00 11:43:00 Encounter Chyna 78249.1.1 it y of 3.412.2.7 [place] .3.363753 MD Qureshi8 [facility] [place] 2023-03-15 2023-03-15 [facility], 1.2.840.1 [id number] 1107 [id number] Univers 06:30:00 11:43:00 Encounter Chyna 94379.1.1 it y of 3.412.2.7 [place] .3.399974 MD Qureshi8 [facility] [place] 2023-03-15 2023-03-15 Follow-Up Daly, 1.2.840.1 [id number] 11 [id number] Univers 10:00:00 11:38:18 Donta 05062.1.1 ity of 3.412.2.7 [place] .3Kiera870225 MD [facility] [place] 2023-03-15 2023-03-15 Follow-Up EL Daly, 1.2.840.1 [id number] Univers 10:00:00 11:38:18 Donta 01176.1.1 ity of 3.412.2.7 [place] .3.852042 MD [facility] 2023-03-15 2023-03-15 Ancillary Dedonya, 1.2.840.1 [id number] Univers 07:00:00 07:20:00 Procedure Chyna 66490.1.1 it y of 3.412.2.7 [place] .3.154706 MD Qureshi8 [facility] 2023-03-15 2023-03-15 Ancillary EL Kaykay, 1.2.840.1 [id number] 582 [id number] Univers 07:00:00 07:20:00 Procedure Chyna 27256.1.1 it y of 3.412.2.7 [place] .3.078143 MD [facility] 2023-03-15 2023-03-15 Travel 1.2.840.1 1.2.726.725 6942 [id number] Univers 00:00:00 00:00:00 22171.1.1 350.1.13.41 ity of 3.412.2.7 [place]7.3.698 [place] .3.974852 084.8 MD [facility] 2023-03-15 2023-03-15 Travel 1.2.840.1 1.2.332.867 4651 [id number] Univers 00:00:00 00:00:00 08611.1.1 350.1.13.41 ity of 3.412.2.7 [place]7.3.698 [place] .3.415433 084.8 MD [facility] 2023-03-14 2023-03-14 Nutrition Donta Daly 1.2.840.1 [id number] 3 [id number] Univers 14:00:00 20:12:39 Kiera Meza 68266.1.1 ity of 3.412.2.7 [place] .3.137124 MD [facility] 2023-03-14 2023-03-14 Nutrition Donta Gonzalez 1.2.840.1 [id number] 3 [id number] Univers 14:00:00 20:12:39 Kiera Meza 44858.1.1 ity of 3.412.2.7 [place] .3.090214 MD [facility] 2023-03-13 2023-03-13 Clinical Mccammon, 1.2.840.1 [id number] 94544 87423 Univers 12:00:00 12:49:59 Support Michael 53004.1.1 ity of [place] 3.412.2.7 [place] .3.612571 MD Qureshi8 [facility] 2023-03-13 2023-03-13 Clinical [facility], 1.2.840.1 [id number] [id number] 03911 Univers 12:00:00 12:49:59 Support Michael 39299.1.1 ity of [place] 3.412.2.7 [place] .3.251110 MD Qureshi8 [facility] 2023-03-13 2023-03-13 Outpatient DALY, [facility] [id number] 11:23:01 11:23:01 [facility] 2023-03-13 2023-03-13 Documentat Martinez, 1.2.840.1 [id number] Univers 00:00:00 00:00:00 adelso [place] 74287.1.1 ity of [place] 3.412.2.7 [place] .3.867734 MD Qureshi8 [facility] 2023-03-13 2023-03-13 Travel 1.2.840.1 1.2.414.816 [id number] [facility] 00:00:00 00:00:00 27021.1.1 350.1.13.41 ity of 3.412.2.7 [place]3.698 [place] .3.849341 084.8 MD Qureshi8 [facility] 2023-03-13 2023-03-13 Documentat Martinez, 1.2.840.1 [id number] [facility] 00:00:00 00:00:00 ion Michael 08843.1.1 ity of [place] 3.412.2.7 [place] .3.902696 MD [facility] 2023-03-13 2023-03-13 Travel 1.2.840.1 1.2.083.287 4577 [id number] [facility] 00:00:00 00:00:00 91422.1.1 350.1.13.41 ity of 3.412.2.7 [place].3.698 [place] .3.898325 084.8 MD [facility] 2023-03-10 2023-03-10 Outpatient [facility] [place] [id number] 10:52:04 11:30:25 DONTA Aj cox [facility]ett 2023-03-10 2023-03-10 Travel 1.2.840.1 1.2.536.601 [id number] [facility] 00:00:00 00:00:00 25207.1.1 350.1.13.41 ity of 3.412.2.7 [place]7.3.698 [place] .3.429166 084.8 MD [facility] 2023-03-10 2023-03-10 Travel 1.2.840.1 1.2.487.222 [id number] [id number] [facility] 00:00:00 00:00:00 42663.1.1 350.1.13.41 ity of 3.412.2.7 [place]7.3.698 [place] .3.414379 084.8 MD [facility] 2023-03-09 2023-03-09 Outpatient EL DALY, MDA MDA [id number] 09:21:01 11:29:41 DONTA Rocha cox monett 2023-03-09 2023-03-09 Clinical Mccammon, 1.2.840.1 [id number] [facility] 09:30:00 10:21:44 Support Michael 50559.1.1 ity of [place] 3.412.2.7 [place] .3.563556 MD [facility] 2023-03-09 2023-03-09 Clinical Martinez, 1.2.840.1 [id number] [facility] 09:30:00 10:21:44 Support Michael 29680.1.1 ity of [place] 3.412.2.7 [place] .3.676086 MD [facility] 2023-03-09 2023-03-09 Blaise Baig, 1.2.840.1 [id number] [facility] 00:00:00 00:00:00 Only Emma 10813.1.1 ity of [place] 3.412.2.7 [place] .3.345491 MD Qureshi8 [facility] 2023-03-09 2023-03-09 Travel 1.2.840.1 1.2.926.333 [id number] [id number] [facility] 00:00:00 00:00:00 52849.1.1 350.1.13.41 ity of 3.412.2.7 [place]3.698 [place] .3.858967 084.8 MD [facility] 2023-03-09 2023-03-09 Blaise Baig, 1.2.840.1 [id number] [facility] 00:00:00 00:00:00 Only Emma 51604.1.1 ity of [place] 3.412.2.7 [place] .3.557083 MD [facility] 2023-03-09 2023-03-09 Travel 1.2.840.1 1.2.259.258 [id number] [id number] [facility] 00:00:00 00:00:00 65794.1.1 350.1.13.41 ity of 3.412.2.7 [place]7.3.698 [place] .3.279852 084.8 MD [facility] 2023-03-08 2023-03-08 Clinical Donta Daly 1.2.840.1 [id number] [facility] 12:00:00 12:00:00 Support Angelique Hunt 36967.1.1 ity of 3.412.2.7 [place] .3.014373 MD [facility] 2023-03-08 2023-03-08 Clinical Donta Gonzalez 1.2.840.1 [id number] [facility] 12:00:00 12:00:00 Support Angelique Hunt 22365.1.1 ity of 3.412.2.7 [place] .3.377681 MD [facility] 2023-03-08 2023-03-08 Outpatient ADRIAN DALY BALJEET [facility] [id number] 10:53:29 11:51:54 [facility]TA [facility] 2023-03-08 2023-03-08 Travel 1.2.840.1 1.2.513.380 [id number] [id number] [facility] 00:00:00 00:00:00 25857.1.1 350.1.13.41 ity of 3.412.2.7 2.[place]7.3.698 [place] .3.957631 08Carlos.Tiffanie [facility] 2023-03-08 2023-03-08 Blaise Baig, 1.2.840.1 [id number] [id number] [facility] 00:00:00 00:00:00 Only Emma 80507.1.1 ity of [place] 3.412.2.7 [place] .3.751941 MD [facility] 2023-03-08 2023-03-08 Travel 1.2.840.1 1.2.048.963 [id number] [id number] [facility] 00:00:00 00:00:00 98235.1.1 350.1.13.41 ity of 3.412.2.7 2.[place]7.3.698 [place] .3.791372 084.Tiffanie [facility] 2023-03-08 2023-03-08 Orders Safia, 1.2.840.1 [id number] [facility] 00:00:00 00:00:00 Only Emma 45187.1.1 ity of [place] 3.412.2.7 [place] .3.576579 [facility]23-03-06 Outpatient ADRIAN DALY [facility] [id number] 11:03:47 12:04:00 DONTA lee 2023-03-06 2023-03-06 Travel 1.2.840.1 1.2.558.844 [id number] [id number] [facility] 00:00:00 00:00:00 38457.1.1 350.1.13.41 ity of 3.412.2.7 2.[place]7.3.698 [place] .3.018711 084.8 [facility]23-[facility]-06 2023-03-06 Travel 1.2.840.1 1.2.475.761 [id number] [id number] [facility] 00:00:00 00:00:00 40774.1.1 350.1.13.41 ity of 3.412.2.[place].698 [place] .3.139[place] 084.8 [facility] 2023-03-03 Outpatient ADRIAN DALY [facility] [id number] 10:48:49 11:58:24 DONTA lee 2023-03-03 2023-03-03 Outpatient ADRIAN EDMONDS [facility] [id number] 015 08:05:43 08:25:53 JONEL lee 2023-03-03 2023-03-03 Travel 1.2.840.1 1.2.750.756 1549 [id number] [facility] 00:00:00 00:00:00 15131.1.1 350.1.13.41 ity of 3.412.2.[place].698 [place] .3.183012 084.8 MD [facility] 2023-03-03 2023-03-03 Telephone Jimy [facility] 1.2.581.787 3933 11002 Univers 00:00:00 00:00:00 Wanda JACK 350.1.13.10 ity of JUDI 4.2.7.2.686 Geronimo RIVERA [id number] Wy dical NAL 059 [facility] 2023-03-03 2023-03-03 Travel 1.2.840.1 1.2.296.292 1214 [id number] [facility] 00:00:00 00:00:00 47088.1.1 350.1.13.41 ity of 3.412.2.[place].3.698 [place] .3.254326 084.8 MD [facility] 2023-03-02 2023-03-02 Nutrition Canelo, Donta 1.2.840.1 [id number] 3 [id number] Univers 14:30:00 15:18:34 Kiera Meza 15768.1.1 ity of 3.412.2.7 [place] .3.752724 MD [facility] 2023-03-02 2023-03-02 Nutrition EL Donta Daly 1.2.840.1 [id number] 3 [id number] Univers 14:30:00 15:18:34 Kiera Meza 18233.1.1 ity of 3.412.2.7 [place] .3.883495 MD [facility] 2023-03-02 2023-03-02 Outpatient ADRIAN DALY [facility] 04079 [id number] 10:48:05 11:47:40 DONTA Aj cox monett 2023-03-02 2023-03-02 Travel 1.2.840.1 1.2.626.046 4830 [id number] Univers 00:00:00 00:00:00 74344.1.1 350.1.13.41 ity of 3.412.2.7 [place].3.698 [place] .3.823088 084.8 MD [facility] 2023-03-02 2023-03-02 Travel 1.2.840.1 1.2.940.090 8824 [id number] Univers 00:00:00 00:00:00 40667.1.1 350.1.13.41 ity of 3.412.2.7 [place].3.698 [place] .3.364612 084.8 MD [facility] 2023-03-01 2023-03-01 Outpatient ADRIAN DALY [facility] [id number] [id number] 09:44:28 10:20:09 DONTA Ajchina lee 2023-03-01 2023-03-01 Travel 1.2.840.1 1.2.721.120 8736 [id number] [facility] 00:00:00 00:00:00 11479.1.1 350.1.13.41 ity of 3.412.2.7 [place].3.698 [place] .3.090320 084.8 MD [facility] 2023-03-01 2023-03-01 Travel 1.2.840.1 1.2.070.139 0413 132298 [facility] 00:00:00 00:00:00 22008.1.1 350.1.13.41 ity of 3.412.2.7 [place].7.3.698 [place] .3.496564 084.8 MD [facility] 2023-02-28 2023-02-28 Outpatient ADRIAN DALY [facility] 64433 47722 11:02:48 11:50:23 DONTA Ajchina lee 2023-02-28 2023-02-28 Travel 1.2.840.1 1.2.170.462 3518 [id number] [facility] 00:00:00 00:00:00 26868.1.1 350.1.13.41 ity of 3.412.2.7 [place]7.3.698 [place] .3.617141 084.8 MD [facility] 2023-02-28 2023-02-28 Travel 1.2.840.1 1.2.525.018 9034 [id number] [facility] 00:00:00 00:00:00 24174.1.1 350.1.13.41 ity of 3.412.2.7 [place]7.3.698 [place] .3.329945 084.8 MD [facility] 2023-02-27 2023-02-27 Clinical Martinez, 1.2.840.1 [id number] 60237 52054 Univers 12:00:00 12:56:40 Support Michael 81009.1.1 ity of [place] 3.412.2.7 [place] .3.674495 MD [facility] 2023-02-27 2023-02-27 Clinical EL Martinez, 1.2.840.1 [id number] 95557 78916 [facility] 12:00:00 12:56:40 Support Michael 43268.1.1 ity of [place] 3.412.2.7 [place] .3.738436 MD [facility] 2023-02-27 2023-02-27 Outpatient ADRIAN DALY [facility] 52833 [id number] [place] 12:26:05 12:26:05 DONTA [facility] 2023-02-27 2023-02-27 Documentat Martinez, 1.2.840.1 [id number] Univers 00:00:00 00:00:00 ion Michael 38519.1.1 ity of [place] 3.412.2.7 [place] .3.361099 MD [facility] 2023-02-27 2023-02-27 Travel 1.2.840.1 1.2.277.171 0967 195741 Univers 00:00:00 00:00:00 19782.1.1 350.1.13.41 ity of 3.412.2.7 [place]7.3.698 [place] .3.240584 084.8 MD [facility] 2023-02-27 2023-02-27 Documentat Martinez, 1.2.840.1 [id number] 798 [id number] Univers 00:00:00 00:00:00 ion Michael 20458.1.1 ity of [place] 3.412.2.7 [place] .3.939143 MD [facility] 2023-02-27 2023-02-27 Documentat Martinez, 1.2.840.1 [id number] 539 [id number] Univers 00:00:00 00:00:00 ion Michael 75744.1.1 ity of [place] 3.412.2.7 [place] .3.331586 MD [facility] 2023-02-27 2023-02-27 Travel 1.2.840.1 1.2.028.098 0497 [id number] Univers 00:00:00 00:00:00 41451.1.1 350.1.13.41 ity of 3.412.2.7 [place]7.3.698 [place] .3.166643 084.8 MD [facility] 2023-02-27 2023-02-27 Documentat Martinez, 1.2.840.1 [id number] 636 [id number] Univers 00:00:00 00:00:00 ion Michael 17058.1.1 ity of [place] 3.412.2.7 [place] .3.745312 MD [facility] 2023-02-23 2023-02-23 Consult Mccammon, 1.2.840.1 [id number] 3269 Univers 09:30:00 11:19:44 Michael 29805.1.1 ity of [place] 3.412.2.7 [place] .3.792734 MD [facility] 2023-02-23 2023-02-23 Consult [facility], 1.2.840.1 [id number] 0323 Univers 09:30:00 11:19:44 Michael 86356.1.1 ity of [place] 3.412.2.7 [place] .3.413898 MD [facility] 2023-02-23 2023-02-23 Outpatient [facility], MDA MDA [id number] MD 08:56:42 08:56:42 MICHAEL Rocha cox monett 2023-02-23 2023-02-23 Documentat Martinez, 1.2.840.1 [id number] 019 [id number] Univers 00:00:00 00:00:00 ion Michael 68232.1.1 ity of [place] 3.412.2.7 [place] .3.368729 MD [facility] 2023-02-23 2023-02-23 Documentat Martinez, 1.2.840.1 [id number] 056 [id number] Univers 00:00:00 00:00:00 ion Michael 18553.1.1 ity of [place] 3.412.2.7 [place] .3.853638 MD [facility] 2023-02-23 2023-02-23 Orders Deinert, 1.2.840.1 [id number] 49341 12406 Univers 00:00:00 00:00:00 Only Chyna 39534.1.1 ity of 3.412.2.7 [place] .3.071828 MD [facility] 2023-02-23 2023-02-23 Travel 1.2.840.1 1.2.697.102 7019 646399 Univers 00:00:00 00:00:00 75926.1.1 350.1.13.41 ity of 3.412.2.7 [place].7.3.698 [place] .3.848856 084.8 MD [facility] 2023-02-23 2023-02-23 Orders Martinez, 1.2.840.1 [id number] [id number] 5816 Univers 00:00:00 00:00:00 Only Michael 96422.1.1 ity of [place] 3.412.2.7 [place] .3.340164 MD [facility] 2023-02-23 2023-02-23 Documentat Martinez, 1.2.840.1 022406302 271 [id number] Univers 00:00:00 00:00:00 ion Michael 34177.1.1 ity of [place] 3.412.2.7 [place] .3.111850 MD [facility] 2023-02-23 2023-02-23 Documentat Martinez, 1.2.840.1 [id number] 734 [id number] Univers 00:00:00 00:00:00 ion Michael 18242.1.1 ity of [place] 3.412.2.7 [place] .3.694460 MD [facility] 2023-02-23 2023-02-23 Orders Deinert, 1.2.840.1 [id number] 68392 06199 Univers 00:00:00 00:00:00 Only Chyna 71010.1.1 ity of 3.412.2.7 [place] .3.713295 MD [facility] 2023-02-23 2023-02-23 Travel 1.2.840.1 1.2.677.577 8406 433683 Univers 00:00:00 00:00:00 70646.1.1 350.1.13.41 ity of 3.412.2.7 2.[place].7.3.698 [place] .3.830349 084.8 MD [facility] 2023-02-23 2023-02-23 Orders Martinez, 1.2.840.1 [id number] 6922 Univers 00:00:00 00:00:00 Only Michael 29066.1.1 ity of [place] 3.412.2.7 [place] .3.626134 MD [facility] 2023-02-22 2023-02-22 Orders Safia, 1.2.840.1 [id number] 08402 59251 Univers 00:00:00 00:00:00 Only Emma 61162.1.1 ity of [place] 3.412.2.7 [place] .3.497937 MD [facility] 2023-02-22 2023-02-22 Telephone Vinh, 1.2.840.1 [id number] 1107 [id number] Univers 00:00:00 00:00:00 Greta Sherman 60177.1.1 ity of 3.412.2.7 [place] .3.659177 MD [facility] 2023-02-22 2023-02-22 Orders Safia, 1.2.840.1 [id number] 55344 43047 Univers 00:00:00 00:00:00 Only Emma 90620.1.1 ity of [place] 3.412.2.7 [place] .3.955874 MD [facility] 2023-02-22 2023-02-22 Telephone Justice, 1.2.840.1 [id number] 1107 [id number] Univers 00:00:00 00:00:00 Greta Sherman 90488.1.1 ity of 3.412.2.7 [place] .3.355366 MD [facility] 2023-02-21 2023-02-21 Telephone Deinert, 1.2.840.1 [id number] 587 [id number] Univers 00:00:00 00:00:00 Chyna 77939.1.1 ity of 3.412.2.7 [place] .3.996489 MD [facility] 2023-02-21 2023-02-21 Orders Baron 1.2.840.1 [id number] 1917 Univers 00:00:00 00:00:00 Only Newton 71158.1.1 ity of 3.412.2.7 [place] .3.040853 MD [facility] 2023-02-21 2023-02-21 Orders Kaykay, 1.2.840.1 989048543 93566 04392 Univers 00:00:00 00:00:00 Only Chyna 01043.1.1 ity of 3.412.2.7 [place] .3.063442 MD [facility] 2023-02-21 2023-02-21 Telephone Jimy, [facility] 1.2.825.718 5628 90985 Univers 00:00:00 00:00:00 [facility] 350.1.13.10 i ty of [place]7.2.686 [facility] 281.5122299 [place] [address] [place] OFFICE BUILDING 2023-02-21 2023-02-21 Telephone Kaykay, 1.2.840.1 [id number] 853 [id number] Univers 00:00:00 00:00:00 Chyna 21302.1.1 ity of 3.412.2.7 [place] .3.755577 MD [facility] 2023-02-21 2023-02-21 Orders Draper, 1.2.840.1 [id number] [id number] 0960 Univers 00:00:00 00:00:00 Only Newton 30136.1.1 ity of 3.412.2.7 [place] .3.369622 MD [facility] 2023-02-21 2023-02-21 Orders Deinert, 1.2.840.1 [id number] 06203 75939 Univers 00:00:00 00:00:00 Only Chyna 57462.1.1 ity of 3.412.2.7 [place] .3.946019 MD [facility] 2023-02-20 2023-02-20 Outpatient EL [facility] [id number] 3028 12:09:30 12:32:25 CHYNA Aj o 2023-02-16 2023-02-16 Orders Deinert, 1.2.840.1 [id number] 85787 44577 Univers 00:00:00 00:00:00 Only Chyna 23842.1.1 ity of 3.412.2.7 [place] .3.073386 MD [facility] 2023-02-16 2023-02-16 Orders Deinert, 1.2.840.1 [id number] 70742 67027 Univers 00:00:00 00:00:00 Only Chyna 97050.1.1 ity of 3.412.2.7 [place] .3.141460 MD [facility] 2023-02-14 2023-02-15 Emergency Brianne Flaquita Sherman 1.2.840.1 1010 62645 [id number] Univers 17:51:00 16:44:00 Greta Lovlel 25365.1.1 ity of [place]. 3.412.2.7 [place] .3.577567 MD [facility] 2023-02-14 2023-02-15 Emergency UR Brianne Flaquita Sherman 1.2.840.1 1010 32023 [id number] Univers 17:51:00 16:44:00 Greta Lovell 54473.1.1 ity of [place], Shon A. 3.412.2.7 [place] .3.372463 MD [facility] 2023-02-15 2023-02-15 Orders Deinert, 1.2.840.1 [id number] 06427 11013 Univers 00:00:00 00:00:00 Only Chyna 80983.1.1 ity of 3.412.2.7 [place] .3.770884 MD [facility] 2023-02-15 2023-02-15 Orders Deinert, 1.2.840.1 [id number] 28334 99508 Univers 00:00:00 00:00:00 Only Chyna 11842.1.1 ity of 3.412.2.7 [place] .3.716829 MD [facility] 2023-02-14 2023-02-14 Travel 1.2.840.1 1.2.869.041 9823 417813 Univers 00:00:00 00:00:00 62718.1.1 350.1.13.41 ity of 3.412.2.7 2.2.7.3.698 [place] .3.844985 084.8 MD [facility] 2023-02-14 2023-02-14 Telephone Deinert, 1.2.840.1 [id number] 411 [id number] Univers 00:00:00 00:00:00 Chyna 94623.1.1 ity of 3.412.2.7 [place] .3.701316 MD [facility] 2023-02-14 2023-02-14 Travel 1.2.840.1 1.2.842.345 4654 336113 Univers 00:00:00 00:00:00 20255.1.1 350.1.13.41 ity of 3.412.2.7 2.[place].7.3.698 [place] .3.886237 084.8 MD [facility] 2023-02-14 2023-02-14 Telephone Deinert, 1.2.840.1 [id number] 015 [id number] Univers 00:00:00 00:00:00 Chyna 60823.1.1 ity of 3.412.2.7 [place] .3.687418 MD [facility] 2023-02-13 2023-02-13 Outpatient [facility] [id number] 17:07:25 17:16:09 CHNYA lee 2023-02-13 2023-02-13 [facility] Kaykay, 1.2.840.1 [id number] 29212 Univers 00:00:00 00:00:00 Only Chyna 87477.1.1 ity of 3.412.2.7 [place] .3.336925 MD [facility] 2023-02-13 2023-02-[address] 1.2.840.1 [id number] 55184 44050 Univers 00:00:00 00:00:00 Only Chyna 71662.1.1 ity of 3.412.2.7 [place] .3.732315 MD [facility] 2023-02-08 2023-02-08 Outpatient [facility] [id number]- 202 Harry 10:19:38 10:19:38 87312 F Hussein 2023-02-02 2023-02-02 Specialty Shirley, 1.2.840.1 [id number] 1106 [id number] Univers 00:00:00 00:00:00 Pharmacy Marilyn H 03071.1.1 it y of 3.412.2.7 [place] .3.171036 MD [facility] 2023-02-02 2023-02-02 Specialty Shirley, 1.2.840.1 [id number] 1106 [id number] Univers 00:00:00 00:00:00 Pharmacy Marilyn H 39789.1.1 it y of 3.412.2.7 [place] .3.689904 MD [facility] 2023-02-01 2023-02-01 [facility], 1.2.840.1 [id number] 1106 [id number] Univers 06:45:00 23:59:00 Encounter Chyna 37283.1.1 it y of 3.412.2.7 [place] .3.520728 MD Qureshi8 [facility] [place] 2023-02-01 2023-02-01 Hospital ADRIAN Mccracken, 1.2.840.1 [id number] 1106 [id number] Univers 06:45:00 23:59:00 Encounter Chyna 01018.1.1 it y of 3.412.2.7 [place] .3.081917 MD [facility] 2023-02-01 2023-02-01 Infusion Chyna Mccracken 1.2.840.1 294393 [id number] Univers 10:45:00 15:45:28 Sally Hale 95892.1.1 ity of 3.412.2.7 [place] .3.559394 MD [facility] 2023-02-01 2023-02-01 Infusion Chyna Courtney 1.2.840.1 [id number] 457 [id number] Univers 10:45:00 15:45:28 Sally Hale 88155.1.1 ity of 3.412.2.7 [place] .3.958922 MD [facility] 2023-02-01 2023-02-01 Follow-Up Daly, 1.2.840.1 [id number] 11 [id number] Univers 08:00:00 10:16:11 Donta 62967.1.1 ity of 3.412.2.7 [place] .3.272228 MD [facility] 2023-02-01 2023-02-01 Follow-Up EL Daly, 1.2.840.1 [id number] 11 [id number] Univers 08:00:00 10:16:11 Donta 35774.1.1 ity of 3.412.2.7 [place] .3.593091 MD [facility] 2023-02-01 2023-02-01 Travel 1.2.840.1 1.2.032.410 6303 [id number] Univers 00:00:00 00:00:00 14962.1.1 350.1.13.41 ity of 3.412.2.7 2.[place]7.3.698 [place] .3.186951 084.8 MD [facility] 2023-02-01 2023-02-01 Travel 1.2.840.1 1.2.631.046 9671 [id number] Univers 00:00:00 00:00:00 84155.1.1 350.1.13.41 ity of 3.412.2.7 2.2.7.3.698 [place] .3.632728 084.8 MD [facility] 2023-01-31 2023-01-31 Orders Deinert, 1.2.840.1 [id number] 62511 34381 Univers 00:00:00 00:00:00 Only Chyna 58398.1.1 ity of 3.412.2.7 [place] .3.897186 MD [facility] 2023-01-31 2023-01-31 Orders Deinert, 1.2.840.1 [id number] 70759 62439 Univers 00:00:00 00:00:00 Only Chyna 57825.1.1 ity of 3.412.2.7 [place] .3.146570 MD [facility] 2023-01-31 2023-01-31 Orders Deinert, 1.2.840.1 [id number] 87647 78041 Univers 00:00:00 00:00:00 Only Chyna 93171.1.1 ity of 3.412.2.7 [place] .3.164056 MD [facility] 2023-01-31 2023-01-31 Orders Deinert, 1.2.840.1 879914899 80955 00911 Univers 00:00:00 00:00:00 Only Chyna 74809.1.1 ity of 3.412.2.7 [place] .3.926611 MD [facility] 2023-01-30 2023-01-30 Emergency X JUDITH [facility] ERT [id number] 8748 Univers 06:59:00 09:33:00 AMANDA ity [facility] 2023-01-30 2023-01-30 Emergency [facility] 1.2.840.114 10 [id number] Univers 06:59:00 09:33:00 Amanda JACK 350.1.13.10 ity of [place] 4.2.7.2.686 [place] [facility] [id number] [facility] [address] 2023-01-25 2023-01-25 Outpatient SFA SFA [id number]- 202 Harry 17:00:09 17:00:09 78916 F Hussein 2023-01-18 2023-01-20 Outpatient [facility] [id number] Univers 06:51:00 11:58:00 AITRISHA ity [facility] 2023-01-18 2023-01-20 Hospital Gene Perry MIRTHA 1.2.840.11 4 [id number] Univers 06:51:00 11:58:00 Encounter Astrid Leos 350.1.13.10 ity of [facility] 4.2.7.2.686 Yemi as [id number] [facility] [address] 2023-01-18 2023-01-18 Surgery MIRTHA Muñiz 1.2.840.114 [id number] Univers 10:04:00 12:04:00 Todd A JOSE 350.1.13.10 it y of HOSPITAL 4.2.7.2.686 Yemi as [id number] [facility] [address] 2023-01-18 2023-01-18 Orders Doctor UNRULY 1.2.840.114 [id number] Univers 00:00:00 00:00:00 Only Unassigned, JOSE 350.1.13.10 ity of [place] [facility] 4.2.7.2.686 Yemi as [id number] [facility] [address] 2023-01-16 2023-01-16 Telephone Canelo 1.2.840.1 [id number] 11 [id number] Univers 14:45:00 15:15:00 Donta 97699.1.1 ity of 3.412.2.7 [place] .3.993714 .8 [facility] 2023-01-16 2023-01-16 Telephone Canelo 1.2.840.1 [id number] 11 [id number] Univers 14:45:00 15:15:00 Donta 14258.1.1 ity of 3.412.2.7 [place] .3.671755 .8 [facility] [place] 2023-01-15 2023-01-15 Emergency X [facility] ERT [id number] Univers 15:33:00 18:35:00 FINESSE ity [facility] 2023-01-15 2023-01-15 Emergency [facility] 1.2.840.114 10 [id number] Univers 15:33:00 18:35:00 Finesse GUERO 350.1.13.10 i ty [place].2.[place] [id number] [facility] [address] [place] 2023-01-15 2023-01-15 Telephone UNRULY Phillip 1.2.556.538 5877 80138 Univers 00:00:00 00:00:00 Sundar GARCIA 350.1.13.10 it y of [facility] 4.2.7.2.686 Yemi as [id number] [facility] [address] 2023-01-15 2023-01-15 Telephone [facility] 1.2.840.114 10 [id number] Univers 00:00:00 00:00:00 Gene GUERO 350.1.13.10 i ty of [place]7.2.[id number] [place] 712019 [facility] 2023-01-11 2023-01-11 Outpatient R [facility] CCA [id number] [id number] Univers 06:18:00 14:54:00 AFAQ ity [facility] 2023-01-11 2023-01-11 [facility] MIRTHA Perry 1.2.840.114 102 [id number] Univers 06:18:00 14:54:00 Encounter Gene GARCIA 350.1.13.10 ity [facility] 4.2.7.2.686 Yemi as [id number] [place] [address] [place] 2023-01-11 2023-01-11 Surgery MIRTHA Perry 1.2.774.607 3327 40213 Univers 07:30:00 08:30:00 Afaq JOSE 350.1.13.10 it y of [facility] 4.2.7.2.686 Yemi as [id number] [facility] [address] 2023-01-11 2023-01-11 [facility] 1.2.840.114 32276 6155 Univers 00:00:00 00:00:00 Surgery Freeman [facility] 350.1.13.10 it y of [place] 4.2.7.2.686 Te [facility] [id number] [place] [address] Branch OFFICE BUILDING 2023-01-06 2023-01-06 Confectionery Maker 1, Adc Lab [facility] 1.2.840.114 [id number] Univers 11:30:00 11:45:00 Visit OrlandoGene 350.1.13.10 ity of [place] 4.2.7.2.686 [facility] [phone] [facility] [address] 2023-01-06 2023-01-06 Outpatient R [facility] [id number] [id number] Univers 11:30:00 11:30:00 AFAQ ity of [facility] 2023-01-03 2023-01-03 Telephone MIRTHA Perry 1.2.840.114 10 [id number] Univers 00:00:00 00:00:00 Afaq JOSE 350.1.13.10 it y of [facility] 4.2.7.2.686 Yemi as [id number] [place] [address] [place] 2022-12-26 2022-12-26 Telephone Canelo 1.2.840.1 [id number] 11 [id number] Univers 14:45:00 15:15:00 Donta 45313.1.1 ity of 3.412.2.7 [place] .3Kiera675124 MD [facility] 2022-12-26 2022-12-26 Telephone Canelo 1.2.840.1 [id number] 11 [id number] Univers 14:45:00 15:15:00 Donta 43625.1.1 ity of 3.412.2.7 [place] .3.156002 MD [facility] 2022-12-26 2022-12-26 Outpatient R [facility] 75444 [id number] Univers 11:00:00 12:35:07 AFAQ ity of [facility] 2022-12-26 2022-12-26 Office [facility] 1.2.939.367 2517 46656 Univers 11:00:00 11:30:00 Visit Afaq [facility] 350.1.13.10 i ty [facility] 4.2.7.2.686 Geronimo s PROFESSIO [id number] Wy dical NAL 059 [facility] 2022-12-24 2022-12-24 Outpatient SFA SFA [id number]- 202 Harry 10:17:21 10:17:21 01935 F Hussein 2022-12-19 2022-12-19 Follow-Up Daly, 1.2.840.1 [id number] Univers 11:30:00 13:08:11 Donta 77821.1.1 ity of 3.412.2.7 [place] .3.652586 MD [facility] 2022-12-19 2022-12-19 Follow-Up EL Canelo, 1.2.840.1 [id number] Univers 11:30:00 13:08:11 Donta 01514.1.1 ity of 3.412.2.7 [place] .3.284649 MD [facility] 2022-12-19 2022-12-19 Ancillary Deinert, 1.2.840.1 [id number] Univers 09:30:00 10:00:00 Procedure Chyna 22572.1.1 it y of 3.412.2.7 [place] .3Kiera042667 MD [facility] 2022-12-19 2022-12-19 Ancillary EL Deinert, 1.2.840.1 [id number] Univers 09:30:00 10:00:00 Procedure Chyna 50583.1.1 it y of 3.412.2.7 [place] .3.412425 MD [facility] [place] 2022-12-19 2022-12-19 Ancillary [facility], 1.2.840.1 [id number] Univers 07:00:00 07:30:00 Procedure Chyna 56470.1.1 it y of 3.412.2.7 [place] .3.643385 MD [facility] [place] 2022-12-19 2022-12-19 Ancillary [facility], 1.2.840.1 [id number] Univers 07:00:00 07:30:00 Procedure Chyna 31895.1.1 it y of 3.412.2.7 [place] .3.713603 MD [facility] 2022-12-19 2022-12-19 Travel 1.2.840.1 1.2.500.264 [id number] [id number] Univers 00:00:00 00:00:00 81566.1.1 350.1.13.41 ity of 3.412.2.7 2.[place]7.3.698 [place] .3.029198 084.8 MD [facility] 2022-12-19 2022-12-19 Travel 1.2.840.1 1.2.728.042 4377 [id number] Univers 00:00:00 00:00:00 72932.1.1 350.1.13.41 ity of 3.412.2.7 2.[place]7.3.698 [place] .3.327091 084.8 MD [facility] [place] 2022-12-18 2022-12-18 [facility], 1.2.840.1 [id number] Univers 16:17:09 23:59:00 Encounter Chyna 34731.1.1 it y of 3.412.2.7 [place] .3.057354 MD [facility] [place] 2022-12-18 2022-12-18 [facility], 1.2.840.1 [id number] Univers 16:17:09 23:59:00 Encounter Chyna 71372.1.1 it y of 3.412.2.7 [place] .3.408180 MD [facility] 2022-12-18 2022-12-18 [facility], 1.2.840.1 [id number] Univers 15:18:47 16:16:00 Encounter Chyna 63012.1.1 it y of 3.412.2.7 [place] .3.491178 MD [facility] 2022-12-18 2022-12-18 [facility], 1.2.840.1 [id number] Univers 15:18:47 16:16:00 Encounter Chyna 69844.1.1 it y of 3.412.2.7 [place] .3.097517 MD [facility] 2022-12-18 2022-12-18 Travel 1.2.840.1 1.2.531.349 3620 [id number] Univers 00:00:00 00:00:00 83019.1.1 350.1.13.41 ity of 3.412.2.7 2.[place]7.3.698 [place] .3.142942 084.8 MD [facility] 2022-12-18 2022-12-18 Travel 1.2.840.1 1.2.245.082 9504 [id number] Univers 00:00:00 00:00:00 02175.1.1 350.1.13.41 ity of 3.412.2.7 2.[place]7.3.698 [place] .3.783680 084.8 MD [facility] 2022-12-13 2022-12-13 [facility], 1.2.840.1 [id number] Univers 00:00:00 00:00:00 Only Chyna 10335.1.1 ity of 3.412.2.7 [place] .3.687003 MD [facility] 2022-12-13 2022-12-13 Orders Deinert, 1.2.840.1 [id number] [id number] Univers 00:00:00 00:00:00 Only Chyna 33802.1.1 ity of 3.412.2.7 [place] .3.520874 MD [facility] 2022-12-13 2022-12-13 [facility] 1.2.107.002 6693 [id number] Univers 00:00:00 00:00:00 [facility] [place] 350.1.13.10 ity of [place] 4.2.7.2.686 [place] [id number] [facility]59 [facility] 2022-12-13 2022-12-13 [facility] 1.2.840.1 [id number] Univers 00:00:00 00:00:00 Only Chyna 02516.1.1 ity of 3.412.2.7 [place] .3.578204 MD [facility] 2022-12-13 2022-12-13 [facility], 1.2.840.1 [id number] Univers 00:00:00 00:00:00 Only Chyna 35514.1.1 ity of 3.412.2.7 [place] .3.716316 MD [facility] [place] 2022-12-09 2022-12-09 [facility], 1.2.840.1 [id number] [id number] Univers 13:26:25 23:59:00 Encounter Chyna 01057.1.1 it y of 3.412.2.7 [place] .3.595537 MD Qureshi8 [facility] [place] 2022-12-09 2022-12-09 [facility], 1.2.840.1 [id number] [id number] Univers 13:26:25 23:59:00 Encounter Chyna 73053.1.1 it y of 3.412.2.7 [place] .3Kiera141420 MD [facility] [place] 2022-12-09 2022-12-09 Telephone Deinert, 1.2.840.1 [id number] Univers 14:30:00 15:00:00 Chyna 93709.1.1 ity of 3.412.2.7 [place] .3.781651 MD Qureshi8 [facility] 2022-12-09 2022-12-09 Telephone Deinert, 1.2.840.1 [id number] Univers 14:30:00 15:00:00 Chyna 42886.1.1 ity of 3.412.2.7 [place] .3.624673 MD [facility] 2022-12-09 2022-12-09 Orders Jaelyn, 1.2.840.1 [id number] Univers 00:00:00 00:00:00 Only Michelle 66186.1.1 ity of 3.412.2.7 [place] .3.091904 MD [facility] 2022-12-09 2022-12-09 Orders Jaelyn, 1.2.840.1 [id number] Univers 00:00:00 00:00:00 Only Michelle 10025.1.1 ity of 3.412.2.7 [place] .3.916243 MD [facility] 2022-12-05 2022-12-05 Outpatient R JIMY [facility] [id number] Univers 09:00:00 09:00:00 WANDA trevino [facility] 2022-12-04 2022-12-04 Patient [facility] 1.2.840.114 [id number] Univers 00:00:00 00:00:00 Secure Msg Wanda CORINTH 350.1.13.10 ity of [place] 4.2.7.2.686 Geronimo GÓMEZESSIO [id number] Wy [place] [id number] [facility] 2022-12-02 2022-12-02 Outpatient R JIMY [facility] [id number] Univers 08:41:20 23:59:00 WANDA trevino [facility] 2022-11-29 2022-11-29 Outpatient [facility] [id number]- Harry 11:13:47 11:13:47 19792 [place] 2022-11-29 2022-11-29 Telephone [facility] 1.2.319.171 0401 [id number] Univers 00:00:00 00:00:00 Wanda JAKC 350.1.13.10 [facility] [id number] Wy dical NAL 059 [facility] 2022-11-28 2022-11-28 Outpatient [facility] [id number] Univers 14:43:55 23:59:00 QIACUONG tejeday o [facility] [place] [facility] 2022-11-22 2022-11-22 Outpatient [facility] [id number]- Harry 14:17:57 14:17:57 [id number] [place] 2022-11-21 2022-11-21 Office [facility] 1.2.840.114 [id number] Univers 13:20:00 15:37:05 Visit Wanda JACK 350.1.13.10 ity of [place] [id number] Wy dical NAL [address] [place] [address] 2022-11-21 2022-11-21 Outpatient [facility] [id number] Univers 13:20:00 15:37:05 RADHAYON [email or web address] o [facility] [place] [facility] 2022-11-19 2022-11-19 Outpatient [facility] [id number]- Harry 09:28:20 09:28:20 [id number] [place] 2022-11-18 2022-11-18 Consult Eliza Calderon 1.2.840.1 [id number] Univers 14:00:00 14:09:22 Waylon Combs 85685.1.1 ity of 3.412.2.7 [place] .3Kiera145186 .8 [facility] 2022-11-18 2022-11-18 Consult Eliza Harper 1.2.840.1 [id number] Univers 14:00:00 14:09:22 Waylon Combs 40850.1.1 ity of 3.412.2.7 [place] .3.752545 MD [facility] 2022-11-18 2022-11-18 Travel 1.2.840.1 1.2.999.278 4775 [id number] Univers 00:00:00 00:00:00 29460.1.1 350.1.13.41 ity of 3.412.2.7 [place].3.698 [place].4937[place] 084.8 MD [facility] 2022-11-18 2022-11-18 Travel 1.2.840.1 1.2.779.968 0107 [id number] Univers 00:00:00 00:00:00 52330.1.1 350.1.13.41 ity of 3.412.2.7 [place]7.3.698 [place] .3.816127 084.8 MD [facility] 2022-11-02 2022-11-02 [facility], 1.2.840.1 [id number] 1102 [id number] Univers 13:16:47 23:59:00 Encounter Chyna 17289.1.1 it y of 3.412.2.7 [place] .3.355600 MD [facility] 2022-11-02 2022-11-02 [facility], 1.2.840.1 [id number] 1102 [id number] Univers 13:16:47 23:59:00 Encounter Chyna 62621.1.1 it y of 3.412.2.7 [place] .3.406583 MD [facility] 2022-11-02 2022-11-02 Follow-Up [facility], 1.2.840.1 [id number] 11 [id number] Univers 14:45:00 16:07:34 Donta 47183.1.1 ity of 3.412.2.7 [place] .3.035195 MD [facility] 2022-11-02 2022-11-02 Follow-Up EL Daly, 1.2.840.1 [id number] 11 [id number] Univers 14:45:00 16:07:34 Donta 99809.1.1 ity of 3.412.2.7 [place] .3.794925 MD [facility] 2022-11-02 2022-11-02 Travel 1.2.840.1 1.2.080.911 3559 [id number] Univers 00:00:00 00:00:00 24056.1.1 350.1.13.41 ity of 3.412.2.7 [place]7.3.698 [place] .3.046879 084.8 MD [facility] 2022-11-02 2022-11-02 Travel 1.2.840.1 1.2.112.596 4543 [id number] Univers 00:00:00 00:00:00 22553.1.1 350.1.13.41 ity of 3.412.2.7 [place]7.3.698 [place] .3.917731 084.8 MD [facility] 2022-10-23 2022-10-23 Orders Anita Wood 1.2.840.1 [id number] 1102 [id number] Univers 00:00:00 00:00:00 Only Marcelo 29350.1.1 it y of 3.412.2.7 [place] .3.239171 MD [facility] 2022-10-23 2022-10-23 Anita Montoya 1.2.840.1 [id number] 1102 [id number] Univers 00:00:00 00:00:00 Only Marcelo 10318.1.1 it y of 3.412.2.7 [place] .3.699840 MD [facility] 2022-09-02 2022-09-02 Blaise Mccracken 1.2.840.1 [id number] [id number] Univers 00:00:00 00:00:00 Only Chyna 39011.1.1 ity of 3.412.2.7 [place] .3.287359 MD [facility] 2022-09-02 2022-09-02 Orders Deinert, 1.2.840.1 [id number] 12985 [id number] Univers 00:00:00 00:00:00 Only Chyna 74708.1.1 ity of 3.412.2.7 [place] .3.288625 MD [facility] 2022-08-09 2022-08-09 Telephone Deinert, 1.2.840.1 [id number] 643 [id number] Univers 00:00:00 00:00:00 Chyna 43403.1.1 ity of 3.412.2.7 [place] .3.231259 MD [facility] 2022-08-09 2022-08-09 Orders Deinert, 1.2.840.1 [id number] 98041 [id number] Univers 00:00:00 00:00:00 Only Chyna 05062.1.1 ity of 3.412.2.7 [place] .3.150656 MD [facility] 2022-08-09 2022-08-09 Orders Deinert, 1.2.840.1 [id number] [id number] Univers 00:00:00 00:00:00 Only Chyna 58544.1.1 ity of 3.412.2.7 [place] .3.243548 MD [facility] 2022-08-09 2022-08-09 Telephone Deinert, 1.2.840.1 [id number] 552 [id number] Univers 00:00:00 00:00:00 Chyna 58900.1.1 ity of 3.412.2.7 [place] .3.958489 MD [facility] 2022-08-09 2022-08-09 Orders Deinert, 1.2.840.1 [id number] 09401 [id number] Univers 00:00:00 00:00:00 Only Chyna 56938.1.1 ity of 3.412.2.7 [place] .3.728736 MD [facility] 2022-08-09 2022-08-09 Orders Deinert, 1.2.840.1 [id number] 54011 55963 Univers 00:00:00 00:00:00 Only Chyna 67123.1.1 ity of 3.412.2.7 [place] .3.141579 MD [facility] 2022-08-08 2022-08-08 [facility], 1.2.840.1 [id number] 85697 59623 Univers 00:00:00 00:00:00 Only Chyna 89996.1.1 ity of 3.412.2.7 [place] .3.667776 MD [facility] 2022-08-08 2022-08-08 [facility], 1.2.840.1 [id number] [id number] Univers 00:00:00 00:00:00 Only Chyna 20225.1.1 ity of 3.412.2.7 [place] .3.549577 MD [facility] 2022-08-03 2022-08-03 Documentat Urmila, 1.2.840.1 [id number] 650 [id number] Univers 00:00:00 00:00:00 ion Jacklyn G 78703.1.1 it y of 3.412.2.7 [place] .3.491689 MD [facility] 2022-08-03 2022-08-03 Documentat Urmila, 1.2.840.1 [id number] 410 [id number] Univers 00:00:00 00:00:00 ion Jacklyn G 29883.1.1 it y of 3.412.2.7 [place] .3.364073 MD [facility]hi8 [facility] [place] 2022-08-02 2022-08-02 [facility] 1.2.840.1 [id number] 218 [id number] Univers 13:14:48 23:59:00 Encounter Pricila Ortiz 59128.1.1 ity of 3.412.2.7 [place] .3.292387 MD [facility]hi8 [facility] [place] 2022-08-02 2022-08-02 [facility] 1.2.840.1 [id number] Univers 13:14:48 23:59:00 Encounter MarleneenriquetaPricila 98247.1.1 ity of 3.412.2.7 [place] .3.777667 MD [facility] 2022-08-02 2022-08-02 [facility], 1.2.840.1 [id number] 164 [id number] Univers 15:15:00 17:00:00 Procedure Chyna 94634.1.1 it y of 3.412.2.7 [place] .3.704033 MD [facility] 2022-08-02 2022-08-02 Ancillary [facility], 1.2.840.1 [id number] 866 [id number] Univers 15:15:00 17:00:00 Procedure Chyna 92214.1.1 it y of 3.412.2.7 [place] .3.072453 MD [facility] 2022-08-02 2022-08-02 [facility], 1.2.840.1 [id number] 1099 [id number] Univers 11:39:53 13:13:00 Encounter Chyna 78660.1.1 it y of 3.412.2.7 [place] .3.617351 MD [facility] 2022-08-02 2022-08-02 [facility], 1.2.840.1 [id number] 1099 [id number] Univers 11:39:53 13:13:00 Encounter Chyna 84008.1.1 it y of 3.412.2.7 [place] .3.924806 MD [facility] 2022-08-02 2022-08-02 Travel 1.2.840.1 1.2.097.417 3737 [id number] Univers 00:00:00 00:00:00 58911.1.1 350.1.13.41 ity of 3.412.2.7 [place]7.3.698 [place] .3.276182 084.8 MD [facility] 2022-08-02 2022-08-02 Travel 1.2.840.1 1.2.597.150 5026 [id number] Univers 00:00:00 00:00:00 78890.1.1 350.1.13.41 ity of 3.412.2.7 [place].7.3.698 [place] .3.345047 084.8 MD [facility] [place] 2022-08-01 2022-08-01 [facility], 1.2.840.1 [id number] 1099 [id number] Univers 11:14:59 23:59:00 Encounter Chyna 81826.1.1 it y of 3.412.2.7 [place] .3.937318 MD [facility]hi8 [facility] [place] 2022-08-01 2022-08-01 [facility], 1.2.840.1 [id number] 1099 [id number] Univers 11:14:59 23:59:00 Encounter Chyna 12643.1.1 it y of 3.412.2.7 [place] .3.760258 MD [facility]hi8 [facility] [place] 2022-08-01 2022-08-01 Ancillary [facility], 1.2.840.1 [id number] 676 [id number] Univers 15:00:00 15:30:00 Procedure Chyna 15006.1.1 it y of 3.412.2.7 [place] .3.717371 MD [facility] 2022-08-01 2022-08-01 Ancillary [facility], 1.2.840.1 [id number] 585 [id number] Univers 15:00:00 15:30:00 Procedure Chyna 85885.1.1 it y of 3.412.2.7 [place] .3.122506 MD [facility]hi8 [facility] [place] 2022-08-01 2022-08-01 Ancillary [facility], 1.2.840.1 [id number] 160 [id number] Univers 12:30:00 13:00:00 Procedure Chyna 80560.1.1 it y of 3.412.2.7 [place] .3.783337 MD [facility]hi8 [facility] [place] 2022-08-01 2022-08-01 Ancillary [facility], 1.2.840.1 [id number] 190 [id number] Univers 12:30:00 13:00:00 Procedure Chyna 56412.1.1 it y of 3.412.2.7 [place] .3.228856 MD [facility] 2022-08-01 2022-08-01 Consult Bhavesh Amaya 1.2.840.1 [id number] Univers 08:00:00 10:44:26 Donta Daly 04118.1.1 ity of 3.412.2.7 [place] .3.133223 MD [facility] 2022-08-01 2022-08-01 Consult Bhavesh Khan 1.2.840.1 [id number] 59 [id number] Univers 08:00:00 10:44:26 Donta Daly 41923.1.1 ity of 3.412.2.7 [place] .3.568026 MD [facility] 2022-08-01 2022-08-01 Orders Kaykay, 1.2.840.1 [id number] 01455 [id number] Univers 00:00:00 00:00:00 Only Chyna 54205.1.1 ity of 3.412.2.7 [place] .3.561874 MD [facility] 2022-08-01 2022-08-01 Orders Kaykay, 1.2.840.1 [id number] 43136 [id number] Univers 00:00:00 00:00:00 Only Chyna 81272.1.1 ity of 3.412.2.7 [place] .3.496875 MD [facility] 2022-08-01 2022-08-01 Travel 1.2.840.1 1.2.380.241 9899 [id number] Univers 00:00:00 00:00:00 48384.1.1 350.1.13.41 ity of 3.412.2.7 2.[place].7.3.698 [place] .3.567935 084.8 MD [facility] 2022-08-01 2022-08-01 Orders Akridge, 1.2.840.1 [id number] 81980 [id number] Univers 00:00:00 00:00:00 Only Belkis 52966.1.1 ity of 3.412.2.7 [place] .3.795571 MD [facility] 2022-08-01 2022-08-01 Orders Deinert, 1.2.840.1 [id number] [id number] Univers 00:00:00 00:00:00 Only Chyna 14911.1.1 ity of 3.412.2.7 [place] .3.636312 MD [facility] 2022-08-01 2022-08-01 Orders Deinert, 1.2.840.1 [id number] 62143 [id number] Univers 00:00:00 00:00:00 Only Chyna 87262.1.1 ity of 3.412.2.7 [place] .3.095825 MD [facility] 2022-08-01 2022-08-01 Travel 1.2.840.1 1.2.282.196 3329 [id number] Univers 00:00:00 00:00:00 72328.1.1 350.1.13.41 ity of 3.412.2.7 [place]7.3.698 [place] .3.489297 084.8 MD [facility] 2022-08-01 2022-08-01 Orders Akridge, 1.2.840.1 [id number] 08766 [id number] Univers 00:00:00 00:00:00 Only Belkis 49297.1.1 ity of 3.412.2.7 [place] .3.799315 MD [facility] 2022-07-26 2022-07-26 Telephone Ravinder, 1.2.840.1 [id number] 1099 [id number] Univers 00:00:00 00:00:00 Katy 98960.1.1 ity of 3.412.2.7 [place] .3.794615 MD [facility] 2022-07-26 2022-07-26 Telephone Ravinder, 1.2.840.1 [id number] 1099 [id number] Univers 00:00:00 00:00:00 Katy 33311.1.1 ity of 3.412.2.7 [place] .3.008238 MD [facility] 2022-07-25 2022-07-25 Orders Deinert, 1.2.840.1 [id number] 38373 [id number] Univers 00:00:00 00:00:00 Only Chyna 60992.1.1 ity of 3.412.2.7 [place] .3.519511 MD [facility] 2022-07-25 2022-07-25 Orders Deinert, 1.2.840.1 [id number] 78713 [id number] Univers 00:00:00 00:00:00 Only Chyna 01174.1.1 ity of 3.412.2.7 [place] .3.177063 MD [facility] 2022-07-23 2022-07-23 Telephone Ravinder, 1.2.840.1 [id number] 1099 [id number] Univers 00:00:00 00:00:00 Katy 41910.1.1 ity of 3.412.2.7 [place] .3.054386 MD [facility] 2022-07-23 2022-07-23 Telephone Ravinder, 1.2.840.1 [id number] 1099 [id number] Univers 00:00:00 00:00:00 Katy 71763.1.1 ity of 3.412.2.7 [place] .3.980609 MD [facility] 2022-07-22 2022-07-22 Ancillary Ravinder, 1.2.840.1 [id number] 1099 [id number] Univers 10:00:00 12:30:00 Procedure Katy 28920.1.1 it y of 3.412.2.7 [place] .3.776329 MD [facility] 2022-07-22 2022-07-22 Ancillary EL Ravinder, 1.2.840.1 [id number] 1099 [id number] Univers 10:00:00 12:30:00 Procedure Katy 79817.1.1 it y of 3.412.2.7 [place] .3.357275 MD [facility] 2022-07-22 2022-07-22 Travel 1.2.840.1 1.2.576.785 4755 [id number] Univers 00:00:00 00:00:00 84381.1.1 350.1.13.41 ity of 3.412.2.7 [place]7.3.698 [place] .3.760716 084.8 MD [facility] 2022-07-22 2022-07-22 Travel 1.2.840.1 1.2.798.714 5778 [id number] Univers 00:00:00 00:00:00 81137.1.1 350.1.13.41 ity of 3.412.2.7 [place].7.3.698 [place] .3.772367 084.8 MD [facility] 2022-07-21 2022-07-21 Documentat Sanjiv, 1.2.840.1 [id number] 878 [id number] Univers 00:00:00 00:00:00 ion Amanda 22502.1.1 ity of [place] 3.412.2.7 [place] .3.850690 MD [facility] 2022-07-21 2022-07-21 Orders Ravinder, 1.2.840.1 [id number] Univers 00:00:00 00:00:00 Only Katy 57270.1.1 ity of 3.412.2.7 [place] .3.979893 MD [facility] 2022-07-21 2022-07-21 Orders Ravinder, 1.2.840.1 [id number] 979152 [id number] Univers 00:00:00 00:00:00 Only Katy 15112.1.1 ity of 3.412.2.7 [place] .3.246698 MD [facility] 2022-07-21 2022-07-21 Documentat Sanjiv, 1.2.840.1 [id number] 131 [id number] Univers 00:00:00 00:00:00 ion Amanda 38478.1.1 ity of [place] 3.412.2.7 [place] .3.117114 MD [facility] 2022-07-21 2022-07-21 Orders Ravinder, 1.2.840.1 [id number] Univers 00:00:00 00:00:00 Only Katy 70865.1.1 ity of 3.412.2.7 [place] .3.512213 MD [facility] 2022-07-21 2022-07-21 Orders Ravinder, 1.2.840.1 [id number] [id number] 2937 Univers 00:00:00 00:00:00 Only Katy 27378.1.1 ity of 3.412.2.7 [place] .3.899857 MD [facility] 2022-07-20 2022-07-20 Orders Iliesdanyelle, 1.2.840.1 [id number] 38482 [id number] Univers 00:00:00 00:00:00 Only Rosa 31772.1.1 ity of 3.412.2.7 [place] .3.817809 MD [facility] 2022-07-20 2022-07-20 Orders Iliescu, 1.2.840.1 [id number] 07276 60649 Univers 00:00:00 00:00:00 Only Rosa 73193.1.1 ity of 3.412.2.7 [place] .3.852206 MD [facility] 2022-07-18 2022-07-18 Orders Ravinder, 1.2.840.1 [id number] 7338 Univers 00:00:00 00:00:00 Only Katy 83044.1.1 ity of 3.412.2.7 [place] .3.184452 MD [facility] 2022-07-18 2022-07-18 Orders Ravinder, 1.2.840.1 [id number] 5064 Univers 00:00:00 00:00:00 Only Katy 56578.1.1 ity of 3.412.2.7 [place] .3.690397 MD [facility] 2022-07-18 2022-07-18 Orders Ravinder, 1.2.840.1 [id number] 6454 Univers 00:00:00 00:00:00 Only Katy 17437.1.1 ity of 3.412.2.7 [place] .3.693836 MD [facility] 2022-07-18 2022-07-18 Orders Ravinder, 1.2.840.1 [id number] 3837 Univers 00:00:00 00:00:00 Only Katy 59322.1.1 ity of 3.412.2.7 [place] .3.106641 MD [facility] 2022-07-15 2022-07-15 Ancillary Ravinder, 1.2.840.1 [id number] 1099 [id number] Univers 09:15:00 10:15:00 Procedure Katy 36748.1.1 it y of 3.412.2.7 [place] .3.359927 MD [facility] 2022-07-15 2022-07-15 Ancillary EL Ravinder, 1.2.840.1 [id number] 1099 [id number] Univers 09:15:00 10:15:00 Procedure Katy 60953.1.1 it y of 3.412.2.7 [place] .3.191715 MD [facility] 2022-07-15 2022-07-15 Telephone Ravinder, 1.2.840.1 [id number] 1099 [id number] Univers 00:00:00 00:00:00 Katy 59065.1.1 ity of 3.412.2.7 [place] .3.289819 MD [facility] 2022-07-15 2022-07-15 Telephone Ravinder, 1.2.840.1 [id number] 1099 [id number] Univers 00:00:00 00:00:00 Katy 77335.1.1 ity of 3.412.2.7 [place] .3.752929 MD [facility] 2022-07-15 2022-07-15 Travel 1.2.840.1 1.2.400.066 1479 938392 Univers 00:00:00 00:00:00 55610.1.1 350.1.13.41 ity of 3.412.2.7 [place]7.3.698 [place] .3.407626 084.8 MD [facility] 2022-07-15 2022-07-15 Documentat Pattlicha Gaitan, 1.2.840.1 [id number] 10 [id number] Univers 00:00:00 00:00:00 ion Kailey 89177.1.1 ity of 3.412.2.7 [place] .3.860717 MD [facility] 2022-07-15 2022-07-15 Telephone Ravinder, 1.2.840.1 [id number] 1099 [id number] Univers 00:00:00 00:00:00 Katy 99037.1.1 ity of 3.412.2.7 [place] .3.125402 MD [facility] 2022-07-15 2022-07-15 Telephone Ravinder, 1.2.840.1 [id number] 1099 [id number] Univers 00:00:00 00:00:00 Katy 60832.1.1 ity of 3.412.2.7 [place] .3.957322 MD [facility] 2022-07-15 2022-07-15 Travel 1.2.840.1 1.2.416.553 6788 967165 Univers 00:00:00 00:00:00 51413.1.1 350.1.13.41 ity of 3.412.2.7 [place]7.3.698 [place] .3.728383 084.8 MD [facility] 2022-07-15 2022-07-15 Documentat [place], 1.2.840.1 [id number] 10 [id number] Univers 00:00:00 00:00:00 ion Kailey 71589.1.1 ity of 3.412.2.7 [place] .3.090408 .8 [facility] 2022-07-14 2022-07-14 [facility], 1.2.840.1 [id number] 06586 06352 Univers 15:30:00 23:59:00 Encounter Katy 55116.1.1 it y of 3.412.2.7 [place] .3.841599 .8 [facility] 2022-07-14 2022-07-14 [facility], 1.2.840.1 [id number] 75484 15942 Univers 15:30:00 23:59:00 Encounter Katy 96787.1.1 it y of 3.412.2.7 [place] .3.299719 .8 [facility] 2022-07-14 2022-07-14 [facility], 1.2.840.1 [id number] 94997 54245 Univers 14:30:00 15:29:00 Encounter Katy 67772.1.1 it y of 3.412.2.7 [place] .3.553390 .8 [facility] 2022-07-14 2022-07-14 [facility], 1.2.840.1 [id number] 30342 [id number] Univers 14:30:00 15:29:00 Encounter Katy 04002.1.1 it y of 3.412.2.7 [place] .3Kiera977760 .8 [facility] 2022-07-14 2022-07-14 Office Iliranda, 1.2.840.1 [id number] 98060 66557 Univers 13:00:00 15:13:32 Visit Rosa 31049.1.1 ity of 3.412.2.7 [place] .3.435746 MD [facility] 2022-07-14 2022-07-14 Office EL Iliranda, 1.2.840.1 [id number] 04369 28787 Univers 13:00:00 15:13:32 Visit Rosa 95678.1.1 ity of 3.412.2.7 [place] .3Kiera922606 MD [facility] 2022-07-14 2022-07-14 Documentat Iliescu, 1.2.840.1 [id number] 10 [id number] Univers 00:00:00 00:00:00 ion Rosa 21617.1.1 ity of 3.412.2.7 [place] .3.154028 MD [facility] 2022-07-14 2022-07-14 Travel 1.2.840.1 1.2.248.398 3207 [id number] Univers 00:00:00 00:00:00 24130.1.1 350.1.13.41 ity of 3.412.2.7 [place]7.3.698 [place] .3.745933 084.8 MD [facility] 2022-07-14 2022-07-14 Documentat Iliescu, 1.2.840.1 [id number] 10 [id number] Univers 00:00:00 00:00:00 ion Rosa 21471.1.1 ity of 3.412.2.7 [place] .3.706730 MD [facility] 2022-07-14 2022-07-14 Travel 1.2.840.1 1.2.057.680 0855 [id number] Univers 00:00:00 00:00:00 86986.1.1 350.1.13.41 ity of 3.412.2.7 [place]7.3.698 [place] .3.291845 084.8 MD [facility] 2022-07-13 2022-07-13 Ancillary Iliescu, 1.2.840.1 [id number] 578 [id number] Univers 20:00:00 20:05:00 Procedure Rosa 99147.1.1 it y of 3.412.2.7 [place] .3.430176 MD [facility] 2022-07-13 2022-07-13 Ancillary EL Iliescu, 1.2.840.1 [id number] Univers 20:00:00 20:05:00 Procedure Rosa 14991.1.1 it y of 3.412.2.7 [place] .3.142737 MD [facility] 2022-07-12 2022-07-12 NPR Iliranda, 1.2.840.1 [id number] Univers 15:00:00 15:00:00 Rosa 79437.1.1 ity of 3.412.2.7 [place] .3.352585 MD [facility] 2022-07-12 2022-07-12 NPR EL Win, 1.2.840.1 [id number] Univers 15:00:00 15:00:00 Rosa 81180.1.1 ity of 3.412.2.7 [place] .3.310069 MD [facility] Results Test Description Test Time Test Comments Results Result Comments Source POC Glucose Screen 2023-04-28 04:39:19 Test Item Value Reference Range Interpretation Comme nts POC Glucose (test code = 282 mg/dL 70-99 H [facility] 5[facility]) samples, e.g. o btained by fingerstick, ma y have inaccurate results in shaji ents with decreased perip heral blood flow. All POC Glucose screen test results, includ ing critical values, must be interpreted and evaluated in th e context of the patients clinical findi ngs. It is recommended to confirm any questionable te st results by core lab method ology. Method description: Al l results are measured using Electrochemistry test methodolog y. The glucose in the sample mixe s with the reagents on the test strip. The reaction produc es an electric current. The am ount of current produced is pro portional to the glucose concent ration in the blood. PO Sample Type (test code = Capillary 9554) Performing Lab (test code = [facility] 89697) [facility], [address], [place] [address]; Lab Dire ctor: Belkis Pierson MD; Waived Point of Care T neetu Hilliard MD Lab Interpretation (test code Abnormal = 04269-2) [facility] [place] Interpret[place] Antibody Screen [id number] 18:42:06 Test Item Value Reference Range Interpretation Comments TMP Auto Neg At the present ABSC Interp time, patient (test code = plasma shows no ____MIKE CRUZ MD - 7535) evidence of RBC 54183Lmcpshh d by: MIKE alloantibodies. MD Yu GUERRA [id number] D ate/Time: 04.27.2023 13:4 2 PM CDT Transcribed Felipe e/Time: 04.27.2023 13:4 2 PM CDTElectronical ly Signed By: MD Yu VARGHESE [id number] on 2022 13:42 PM [facility]Antib[facility] [id number] 15:16:28 Test Item Value Reference Range Interpretation Comments ABSC. (test code = 890-4) Negative ABSC [facility]iscoABORh2023-08-24 15:15:59 Test Item Value Reference Range Interpretation Comments ABORh. (test code = 882-1) A POS [facility]isco[facility] Expiration [id number] 15:15:55 Test Item Value Reference Range Interpretation Comments T & S Expiration (test code = 04/30/2023 5318) [facility]iscoProthrombin [id number] 14:31:01 Test Item Value Reference Range Interpretation Comments PT (test code = 15.7 See_Comment H [Automated 5902-2) message] The system which generated this result transmitted reference range : 11.9 - 14.5 second(s). The reference range was not used to interpret this result as normal/abnormal . INR (test code = 1.25 0.87-1.12 H 6301-6) JOSHUA (test code = JOSHUA) This lab cannot be scheduled at the following locations due to collection/procc essing restrictions: [facility] and [facility]. Lab Interpretation Abnormal (test code = 26244-8) [facility]isco[facility], [id number] 13:43:19 Test Item Value Reference Range Interpretation Comments Glucose Random (test 228 mg/dL 70-199 H Effecti ve 03/30/16, code = 2345-7) the glucose reference inter vals have been updat ed based on [place] Diabetes Associ ation guidelines (Standards of Medical Care in Diabetes 2016. Diabetes Care 2 016; 39: S13-S22).Fa sting blood glucose:Normal: 70-99 mg/dLImpa ired fasting glucose (increased risk for diabetes or pre-diabetes): 100-125 mg/dLDiabetes mellitus: >/=12 6 mg/dL Random bl ood glucose:Normal: 70-199 mg/dLNot e: Random glucose >100 mg/dL is associ ated with increased risk for diabetes Lab Interpretation (test Abnormal code = 06218-5) [facility]iscoBUN2023-08-24 13:43:18 Test Item Value Reference Range Interpretation Comments BUN (test code = 3094-0) 16 mg/dL - [facility]iscoGlomerular Filtration Rate 2023-04-27 13:43:09 Test Item Value Reference Range Interpretation Comments eGFR (test code = 100 See_Comment The eGFRcr is calculated [place] 52360-8) the 2020 CKD-EP I creatinine equation using creatinine, patient's age, and sex for adults 18 years of age and older. Other fa ctors, especially musc le mass, may affect accuracy and need to be considered.A ccording to the Kidney Dise ase: Improving Global Outcomes (KDIGO) CKD Work Group 2012 Clinical Practice Guidel ine, chronic kidney disease (CKD) is defined as the abnormalities of kidney struc ture or function, prese nt for more than 3 months, with implications fo r health. CKD should be class ified by cause, GFR kathi gory, and albuminuria cat egory. KDIGO guidelines prov jose the following GFR c ategoriesStage Description GFR mL/min/1.73 m2G1* Normal or high >= 90G2* Mildly decrease d 60-89G3a Mildly to moder ately decreased 45-59 G3b Moderately to severely dec reased 30-44G4 Severely decrea sed 15-29G5 Kidney failure <15*In the absence of evid ence of kidney damage, neither G1 nor G2 fulfill criteri a for CKD. [Automated mess age] The system which ge nerated this result transmit juli reference range: >=60 mL/ min/1.73 sq. m. The referenc e range was not used to int erpret this result as moira l/abnormal. [facility]iscoCarbon Dioxide [id number] 13:43:08 Test Item Value Reference Range Interpretation Comments CO2 (test code = 26 See_Comment [Automated message] The 2028-05) system which ge nerated this result transmit juli reference range : 22 - 29 mEq/L. The refe rence range was not used to interpret this result as normal/abnormal . [facility].Serum [id number] 13:43:07 Test Item Value Reference Range Interpretation Comments Creatinine (test code = 2160-0) 0.62 mg/dL 0.67-1.17 L Lab Interpretation (test code = Abnormal 13398-9) [facility] FriscoAnion [id number] 13:43:02 Test Item Value Reference Range Interpretation Comments Anion Gap (test code 6 See_Comment [Autom ated message] The = 60572-5) system which ge nerated this result transmit juli reference range : 4 - 14 mEq/L. The refe rence range was not used to interpret this result as normal/abnormal . [facility] FriscoChloride [id number] 13:43:01 Test Item Value Reference Range Interpretation Comments Chloride (test code = 100 See_Comment [Auto mated message] The ) system which ge nerated this result tra nsmitted reference range : 98 - 107 mEq/L. The refe rence range was not u sed to interpret this result as normal/abnormal . [facility] FriscoPotassium2023-08-24 13:43:00 Test Item Value Reference Range Interpretation Comments Potassium Lvl (test 4.1 See_Comment [Automa juli message] The code = 2823-3) system which generated this result tra nsmitted reference range : 3.5 - 5.1 mEq/L. The reference range was not u sed to interpret this result as normal/abnormal . [facility] Uptownodium [id number] 13:42:59 Test Item Value Reference Range Interpretation Comments Sodium Lvl (test code = 132 See_Comment L [Au tomated message] 0061-2) The system [employer] generated this result transmitted ref erence range: 136 - 14 5 mEq/L. The refe rence range was not u sed to interpret this result as normal/abnor mal. Lab Interpretation (test Abnormal code = 84633-0) [facility] FriscoHemoglobin [id number] 13:42:43 Test Item Value Reference Range Interpretation Comments A1C (test code = 4548-4) 7.0 % 4.3-5.6 H HbA 1c values >=6.5% are diagnostic of diabetes mellitus.Diagno sis should be confi rmed by repeat testing.Therape utic Action suggeste d: >8.0% HbA1c; Go al oftherapy: <7.0 % HbA1c Lab Interpretation (test Abnormal code = 42547-0) [facility] FriscoDifferential2023-08-24 13:08:00 Test Item Value Reference Range Interpretation Comments Neutrophil % (test code = 69.1 % 43.2-72.7 770-8) Lymphocyte % (test code = 14.9 % 16.8-46.2 L 736-9) Monocyte % (test code = 9.9 % 5.1-12.5 5905-5) Eosinophil % (test code = 1.4 % 0.4-6.3 713-8) Basophil % (test code = 0.2 % 0.2-1.4 706-2) IGRE % (test code = 4.5 % 0.1-1.5 H IGRE % c ount 29530-1) includes Metamyelocytes, Myelocytes, and Promyelocytes. Neutrophil Abs (test code 2.92 K/uL 1.95-7.25 = 751-8) Lymphocyte Abs (test code 0.63 K/uL 1.01-3.24 L = 731-0) Monocyte Abs (test code = 0.42 K/uL 0.24-0.85 742-7) Eosinophil Abs (test code 0.06 K/uL 0.02-0.50 = 711-2) Basophil Abs (test code = 0.01 K/uL 0.02-0.09 L 704-7) IG Abs (test code = 0.19 K/uL 0.01-0.12 H 45033-3) Lab Interpretation (test Abnormal code = 37177-3) [facility] [place].[id number] 13:07:50 Test Item Value Reference Range Interpretation Comments WBC (test code = 4.2 K/uL 4.1-10.5 6690-2) RBC (test code = 789-8) 3.37 See_Comment L [Au tomated message] The system [employer] generated this result transmitted ref erence range: 4.30 - 6 .04 M/uL. The refer ence range was not u sed to interpret this result as normal/abnor mal. Hgb (test code = 718-7) 9.8 See_Comment L [Au tomated message] The system [employer] generated this result transmitted ref erence range: 13.3 - 1 7.4 gm/dL. The refe rence range was not u sed to interpret this result as normal/abnor mal. Hct (test code = 30.0 % 39.5-51.8 L 4544-3) MCV (test code = 787-2) 89 fL 82-99 MCH (test code = 785-6) 29.1 pg 26.6-33.2 MCHC (test code = 32.7 See_Comment [Automate d message] 786-4) The system [employer] generated this result transmitted ref erence range: 31.1 - 3 5.2 gm/dL. The refe rence range was not u sed to interpret this result as normal/abnor mal. RDW-SD (test code = 52.3 fL 37.5-49.7 H 53475-6) RDW-CV (test code = 16.2 % 11.6-15.5 H 788-0) Platelet count (test 113 K/uL 160-397 L code = 777-3) MPV (test code = 9.6 fL 9.1-12.6 53987-7) INRBC (test code = 0.0 See_Comment The INRBC (instrument 18134-2) NRBC) value ref lects the enumeration of nucleated red b lood cells contained in a 200uL sampleof whole blood analyzed by the instrument. Thi s value maydiffer from the NRBC value repo rted in a manual differential,wh ich is based on a 100 cell differential. [Automated mess age] The system [employer] generated this result transmitted ref erence range: 0.0 - 0. 1 /100 WBC. The refere nce range was not u sed to interpret this result as normal/abnor mal. Lab Interpretation Abnormal (test code = 14008-9) [facility] FriscoTMP Interpretation Crossmatch 2023-04-19 21:04:16 Test Item Value Reference Range Interpretation Comments TMP XM Interp RBC units (test code = crossmatched for 7566) transfusion appear FER CHERYL acceptable. MD NAVEEN - [id number] b y: YENI MURPHY MD - [id number] Date/Time: 04.04 16:04 PM CDT Transcribed Felipe e/Time: 04.19.2023 16:0 4 PM CDTElectronical ly Signed By: ALISA HODGE MD - 1 2005 on 04.19.2023 16:0 4 PM [facility] FriscoCEA2023-08-16 18:46:55 Test Item Value Reference Range Interpretation Comments CEA (test 1.6 ng/mL <=3.8 Reference Range s:Smoker: 0.0 - code = 5.5Non-Smoker: 0.0 - 3.8This 2039-02) test is measure d by electrochemilum inescence immunoassay on Richar Kayla immunoassay donta lyzers. Results obtained in dif ferent methods are not interch angeable. [facility] FriscoRBC Product Ready for Director Script 2023-04-19 18:35:48 Test Item Value Reference Range Interpretation Comments PRBC Product Ready B2 Blood Bank Product is ready for for Director Script (test picker machine operator on April code = 232265) 2022 13:3 5:36 CDT. [facility] FriscoPrepare RBC:LC, 2 [id number] 18:06:11 Test Item Value Reference Range Interpretation Comments PRBC Product Ready 2 Red Blood Cells Available (test code = 20526-2) - Orde r Form 03 when ready for produ ct issue. [facility] FriscoGeneral Laboratory Add-On Test 2023-04-19 18:04:39 Test Item Value Reference Range Interpretation Comments Ordered (test code = Test Added Test ad ded to 6568) accession [id number] /2023 1:04:34 PM CDT by rhuff Test Needed (test CEA code = 7604) [facility] FriscoLDH2023-08-16 15:31:08 Test Item Value Reference Range Interpretation Comments LDH (test code = 256 U/L 135-225 H Results gre ater than 20083-4) 1651 U/L may no t be reliable due to matrix effect w ith extended diluti on as it exceeds the soil expert's recommended wood it. Caution should be exercised when interpreting sanon ch values and done in conjunction wit h clinical contex t. Lab Interpretation (test Abnormal code = 58223-0) [facility] FriscoAlkaline [id number] 15:16:42 Test Item Value Reference Range Interpretation Comments Alk Phos (test code = 6768-6) 2199 U/L 40-129 H Lab Interpretation (test code = Abnormal 44764-6) [facility] FriscoPSA2023-08-16 15:16:37 Test Item Value Reference Range Interpretation Comments PSA (test code = 2732.0 ng/mL 0.0-4.0 H Results gre ater 2857-1) than 4519 ng/mL may not be reliable due to matrix effec t with extended dilution as it exceeds the soil expert's recommended wood it. Caution should be exercised when interpreting sanon ch values and done in conjunction wit h clinical contex t. PSA Indication (test Diagnostic code = 47909-7) Lab Interpretation Abnormal (test code = 72723-7) [facility] FriscoElectrolyte [id number] 14:52:56 Test Item Value Reference Range Interpretation Comments Sodium Lvl (test code = 133 See_Comment L [Au tomated message] 8551-2) The system [employer] generated this result transmitted ref erence range: 136 - 14 5 mEq/L. The refe rence range was not u sed to interpret this result as normal/abnor mal. Potassium Lvl (test code 3.9 See_Comment [A utomated message] = 4143-3) The system [employer] generated this result transmitted ref erence range: 3.5 - 5. 1 mEq/L. The refe rence range was not u sed to interpret this result as normal/abnor mal. Chloride (test code = 100 See_Comment [Auto mated message] 0) The system [employer] generated this result transmitted ref erence range: 98 - 107 mEq/L. The refe rence range was not u sed to interpret this result as normal/abnor mal. CO2 (test code = 2028-05) 27 See_Comment [A utomated message] The system [employer] generated this result transmitted ref erence range: 22 - 29 mEq/L. The reference r gómez was not used to interpret this result as normal/abnor mal. Anion Gap (test code = 6 See_Comment [Aut omated message] 01592-2) The system [employer] generated this result transmitted ref erence range: 4 - 14 m Eq/L. The reference r gómez was not used to interpret this result as normal/abnor mal. Lab Interpretation (test Abnormal code = 76492-7) [facility] FriscoFractionated Feinyxczs8710-25-26 14:52:55 Test Item Value Reference Range Interpretation Comments Bili Total (test 0.6 mg/dL <=1.2 Indocyanine Green (ICG) code = 1974-) may cause fal sely elevated biliru bin results. Total and direct bilirubin must not be measured from s amples containing indo cyanine green. False el evation of total bilirubin can be seen in patient s with IgG concentrations above 28 g/L. Bili Direct (test 0.2 mg/dL <=0.3 Indocyanin e Green (ICG) code = 1967-) may cause fal sely elevated biliru bin results. Total and direct bilirubin must not be measured from s amples containing indo cyanine green. Bili Indirect (test 0.4 mg/dL 0.0-0.9 code = 1970-) [facility] FriscoTotal [id number] 14:52:54 Test Item Value Reference Range Interpretation Comments Total Protein (test code = 2885-2) 6.6 g/dL 6.4-8.3 [facility] FriscoPhosphorus [id number] 14:52:53 Test Item Value Reference Range Interpretation Comments Phosphorus (test code = 2777-1) 2.9 mg/dL 2.5-4.5 [facility] FriscoCalcium [id number] 14:52:52 Test Item Value Reference Range Interpretation Comments Calcium Lvl (test code = 05266-0) 9.1 mg/dL 8.4-10.2 [facility] FriscoALT2023-08-16 14:52:51 Test Item Value Reference Range Interpretation Comments ALT (test code = 1742-6) 20 U/L <=41 [facility] FriscoGlucose [id number] 14:52:49 Test Item Value Reference Range Interpretation Comments Glucose Level (test code 257 mg/dL 70-99 H Eff ective 03/30/16, = 2345-7) the glucose reference inter vals have been updat ed based on [place] an Diabetes Associ ation guidelines (Standards of Medical Care in Diabetes 2016. Diabetes Care 2 016; 39: S13-S22).Fa sting blood glucose:Normal: 70-99 mg/dLImpa ired fasting glucose (increased risk for diabetes or pre-diabetes): 100-125 mg/dLDiabetes mellitus: >/=12 6 mg/dL Random bl ood glucose:Normal: 70-199 mg/dLNot e: Random glucose >100 mg/dL is associ ated with increased risk for diabetes Lab Interpretation (test Abnormal code = 84664-6) [facility] FriscoMagnesium [id number] 14:52:46 Test Item Value Reference Range Interpretation Comments Magnesium (test code = 64425-2) 2.1 mg/dL 1.6-2.6 [facility] FriscoAlbumin [id number] 14:52:45 Test Item Value Reference Range Interpretation Comments Albumin Lvl (test code 4.1 See_Comment [Aut omated message] The = 1751-7) system which ge nerated this result tra nsmitted reference range : 3.5 - 5.2 gm/dL. The refe rence range was not used to interpret this result as normal/abnormal . [facility] FriscoAspartate Aminotransferase 2023-04-19 14:52:44 Test Item Value Reference Range Interpretation Comments AST (test code = 1920-8) 19 U/L <=40 [facility] FriscoVitamin D [id number] 14:48:21 Test Item Value Reference Range Interpretation Comments Vitamin D 25 OH (test 46 ng/mL 30-100 Refere nce Range: code = 46491-9) Deficiency: <=20 ng/mLInsufficie ncy: 21-29 ng/mLSuff iciency: 30-100 ng/mLPot ential toxicity: >100 ng/mL [facility] FriscoTestosterone [id number] 14:44:35 Test Item Value Reference Range Interpretation Comments Testoster Tot (test code 193-740 L Ref erence Ranges: = 2986-8) Male: Age 20 - 49 249 - 836 Age > =50 193 - 740 Femal e: Age 20 - 49 8 - 48 Age >=50 3 - 41 Lab Interpretation (test Abnormal code = 40034-1) [facility] FriscoRBC Product Ready for Director Script 2023-03-22 04:14:07 Test Item Value Reference Range Interpretation Comments PRBC Product Ready VANE LC Lab Product i s ready for for Director Script (test picker machine operator on March 21, code = 188060) 2022 23:14:00 CDT. [facility] FriscoPrepare RBC:LC VANE, 2 Units 2023-03-22 04:03:09 Test Item Value Reference Range Interpretation Comments PRBC Product Ready 2 Red Blood Cells Available (test code = 34156-6) - Orde r Form 03 when ready for produ ct issue. [facility] FriscoVitamin D [id number] 13:42:20 Test Item Value Reference Range Interpretation Comments Vitamin D 25 OH (test 55 ng/mL 30-100 Refere nce Range: code = 65611-1) Deficiency: <=20 ng/mLInsufficie ncy: 21-29 ng/mLSuff iciency: 30-100 ng/mLPot ential toxicity: >100 ng/mL [facility] FriscoTestosterone [id number] 13:35:27 Test Item Value Reference Range Interpretation Comments Testoster Tot (test code 193-740 L Ref erence Ranges: = 2986-8) Male: Age 20 - 49 249 - 836 Age > =50 193 - 740 Femal e: Age 20 - 49 8 - 48 Age >=50 3 - 41 Lab Interpretation (test Abnormal code = 96534-6) [facility] FriscoAlkaline [id number] 13:29:26 Test Item Value Reference Range Interpretation Comments Alk Phos (test code = 6768-6) 1775 U/L 40-129 H Lab Interpretation (test code = Abnormal 81375-4) [facility] FriscoPSA2023-07-12 13:29:25 Test Item Value Reference Range Interpretation Comments PSA (test code = 2335.0 ng/mL 0.0-4.0 H Results gre ater 2857-1) than 4519 ng/mL may not be reliable due to matrix effec t with extended dilution as it exceeds the soil expert's recommended wood it. Caution should be exercised when interpreting sanon ch values and done in conjunction wit h clinical contex t. PSA Indication (test Diagnostic code = 07719-6) Lab Interpretation Abnormal (test code = 16522-9) [facility] FriscoElectrolyte [id number] 13:05:19 Test Item Value Reference Range Interpretation Comments Sodium Lvl (test code = 135 See_Comment L [Au tomated message] 4147-2) The system [employer] generated this result transmitted ref erence range: 136 - 14 5 mEq/L. The refe rence range was not u sed to interpret this result as normal/abnor mal. Potassium Lvl (test code 3.7 See_Comment [A utomated message] = 8791-3) The system [employer] generated this result transmitted ref erence range: 3.5 - 5. 1 mEq/L. The refe rence range was not u sed to interpret this result as normal/abnor mal. Chloride (test code = 104 See_Comment [Auto mated message] 7613-0) The system [employer] generated this result transmitted ref erence range: 98 - 107 mEq/L. The refe rence range was not u sed to interpret this result as normal/abnor mal. CO2 (test code = 2028-05) 24 See_Comment [A utomated message] The system [employer] generated this result transmitted ref erence range: 22 - 29 mEq/L. The reference r gómez was not used to interpret this result as normal/abnor mal. Anion Gap (test code = 7 See_Comment [Aut omated message] 45939-3) The system [employer] generated this result transmitted ref erence range: 4 - 14 m Eq/L. The reference r gómez was not used to interpret this result as normal/abnor mal. Lab Interpretation (test Abnormal code = 28383-6) [facility] FriscoFractionated [id number] 13:05:18 Test Item Value Reference Range Interpretation Comments Bili Total (test 0.6 mg/dL <=1.2 Indocyanine Green (ICG) code = 1974-) may cause fal sely elevated biliru bin results. Total and direct bilirubin must not be measured from s amples containing indo cyanine green. False el evation of total bilirubin can be seen in patient s with IgG concentrations above 28 g/L. Bili Direct (test 0.2 mg/dL <=0.3 Indocyanin e Green (ICG) code = 1967-) may cause fal sely elevated biliru bin results. Total and direct bilirubin must not be measured from s amples containing indo cyanine green. Bili Indirect (test 0.4 mg/dL 0.0-0.9 code = 1970-) [facility] FriscoGlomerular Filtration Rate 2023-03-15 13:05:17 Test Item Value Reference Range Interpretation Comments eGFR (test code = 106 See_Comment The eGFRcr is calculated with 55190-9) the 2020 CKD-EP I creatinine equation using creatinine, patient's age, and sex for adults 18 years of age and older. Other fa ctors, especially musc le mass, may affect accuracy and need to be considered.A ccording to the Kidney Dise ase: Improving Global Outcomes (KDIGO) CKD Work Group 2012 Clinical Practice Guidel ine, chronic kidney disease (CKD) is defined as the abnormalities of kidney struc ture or function, prese nt for more than 3 months, with implications fo r health. CKD should be class ified by cause, GFR kathi gory, and albuminuria cat egory. KDIGO guidelines prov jose the following GFR c ategoriesStage Description GFR mL/min/1.73 m2G1* Normal or high >= 90G2* Mildly decrease d 60-89G3a Mildly to moder ately decreased 45-59 G3b Moderately to severely dec reased 30-44G4 Severely decrea sed 15-29G5 Kidney failure <15*In the absence of evid ence of kidney damage, neither G1 nor G2 fulfill criteri a for CKD. [Automated mess age] The system which [employer] nerated this result transmit juli reference range: >=60 mL/ min/1.73 sq. m. The referenc e range was not used to int erpret this result as moira l/abnormal. [facility] FriscoMagnesium [id number] 13:05:16 Test Item Value Reference Range Interpretation Comments Magnesium (test code = 00487-2) 2.1 mg/dL 1.6-2.6 [facility] FriscoAlbumin [id number] 13:05:14 Test Item Value Reference Range Interpretation Comments Albumin Lvl (test code 3.7 See_Comment [Aut omated message] The = 1751-7) system which [employer] nerated this result tra nsmitted reference range : 3.5 - 5.2 gm/dL. The refe rence range was not used to interpret this result as normal/abnormal . [facility] FriscoTotal [id number] 13:05:13 Test Item Value Reference Range Interpretation Comments Total Protein (test code = 2885-2) 6.5 g/dL 6.4-8.3 [facility] FriscoAspartate Aminotransferase 2023-03-15 13:05:12 Test Item Value Reference Range Interpretation Comments AST (test code = 1920-8) 14 U/L <=40 [facility] FriscoPhosphorus [id number] 13:05:11 Test Item Value Reference Range Interpretation Comments Phosphorus (test code = 2777-1) 2.8 mg/dL 2.5-4.5 [facility] FriscoCalcium [id number] 13:05:09 Test Item Value Reference Range Interpretation Comments Calcium Lvl (test code = 54998-7) 8.5 mg/dL 8.4-10.2 [facility] FriscoALT2023-07-12 13:05:08 Test Item Value Reference Range Interpretation Comments ALT (test code = 1742-6) 13 U/L <=41 [facility].Serum [id number] 13:05:07 Test Item Value Reference Range Interpretation Comments Creatinine (test code = 2160-0) 0.50 mg/dL 0.67-1.17 L Lab Interpretation (test code = Abnormal 72305-0) [facility] FriscoBUN2023-07-12 13:05:06 Test Item Value Reference Range Interpretation Comments BUN (test code = 3094-0) 12 mg/dL 6-23 [facility] FriscoGlucose [id number] 13:05:05 Test Item Value Reference Range Interpretation Comments Glucose Level (test code 158 mg/dL 70-99 H Eff ective 03/30/16, = 2345-7) the glucose reference inter vals have been updat ed based on [place] an Diabetes Associ ation guidelines (Standards of Medical Care in Diabetes 2016. Diabetes Care 2 016; 39: S13-S22).Fa sting blood glucose:Normal: 70-99 mg/dLImpa ired fasting glucose (increased risk for diabetes or pre-diabetes): 100-125 mg/dLDiabetes mellitus: >/=12 6 mg/dL Random bl ood glucose:Normal: 70-199 mg/dLNot e: Random glucose >100 mg/dL is associ ated with increased risk for diabetes Lab Interpretation (test Abnormal code = 79328-3) [facility] FriscoLDH2023-07-12 13:02:23 Test Item Value Reference Range Interpretation Comments LDH (test code = 192 U/L 135-225 Results gre ater than 1651 17396-0) U/L may not be reliable due to matrix effec t with extended diluti on as it exceeds the man ufacturer's recommended wood it. Caution should be exerc ised when interpreting sanon ch values and done in con junction with clinical c ontext. [facility] FriscoUrine [id number] 15:00:22 Test Item Value Reference Range Interpretation Comments Final Report (test code = <10,000 cfu/ml A 8488) Normal site isis present.Generally of low significance.Correl ate with clinical data and culture history. Lab Interpretation (test Abnormal code = 04686-2) [facility] FriscoUrine [id number] 15:00:22 Test Item Value Reference Range Interpretation Comments Final Report (test code = <10,000 cfu/ml A 8488) Normal site isis present.Generally of low significance.Correl ate with clinical data and culture history. Lab Interpretation (test Abnormal code = 93019-1) [facility] FriscoUrinalysis Microscopic Exam 2023-02-15 03:46:00 Test Item Value Reference Range Interpretation Comments UA WBC (test code = 1 See_Comment Some rep orting 42252-5) parameters with in the Urinalysis test have changed due to the implementation of new instrumentation in the [facility], [facility]) express sensiti vity of measurement. Urinalysis resu lts reported by the [facility] C enters using existing instrumentation , as well as Urinaly sis testing perform ed manually or by backup methodology at the [facility] mary l remain relative ly unchanged. New reporting rochelle eters and units will not be reported for [facility]. [Auto mated message] The sy stem which generated this result transmit juli reference range : 0 - 2 /HPF. The refer ence range was not u sed to interpret this result as normal/abnor mal. UA RBC (test code = 1 See_Comment [Automa juli message] 46070-3) The system [employer] [facility] generated this result transmitted ref erence range: 0 - 2 /H PF. The reference range was not used to int erpret this result as normal/abnormal . UA Mucous (test code = NOT SEEN Not Seen-Trace 70893-8) /HPF UA Bacteria (test code 1+ NOT SEEN /HPF A = 07392-4) UA Squam Epi (test NOT SEEN None-Occasional code = 47907-2) /HPF Lab Interpretation Abnormal (test code = 22299-5) [facility]inal[facility] Microscopic Exam 2023-02-15 03:46:00 Test Item Value Reference Range Interpretation Comments UA WBC (test code = 1 See_Comment Some rep orting 16720-0) parameters with in the Urinalysis test have changed due to the implementation of new instrumentation in the [facility], al lowing greater sensiti vity of measurement. Urinalysis resu lts reported by the [facility] enters using existing instrumentation , as well as Urinaly sis testing perform ed manually or by backup methodology at the [facility] mary l remain relative ly unchanged. New reporting rochelle eters and units will not be reported for [facility]. [Auto mated message] The sy stem which generated this result transmit juli reference range : 0 - 2 /HPF. The refer ence range was not u sed to interpret this result as normal/abnor mal. UA RBC (test code = 1 See_Comment [Automa juli message] 60836-3) The system [employer] [facility] generated this result transmitted ref erence range: 0 - 2 /H PF. The reference range was not used to int erpret this result as normal/abnormal . UA Mucous (test code = NOT SEEN Not Seen-Trace 70330-9) /HPF UA Bacteria (test code 1+ NOT SEEN /HPF A = 42475-3) UA Squam Epi (test NOT SEEN None-Occasional code = 19858-7) /HPF Lab Interpretation Abnormal (test code = 10817-7) [facility]iscoConfirm [id number] 03:43:00 Test Item Value Reference Range Interpretation Comments ABORh Confirm. (test code = 882-1) A POS [facility]iscoConfirm [id number] 03:43:00 Test Item Value Reference Range Interpretation Comments ABORh Confirm. (test code = 882-1) A POS [facility]iscoUrinalysis w/Microscopic if [id number] 03:38:08 Test Item Value Reference Range Interpretation Comments UA Color (test code = 39053-4) Straw Straw-Yellow UA Appear (test code = 07843-3) Hazy Clear A UA Glucose (test code = 5792-7) NEG NEG mg/dL UA Bili (test code = 5770-3) NEG NEG UA Ketones (test code = 5797-6) NEG NEG mg/dL UA Spec Grav (test code = 5810-7) 1.011 1.003-1.035 UA Blood (test code = 5794-3) NEG NEG UA pH (test code = 5803-2) 7.0 5.0-9.0 UA Protein (test code = 5804-0) NEG NEG mg/dL UA Urobilinogen (test code = 5818-0) NEG NEG UA Nitrite (test code = 5802-4) NEG NEG UA Leuk Est (test code = 5799-2) NEG NEG Lab Interpretation (test code = Abnormal 39975-1) [facility]isco[facility]inalysis w/Microscopic if [id number] 03:38:08 Test Item Value Reference Range Interpretation Comments UA Color (test code = 10578-8) Straw Straw-Yellow UA Appear (test code = 39206-3) Hazy Clear A UA Glucose (test code = 5792-7) NEG NEG mg/dL UA Bili (test code = 5770-3) NEG NEG UA Ketones (test code = 5797-6) NEG NEG mg/dL UA Spec Grav (test code = 5810-7) 1.011 1.003-1.035 UA Blood (test code = 5794-3) NEG NEG UA pH (test code = 5803-2) 7.0 5.0-9.0 UA Protein (test code = 5804-0) NEG NEG mg/dL UA Urobilinogen (test code = 5818-0) NEG NEG UA Nitrite (test code = 5802-4) NEG NEG UA Leuk Est (test code = 5799-2) NEG NEG Lab Interpretation (test code = Abnormal 40479-7) [facility] FriscoaPTT2023-06-13 23:40:05 Test Item Value Reference Range Interpretation Comments aPTT (test code = 29.1 See_Comment [Automate d message] The 43261-9) system which ge nerated this result transmit juli reference range : 24.1 - 35.5 second(s). The reference range was not used to interpr et this result as moira l/abnormal. [facility]iscoaPTT2023-06-13 23:40:05 Test Item Value Reference Range Interpretation Comments aPTT (test code = 29.1 See_Comment [Automate d message] The 62302-8) system which ge nerated this result transmit juli reference range : 24.1 - 35.5 second(s). The reference range was not used to interpr et this result as moira l/abnormal. [facility] FriscoProthrombin Time with [id number] 23:40:04 Test Item Value Reference Range Interpretation Comments PT (test code = 5902-2) 16.2 See_Comment H [Au tomated message] The system [employer] generated this result transmitted ref erence range: 11.9 - 1 4.5 second(s). The reference range was not used to int erpret this result as normal/abnormal . INR (test code = 6301-6) 1.32 0.87-1.12 H Lab Interpretation (test Abnormal code = 11613-7) [facility] FriscoPSA2023-05-31 16:39:10 Test Item Value Reference Range Interpretation Comments PSA (test code = 6999.0 ng/mL 0.0-4.0 H Results gre ater 2857-1) than 4519 ng/mL may not be reliable due to matrix effec t with extended dilution as it exceeds the soil expert's recommended wood it. Caution should be exercised when interpreting sanon ch values and done in conjunction wit h clinical context.Testing Performed at [facility], [address], [place], [place] [address] PSA Indication (test Diagnostic code = 32205-7) Lab Interpretation Abnormal (test code = 44275-7) [facility] FriscoAspartate Aminotransferase 2023-02-01 13:41:35 Test Item Value Reference Range Interpretation Comments AST (test code = 1920-8) 102 U/L <=40 H Orly ting Performed at [facility], [address] [facility] [address], [address], [place] [address] Lab Interpretation (test Abnormal code = 49729-2) [facility] FriscoFractionated [id number] 13:41:25 Test Item Value Reference Range Interpretation Comments Bili Total (test 1.0 mg/dL <=1.2 Indocyanine Green (ICG) code = 1975-2) may cause fal sely elevated biliru bin results. Total and direct bilirubin must not be measured from s amples containing indo cyanine green. False el evation of total bilirubin can be seen in patient s with IgG concentrations above 28 g/L.Testing Per formed at [facility], [address], [address], [place] [address] Bili Direct (test 0.2 mg/dL <=0.3 Indocyanin e Green (ICG) code = 1968-03) may cause fal sely elevated biliru bin results. Total and direct bilirubin must not be measured from s amples containing indo cyanine green. Testing Performed at [facility], [address], [address], [place] [address] Bili Indirect (test 0.8 mg/dL 0.0-0.9 Testing Performed at [facility] code = 1970-09) Lab Ambulator [facility] Care [facility], [address], [place] [address] [facility] [place] BeachGlomerular Filtration Rate 2023-02-01 13:41:24 Test Item Value Reference Range Interpretation Comments eGFR (test code = 66 See_Comment The eGFRcr is calculated with 95856-5) the 2020 CKD-EP I creatinine equation using creatinine, patient's age, and sex for adults 18 years of age and older. Other fa ctors, especially musc le mass, may affect accuracy and need to be considered.A ccording to the Kidney Dise ase: Improving Global Outcomes (KDIGO) CKD Work Group 2012 Clinical Practice Guidel ine, chronic kidney disease (CKD) is defined as the abnormalities of kidney struc ture or function, prese nt for more than 3 months, with implications fo r health. CKD should be class ified by cause, GFR kathi gory, and albuminuria cat egory. KDIGO guidelines prov jose the following GFR c ategoriesStage Description GFR mL/min/1.73 m2G1* Normal or high >= 90G2* Mildly decrease d 60-89G3a Mildly to moder ately decreased 45-59 G3b Moderately to severely dec reased 30-44G4 Severely decrea sed 15-29G5 Kidney failure <15*In the absence of evid ence of kidney damage, neither G1 nor G2 fulfill criteri a for CKD. Testing Perform ed at [facility] Lab [facility], [address], [address], [place], [place] [address] [Automated message] The sy stem which generated this result transmitted ref erence range: >=60 mL/min/1.7 3 sq. m. The reference range was not used to interpret th is result as normal/abnormal . [facility] FriscoTotal Clmfpds0341-03-04 13:41:23 Test Item Value Reference Range Interpretation Comments Total Protein (test 6.9 g/dL 6.4-8.3 Testing Performed at [facility] code = 2885-2) [facility], [address], [place] [address] [facility] FriscoPhosphorus [id number] 13:41:22 Test Item Value Reference Range Interpretation Comments Phosphorus (test code 3.1 mg/dL 2.5-4.5 Testin g Performed at = 2777-1) [facility] Ambul[facility] or[facility] Care dg, [address], [place] [address] [facility] FriscoMagnesium [id number] 13:41:21 Test Item Value Reference Range Interpretation Comments Magnesium (test code = 2.0 mg/dL 1.6-2.6 [place] [address]-2) [facility], [address], [place] [address] [facility] FriscoCalcium [id number] 13:41:20 Test Item Value Reference Range Interpretation Comments Calcium Lvl (test 9.4 mg/dL 8.4-10.2 Testing Pe rformed at code = 86405-9) [facility], [address], [place], [place] [address] [facility] FriscoAlbumin [id number] 13:41:19 Test Item Value Reference Range Interpretation Comments Albumin Lvl (test code 3.9 See_Comment Testi ng Performed at [facility] = 1751-7) [facility], [address], [place] [address] [Automated mess age] The system which ge nerated this result tra nsmitted reference range : 3.5 - 5.2 gm/dL. The refe rence range was not used to interpret this result as normal/abnormal . [facility] FriscoALT2023-05-31 13:41:18 Test Item Value Reference Range Interpretation Comments ALT (test code = 18 U/L <=41 Testing Per formed at [facility] 1742-6) [facility], [address], [place] [address] [facility] FriscoElectrolyte [id number] 13:41:17 Test Item Value Reference Range Interpretation Comments Sodium Lvl (test code = 130 See_Comment L Test ing Performed at 2951-2) [facility], [address], [place] [address] [Automate d message] The sy stem which generated this result transmit juli reference range : 136 - 145 mEq/L. Th e reference range was not used to int erpret this result as normal/abnormal . Potassium Lvl (test code 5.3 See_Comment H Orly ting Performed at = 2823-3) [facility], [address], [place] [address] [Automate d message] The sy stem which generated this result transmit juli reference range : 3.5 - 5.1 mEq/L. Th e reference range was not used to int erpret this result as normal/abnormal . Chloride (test code = 94 See_Comment L Testin g Performed at 5-0) [facility], [address] [facility], [address], [place] [address] [Automate d message] The sy stem which generated this result transmit juli reference range : 98 - 107 mEq/L. The reference range was not used to int erpret this result as normal/abnormal . CO2 (test code = 2027-) 22 See_Comment Orly ting Performed at [facility], [address] [facility] [address], [address], [place] [address] [Automate d message] The sy stem which generated this result transmit juli reference range : 22 - 29 mEq/L. The reference range was not used to int erpret this result as normal/abnormal . Anion Gap (test code = 14 See_[place] [address]-5) [facility] Lab [facility], [address], [place] [address] [Automate d message] The sy stem which generated this result transmit juli reference range : 4 - 14 mEq/L. The reference range was not used to int erpret this result as normal/abnormal . Lab Interpretation (test Abnormal code = 75098-5) [facility].Serum Jcsmbckiau2312-11-34 13:41:16 Test Item Value Reference Range Interpretation Comments Creatinine (test code 1.15 mg/dL 0.67-1.17 Testin g Performed at = 2160-0) [facility], [address], [place] [address] [facility] FriscoBUN2023-05-31 13:41:15 Test Item Value Reference Range Interpretation Comments BUN (test code = 3094-0) 34 mg/dL 6-23 H Orly ting Performed at [facility], [address], [place] [address] Lab Interpretation (test Abnormal code = 89929-8) [facility] FriscoGlucose [id number] 13:41:14 Test Item Value Reference Range Interpretation Comments Glucose Level (test code 202 mg/dL 70-99 H Eff ective 03/30/16, = 2345-7) the glucose reference inter vals have been updat ed based on [place] an Diabetes Associ ation guidelines (Standards of Medical Care in Diabetes 2016. Diabetes Care 2 016; 39: S13-S22).Fa sting blood glucose:Normal: 70-99 mg/dLImpa ired fasting glucose (increased risk for diabetes or pre-diabetes): 100-125 mg/dLDiabetes mellitus: >/=12 6 mg/dL Random bl ood glucose:Normal: 70-199 mg/dLNot e: Random glucose >100 mg/dL is associ ated with increased risk for diabetes Te sting Performed at [facility] Lab [facility] Bldg, [address], [place], [place] [address] Lab Interpretation (test Abnormal code = 30586-1) [facility] FriscoAlkaline Snplmvtdbyk2419-09-19 13:39:42 Test Item Value Reference Range Interpretation Comments Alk Phos (test code = 5039 U/L 40-129 H Testin g Performed at 6768-6) [facility] Lab Ambulat ory Care [facility], [address] [facility], [place] [address] Lab Interpretation (test Abnormal code = 30480-8) [facility] FriscoVitamin D [id number] 13:22:48 Test Item Value Reference Range Interpretation Comments Vitamin D 25 OH (test 88 ng/mL 30-100 Refere nce Range: code = 69105-8) Deficiency: <=20 ng/mLInsufficie ncy: 21-29 ng/mLSuff iciency: 30-100 ng/mLPot ential toxicity: >100 ng/mL [facility] FriscoTestosterone [id number] 13:14:58 Test Item Value Reference Range Interpretation Comments Testoster Tot (test code 183 ng/dL 193-740 L Ref erence Ranges: = 2986-8) Male: Age 20 - 49 249 - 836 Age > =50 193 - 740 Femal e: Age 20 - 49 8 - 48 Age >=50 3 - 41 Lab Interpretation (test Abnormal code = 23678-7) [facility] FriscoDifferential2023-05-31 13:07:56 Test Item Value Reference Range Interpretation Comments Total Cells (test code 100 As pa rt of = 76668-5) Differential performed at [facility] Lab [facility], [address], [facility] [place] [address] Neutrophil % (test code 71.0 % 42.0-66.0 H The Neutrophil count = 22583-2) includes Bands. As part of Differe ntial performed at [facility] Lab [facility] [address] [place] [address] Lymphocyte % (test code 19.0 % 24.0-44.0 L As p art of = 737-7) Differential performed [facility] Lab [facility] [id number] [facility] [address] Monocyte % (test code = 7.0 % 2.0-7.0 As p art of 744-3) Differential performed [facility] [id number] [address] Eosinophil % (test code 1.0 % 1.0-4.0 As p art of = 714-6) Differential performed at[facility] [id number] [facility] [address], [address] [address] Metamyelocyte % (test 2.0 % <=0.0 H The Me tamyelocyte code = 740-1) count includes Myelocytes. As part of Differential performed at B Lab [facility], [address], [place] [address] NRBC (test code = 1.0 <=0.0 H [place] [address]-0) Differential performed [facility] [address], [address] [address] Neutrophil Abs (test 5.25 K/uL 1.70-7.30 As part of code = 753-4) Differential performed [facility] [address] [place] [address] Lymphocyte Abs (test 1.41 K/uL 1.00-4.80 As part of code = 732-8) Differential performed [facility] [address], [address] [address] Monocyte Abs (test code 0.52 K/uL 0.08-0.70 As p art of = 743-5) Differential performed [facility] [address] [address] Eosinophil Abs (test 0.07 K/uL 0.04-0.40 As part of code = 712-0) Differential performed [facility] [address], [address] [address] RBC Morph (test code = Present Normal A As pa rt of 6742-1) Differential performed [facility] [address], [address] [address] PLT Morph (test [place] = [place] [address]-2) Differential performed [facility] Lab [facility] [address], [address] [address] Anisocytosis (test code Present Not Present A As p art of = 702-1) Differential performed [facility] [id number] [address] Polychromasia (test Present Not Present A As part of code = 01378-1) Differential performed [facility] [id number] [address] Ovalocyte (test code = Present Not Present A As pa rt of 774-0) Differential performed [facility] [id number] [address] Tear Drop (test code = Present Not Present A As pa rt of 7791-7) Differential performed [facility] [address] [address] Lab Interpretation Abnormal (test code = 86199-2) [facility] [place].[id number] 13:07:51 Test Item Value Reference Range Interpretation Comments WBC (test code = 7.4 K/uL 4.0-11.0 6690-2) RBC (test code = 789-8) 3.07 See_Comment L [Au tomated message] The system [employer] generated this result transmitted ref erence range: 4.50 - 6 .00 M/uL. The refer ence range was not u sed to interpret this result as normal/abnor mal. Hgb (test code = 718-7) 8.2 See_Comment L As p art of CBC or as an individual orderable testi ng performed at [facility] Lab [facility], [address], [place] [address] [Automate d message] The sy stem which generated this result transmit juli reference range : 14.0 - 18.0 gm/dL. T he reference range was not used to int erpret this result as normal/abnormal . Hct (test code = 26.0 % 40.0-54.0 L As part of CBC or as 4544-3) an individual orderable testi ng performed at [facility] Lab [facility] Bldg, [address], [place] [address] MCV (test code = 787-2) 85 fL 82-98 MCH (test code = 785-6) 26.7 pg 27.0-31.0 L MCHC (test code = 31.5 See_Comment [Automate d message] 786-4) The system [employer] generated this result transmitted ref erence range: 31.0 - 3 6.0 gm/dL. The refe rence range was not u sed to interpret this result as normal/abnor mal. RDW-SD (test code = 45.7 fL 35.1-46.3 32728-7) RDW-CV (test code = 15.3 % 12.0-15.5 788-0) Platelet count (test 217 K/uL 140-440 As part of CBC or as code = 777-3) an individual orderable testi ng performed at [facility] Bldg, [address], [place] [address] MPV (test code = 8.9 fL 4.0-10.4 81447-0) INRBC (test code = 0.3 % <=0.0 H The INRBC (instrument 65878-2) NRBC) value ref lects the enumeration of nucleated red b lood cells contained in a 200uL sampleof whole blood analyzed by the instrument. Thi s value maydiffer from the NRBC value repo rted in a manual differential,wh ich is based on a 100 cell differential. A s part of CBC testing performed at [facility]st [address], [place], [place] [address] Lab Interpretation Abnormal (test code = 08473-1) [facility] [place] BeachPOCT ACT LOW [id number] 17:29:45 Test Item Value Reference Range Interpretation Comments ACTLR (test code = 238 See_Comment H [Automat ed message] [id number]) The system [employer] generated this result transmitted ref erence range: 89 - 169 Seconds. The reference range was not used to int erpret this result as normal/abnormal . Lab Interpretation (test Abnormal code = 50374-0) [facility] [id number] 17:29:45 Test Item Value Reference Range Interpretation Comments ACTLR (test code = 238 See_Comment H [Automat ed message] [id number]) The system [employer] generated this result transmitted ref erence range: 89 - 169 Seconds. The reference range was not used to int erpret this result as normal/abnormal . Lab Interpretation (test Abnormal code = 02675-8) [facility] ACT LOW [id number] 15:59:06 Test Item Value Reference Range Interpretation Comments ACTLR (test code = 253 See_Comment H [Automat ed message] [id number]) The system [employer] generated this result transmitted ref erence range: 89 - 169 Seconds. The reference range was not used to int erpret this result as normal/abnormal . Lab Interpretation (test Abnormal code = 14628-5) [facility] ACT LOW [id number] 15:59:06 Test Item Value Reference Range Interpretation Comments ACTLR (test code = 253 See_Comment H [Automat ed message] ) The system [employer] generated this result transmitted ref erence range: 89 - 169 Seconds. The reference range was not used to int erpret this result as normal/abnormal . Lab Interpretation (test Abnormal code = 95290-1) [facility] CenterPROSTATIC SPECIFIC [id number] 23:34:09 Test Item Value Reference Range Interpretation Comments PSA (test code = <=4.00 H [id number]) JOSHUA (test code = JOSHUA) Biotin has been reported to cause a negative bias, interpret results relative to patient's use of biotin. Lab Interpretation (test Abnormal code = 12054-7) [facility] CenterCOMP. METABOLIC PANEL (98187)2023-01-15 21:37:29 Test Item Value Reference Range Interpretation Comments NA (test code = 137 mmol/L 135-145 [id number]) K (test code = 3.9 mmol/L 3.5-5.0 8132742068) CL (test code = 103 mmol/L 98-108 2970823426) CO2 TOTAL (test code = 28 mmol/L 23-31 9308619939) AGAP (test code = 6 2-16 0778573736) BUN (test code = 14 mg/dL 7-23 8086304482) GLUCOSE (test code = 150 mg/dL 70-110 H 8244458852) CREATININE (test code = 0.60 mg/dL 0.60-1.25 5325365676) TOTAL BILI (test code = 0.7 mg/dL 0.1-1.8 1557993592) CALCIUM (test code = 8.6 mg/dL 8.6-10.6 2463299032) T PROTEIN (test code = 6.3 g/dL 6.3-8.2 3671051866) ALBUMIN (test code = 3.8 g/dL 3.5-5.0 8496393929) ALK PHOS (test code = 1707 U/L 34-122 H 0416838512) ALTv (test code = 17 U/L 5-50 1742-6) AST(SGOT) (test code = 31 U/L 13-40 2271104774) eGFR (test code = 131.3 mL/min/1.73m2 8549345309) JOSHUA (test code = JOSHUA) Association of Glomerular Filtration Rate (GFR) and Staging of Kidney Disease* + --+ --+ ------+| GFR (mL/min/1.73 m2) ?| With Kidney Damage ?| ?Without Kidney Damage+ --------+ --------+ +| ?>90 ?| ?Stage one ?| ? Normal ?+ ---+ ---+ -------+| ?60-89 ?| ?Stage two ?| ? Decreased GFR ? + --+ --+ ------+| ?30-59 ?| ?Stage three ?| ? Stage three ? + --+ --+ ------+| ?15-29 ?| ?Stage four ? | ? Stage four ?+ ---+ ---+ -------+| ?<15 (or dialysis) ? ?| ?Stage five ? | ? Stage five ?+ ---+ ---+ -------+ *Each stage assumes the associated GFR level has been in effect for at least three months. ?Stages 1 to 5, with or without kidney disease, indicate chronic kidney disease. Notes: Determination of stages one and two (with eGFR >59mL/min/1.73 m2) requires estimation of kidney damage for at least three months as defined by structural or functional abnormalities of the kidney, manifested by either:Pathological abnormalities or Markers of kidney damage (including abnormalities in the composition of the blood or urine or abnormalities in imaging tests). Lab Interpretation Abnormal (test code = 42822-3) [facility] WITH [id number] 21:36:44 Test Item Value Reference Range Interpretation Comments WBC (test code = 4.98 See_Comment [Automated 6690-2) message] The sy stem which generated this result transmitted reference range : 4.20 - 10.70 10*3/?L. The reference range was not used to interpret this result as normal/abnormal . RBC (test code = 3.33 See_Comment L [Automated 789-8) message] The sy stem which generated this result transmitted reference range : 4.26 - 5.52 10*6/?L. The reference range was not used to interpret this result as normal/abnormal . HGB (test code = 9.1 g/dL 12.2-16.4 L 718-7) HCT (test code = 28.2 % 38.4-49.3 L 4544-3) MCV (test code = 84.7 fL 81.7-95.6 787-2) MCH (test code = 27.3 pg 26.1-32.7 785-6) MCHC (test code = 32.3 g/dL 31.2-35.0 786-4) RDW-SD (test code = 46.6 fL 38.5-51.6 72031-3) RDW-CV (test code = 15.3 % 12.1-15.4 788-0) PLT (test code = 151 See_Comment [Automated 777-3) message] The sy stem which generated this result transmitted reference range : 150 - 328 10*3/ ?L. The reference r gómez was not used to interpret this result as normal/abnormal . MPV (test code = 9.6 fL 9.8-13.0 L 92422-9) NRBC/100 WBC (test 0.0 See_Comment [Automat ed code = [id number]) message] The system which generated this result transmitted reference range : 0.0 - 10.0 /100 WBCs. The refer ence range was not u sed to interpret th is result as normal/abnormal . NRBC x10^3 (test code See_Comment [Auto mated = [id number]) message] The s ystem which generated this result transmitted reference range : 10*3/?L. The reference range was not used to interpret this result as normal/abnormal . GRAN MAT (NEUT) % 52.9 % (test code = 770-8) IMM GRAN % (test code 2.40 % = [id number]) LYMPH % (test code = 34.1 % 736-9) MONO % (test code = 7.2 % 5905-5) EOS % (test code = 2.8 % 713-8) BASO % (test code = 0.6 % 706-2) GRAN MAT x10^3(ANC) 2.63 10*3/uL 1.99-6.95 (test code = 7015977777) IMM GRAN x10^3 (test 0.12 10*3/uL 0.00-0.06 H code = 5905233696) LYMPH x10^3 (test code 1.70 10*3/uL 1.09-3.23 = 731-0) MONO x10^3 (test code 0.36 10*3/uL 0.36-1.02 = 742-7) EOS x10^3 (test code = 0.14 10*3/uL 0.06-0.53 711-2) BASO x10^3 (test code 0.03 10*3/uL 0.01-0.09 = 704-7) Lab Interpretation Abnormal (test code = 39260-9) [facility]kc[facility]65[facility]:30:00 Test Item Value Reference Range Interpretation Comments Alk Phos (test code = 2252 U/L 40-129 H 6768-6) JOSHUA (test code = JOSHUA) Please schedule in LC Lab Interpretation (test Abnormal code = 19352-4) [facility] Rcvxzwwichi6738-81-98 21:30:00 Test Item Value Reference Range Interpretation Comments Alk Phos (test code = 2252 U/L 40-129 H 6768-6) JOSHUA (test code = JOSHUA) Please schedule in LC Lab Interpretation (test Abnormal code = 83171-0) [facility] 21:29:56 Test Item Value Reference Range Interpretation Comments PSA (test code = 404.0 ng/mL 0.0-4.0 H Results gre ater 2857-1) than 4519 ng/mL may not be reliable due to matrix effect w ith extended diluti on as it exceeds t he soil expert's recommended wood it. Caution should be exercised when interpreting sanon ch values and done in conjunction wit h clinical contex t. PSA Indication (test Diagnostic code = 96882-6) JOSHUA (test code = JOSHUA) Please schedule in LC Lab Interpretation Abnormal (test code = 77399-3) [facility] 21:29:56 Test Item Value Reference Range Interpretation Comments PSA (test code = 404.0 ng/mL 0.0-4.0 H Results gre ater 2857-1) than 4519 ng/mL may not be reliable due to matrix effect w ith extended diluti on as it exceeds t he soil expert's recommended wood it. Caution should be exercised when interpreting sanon ch values and done in conjunction wit h clinical contex t. PSA Indication (test Diagnostic code = 73472-5) JOSHUA (test code = JOSHUA) Please schedule in LC Lab Interpretation Abnormal (test code = 20298-8) [facility]it[facility] [id number] 21:16:16 Test Item Value Reference Range Interpretation Comments Vitamin D 25 OH 81 ng/mL 30-100 Reference Ra nge: (test code = Deficiency: <=2 0 28695-1) ng/mLInsufficie ncy: 21-29 ng/mLSufficienc y: 30-100 ng/mLPotential toxicity: >100 ng/mL JOSHUA (test code = Please schedule in JOSHUA) [facility] [id number] 21:16:16 Test Item Value Reference Range Interpretation Comments Vitamin D 25 OH 81 ng/mL 30-100 Reference Ra nge: (test code = Deficiency: <=2 0 70719-8) ng/mLInsufficie ncy: 21-29 ng/mLSufficienc y: 30-100 ng/mLPotential toxicity: >100 ng/mL JOSHUA (test code = Please schedule in JOSHUA) [facility] HospitalFractionated Ewcvoqwof6609-53-44 21:10:10 Test Item Value Reference Range Interpretation Comments Bili Total (test 0.5 mg/dL <=1.2 Indocyanine Green code = 1975-2) (ICG) may cau se falsely elevate d bilirubin resul ts. Total and direc t bilirubin must not be measured from s amples containing indo cyanine green. False el evation of total biliru bin can be seen in shaji ents with IgG concentrations above 28 g/L. Bili Direct <=0.3 Indocyanine Gre en (test code = (ICG) may cause 1968-03) falsely elevate d bilirubin resul ts. Total and direc t bilirubin must not be measured from s amples containing indo cyanine green. Bili Indirect See Note 0.0-0.9 Unable to calc ulate (test code = Indirect Biliru bin 1970-09) result due to s ome parameters are outside reportable rang e JOSHUA (test code = Please schedule JOSHUA) [facility] HospitalFraction[facility] [id number] 21:10:10 Test Item Value Reference Range Interpretation Comments Bili Total (test 0.5 mg/dL <=1.2 Indocyanine Green code = 1974-2) (ICG) may cau se falsely elevate d bilirubin resul ts. Total and direc t bilirubin must not be measured from s amples containing indo cyanine green. False el evation of total biliru bin can be seen in shaji ents with IgG concentrations above 28 g/L. Bili Direct <=0.3 Indocyanine Gre en (test code = (ICG) may cause 1968-03) falsely elevate d bilirubin resul ts. Total and direc t bilirubin must not be measured from s amples containing indo cyanine green. Bili Indirect See Note 0.0-0.9 Unable to calc ulate (test code = Indirect Biliru bin 1970-09) result due to s ome parameters are outside reportable rang e JOSHUA (test code = Please schedule JOSHUA) [facility] HospitalPhosphorus Araue2460-34-87 21:10:09 Test Item Value Reference Range Interpretation Comments Phosphorus (test code = 3.0 mg/dL 2.5-4.5 2777-1) JOSHUA (test code = JOSHUA) Please schedule in [facility] HospitalPhosphorus [id number] 21:10:09 Test Item Value Reference Range Interpretation Comments Phosphorus (test code = 3.0 mg/dL 2.5-4.5 2777-1) JOSHUA (test code = JOSHUA) Please schedule in [facility] HospitalCalcium Ljtho2462-05-72 21:10:08 Test Item Value Reference Range Interpretation Comments Calcium Lvl (test code 9.3 mg/dL 8.4-10.2 = 31400-5) JOSHUA (test code = JOSHUA) Please schedule in [facility] HospitalCalcium Rulsa1850-75-28 21:10:08 Test Item Value Reference Range Interpretation Comments Calcium Lvl (test code 9.3 mg/dL 8.4-10.2 = 37985-3) JOSHUA (test code = JOSHUA) Please schedule in [facility] HospitalAlbumin Sgzll6567-36-26 21:10:07 Test Item Value Reference Range Interpretation Comments Albumin Lvl (test 4.4 See_Comment [Automate d message] code = 1751-7) The system [employer] generated this result transmit juli reference range : 3.5 - 5.2 gm/dL. Th e reference range was not used to interpret this result as normal/abnormal . JOSHUA (test code = Please schedule JOSHUA) [facility] HospitalAlbumin Ayqjp1902-34-70 21:10:07 Test Item Value Reference Range Interpretation Comments Albumin Lvl (test 4.4 See_Comment [Automate d message] code = 1751-7) The system [employer] generated this result transmit juli reference range : 3.5 - 5.2 gm/dL. Th e reference range was not used to interpret this result as normal/abnormal . JOSHUA (test code = Please schedule JOSHUA) [facility] HospitalAspartate Aminotransferase 2022-12-18 21:10:05 Test Item Value Reference Range Interpretation Comments AST (test code = 28 U/L <=40 1920-8) JOSHUA (test code = JOSHUA) Please schedule in [facility] HospitalAspartate Aminotransferase 2022-12-18 21:10:05 Test Item Value Reference Range Interpretation Comments AST (test code = 28 U/L <=40 1920-8) JOSHUA (test code = JOSHUA) Please schedule in [facility] HospitalElectrolyte Uqpsb0729-10-11 21:10:04 Test Item Value Reference Range Interpretation Comments Sodium Lvl (test 140 See_Comment [Automated code = 2951-2) message] The system which generated this result transmitted reference range : 136 - 145 mEq/L . The reference r gómez was not used to interpret this result as normal/abnormal . Potassium Lvl 4.5 See_Comment [Automated (test code = message] The sy stem 2823-3) which generated this result transmitted reference range : 3.5 - 5.1 mEq/L . The reference r gómez was not used to interpret this result as normal/abnormal . Chloride (test 105 See_Comment [Automated code = 2074-0) message] The system which generated this result transmitted reference range : 98 - 107 mEq/L. Th e reference range was not used to interpret this result as normal/abnormal . CO2 (test code = 26 See_Comment [Automated 2028-05) message] The sy stem which generated this result transmitted reference range : 22 - 29 mEq/L. The reference range was not used to interpret this result as normal/abnormal . Anion Gap (test 9 See_Comment [Automated code = 58224-0) message] The system which generated this result transmitted reference range : 4 - 14 mEq/L. The reference range was not used to interpret this result as normal/abnormal . JOSHUA (test code = Please schedule JOSHUA) [facility] [place]ro[place] [id number] 21:10:04 Test Item Value Reference Range Interpretation Comments Sodium Lvl (test 140 See_Comment [Automated code = 2951-2) message] The system which generated this result transmitted reference range : 136 - 145 mEq/L . The reference r gómez was not used to interpret this result as normal/abnormal . Potassium Lvl 4.5 See_Comment [Automated (test code = message] The sy stem 2823-3) which generated this result transmitted reference range : 3.5 - 5.1 mEq/L . The reference r gómez was not used to interpret this result as normal/abnormal . Chloride (test 105 See_Comment [Automated code = 2074-0) message] The system which generated this result transmitted reference range : 98 - 107 mEq/L. Th e reference range was not used to interpret this result as normal/abnormal . CO2 (test code = 26 See_Comment [Automated 2028-05) message] The sy stem which generated this result transmitted reference range : 22 - 29 mEq/L. The reference range was not used to interpret this result as normal/abnormal . Anion Gap (test 9 See_Comment [Automated code = 07021-9) message] The system which generated this result transmitted reference range : 4 - 14 mEq/L. The reference range was not used to interpret this result as normal/abnormal . JOSHUA (test code = Please schedule JOSHUA) [facility] HospitalGlucose [id number] 21:10:03 Test Item Value Reference Range Interpretation Comments Glucose Level (test 128 mg/dL 70-99 H Effectiv e 03/30/16, code = 2345-7) the glucose reference intervals have been updated ba sed on [place] [employer] guidelines (Standards of Medical Care in Diabetes 2016. Diabetes Care 2016; 39: S13-S22).Fastin g blood glucose:Normal: 70-99 mg/dLImpaired fasting glucose (increased risk for diabetes or pre-diabetes): 100-125 mg/dLDiabetes mellitus: >/=12 6 mg/dL Random bl ood glucose:Normal: 70-199 mg/dLNot e: Random glucose >100 mg/dL is associated with increased risk for diabetes JOSHUA (test code = JOSHUA) Please schedule in Lab Interpretation Abnormal (test code = 16217-4) [facility] Tgkgy4537-05-18 21:10:03 Test Item Value Reference Range Interpretation Comments Glucose Level (test 128 mg/dL 70-99 H Effectiv e 03/30/16, code = 2345-7) the glucose reference intervals have been updated ba sed on [place] [employer] guidelines (Standards of Medical Care in Diabetes 2016. Diabetes Care 2016; 39: S13-S22).Fastin g blood glucose:Normal: 70-99 mg/dLImpaired fasting glucose (increased risk for diabetes or pre-diabetes): 100-125 mg/dLDiabetes mellitus: >/=12 6 mg/dL Random bl ood glucose:Normal: 70-199 mg/dLNot e: Random glucose >100 mg/dL is associated with increased risk for diabetes JOSHUA (test code = JOSHUA) Please schedule in LC Lab Interpretation Abnormal (test code = 54747-8) [facility]iscoGlomerular Filtration Rate 2022-12-18 21:10:00 Test Item Value Reference Range Interpretation Comments eGFR (test 95 See_Comment The eGFRcr is c alculated code = with the 2020 C KD-EPI 57961-8) creatinine equa tion using creatinin e, patient's age, and sex for adults 18 y ears of age and older. Other factors, especi ally muscle mass, ma y affect accuracy and ne ed to be considered.Acco rding to the Kidney Dise ase: Improving Globa l Outcomes (KDIGO ) CKD Work Group 2012 Clinical Practice Guidel ine, chronic kidney disease (CKD) is define d as the abnormalities o f kidney structure or fu nction, present for mor e than 3 months, with implications fo r health. CKD should be c lassified by cause, GFR c ategory, and albuminuria category. KDIGO guidelines prov jose the following GFR categoriesStage Description GFR mL/min/1.73 m2G 1* Normal or high >= 90G2 * Mildly decreased 60-89 G3a Mildly to moder ately decreased 45-59 G3b Moderately to s everely decreased 30-44 G4 Severely decrea sed 15-29G5 Kidney failure <15*In the abse nce of evidence of kid dragan damage, neither G1 nor G2 fulfill crit eria for CKD. [Automated message] The system [employer] generated this result transmitted ref erence range: >=60 mL/ min/1.73 sq. m. The refe rence range was not u sed to interpret this result as normal/abnormal . JOSHUA (test Please schedule code = JOSHUA) in [facility] [place]omerular Filtration Rate 2022-12-18 21:10:00 Test Item Value Reference Range Interpretation Comments eGFR (test 95 See_Comment The eGFRcr is c alculated code = with the 2020 C KD-EPI 33432-9) creatinine equa tion using creatinin e, patient's age, and sex for adults 18 y ears of age and older. Other factors, especi ally muscle mass, ma y affect accuracy and ne ed to be considered.Acco rding to the Kidney Dise ase: Improving Globa l Outcomes (KDIGO ) CKD Work Group 2012 Clinical Practice Guidel ine, chronic kidney disease (CKD) is define d as the abnormalities o f kidney structure or fu nction, present for mor e than 3 months, with implications fo r health. CKD should be c lassified by cause, GFR c ategory, and albuminuria category. KDIGO guidelines prov jose the following GFR categoriesStage Description GFR mL/min/1.73 m2G 1* Normal or high >= 90G2 * Mildly decreased 60-89 G3a Mildly to moder ately decreased 45-59 G3b Moderately to s everely decreased 30-44 G4 Severely decrea sed 15-29G5 Kidney failure <15*In the abse nce of evidence of kid dragan damage, neither G1 nor G2 fulfill crit eria for CKD. [Automated message] The system [employer] generated this result transmitted ref erence range: >=60 mL/ min/1.73 sq. m. The refe rence range was not u sed to interpret this result as normal/abnormal . JOSHUA (test Please schedule code = JOSHUA) [facility] HospitalTotal Deyxowm2160-70-04 21:09:59 Test Item Value Reference Range Interpretation Comments Total Protein (test 6.9 g/dL 6.4-8.3 code = 2885-2) JOSHUA (test code = JOSHUA) Please schedule [facility]Total Pirnpzn8312-06-44 21:09:59 Test Item Value Reference Range Interpretation Comments Total Protein (test 6.9 g/dL 6.4-8.3 code = 2885-2) JOSHUA (test code = JOSHUA) Please schedule in [facility] HospitalMagnesium Xtpuw3619-52-07 21:09:58 Test Item Value Reference Range Interpretation Comments Magnesium (test code = 2.1 mg/dL 1.6-2.6 70372-1) JOSHUA (test code = JOSHUA) Please schedule in [facility] HospitalMagnesium Owimn0830-02-05 21:09:58 Test Item Value Reference Range Interpretation Comments Magnesium (test code = 2.1 mg/dL 1.6-2.6 52052-3) JOSHUA (test code = JOSHUA) Please schedule in [facility] HospitalALT2023-04-16 21:09:57 Test Item Value Reference Range Interpretation Comments ALT (test code = 22 U/L <=41 1742-6) JOSHUA (test code = JOSHUA) Please schedule [facility] HospitalALT2023-04-16 21:09:57 Test Item Value Reference Range Interpretation Comments ALT (test code = 22 U/L <=41 1742-6) JOSHUA (test code = JOSHUA) Please schedule in [facility].Serum Wbbokipgsc2807-80-19 21:09:56 Test Item Value Reference Range Interpretation Comments Creatinine (test code = 0.72 mg/dL 0.67-1.17 2160-0) JOSHUA (test code = JOSHUA) Please schedule in [facility].Serum Eeclcikxqm2435-06-99 21:09:56 Test Item Value Reference Range Interpretation Comments Creatinine (test code = 0.72 mg/dL 0.67-1.17 2160-0) JOSHUA (test code = JOSHUA) Please schedule in [facility] HospitalBUN2023-04-16 21:09:55 Test Item Value Reference Range Interpretation Comments BUN (test code = 13 mg/dL 6-23 3094-0) JOSHUA (test code = JOSHUA) Please schedule [facility] HospitalBUN2023-04-16 21:09:55 Test Item Value Reference Range Interpretation Comments BUN (test code = 13 mg/dL 02-24 3094-0) JOSHUA (test code = JOSHUA) Please schedule in [facility] HospitalTestosterone Prnvq6981-70-79 21:09:54 Test Item Value Reference Range Interpretation Comments Testoster Tot (test 7 ng/dL 193-740 L Referenc e code = 2986-8) Ranges: Male: Age 20 - 49 24 9 - 836 Age >=50 193 - 740 Female: Age 20 - 49 8 - 48 Age >=50 3 - 41 JOSHUA (test code = JOSHUA) Please schedule in Lab Interpretation Abnormal (test code = 59363-9) [facility]Testosterone Zjbpe0922-78-61 21:09:54 Test Item Value Reference Range Interpretation Comments Testoster Tot (test 7 ng/dL 193-740 L Referenc e code = 2986-8) Ranges: Male: Age 20 - 49 249 - 836 Age >=50 193 - 740 Female: Age 20 - 49 8 - 48 Age >=50 3 - 41 JOSHUA (test code = JOSHUA) Please schedule in Lab Interpretation Abnormal (test code = 32119-6) [facility]iscoLDH2023-04-16 21:00:52 Test Item Value Reference Range Interpretation Comments LDH (test code = 350 U/L 135-225 H Results gre ater 00874-6) than 1651 U/L m ay not be reliable due to matrix effect with extended diluti on as it exceeds t he soil expert's recommended wood it. Caution should be exercised when interpreting sanon ch values and done in conjunction wit h clinical contex t. JOSHUA (test code = JOSHUA) Please schedule in LC Lab Interpretation Abnormal (test code = 33165-7) [facility]iscoLDH2023-[facility]-16 21:00:52 Test Item Value Reference Range Interpretation Comments LDH (test code = 350 U/L 135-225 H Results gre ater 70751-5) than 1651 U/L m ay not be reliable due to matrix effect with extended diluti on as it exceeds t he soil expert's recommended wood it. Caution should be exercised when interpreting sanon ch values and done in conjunction wit h clinical contex t. JOSHUA (test code = JOSHUA) Please schedule in LC Lab Interpretation Abnormal (test code = 42630-0) [facility]iscoLDH2023-[facility]-16 21:00:52 Test Item Value Reference Range Interpretation Comments LDH (test code = 350 U/L 135-225 H Results gre ater 54464-2) than 1651 U/L m ay not be reliable due to matrix effect with extended diluti on as it exceeds t he soil expert's recommended wood it. Caution should be exercised when interpreting sanon ch values and done in conjunction wit h clinical contex t. JOSHUA (test code = JOSHUA) Please schedule in LC Lab Interpretation Abnormal (test code = 53409-0) [facility] FriscoDifferential2023-04-16 20:39:23 Test Item Value Reference Range Interpretation Comments Neutrophil % (test 44.3 % 42.0-66.0 code = 770-8) Lymphocyte % (test 39.0 % 24.0-44.0 code = 736-9) Monocyte % (test code 9.1 % 2.0-7.0 H = 5905-5) Eosinophil % (test 6.0 % 1.0-4.0 H code = 713-8) Basophil % (test code 0.8 % 0.0-1.0 = 706-2) IGRE % (test code = 0.8 % 0.0-0.4 H IGRE % c ount 52089-7) includes Metamyelocytes, Myelocytes, and Promyelocytes. Neutrophil Abs (test 2.20 K/uL 1.70-7.30 code = 751-8) Lymphocyte Abs (test 1.94 K/uL 1.00-4.80 code = 731-0) Monocyte Abs (test 0.45 K/uL 0.08-0.70 code = 742-7) Eosinophil Abs (test 0.30 K/uL 0.04-0.40 code = 711-2) Basophil Abs (test 0.04 K/uL 0.00-0.10 code = 704-7) IG Abs (test code = 0.04 K/uL 0.00-0.04 38763-8) JOSHUA (test code = JOSHUA) Please schedule in LC Lab Interpretation Abnormal (test code = 01652-0) [facility] KtybgiErtbibllyamw7938-54-52 20:39:23 Test Item Value Reference Range Interpretation Comments Neutrophil % (test 44.3 % 42.0-66.0 code = 770-8) Lymphocyte % (test 39.0 % 24.0-44.0 code = 736-9) Monocyte % (test code 9.1 % 2.0-7.0 H = 5905-5) Eosinophil % (test 6.0 % 1.0-4.0 H code = 713-8) Basophil % (test code 0.8 % 0.0-1.0 = 706-2) IGRE % (test code = 0.8 % 0.0-0.4 H IGRE % c ount 41500-3) includes Metamyelocytes, Myelocytes, and Promyelocytes. Neutrophil Abs (test 2.20 K/uL 1.70-7.30 code = 751-8) Lymphocyte Abs (test 1.94 K/uL 1.00-4.80 code = 731-0) Monocyte Abs (test 0.45 K/uL 0.08-0.70 code = 742-7) Eosinophil Abs (test 0.30 K/uL 0.04-0.40 code = 711-2) Basophil Abs (test 0.04 K/uL 0.00-0.10 code = 704-7) IG Abs (test code = 0.04 K/uL 0.00-0.04 29242-9) JOSHUA (test code = JOSHUA) Please schedule in LC Lab Interpretation Abnormal (test code = 49500-1) [facility] [place].NCD9997-15-32 20:39:11 Test Item Value Reference Range Interpretation Comments WBC (test code = 5.0 K/uL 4.0-11.0 6690-2) RBC (test code = 3.66 See_Comment L [Automated 789-8) message] The sy stem which generated this result transmitted reference range : 4.50 - 6.00 M/u L. The reference r gómez was not used to interpret this result as normal/abnormal . Hgb (test code = 10.1 See_Comment L [Automated 718-7) message] The sy stem which generated this result transmitted reference range : 14.0 - 18.0 gm/ dL. The reference r gómez was not used to interpret this result as normal/abnormal . Hct (test code = 31.3 % 40.0-54.0 L 4544-3) MCV (test code = 86 fL 82-98 787-2) MCH (test code = 27.6 pg 27.0-31.0 785-6) MCHC (test code = 32.3 See_Comment [Automate d 786-4) message] The sy stem which generated this result transmitted reference range : 31.0 - 36.0 gm/ dL. The reference r gómez was not used to interpret this result as normal/abnormal . RDW-SD (test code = 47.9 fL 35.1-46.3 H 52624-1) RDW-CV (test code = 15.4 % 12.0-15.5 788-0) Platelet count (test 123 K/uL 140-440 L code = 777-3) MPV (test code = 10.6 fL 4.0-10.4 H 48157-5) INRBC (test code = 0.0 % <=0.0 The INRBC 55242-7) (instrument NRB C) value reflects the enumerationof nucleated red b lood cells contained in a 200uL sampleo f whole blood analyzed by the instrument. Thi s value maydiffer from the NRBC v alue reported in a manual differential,wh ich is based on a 1 00 cell differenti al. JOSHUA (test code = JOSHUA) Please schedule in LC Lab Interpretation Abnormal (test code = 56841-8) [facility] [place].[id number] 20:39:11 Test Item Value Reference Range Interpretation Comments WBC (test code = 5.0 K/uL 4.0-11.0 6690-2) RBC (test code = 3.66 See_Comment L [Automated 789-8) message] The sy stem which generated this result transmitted reference range : 4.50 - 6.00 M/u L. The reference r gómez was not used to interpret this result as normal/abnormal . Hgb (test code = 10.1 See_Comment L [Automated 718-7) message] The sy stem which generated this result transmitted reference range : 14.0 - 18.0 gm/ dL. The reference r gómez was not used to interpret this result as normal/abnormal . Hct (test code = 31.3 % 40.0-54.0 L 4544-3) MCV (test code = 86 fL 82-98 787-2) MCH (test code = 27.6 pg 27.0-31.0 785-6) MCHC (test code = 32.3 See_Comment [Automate d 786-4) message] The sy stem which generated this result transmitted reference range : 31.0 - 36.0 gm/ dL. The reference r gómez was not used to interpret this result as normal/abnormal . RDW-SD (test code = 47.9 fL 35.1-46.3 H 79556-3) RDW-CV (test code = 15.4 % 12.0-15.5 788-0) Platelet count (test 123 K/uL 140-440 L code = 777-3) MPV (test code = 10.6 fL 4.0-10.4 H 84500-9) INRBC (test code = 0.0 % <=0.0 The INRBC 93823-4) (instrument NRB C) value reflects the enumerationof nucleated red b lood cells contained in a 200uL sampleo f whole blood analyzed by the instrument. Thi s value maydiffer from the NRBC v alue reported in a manual differential,wh ich is based on a 1 00 cell differenti al. JOSHUA (test code = JOSHUA) Please schedule in LC Lab Interpretation Abnormal (test code = 03036-3) [place] [address] [id number] 19:52:48 Test Item Value Reference Range Interpretation Comments T4 Free (test code 1.04 ng/dL 0.93-1.70 Testing P erformed at [facility] = 3024-7) Lab [facility], [address], [place] [address] [id number] 19:52:48 Test Item Value Reference Range Interpretation Comments T4 Free (test code 1.04 ng/dL 0.93-1.70 Testing P erformed at [facility] = 3024-7) Lab [facility], [address], [place] [address] [id number] 19:52:48 Test Item Value Reference Range Interpretation Comments T4 Free (test code 1.04 ng/dL 0.93-1.70 Testing P erformed at [facility] = 3024-7) Lab [facility], [address], [place] [address] [id number] 19:52:48 Test Item Value Reference Range Interpretation Comments T4 Free (test code 1.04 ng/dL 0.93-1.70 Testing P erformed at [facility] = 3024-7) Lab [facility], [address], [place] [address] [id number] 19:52:48 Test Item Value Reference Range Interpretation Comments T4 Free (test code 1.04 ng/dL 0.93-1.70 Testing P erformed at [facility] = 3024-7) Lab [facility], [address], [address]TSH2023-04-07 19:52:47 Test Item Value Reference Range Interpretation Comments TSH (test code = 3.30 See_Comment Note: New M ethodology and 94416-0) Reference Range change effective 2017 at 1400 Testing Perform ed at [facility], [address], [place] [address] [Automated mess age] The system which ge nerated this result transmit juli reference range : 0.27 - 4.20 mcunit/mL. The reference range was not used to interpr et this result as moira l/abnormal. [facility] 19:52:47 Test Item Value Reference Range Interpretation Comments TSH (test code = 3.30 See_Comment Note: Kaushik Sherman ethodology and 52785-8) Reference Range change effective 2017 at 1400 Testing Perform ed at [facility], [address], [place] [address] [Automated mess age] The system which ge nerated this result transmit juli reference range : 0.27 - 4.20 mcunit/mL. The reference range was not used to interpr et this result as moira l/abnormal. [facility] 19:52:47 Test Item Value Reference Range Interpretation Comments TSH (test code = 3.30 See_Comment Note: Kaushik Sherman ethodology and 41247-1) Reference Range change effective 2017 at 1400 Testing Perform ed at [facility], [address], [place] [address] [Automated mess age] The system which ge nerated this result transmit juli reference range : 0.27 - 4.20 mcunit/mL. The reference range was not used to interpr et this result as moira l/abnormal. [facility]07 19:52:47 Test Item Value Reference Range Interpretation Comments TSH (test code = 3.30 See_Comment Note: Kaushik Sherman ethodology and 24090-0) Reference Range change effective 2017 at 1400 Testing Perform ed at [facility] dg, [address], [address], [place] [address] [Automated mess age] The system which ge nerated this result transmit juli reference range : 0.27 - 4.20 mcunit/mL. The reference range was not used to interpr et this result as moira l/abnormal. [facility]07 19:52:47 Test Item Value Reference Range Interpretation Comments TSH (test code = 3.30 See_Comment Note: Kaushik Sherman ethodology and 29637-0) Reference Range change effective 2017 at 1400 Testing Perform ed at [facility] Lab [facility], [address], [place] [address] [Automated mess age] The system which ge nerated this result transmit juli reference range : 0.27 - 4.20 mcunit/mL. The reference range was not used to interpr et this result as moira l/abnormal. [facility] NGS Blood [id number] 19:30:03 Test Item Value Reference Range Interpretation Comments Molecular Diagnostics (Received) (test Yes code = 8400) [facility] Blood [id number] 19:30:03 Test Item Value Reference Range Interpretation Comments Molecular Diagnostics (Received) (test Yes code = 8400) [facility] NGS Blood [id number] 19:30:03 Test Item Value Reference Range Interpretation Comments Molecular Diagnostics (Received) (test Yes code = 8400) [facility] NGS Blood [id number] 19:30:03 Test Item Value Reference Range Interpretation Comments Molecular Diagnostics (Received) (test Yes code = 8400) [facility] NGS Blood [id number] 19:30:03 Test Item Value Reference Range Interpretation Comments Molecular Diagnostics (Received) (test Yes code = 8400) [facility] NGS Blood [id number] 19:30:03 Test Item Value Reference Range Interpretation Comments Molecular Diagnostics (Received) (test Yes code = 8400) [facility] NGS Blood [id number] 19:30:03 Test Item Value Reference Range Interpretation Comments Molecular Diagnostics (Received) (test Yes code = 8400) [facility] NGS Blood [id number] 19:30:03 Test Item Value Reference Range Interpretation Comments Molecular Diagnostics (Received) (test Yes code = 8400) [facility]isco[facility] [id number] 23:38:53 Test Item Value Reference Range Interpretation Comments Alk Phos (test code = 2826 U/L 40-129 H Testin g Performed at [facility]) [facility] Lab [facility], [address], [place] [address] Lab Interpretation (test Abnormal code = 39967-6) [facility]iscoAlk[facility] [id number] 23:38:53 Test Item Value Reference Range Interpretation Comments Alk Phos (test code = 2826 U/L 40-129 H Testin g Performed at [facility]) [facility], [address], [place] [address] Lab Interpretation (test Abnormal code = 98165-3) [facility]isco[facility] [id number] 23:38:53 Test Item Value Reference Range Interpretation Comments Alk Phos (test code = 2826 U/L 40-129 H Testin g Performed at [facility]) [facility], [address], [place] [address] Lab Interpretation (test Abnormal code = 31981-1) [facility]iscoAspart[facility] Aminotransferase 2022-11-02 23:38:52 Test Item Value Reference Range Interpretation Comments AST (test code = 37 U/L <=40 Specimen is lipemic. 1920-8) Results may be falsely decreased. Repe at test if needed.Testing Performed at [facility] Lab [facility], [address], [place] [address] [facility]iscoAspartate Aminotransferase 2022-11-02 23:38:52 Test Item Value Reference Range Interpretation Comments AST (test code = 37 U/L <=40 Specimen is lipemic. 1920-8) Results may be falsely decreased. Repe at test if needed.Testing Performed at [facility] Lab [facility], [address], [place] [address] [facility] FriscoAspartate Aminotransferase 2022-11-02 23:38:52 Test Item Value Reference Range Interpretation Comments AST (test code = 37 U/L <=40 Specimen is lipemic. 1920-8) Results may be falsely decreased. Repe at test if needed.Testing Performed at [facility] Lab [facility], [address], [place] [address] [facility] FriscoALT2023-03-01 23:38:51 Test Item Value Reference Range Interpretation Comments ALT (test code = 26 U/L <=41 Specimen is lipemic. 1742-6) Results may be falsely decreased. Repe at test if needed.Testing Performed at [facility], [address], [place] [address] [facility]iscoALT2023-03-01 23:38:51 Test Item Value Reference Range Interpretation Comments ALT (test code = 26 U/L <=41 Specimen is lipemic. 1742-6) Results may be falsely decreased. Repe at test if needed.Testing Performed at [facility] Lab [facility], [address], [place] [address] [facility]iscoALT2023-03-01 23:38:51 Test Item Value Reference Range Interpretation Comments ALT (test code = 26 U/L <=41 Specimen is lipemic. 1742-6) Results may be falsely decreased. Repe at test if needed.Testing Performed at [facility] Lab [facility], [address], [place] [address] [facility] FriscoElectrolyte [id number] 22:33:16 Test Item Value Reference Range Interpretation Comments Sodium Lvl (test code = 141 See_Comment Test ing Performed at [facility] 2951-2) Lab [facility], [address] [place] [address] B lvd, [address], [place] [address] [Automated mess age] The system which ge nerated this result tra nsmitted reference range : 136 - 145 mEq/L. The reference range was not u sed to interpret this result as normal/abnormal . Potassium Lvl (test 4.6 See_Comment Testing Performed at [facility] code = 2823-3) Lab Ambulator y Care [facility], [address], [place] [address] [Automated mess age] The system which ge nerated this result tra nsmitted reference range : 3.5 - 5.1 mEq/L. The reference range was not u sed to interpret this result as normal/abnormal . Chloride (test code = 104 See_Comment Testin g Performed at [facility] ) Lab [facility], [address], [place] [address] [Automated mess age] The system which ge nerated this result tra nsmitted reference range : 98 - 107 mEq/L. The refe rence range was not u sed to interpret this result as normal/abnormal . CO2 (test code = 24 See_Comment Testing Per formed at [facility] 2028-05) [facility], [address], [place] [address] [Automated mess age] The system which ge nerated this result tra nsmitted reference range : 22 - 29 mEq/L. The refe rence range was not u sed to interpret this result as normal/abnormal . Anion Gap (test code = 13 See_Comment Testi ng Performed at [facility] 31981-6) Lab [facility], [address], [place] [address] [Automated mess age] The system which ge nerated this result tra nsmitted reference range : 4 - 14 mEq/L. The refe rence range was not u sed to interpret this result as normal/abnormal . [facility] [place]Electro[place] [id number] 22:33:16 Test Item Value Reference Range Interpretation Comments Sodium Lvl (test code = 141 See_Comment Test ing Performed at [facility] 2951-2) Lab [facility], [address], [place] [address] [Automated mess age] The system which ge nerated this result tra nsmitted reference range : 136 - 145 mEq/L. The reference range was not u sed to interpret this result as normal/abnormal . Potassium Lvl (test 4.6 See_Comment Testing Performed at [facility] code = 2823-3) Lab [facility]ulator [facility] Care [facility], [address], [place] [address] [Automated mess age] The system which ge nerated this result tra nsmitted reference range : 3.5 - 5.1 mEq/L. The reference range was not u sed to interpret this result as normal/abnormal . Chloride (test code = 104 See_Comment Testin g Performed at [facility] 0) Lab [facility], [address], [place] [address] [Automated mess age] The system which ge nerated this result tra nsmitted reference range : 98 - 107 mEq/L. The refe rence range was not u sed to interpret this result as normal/abnormal . CO2 (test code = 24 See_Comment Testing Per formed at [facility] 2028-05) [facility], [address], [place] [address] [Automated mess age] The system which ge nerated this result tra nsmitted reference range : 22 - 29 mEq/L. The refe rence range was not u sed to interpret this result as normal/abnormal . Anion Gap (test code = 13 See_Comment Testi ng Performed at [facility] 78767-6) Lab [facility], [address], [place] [address] [Automated mess age] The system which ge nerated this result tra nsmitted reference range : 4 - 14 mEq/L. The refe rence range was not u sed to interpret this result as normal/abnormal . [facility] [place]Electro[place] [id number] 22:33:16 Test Item Value Reference Range Interpretation Comments Sodium Lvl (test code = 141 See_Comment Test ing Performed at [facility] 2951-2) Lab [facility], [address], [place] [address] [Automated mess age] The system which ge nerated this result tra nsmitted reference range : 136 - 145 mEq/L. The reference range was not u sed to interpret this result as normal/abnormal . Potassium Lvl (test 4.6 See_Comment Testing Performed at [facility] code = 2823-3) Lab [facility], [address], [place] [address] [Automated mess age] The system which ge nerated this result tra nsmitted reference range : 3.5 - 5.1 mEq/L. The reference range was not u sed to interpret this result as normal/abnormal . Chloride (test code = 104 See_Comment Testin g Performed at [facility] 0) Lab [facility], [address], [place] [address] [Automated mess age] The system which ge nerated this result tra nsmitted reference range : 98 - 107 mEq/L. The refe rence range was not u sed to interpret this result as normal/abnormal . CO2 (test code = 24 See_Comment Testing Per formed at [facility] 2028-05) Lab [facility], [address], [place] [address] [Automated mess age] The system which ge nerated this result tra nsmitted reference range : 22 - 29 mEq/L. The refe rence range was not u sed to interpret this result as normal/abnormal . Anion Gap (test code = 13 See_Comment Testi ng Performed at [facility] 93152-0) Lab [facility], [address], [place] [address] [Automated mess age] The system which ge nerated this result tra nsmitted reference range : 4 - 14 mEq/L. The refe rence range was not u sed to interpret this result as normal/abnormal . [facility] [place] BeachFractionated [id number] 22:33:15 Test Item Value Reference Range Interpretation Comments Bili Total (test 0.3 mg/dL <=1.2 Indocyanine Green (ICG) code = 1974-) may cause fal sely elevated biliru bin results. Total and direct bilirubin must not be measured from s amples containing indo cyanine green. False el evation of total bilirubin can be seen in patient s with IgG concentrations above 28 g/L.Testing Per formed at [facility] Lab [facility], [address], [place] [address] Bili Direct (test <=0.3 Indocyanin e Green (ICG) code = 1968-03) may cause fal sely elevated biliru bin results. Total and direct bilirubin must not be measured from s amples containing indo cyanine green. Testing Performed at [facility] Lab [facility], [address], [place] [address] Bili Indirect (test See Note 0.0-0.9 Unable t o calculate code = 1970-09) Indirect Bili espino result due to some par ameters are outside rep ortable rangeTesting Pe rformed at [facility] Lab [facility], [address], [place] [id number] [facility] FriscoFractionated [id number] 22:33:15 Test Item Value Reference Range Interpretation Comments Bili Total (test 0.3 mg/dL <=1.2 Indocyanine Green (ICG) code = 1974-10) may cause fal sely elevated biliru bin results. Total and direct bilirubin must not be measured from s amples containing indo cyanine green. False el evation of total bilirubin can be seen in patient s with IgG concentrations above 28 g/L.Testing Per formed at [facility], [address], [place] [address] Bili Direct (test <=0.3 Indocyanin e Green (ICG) code = 1968-03) may cause fal sely elevated biliru bin results. Total and direct bilirubin must not be measured from s amples containing indo cyanine green. Testing Performed at [facility], [address], [address], [place] [address] Bili Indirect (test See Note 0.0-0.9 Unable t o calculate code = 1970-09) Indirect Bili espino result due to some par ameters are outside rep ortable rangeTesting Pe rformed at [facility] Lab [facility], [address], [facility] [place] [place] [address] [facility]iscoFractionated [id number] 22:33:15 Test Item Value Reference Range Interpretation Comments Bili Total (test 0.3 mg/dL <=1.2 Indocyanine Green (ICG) code = 1974-) may cause fal sely elevated biliru bin results. Total and direct bilirubin must not be measured from s amples containing indo cyanine green. False el evation of total bilirubin can be seen in patient s with IgG concentrations above 28 g/L.Testing Per formed at [facility] Lab [facility] or[facility] Care dg, [address], [place] [address] Bili Direct (test <=0.3 Indocyanin e Green (ICG) code = 1967-) may cause fal sely elevated biliru bin results. Total and direct bilirubin must not be measured from s amples containing indo cyanine green. Testing Performed at [facility] Lab Ambu [facility], [address], [place] [address] Bili Indirect (test See Note 0.0-0.9 Unable t o calculate code = 1970-09) Indirect Bili espino result due to some par ameters are outside rep ortable rangeTesting Pe rformed at [facility] Lab [facility] Care dg, [address], [place] [address] [facility] [place] BeachGlomerular Filtration Rate 2022-11-02 22:33:13 Test Item Value Reference Range Interpretation Comments eGFR (test code = 94 See_Comment [place] [address]-6) the 2020 CKD-EP I creatinine equation using creatinine, patient's age, and sex for adults 18 years of age and older. Other fa ctors, especially musc le mass, may affect accuracy and need to be considered.A ccording to the Kidney Dise ase: Improving Global Outcomes (KDIGO) CKD Work Group 2012 Clinical Practice Guidel ine, chronic kidney disease (CKD) is defined as the abnormalities of kidney struc ture or function, prese nt for more than 3 months, with implications fo r health. CKD should be class ified by cause, GFR kathi gory, and albuminuria cat egory. KDIGO guidelines prov jose the following GFR c ategoriesStage Description GFR mL/min/1.73 m2G1* Normal or high >= 90G2* Mildly decrease d 60-89G3a Mildly to moder ately decreased 45-59 G3b Moderately to severely dec reased 30-44G4 Severely decrea sed 15-29G5 Kidney failure <15*In the absence of evid ence of kidney damage, neither G1 nor G2 fulfill criteri a for CKD. Testing Perform ed at [facility] Lab [facility], [address] [place] [address], [address], [place], [place] [address] [Automated message] The sy stem which generated this result transmitted ref erence range: >=60 mL/min/1.7 3 sq. m. The reference range was not used to interpret th is result as normal/abnormal . [facility]iscoGlomer[facility] Fil[facility] Rate 2022-11-02 22:33:13 Test Item Value Reference Range Interpretation Comments eGFR (test code = 94 See_Comment The eGFRcr [place] [address]-4) the 2020 CKD-EP I creatinine equation using creatinine, patient's age, and sex for adults 18 years of age and older. Other fa ctors, especially musc le mass, may affect accuracy and need to be considered.A ccording to the Kidney Dise ase: Improving Global Outcomes (KDIGO) CKD Work Group 2012 Clinical Practice Guidel ine, chronic kidney disease (CKD) is defined as the abnormalities of kidney struc ture or function, prese nt for more than 3 months, with implications fo r health. CKD should be class ified by cause, GFR kathi gory, and albuminuria cat egory. KDIGO guidelines prov jose the following GFR c ategoriesStage Description GFR mL/min/1.73 m2G1* Normal or high >= 90G2* Mildly decrease d 60-89G3a Mildly to moder ately decreased 45-59 G3b Moderately to severely dec reased 30-44G4 Severely decrea sed 15-29G5 Kidney failure <15*In the absence of evid ence of kidney damage, neither G1 nor G2 fulfill criteri a for CKD. Testing Perform ed at [facility] Lab [facility], [address] [place] [address], [address], [place], [place] [address] [Automated message] The sy stem which generated this result transmitted ref erence range: >=60 mL/min/1.7 3 sq. m. The reference range was not used to interpret th is result as normal/abnormal . [facility]isco[facility]omer[facility] Fil[facility] Rate 2022-11-02 22:33:13 Test Item Value Reference Range Interpretation Comments eGFR (test code = 94 See_Comment The eGFRcr [place] calculated [place] 68677-5) the 2020 CKD-EP I creatinine equation using creatinine, patient's age, and sex for adults 18 years of age and older. Other fa ctors, especially musc le mass, may affect accuracy and need to be considered.A ccording to the Kidney Dise ase: Improving Global Outcomes (KDIGO) CKD Work Group 2012 Clinical Practice Guidel ine, chronic kidney disease (CKD) is defined as the abnormalities of kidney struc ture or function, prese nt for more than 3 months, with implications fo r health. CKD should be class ified by cause, GFR kathi gory, and albuminuria cat egory. KDIGO guidelines prov jose the following GFR c ategoriesStage Description GFR mL/min/1.73 m2G1* Normal or high >= 90G2* Mildly decrease d 60-89G3a Mildly to moder ately decreased 45-59 G3b Moderately to severely dec reased 30-44G4 Severely decrea sed 15-29G5 Kidney failure <15*In the absence of evid ence of kidney damage, neither G1 nor G2 fulfill criteri a for CKD. Testing Perform ed at [facility] Lab [facility], [address], [address], [place], [place] [address] [Automated message] The sy stem which generated this result transmitted ref erence range: >=60 mL/min/1.7 3 sq. m. The reference range was not used to interpret th is result as normal/abnormal . [id number] 22:33:12 Test Item Value Reference Range Interpretation Comments Total Protein (test 7.1 g/dL 6.4-8.3 Testing Performed at [facility] code = 2885-2) Lab Ambulator y Care [facility], [address], [address], [place] [address] [facility] [id number] 22:33:12 Test Item Value Reference Range Interpretation Comments Total Protein (test 7.1 g/dL 6.4-8.3 Testing Performed at [facility] code = 2885-2) Lab Ambulator y Care [facility], [address], [address], [place] [address] [facility] [id number] 22:33:12 Test Item Value Reference Range Interpretation Comments Total Protein (test 7.1 g/dL 6.4-8.3 Testing Performed at [facility] code = 2885-2) Lab Ambulator y Care Bldg, [address], [address], [place] [address] [facility]isco[facility] [id number] 22:33:11 Test Item Value Reference Range Interpretation Comments Calcium Lvl (test 9.0 mg/dL 8.4-10.2 Testing Pe rformed at code = 43252-8) [facility] Lab Ambu latory [facility], [address], [address], [place], [place] [address] [facility]isco[facility] [id number] 22:33:11 Test Item Value Reference Range Interpretation Comments Calcium Lvl (test 9.0 mg/dL 8.4-10.2 Testing Pe rformed at code = 23325-2) [facility], [address], [address], [place], [place] [address] [facility] [id number] 22:33:11 Test Item Value Reference Range Interpretation Comments Calcium Lvl (test 9.0 mg/dL 8.4-10.2 Testing Pe rformed at code = 19280-7) [facility] Lab [facility], [address], [address], [place], [place] [address] [facility]iscoAlbumin [id number] 22:33:10 Test Item Value Reference Range Interpretation Comments Albumin Lvl (test code 4.2 See_Comment Testi ng Performed at [facility] = 1751-7) Lab [facility], [address], [address], [place] [address] [Automated mess age] The system which ge nerated this result tra nsmitted reference range : 3.5 - 5.2 gm/dL. The refe rence range was not used to interpret this result as normal/abnormal . [facility]isco[facility] [id number] 22:33:10 Test Item Value Reference Range Interpretation Comments Albumin Lvl (test code 4.2 See_Comment Testi ng Performed at B = 1751-7) Lab [facility], [address], [address], [place] [address] [Automated mess age] The system which ge nerated this result tra nsmitted reference range : 3.5 - 5.2 gm/dL. The refe rence range was not used to interpret this result as normal/abnormal . [facility]iscoAlbumin [id number] 22:33:10 Test Item Value Reference Range Interpretation Comments Albumin Lvl (test code 4.2 See_Comment Testi ng Performed at [facility] = 1751-7) Lab [facility], [address], [address], [place] [address] [Automated mess age] The system which ge nerated this result tra nsmitted reference range : 3.5 - 5.2 gm/dL. The refe rence range was not used to interpret this result as normal/abnormal . [facility].Serum [id number] 22:33:08 Test Item Value Reference Range Interpretation Comments Creatinine (test code 0.74 mg/dL 0.67-1.17 Testin g Performed at = 2160-0) [facility] Lab Ambulat ory Care [facility], [address], [address], [place] [address] [facility].Serum [id number] 22:33:08 Test Item Value Reference Range Interpretation Comments Creatinine (test code 0.74 mg/dL 0.67-1.17 Testin g Performed at = 2160-0) [facility] Lab Ambulat ory Care Bld[facility], [address], [address], [place] [address] [facility].Serum [id number] 22:33:08 Test Item Value Reference Range Interpretation Comments Creatinine (test code 0.74 mg/dL 0.67-1.17 Testin g Performed at = 2160-0) [facility] Lab Ambulat ory Care Bldg, [address], [address], [place] [address] [facility] FriscoBUN2023-03-01 22:33:07 Test Item Value Reference Range Interpretation Comments BUN (test code = 10 mg/dL 6-23 Testing Per formed at [facility] 309-0) [facility], [address], [address], [place] [address] [facility]iscoBUN2023-03-01 22:33:07 Test Item Value Reference Range Interpretation Comments BUN (test code = 10 mg/dL 6-23 Testing Per formed at [facility] 3094-0) [facility], [address], [address], [place] [address] [facility] FriscoBUN2023-03-01 22:33:07 Test Item Value Reference Range Interpretation Comments BUN (test code = 10 mg/dL 6-23 Testing Per formed at [facility] 3090) Lab [facility] Analyst dg, [address], [address], [place] [address] [facility] FriscoGlucose [id number] 22:33:06 Test Item Value Reference Range Interpretation Comments Glucose Level (test code 103 mg/dL 70-99 H Eff ective 03/30/16, = 2345-7) the glucose reference inter vals have been updat ed based on [place] Diabetes Associ ation guidelines (Standards of Medical Care in Diabetes 2016. Diabetes Care 2 016; 39: S13-S22).Fa sting blood glucose:Normal: 70-99 mg/dLImpa ired fasting glucose (increased risk for diabetes or pre-diabetes): 100-125 mg/dLDiabetes mellitus: >/=12 6 mg/dL Random bl ood glucose:Normal: 70-199 mg/dLNot e: Random glucose >100 mg/dL is associ ated with increased risk for diabetes Te sting Performed at B Lab [facility] B[facility], [address], [address], [place], [place] [address] Lab Interpretation (test Abnormal code = 60239-7) [facility]iscoGlucose [id number] 22:33:06 Test Item Value Reference Range Interpretation Comments Glucose Level (test code 103 mg/dL 70-99 H Eff ective 03/30/16, = 2345-7) the glucose reference inter vals have been updat ed based on [place] Diabetes Associ ation guidelines (Standards of Medical Care in Diabetes 2016. Diabetes Care 2 016; 39: S13-S22).Fa sting blood glucose:Normal: 70-99 mg/dLImpa ired fasting glucose (increased risk for diabetes or pre-diabetes): 100-125 mg/dLDiabetes mellitus: >/=12 6 mg/dL Random bl ood glucose:Normal: 70-199 mg/dLNot e: Random glucose >100 mg/dL is associ ated with increased risk for diabetes Te sting Performed at [facility], [address], [address], [place], [place] [address] Lab Interpretation (test Abnormal code = 09103-6) [facility]iscoGl[facility] [id number] 22:33:06 Test Item Value Reference Range Interpretation Comments Glucose Level (test code 103 mg/dL 70-99 H Eff ective 03/30/16, = 2345-7) the glucose reference inter vals have been updat ed based on [place] an Diabetes Associ ation guidelines (Standards of Medical Care in Diabetes 2016. Diabetes Care 2 016; 39: S13-S22).Fa sting blood glucose:Normal: 70-99 mg/dLImpa ired fasting glucose (increased risk for diabetes or pre-diabetes): 100-125 mg/dLDiabetes mellitus: >/=12 6 mg/dL Random bl ood glucose:Normal: 70-199 mg/dLNot e: Random glucose >100 mg/dL is associ ated with increased risk for diabetes Te sting Performed at [facility] Care [facility], [address], [address], [place], [place] [address] Lab Interpretation (test Abnormal code = 56905-5) [facility]iscoPSA2023-03-01 21:37:14 Test Item Value Reference Range Interpretation Comments PSA (test code = 261.8 ng/mL 0.0-4.0 H Results gre ater than 2857-1) 4519 ng/mL may not be reliable due to matrix effect w ith extended diluti on as it exceeds the soil expert's recommended wood it. Caution should be exercised when interpreting sanon ch values and done in conjunction wit h clinical context.Testing Performed at [facility], [address], [address], [place], [place] [address] PSA Indication (test Diagnostic code = 57639-6) Lab Interpretation Abnormal (test code = 02236-3) [facility]iscoPSA2023-03-01 21:37:14 Test Item Value Reference Range Interpretation Comments PSA (test code = 261.8 ng/mL 0.0-4.0 H Results gre ater than 2857-1) 4519 ng/mL may not be reliable due to matrix effect w ith extended diluti on as it exceeds the soil expert's recommended wood it. Caution should be exercised when interpreting sanon ch values and done in conjunction wit h clinical context.Testing Performed at [facility] Bldg, [address], [address], [place], [place] [address] PSA Indication (test Diagnostic code = 01182-8) Lab Interpretation Abnormal (test code = 01279-1) [facility]iscoPSA2023-03-01 21:37:14 Test Item Value Reference Range Interpretation Comments PSA (test code = 261.8 ng/mL 0.0-4.0 H Results gre ater than 2857-1) 4519 ng/mL may not be reliable due to matrix effect w ith extended diluti on as it exceeds the soil expert's recommended wood it. Caution should be exercised when interpreting sanon ch values and done in conjunction wit h clinical context.Testing Performed at [facility] Care [facility], [address], [address], [place], [place] [address] PSA Indication (test Diagnostic code = 11707-1) Lab Interpretation Abnormal (test code = 93730-3) [facility]iscoTestosterone [id number] 21:10:24 Test Item Value Reference Range Interpretation Comments Testoster Tot (test code 193-740 L Ref erence Ranges: = 2986-8) Male: Age 20 - 49 249 - 836 Age > =50 193 - 740 Femal e: Age 20 - 49 8 - 48 Age >=50 3 - 41 Lab Interpretation (test Abnormal code = 41079-1) [facility]iscoTestosterone [id number] 21:10:24 Test Item Value Reference Range Interpretation Comments Testoster Tot (test code 193-740 L Ref erence Ranges: = 2986-8) Male: Age 20 - 49 249 - 836 Age > =50 193 - 740 Femal e: Age 20 - 49 8 - 48 Age >=50 3 - 41 Lab Interpretation (test Abnormal code = 79157-4) [facility]iscoTestosterone [id number] 21:10:24 Test Item Value Reference Range Interpretation Comments Testoster Tot (test code 193-740 L Ref erence Ranges: = 2986-8) Male: Age 20 - 49 249 - 836 Age > =50 193 - 740 Femal e: Age 20 - 49 8 - 48 Age >=50 3 - 41 Lab Interpretation (test Abnormal code = 78053-8) [facility] FriscoDifferential2023-03-01 20:00:59 Test Item Value Reference Range Interpretation Comments Neutrophil % (test code 48.8 % 42.0-66.0 As p art of = 770-8) Differential performed at [facility], [address], [address], [place] [address] Lymphocyte % (test code 38.8 % 24.0-44.0 = 736-9) Monocyte % (test code = 6.6 % 2.0-7.0 5905-5) Eosinophil % (test code 4.7 % 1.0-4.0 H = 713-8) Basophil % (test code = 0.6 % 0.0-1.0 706-2) IGRE % (test code = 0.5 % 0.0-0.4 H IGRE % c ount includes 71770-3) Metamyelocytes, Myelocytes, and Promyelocytes. As part of Differe ntial performed at [facility] Bld[facility], [address], [address], [place] [address] Neutrophil Abs (test 3.13 K/uL 1.70-7.30 code = 751-8) Lymphocyte Abs (test 2.48 K/uL 1.00-4.80 code = 731-0) Monocyte Abs (test code 0.42 K/uL 0.08-0.70 = 742-7) Eosinophil Abs (test 0.30 K/uL 0.04-0.40 code = 711-2) Basophil Abs (test code 0.04 K/uL 0.00-0.10 = 704-7) IG Abs (test code = 0.03 K/uL 0.00-0.04 53237-7) Lab Interpretation Abnormal (test code = 24733-9) [facility]isco[facility]ial2023-03-01 20:00:59 Test Item Value Reference Range Interpretation Comments Neutrophil % (test code 48.8 % 42.0-66.0 As p art of = 770-8) Differential performed at [facility], [address], [place] [address] Lymphocyte % (test code 38.8 % 24.0-44.0 = 736-9) Monocyte % (test code = 6.6 % 2.0-7.0 5905-5) Eosinophil % (test code 4.7 % 1.0-4.0 H = 713-8) Basophil % (test code = 0.6 % 0.0-1.0 706-2) IGRE % (test code = 0.5 % 0.0-0.4 H IGRE % c ount includes 76727-4) Metamyelocytes, Myelocytes, and Promyelocytes. As part of Differe ntial performed at [facility], [address], [address], [place] [address] Neutrophil Abs (test 3.13 K/uL 1.70-7.30 code = 751-8) Lymphocyte Abs (test 2.48 K/uL 1.00-4.80 code = 731-0) Monocyte Abs (test code 0.42 K/uL 0.08-0.70 = 742-7) Eosinophil Abs (test 0.30 K/uL 0.04-0.40 code = 711-2) Basophil Abs (test code 0.04 K/uL 0.00-0.10 = 704-7) IG Abs (test code = 0.03 K/uL 0.00-0.04 01192-2) Lab Interpretation Abnormal (test code = 82675-4) [facility]ial2023-03-01 20:00:59 Test Item Value Reference Range Interpretation Comments Neutrophil % (test code 48.8 % 42.0-66.0 As p art of = 770-8) Differential performed at [facility] Lab [facility] Analyst [facility], [address], [address], [place] [address] Lymphocyte % (test code 38.8 % 24.0-44.0 = 736-9) Monocyte % (test code = 6.6 % 2.0-7.0 5905-5) Eosinophil % (test code 4.7 % 1.0-4.0 H = 713-8) Basophil % (test code = 0.6 % 0.0-1.0 706-2) IGRE % (test code = 0.5 % 0.0-0.4 H IGRE % c ount includes 52202-7) Metamyelocytes, Myelocytes, and Promyelocytes. As part of Differe ntial performed at [facility] Lab [facility] Analy[facility], [address], [address], [place] [address] Neutrophil Abs (test 3.13 K/uL 1.70-7.30 code = 751-8) Lymphocyte Abs (test 2.48 K/uL 1.00-4.80 code = 731-0) Monocyte Abs (test code 0.42 K/uL 0.08-0.70 = 742-7) Eosinophil Abs (test 0.30 K/uL 0.04-0.40 code = 711-2) Basophil Abs (test code 0.04 K/uL 0.00-0.10 = 704-7) IG Abs (test code = 0.03 K/uL 0.00-0.04 73463-2) Lab Interpretation Abnormal (test code = 30671-3) [facility] [place].[id number] 20:00:46 Test Item Value Reference Range Interpretation Comments WBC (test code = 6.4 K/uL 4.0-11.0 6690-2) RBC (test code = 789-8) 4.29 See_Comment L [Au tomated message] The system [employer] generated this result transmitted ref erence range: 4.50 - 6 .00 M/uL. The refer ence range was not u sed to interpret this result as normal/abnor mal. Hgb (test code = 718-7) 12.1 See_Comment L As p art of CBC or as an individual orderable testi ng performed at [facility], [address], [address], [place] [address] [Automate d message] The sy stem which generated this result transmit juli reference range : 14.0 - 18.0 gm/dL. T he reference range was not used to int erpret this result as normal/abnormal . Hct (test code = 37.9 % 40.0-54.0 L As part of CBC or as 4544-3) an individual orderable testi ng performed at [facility], [address], [address], [place] [address] MCV (test code = 787-2) 88 fL 82-98 MCH (test code = 785-6) 28.2 pg 27.0-31.0 MCHC (test code = 31.9 See_Comment [Automate d message] 786-4) The system [facility] generated this result transmitted ref erence range: 31.0 - 3 6.0 gm/dL. The refe rence range was not u sed to interpret this result as normal/abnor mal. RDW-SD (test code = 54.4 fL 35.1-46.3 H 72489-0) RDW-CV (test code = 16.8 % 12.0-15.5 H 788-0) Platelet count (test 180 K/uL 140-440 As part of CBC or as code = 777-3) an individual orderable testi ng performed at [facility], [address], [address], [place] [address] MPV (test code = 10.1 fL 4.0-10.4 28345-0) INRBC (test code = 0.0 % <=0.0 The INRBC (instrument 98076-5) NRBC) value ref lects the enumeration of nucleated red b lood cells contained in a 200uL sampleof whole blood analyzed by the instrument. Thi s value maydiffer from the NRBC value repo rted in a manual differential,wh ich is based on a 100 cell differential. A s part of CBC testing performed at [facility], [address], [place] [address] Lab Interpretation Abnormal (test code = 90928-8) [facility] [place].[id number] 20:00:46 Test Item Value Reference Range Interpretation Comments WBC (test code = 6.4 K/uL 4.0-11.0 6690-2) RBC (test code = 789-8) 4.29 See_Comment L [Au tomated message] The system [employer] generated this result transmitted ref erence range: 4.50 - 6 .00 M/uL. The refer ence range was not u sed to interpret this result as normal/abnor mal. Hgb (test code = 718-7) 12.1 See_Comment L As p art of CBC or as an individual orderable testi ng performed at [facility], [address], [address], [place] [address] [Automate d message] The sy stem which generated this result transmit juli reference range : 14.0 - 18.0 gm/dL. T he reference range was not used to int erpret this result as normal/abnormal . Hct (test code = 37.9 % 40.0-54.0 L As part of CBC or as 4544-3) an individual orderable testi ng performed at [facility], [address], [address], [place] [address] MCV (test code = 787-2) 88 fL 82-98 MCH (test code = 785-6) 28.2 pg 27.0-31.0 MCHC (test code = 31.9 See_Comment [Automate d message] 786-4) The system [employer] generated this result transmitted ref erence range: 31.0 - 3 6.0 gm/dL. The refe rence range was not u sed to interpret this result as normal/abnor mal. RDW-SD (test code = 54.4 fL 35.1-46.3 H 20588-6) RDW-CV (test code = 16.8 % 12.0-15.5 H 788-0) Platelet count (test 180 K/uL 140-440 As part of CBC or as code = 777-3) an individual orderable testi ng performed at [facility], [address], [place] [address] MPV (test code = 10.1 fL 4.0-10.4 31525-1) INRBC (test code = 0.0 % <=0.0 The INRBC (instrument 90587-3) NRBC) value ref lects the enumeration of nucleated red b lood cells contained in a 200uL sampleof whole blood analyzed by the instrument. Thi s value maydiffer from the NRBC value repo rted in a manual differential,wh ich is based on a 100 cell differential. A s part of CBC testing performed at [facility] Analyst [id number], [place] [address] Lab Interpretation Abnormal (test code = 92250-5) [facility] [place].[id number] 20:00:46 Test Item Value Reference Range Interpretation Comments WBC (test code = 6.4 K/uL 4.0-11.0 6690-2) RBC (test code = 789-8) 4.29 See_Comment L [Au tomated message] The system [employer] generated this result transmitted ref erence range: 4.50 - 6 .00 M/uL. The refer ence range was not u sed to interpret this result as normal/abnor mal. Hgb (test code = 718-7) 12.1 See_Comment L As p art of CBC or as an individual orderable testi ng performed at [facility] Bld[facility], [address], [address], [place] [address] [Automate d message] The sy stem which generated this result transmit juli reference range : 14.0 - 18.0 gm/dL. T he reference range was not used to int erpret this result as normal/abnormal . Hct (test code = 37.9 % 40.0-54.0 L As part of CBC or as 4544-3) an individual orderable testi ng performed at [facility], [address], [address], [place] [address] MCV (test code = 787-2) 88 fL 82-98 MCH (test code = 785-6) 28.2 pg 27.0-31.0 MCHC (test code = 31.9 See_Comment [Automate d message] 786-4) The system [employer] generated this result transmitted ref erence range: 31.0 - 3 6.0 gm/dL. The refe rence range was not u sed to interpret this result as normal/abnor mal. RDW-SD (test code = 54.4 fL 35.1-46.3 H 03754-5) RDW-CV (test code = 16.8 % 12.0-15.5 H 788-0) Platelet count (test 180 K/uL 140-440 As part of CBC or as code = 777-3) an individual orderable testi ng performed at [facility] Bld[facility], [address], [place] [address] MPV (test code = 10.1 fL 4.0-10.4 88591-4) INRBC (test code = 0.0 % <=0.0 The INRBC (instrument 79353-5) NRBC) value ref lects the enumeration of nucleated red b lood cells contained in a 200uL sampleof whole blood analyzed by the instrument. Thi s value maydiffer from the NRBC value repo rted in a manual differential,wh ich is based on a 100 cell differential. A s part of CBC testing performed at [facility] Lab S[facility] Analyst [address], [facility] [place] [facility] [address] Lab Interpretation Abnormal (test code = 12936-8) [facility] Add[facility]On Test 2022-08-01 22:49:28 Test Item Value Reference Range Interpretation Comments Ordered (test code = 6568) Test Not Added Test Needed (test code = 7604) CBC [facility] Add-On Test 2022-08-01 22:49:28 Test Item Value Reference Range Interpretation Comments Ordered (test code = 6568) Test Not Added Test Needed (test code = 7604) CBC [facility] Add-On Test 2022-08-01 22:49:28 Test Item Value Reference Range Interpretation Comments Ordered (test code = 6568) Test Not Added Test Needed (test code = 7604) [facility] 2022-08-01 22:49:28 Test Item Value Reference Range Interpretation Comments Ordered (test code = 6568) Test Not Added Test Needed (test code = 7604) [facility] Add-On Test 2022-08-01 22:49:28 Test Item Value Reference Range Interpretation Comments Ordered (test code = 6568) Test Not Added Test Needed (test code = 7604) [facility] 2022-08-01 22:49:28 Test Item Value Reference Range Interpretation Comments Ordered (test code = 6568) Test Not Added Test Needed (test code = 7604) [facility] Add-On Test 2022-08-01 22:49:28 Test Item Value Reference Range Interpretation Comments Ordered (test code = 6568) Test Not Added Test Needed (test code = 7604) [facility] Test Item Value Reference Range Interpretation Comments CEA (test 0.8 ng/mL <=3.8 Reference Range s:Smoker: 0.0 - code = 5.5Non-Smoker: 0.0 - 3.8 This 2039-02) test is measure d by electrochemilum inescence immunoassay on Richar Kayla immunoassay donta lyzers. Results obtained in dif ferent methods are not interch angeable.Testing Performed at [facility], [address] [place] [address], [address], [place] [address] [facility]28 18:17:07 Test Item Value Reference Range Interpretation Comments CEA (test 0.8 ng/mL <=3.8 Reference Range s:Smoker: 0.0 - code = 5.5Non-Smoker: 0.0 - 3.8 This 2039-02) test is measure d by electrochemilum inescence immunoassay on Richar Kayla immunoassay donta lyzers. Results obtained in dif ferent methods are not interch angeable.Testing Performed at [address], [address], [place] [address] [facility]2022-11-28 18:17:07 Test Item Value Reference Range Interpretation Comments CEA (test 0.8 ng/mL <=3.8 Reference Range s:Smoker: 0.0 - code = 5.5Non-Smoker: 0.0 - 3.8 This 2039-02) test is measure d by electrochemilum inescence immunoassay on Richar Kayla immunoassay donta lyzers. Results obtained in dif ferent methods are not interch angeable.Testing Performed at [facility], [address] [place] [address], [address], [place] [address] [facility]2022-11-28 18:17:07 Test Item Value Reference Range Interpretation Comments CEA (test 0.8 ng/mL <=3.8 Reference Range s:Smoker: 0.0 - code = 5.5Non-Smoker: 0.0 - 3.8 This 2039-02) test is measure d by electrochemilum inescence immunoassay on Richar Kayla immunoassay donta lyzers. Results obtained in dif ferent methods are not interch angeable.Testing Performed at [facility], [facility], [address], [place], [facility]30 [facility]2022-11-28 18:17:07 Test Item Value Reference Range Interpretation Comments CEA (test 0.8 ng/mL <=3.8 Reference Range s:Smoker: 0.0 - code = 5.5Non-Smoker: 0.0 - 3.8 This 2039-02) test is measure d by electrochemilum inescence immunoassay on Richar Kayla immunoassay donta lyzers. Results obtained in dif ferent methods are not interch angeable.Testing Performed at [facility], [facility], [address], [place], [facility]30 [facility]2022-11-28 18:17:07 Test Item Value Reference Range Interpretation Comments CEA (test 0.8 ng/mL <=3.8 Reference Range s:Smoker: 0.0 - code = 5.5Non-Smoker: 0.0 - 3.8 This 2039-02) test is measure d by electrochemilum inescence immunoassay on Richar Kayla immunoassay donta lyzers. Results obtained in dif ferent methods are not interch angeable.Testing Performed at [facility], [address] [place] [address], [address], [place] [address] [facility]2022-11-28 18:17:07 Test Item Value Reference Range Interpretation Comments CEA (test 0.8 ng/mL <=3.8 Reference Range s:Smoker: 0.0 - code = 5.5Non-Smoker: 0.0 - 3.8 This 2039-02) test is measure d by electrochemilum inescence immunoassay on Richar Kayla immunoassay donta lyzers. Results obtained in dif ferent methods are not interch angeable.Testing Performed at [facility], [address] [place] [address], [address], [place] [address] [facility]iscoaPTT2022-11-28 18:15:40 Test Item Value Reference Range Interpretation Comments aPTT (test 27.6 See_Comment [Automated [place] adilson] code = The system Live[employer] 73235-2) generated this result transmitted ref erence range: 22.8 - 3 4.2 second(s). The reference range was not used to int erpret this result as normal/abnormal . JOSHUA (test code This lab cannot be = JOSHUA) scheduled at the following locations due to collection/proccess ing restrictions: [facility] and [facility]. [facility]iscoaPTT2022-11-28 18:15:40 Test Item Value Reference Range Interpretation Comments aPTT (test 27.6 See_Comment [Automated [place] [employer] adilson] code = The system [facility] h 17134-2) generated this result transmitted ref erence range: 22.8 - 3 4.2 second(s). The reference range was not used to int erpret this result as normal/abnormal . JOSHUA (test code This lab cannot be = JOSHUA) scheduled at the following locations due to collection/proccess ing restrictions: [facility] DI[facility] CTR and [facility]. [facility]iscoaPTT2022-11-28 18:15:40 Test Item Value Reference Range Interpretation Comments aPTT (test 27.6 See_Comment [Automated [place] adilson] code = The system [employer] 07558-7) generated this result transmitted ref erence range: 22.8 - 3 4.2 second(s). The reference range was not used to int erpret this result as normal/abnormal . JOSHUA (test code This lab cannot be = JOSHUA) scheduled at the following locations due to collection/proccess ing restrictions: [facility] DI[facility] CTR and [facility]. [facility]aPTT2022-11-28 18:15:40 Test Item Value Reference Range Interpretation Comments aPTT (test 27.6 See_Comment [Automated mes adilson] code = The system [employer] 73331-8) generated this result transmitted ref erence range: 22.8 - 3 4.2 second(s). The reference range was not used to int erpret this result as normal/abnormal . JOSHUA (test code This lab cannot be = JOSHUA) scheduled at the following locations due to collection/proccess ing restrictions: [facility] and [facility]. [facility]aPTT2022-11-28 18:15:40 Test Item Value Reference Range Interpretation Comments aPTT (test 27.6 See_Comment [Automated mes adilson] code = The system [employer] h 59267-5) generated this result transmitted ref erence range: 22.8 - 3 4.2 second(s). The reference range was not used to int erpret this result as normal/abnormal . JOSHUA (test code This lab cannot be = JOSHUA) scheduled at the following locations due to collection/proccess ing restrictions: [facility] and [facility]. [facility]PTT2022-11-28 18:15:40 Test Item Value Reference Range Interpretation Comments aPTT (test 27.6 See_Comment [Automated mes adilson] code = The system [employer] 93918-1) generated this result transmitted ref erence range: 22.8 - 3 4.2 second(s). The reference range was not used to int erpret this result as normal/abnormal . JOSHUA (test code This lab cannot be = JOSHUA) scheduled at the following locations due to collection/proccess ing restrictions: [facility] and [facility]. [facility] FriscoProthrombin Time with [id number] 18:15:39 Test Item Value Reference Range Interpretation Comments PT (test code = 14.6 See_Comment H [Automated 5902-2) message] The system which generated this result transmitted reference range : 11.9 - 14.1 second(s). The reference range was not used to interpret this result as normal/abnormal . INR (test code = 1.20 0.89-1.10 H 6301-6) JOSHUA (test code = JOSHUA) This lab cannot be scheduled at the following locations due to collection/procc essing restrictions: [facility] and [facility]. Lab Interpretation Abnormal (test code = 30485-2) [facility]iscoProthrom[facility] Time with [id number] 18:15:39 Test Item Value Reference Range Interpretation Comments PT (test code = 14.6 See_Comment H [Automated 5902-2) message] The system which generated this result transmitted reference range : 11.9 - 14.1 second(s). The reference range was not used to interpret this result as normal/abnormal . INR (test code = 1.20 0.89-1.10 H 6301-6) JOSHUA (test code = JOSHUA) This lab cannot be scheduled at the following locations due to collection/procc essing restrictions: [facility] and [facility]. Lab Interpretation Abnormal (test code = 63151-2) [facility]iscoProthrom[facility] Time with [id number] 18:15:39 Test Item Value Reference Range Interpretation Comments PT (test code = 14.6 See_Comment H [Automated 5902-2) message] The system which generated this result transmitted reference range : 11.9 - 14.1 second(s). The reference range was not used to interpret this result as normal/abnormal . INR (test code = 1.20 0.89-1.10 H 6301-6) JOSHUA (test code = JOSHUA) This lab cannot be scheduled at the following locations due to collection/procc essing restrictions: [facility] DI[facility] and [facility]. Lab Interpretation Abnormal (test code = 61379-4) [facility]iscoProthrombin Time with [id number] 18:15:39 Test Item Value Reference Range Interpretation Comments PT (test code = 14.6 See_Comment H [Automated 5902-2) message] The system which generated this result transmitted reference range : 11.9 - 14.1 second(s). The reference range was not used to interpret this result as normal/abnormal . INR (test code = 1.20 0.89-1.10 H 6301-6) JOSHUA (test code = JOSHUA) This lab cannot be scheduled at the following locations due to collection/procc essing restrictions: [facility] and [facility]. Lab Interpretation Abnormal (test code = 19853-3) [facility]iscoProthrombin Time with [id number] 18:15:39 Test Item Value Reference Range Interpretation Comments PT (test code = 14.6 See_Comment H [Automated 5902-2) message] The system which generated this result transmitted reference range : 11.9 - 14.1 second(s). The reference range was not used to interpret this result as normal/abnormal . INR (test code = 1.20 0.89-1.10 H 6301-6) JOSHUA (test code = JOSHUA) This lab cannot be scheduled at the following locations due to collection/procc essing restrictions: [facility] and [facility]. Lab Interpretation Abnormal (test code = 45350-5) [facility]iscoProthrombin Time with [id number] 18:15:39 Test Item Value Reference Range Interpretation Comments PT (test code = 14.6 See_Comment H [Automated 5902-2) message] The system which generated this result transmitted reference range : 11.9 - 14.1 second(s). The reference range was not used to interpret this result as normal/abnormal . INR (test code = 1.20 0.89-1.10 H 6301-6) JOSHUA (test code = JOSHUA) This lab cannot be scheduled at the following locations due to collection/procc essing restrictions: [facility] DI[facility] and [facility] LAB CTR. 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 Your care team will contact you whe n the results are stanley ilable. 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 Your care team will contact you whe n the results are stanley ilable. 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 Your care team will contact you whe n the results are stanley ilable. 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 Your care team will contact you whe n the results are stanley ilable. 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 Your care team will contact you whe n the results are stanley ilable. 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 Your care team will contact you whe n the results are stanley ilable. 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 Your care team will contact you whe n the results are stanley ilable. 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 Your care team will contact you don n the results are stanley ilable. [facility] Glucose [id number] 16:40:53 Test Item Value Reference Range Interpretation Comments POC Glucose (test 129 mg/dL 70-99 H Capillary blood code = 5651) samples, e.g. obtained by fingerstick, ma y have inaccurate resu lts in patients with decreased perip heral blood flow. Met hod description: Al l results are jd sured using Electrochemistr y test methodology. Th e glucose in the sample mixes with the reagents on the test strip. The reac tion produces an abraham ctric current. The am ount of current prod uced is proportional to the glucose concentration i n the blood. PO Sample Type (test BLOOD code = 9554) Performing Lab (test [facility] code = 11262) [facility] ,[address] [place] [address], [place] [address], Point of Care Lab Dir joyce: Johanne Hilliard MD Lab Interpretation Abnormal (test code = 09082-1) [facility] Glucose [id number] 16:40:53 Test Item Value Reference Range Interpretation Comments POC Glucose (test 129 mg/dL 70-99 H Capillary blood code = 5651) samples, e.g. obtained by fingerstick, ma y have inaccurate resu lts in patients with decreased perip heral blood flow. Met hod description: Al l results are jd sured using Electrochemistr y test methodology. Th e glucose in the sample mixes with the reagents on the test strip. The reac tion produces an abraham ctric current. The am ount of current prod uced is proportional to the glucose concentration i n the blood. PO Sample Type (test BLOOD code = 9554) Performing Lab ([facility] code = 47805) [facility] ,[address] [place] [address], Point of Care Lab Dir joyce: Johanne Hilliard MD Lab Interpretation Abnormal (test code = 72739-8) [facility] Glucose [id number] 16:40:53 Test Item Value Reference Range Interpretation Comments POC Glucose (test 129 mg/dL 70-99 H Capillary blood code = 5651) samples, e.g. obtained by fingerstick, ma y have inaccurate resu lts in patients with decreased perip heral blood flow. Met hod description: Al l results are jd sured using Electrochemistr y test methodology. Th e glucose in the sample mixes with the reagents on the test strip. The reac tion produces an abraham ctric current. The am ount of current prod uced is proportional to the glucose concentration i n the blood. PO Sample Type (test BLOOD code = 9554) Performing Lab ([facility] code = 11247) [facility] ,[address] [place] [address], Point of Care Lab Dir joyce: Johanne Hilliard MD Lab Interpretation Abnormal (test code = 86891-1) [facility] Glucose [id number] 16:40:53 Test Item Value Reference Range Interpretation Comments POC Glucose (test 129 mg/dL 70-99 H Capillary blood code = 5651) samples, e.g. obtained by fingerstick, ma y have inaccurate resu lts in patients with decreased perip heral blood flow. Met hod description: Al l results are jd sured using Electrochemistr y test methodology. Th e glucose in the sample mixes with the reagents on the test strip. The reac tion produces an abraham ctric current. The am ount of current prod uced is proportional to the glucose concentration i n the blood. PO Sample Type (test BLOOD code = 9554) Performing Lab (test [facility] code = 24248) [place] [address], Point of Care Lab Dir joyce: Johanne Hilliard MD Lab Interpretation Abnormal (test code = 74350-0) [facility] Glucose [id number] 16:40:53 Test Item Value Reference Range Interpretation Comments POC Glucose (test 129 mg/dL 70-99 H Capillary blood code = 5651) samples, e.g. obtained by fingerstick, ma y have inaccurate resu lts in patients with decreased perip heral blood flow. Met hod description: Al l results are jd sured using Electrochemistr y test methodology. Th e glucose in the sample mixes with the reagents on the test strip. The reac tion produces an abraham ctric current. The am ount of current prod uced is proportional to the glucose concentration i n the blood. PO Sample Type (test BLOOD code = 9554) Performing Lab (test [facility] code = 41033) [place] [address], Point of Care Lab Dir joyce: Johanne Hilliard MD Lab Interpretation Abnormal (test code = 51452-0) [facility] Glucose [id number] 16:40:53 Test Item Value Reference Range Interpretation Comments POC Glucose (test 129 mg/dL 70-99 H Capillary blood code = 5651) samples, e.g. obtained by fingerstick, ma y have inaccurate resu lts in patients with decreased perip heral blood flow. Met hod description: Al l results are jd sured using Electrochemistr y test methodology. Th e glucose in the sample mixes with the reagents on the test strip. The reac tion produces an abraham ctric current. The am ount of current prod uced is proportional to the glucose concentration i n the blood. PO Sample Type (test BLOOD code = 9554) Performing Lab ([facility] code = 92644) [address] [place] [address], Point of Care Lab Dir joyce: Johanne Hilliard MD Lab Interpretation Abnormal (test code = 54268-2) [facility] Glucose [id number] 16:40:53 Test Item Value Reference Range Interpretation Comments POC Glucose (test 129 mg/dL 70-99 H Capillary blood code = 5651) samples, e.g. obtained by fingerstick, ma y have inaccurate resu lts in patients with decreased perip heral blood flow. Met hod description: Al l results are jd sured using Electrochemistr y test methodology. Th e glucose in the sample mixes with the reagents on the test strip. The reac tion produces an abraham ctric current. The am ount of current prod uced is proportional to the glucose concentration i n the blood. PO Sample Type (test BLOOD code = 9554) Performing Lab ([facility] code = 77977) [facility] [place] [address], Point of Care Lab Dir joyce: Johanne Hilliard MD Lab Interpretation Abnormal (test code = 86892-8) [facility] [id number] 20:12:50 Test Item Value Reference Range Interpretation Comments Beta2 Microglob (test 2.3 mg/L 0.8-2.3 This t est is measured by code = 5090) turbidimetric methodology on the The Binding Site Op tilite analyzer. Resul ts obtained from d ifferent methods are not interchangeable . [facility] 2 [id number] 20:12:50 Test Item Value Reference Range Interpretation Comments Beta2 Microglob (test 2.3 mg/L 0.8-2.3 This t est is measured by code = 5090) turbidimetric methodology on the The Binding [employer] Op tilite analyzer. Resul ts obtained from d ifferent methods are not interchangeable . [facility] 2 [id number] 20:12:50 Test Item Value Reference Range Interpretation Comments Beta2 Microglob (test 2.3 mg/L 0.8-2.3 This t est is measured by code = 5090) turbidimetric methodology on the The Binding [employer] Op tilite analyzer. Resul ts obtained from d ifferent methods are not interchangeable . [facility] 2 [id number] 20:12:50 Test Item Value Reference Range Interpretation Comments Beta2 Microglob (test 2.3 mg/L 0.8-2.3 This t est is measured by code = 5090) turbidimetric methodology on the The Binding Site Op tilite analyzer. Resul ts obtained from d ifferent methods are not interchangeable . [facility] 2 [id number] 20:12:50 Test Item Value Reference Range Interpretation Comments Beta2 Microglob (test 2.3 mg/L 0.8-2.3 This t est is measured by code = 5090) turbidimetric methodology on the The Binding Site Op tilite analyzer. Resul ts obtained from d ifferent methods are not interchangeable . [facility] 2 [id number] 20:12:50 Test Item Value Reference Range Interpretation Comments Beta2 Microglob (test 2.3 mg/L 0.8-2.3 This t est is measured by code = 5090) turbidimetric methodology on the The Binding Site Op tilite analyzer. Resul ts obtained from d ifferent methods are not interchangeable . [facility] 2 [id number] 20:12:50 Test Item Value Reference Range Interpretation Comments Beta2 Microglob (test 2.3 mg/L 0.8-2.3 This t est is measured by code = 5090) turbidimetric methodology on the The Binding Site Op tilite analyzer. Resul ts obtained from d ifferent methods are not interchangeable . [facility] 2 [id number] 20:12:50 Test Item Value Reference Range Interpretation Comments Beta2 Microglob (test 2.3 mg/L 0.8-2.3 This t est is measured by code = 5090) turbidimetric methodology on the The Binding Site Op tilite analyzer. Resul ts obtained from d ifferent methods are not interchangeable . [facility]isco[facility]atitis [facility] Total Ig Core Ab (SCREENING) (anti-HBc total Ig; HBcAb total Ig)2022-07-15 18:08:31 Test Item Value Reference Range Interpretation Comments HBcAb. (test code = 5742) Reactive Non Reactive A Lab Interpretation (test code = Abnormal 56144-5) [facility] B Total Ig Core Ab (SCREENING) (anti-HBc total Ig; HBcAb total Ig)2022-07-15 18:08:31 Test Item Value Reference Range Interpretation Comments HBcAb. (test code = 5742) Reactive Non Reactive A Lab Interpretation (test code = Abnormal 94055-9) [facility] B Total Ig Core Ab (SCREENING) (anti-HBc total Ig; HBcAb total Ig)2022-07-15 18:08:31 Test Item Value Reference Range Interpretation Comments HBcAb. (test code = 5742) Reactive Non Reactive A Lab Interpretation (test code = Abnormal 84194-6) [facility] B Total Ig Core Ab (SCREENING) (anti-HBc total Ig; HBcAb total Ig)2022-07-15 18:08:31 Test Item Value Reference Range Interpretation Comments HBcAb. (test code = 5742) Reactive Non Reactive A Lab Interpretation (test code = Abnormal 07433-5) [facility] B Total Ig Core Ab (SCREENING) (anti-HBc total Ig; HBcAb total Ig)2022-07-15 18:08:31 Test Item Value Reference Range Interpretation Comments HBcAb. (test code = 5742) Reactive Non Reactive A Lab Interpretation (test code = Abnormal 42423-8) [facility] B Total Ig Core Ab (SCREENING) (anti-HBc total Ig; HBcAb total Ig)2022-07-15 18:08:31 Test Item Value Reference Range Interpretation Comments HBcAb. (test code = 5742) Reactive Non Reactive A Lab Interpretation (test code = Abnormal 71605-1) [facility] B Total Ig Core Ab (SCREENING) (anti-HBc total Ig; HBcAb total Ig)2022-07-15 18:08:31 Test Item Value Reference Range Interpretation Comments HBcAb. (test code = 5742) Reactive Non Reactive A Lab Interpretation (test code = Abnormal 41978-9) [facility] B Total Ig Core Ab (SCREENING) (anti-HBc total Ig; HBcAb total Ig)2022-07-15 18:08:31 Test Item Value Reference Range Interpretation Comments HBcAb. (test code = 5742) Reactive Non Reactive A Lab Interpretation (test code = Abnormal 44491-5) [facility] C Virus [id number] 15:54:53 Test Item Value Reference Range Interpretation Comments HCVAb. (test Non Reactive Non Reactive Antibody detect ion in the code = 5762) immunocompromis ed and immunosuppresse d population may be delayed or absent entirely. There fore serial testing, correl ation with other clinical findings, and supplementa l testing (if available) should be taken into cons ideration when interpreti ng the results. [facility] C Virus [id number] 15:54:53 Test Item Value Reference Range Interpretation Comments HCVAb. (test Non Reactive Non Reactive Antibody detect ion in the code = 5762) immunocompromis ed and immunosuppresse d population may be delayed or absent entirely. There fore serial testing, correl ation with other clinical findings, and supplementa l testing (if available) should be taken into cons ideration when interpreti ng the results. [facility] C Virus [id number] 15:54:53 Test Item Value Reference Range Interpretation Comments HCVAb. (test Non Reactive Non Reactive Antibody detect ion in the code = 5762) immunocompromis ed and immunosuppresse d population may be delayed or absent entirely. There fore serial testing, correl ation with other clinical findings, and supplementa l testing (if available) should be taken into cons ideration when interpreti ng the results. [facility] C Virus [id number] 15:54:53 Test Item Value Reference Range Interpretation Comments HCVAb. (test Non Reactive Non Reactive Antibody detect ion in the code = 5762) immunocompromis ed and immunosuppresse d population may be delayed or absent entirely. There fore serial testing, correl ation with other clinical findings, and supplementa l testing (if available) should be taken into cons ideration when interpreti ng the results. [facility] C Virus [id number] 15:54:53 Test Item Value Reference Range Interpretation Comments HCVAb. (test Non Reactive Non Reactive Antibody detect ion in the code = 5762) immunocompromis ed and immunosuppresse d population may be delayed or absent entirely. There fore serial testing, correl ation with other clinical findings, and supplementa l testing (if available) should be taken into cons ideration when interpreti ng the results. [facility] C Virus [id number] 15:54:53 Test Item Value Reference Range Interpretation Comments HCVAb. (test Non Reactive Non Reactive Antibody detect ion in the code = 5762) immunocompromis ed and immunosuppresse d population may be delayed or absent entirely. There fore serial testing, correl ation with other clinical findings, and supplementa l testing (if available) should be taken into cons ideration when interpreti ng the results. [facility] C Virus [id number] 15:54:53 Test Item Value Reference Range Interpretation Comments HCVAb. (test Non Reactive Non Reactive Antibody detect ion in the code = 5762) immunocompromis ed and immunosuppresse d population may be delayed or absent entirely. There fore serial testing, correl ation with other clinical findings, and supplementa l testing (if available) should be taken into cons ideration when interpreti ng the results. [facility] Virus [id number] 15:54:53 Test Item Value Reference Range Interpretation Comments HCVAb. (test Non Reactive Non Reactive Antibody detect ion in the code = 5762) immunocompromis ed and immunosuppresse d population may be delayed or absent entirely. There fore serial testing, correl ation with other clinical findings, and supplementa l testing (if available) should be taken into cons ideration when interpreti ng the results. [facility] Surface Antibody 2022-07-15 15:54:17 Test Item Value Reference Range Interpretation Comments HBs Ab (test code = 97659) Reactive Non Reactive A Lab Interpretation (test code = Abnormal 17104-4) [facility] B Surface Antibody 2022-07-15 15:54:17 Test Item Value Reference Range Interpretation Comments HBs Ab (test code = 18918) Reactive Non Reactive A Lab Interpretation (test code = Abnormal 61648-1) [facility] B Surface Antibody 2022-07-15 15:54:17 Test Item Value Reference Range Interpretation Comments HBs Ab (test code = 98804) Reactive Non Reactive A Lab Interpretation (test code = Abnormal 04989-3) [facility] Surface Antibody 2022-07-15 15:54:17 Test Item Value Reference Range Interpretation Comments HBs Ab (test code = 07410) Reactive Non Reactive A Lab Interpretation (test code = Abnormal 61773-8) [facility] Surface Antibody 2022-07-15 15:54:17 Test Item Value Reference Range Interpretation Comments HBs Ab (test code = 27314) Reactive Non Reactive A Lab Interpretation (test code = Abnormal 56551-5) [facility] B Surface Antibody 2022-07-15 15:54:17 Test Item Value Reference Range Interpretation Comments HBs Ab (test code = 33845) Reactive Non Reactive A Lab Interpretation (test code = Abnormal 45552-2) [facility] B Surface Antibody 2022-07-15 15:54:17 Test Item Value Reference Range Interpretation Comments HBs Ab (test code = 13757) Reactive Non Reactive A Lab Interpretation (test code = Abnormal 63600-7) [facility] B Surface Antibody 2022-07-15 15:54:17 Test Item Value Reference Range Interpretation Comments HBs Ab (test code = 50581) Reactive Non Reactive A Lab Interpretation (test code = Abnormal 17490-1) [facility] [id number] 15:53:59 Test Item Value Reference Range Interpretation Comments HBsAg. (test code = 5747) Non Reactive Non Reactive [facility] Surface [id number] 15:53:59 Test Item Value Reference Range Interpretation Comments HBsAg. (test code = 5747) Non Reactive Non Reactive [facility] B Surface [id number] 15:53:59 Test Item Value Reference Range Interpretation Comments HBsAg. (test code = 5747) Non Reactive Non Reactive [facility] Surface [id number] 15:53:59 Test Item Value Reference Range Interpretation Comments HBsAg. (test code = 5747) Non Reactive Non Reactive [facility] Surface [id number] 15:53:59 Test Item Value Reference Range Interpretation Comments HBsAg. (test code = 5747) Non Reactive Non Reactive [facility] Surface [id number] 15:53:59 Test Item Value Reference Range Interpretation Comments HBsAg. (test code = 5747) Non Reactive Non Reactive [facility] Surface [id number] 15:53:59 Test Item Value Reference Range Interpretation Comments HBsAg. (test code = 5747) Non Reactive Non Reactive [facility] Surface [id number] 15:53:59 Test Item Value Reference Range Interpretation Comments HBsAg. (test code = 5747) Non Reactive Non Reactive [facility] [id number] 22:22:46 Test Item Value Reference Range Interpretation Comments Phosphorus (test code = 2777-1) 2.4 mg/dL 2.5-4.5 L Lab Interpretation (test code = Abnormal 18581-5) [facility] [id number] 22:22:46 Test Item Value Reference Range Interpretation Comments Phosphorus (test code = 2777-1) 2.4 mg/dL 2.5-4.5 L Lab Interpretation (test code = Abnormal 04467-6) [facility] [id number] 22:22:46 Test Item Value Reference Range Interpretation Comments Phosphorus (test code = 2777-1) 2.4 mg/dL 2.5-4.5 L Lab Interpretation (test code = Abnormal 44719-8) [facility] [id number] 22:22:36 Test Item Value Reference Range Interpretation Comments Magnesium (test code = 74699-5) 2.2 mg/dL 1.6-2.6 [facility] [id number] 22:22:36 Test Item Value Reference Range Interpretation Comments Magnesium (test code = 87170-1) 2.2 mg/dL 1.6-2.6 [facility] [id number] 22:22:36 Test Item Value Reference Range Interpretation Comments Magnesium (test code = 45267-2) 2.2 mg/dL 1.6-2.6 [facility]2022-11-10 22:22:33 Test Item Value Reference Range Interpretation Comments TSH (test code = 2.23 See_Comment [Automated message] The 60717-1) system which ge nerated this result transmit juli reference range : 0.27 - 4.20 mcunit/mL. The reference range was not used to interpr et this result as moira l/abnormal. [facility]2022-[facility]-10 22:22:33 Test Item Value Reference Range Interpretation Comments TSH (test code = 2.23 See_Comment [Automated message] The 30936-8) system which ge nerated this result transmit juli reference range : 0.27 - 4.20 mcunit/mL. The reference range was not used to interpr et this result as moira l/abnormal. [facility]2022-[facility]-10 22:22:33 Test Item Value Reference Range Interpretation Comments TSH (test code = 2.23 See_Comment [Automated message] The 14456-4) system which ge nerated this result transmit juli reference range : 0.27 - 4.20 mcunit/mL. The reference range was not used to interpr et this result as moira l/abnormal. [facility]2022-11-10 22:22:29 Test Item Value Reference Range Interpretation Comments T4 (test code = 5.8 See_Comment [Automated message] The 3026-2) system which ge nerated this result transmit juli reference range : 4.5 - 11.7 mcg/dL. The ref erence range was not used to interpret this result as normal/abnormal . [facility]2022-11-10 22:22:29 Test Item Value Reference Range Interpretation Comments T4 (test code = 5.8 See_Comment [Automated message] The 3026-2) system which ge nerated this result transmit juli reference range : 4.5 - 11.7 mcg/dL. The ref erence range was not used to interpret this result as normal/abnormal . [facility]2022-11-10 22:22:29 Test Item Value Reference Range Interpretation Comments T4 (test code = 5.8 See_Comment [Automated message] [facility]6-2) system which ge nerated this result transmit juli reference range : 4.5 - 11.7 mcg/dL. The ref erence range was not used to interpret this result as normal/abnormal . [facility]2022-11-10 22:22:29 Test Item Value Reference Range Interpretation Comments T4 (test code = 5.8 See_Comment [Automated message] [facility]62) system which ge nerated this result transmit juli reference range : 4.5 - 11.7 mcg/dL. The ref erence range was not used to interpret this result as normal/abnormal . [facility]2022-11-10 22:22:29 Test Item Value Reference Range Interpretation Comments T4 (test code = 5.8 See_Comment [Automated message] [facility]62) system which ge nerated this result transmit juli reference range : 4.5 - 11.7 mcg/dL. The ref erence range was not used to interpret this result as normal/abnormal . [facility]2022-11-10 22:22:29 Test Item Value Reference Range Interpretation Comments T4 (test code = 5.8 See_Comment [Automated message] [facility]) system which ge nerated this result transmit juli reference range : 4.5 - 11.7 mcg/dL. The ref erence range was not used to interpret this result as normal/abnormal . [facility]2022-11-10 22:22:29 Test Item Value Reference Range Interpretation Comments T4 (test code = 5.8 See_Comment [Automated message] [facility]) system which ge nerated this result transmit juli reference range : 4.5 - 11.7 mcg/dL. The ref erence range was not used to interpret this result as normal/abnormal . [facility]2022-11-10 22:22:29 Test Item Value Reference Range Interpretation Comments T4 (test code = 5.8 See_Comment [Automated message] [facility]) system which ge nerated this result transmit juli reference range : 4.5 - 11.7 mcg/dL. The ref erence range was not used to interpret this result as normal/abnormal . [facility] [id number] 22:13:46 Test Item Value Reference Range Interpretation Comments A1C (test code = 4548-4) 6.7 % 4.3-5.6 H HbA 1c values >=6.5% are diagnostic of diabetes mellitus.Diagno sis should be confi rmed by repeat testing.Therape utic Action suggeste d: >8.0% HbA1c; Go al oftherapy: <7.0 % HbA1c Lab Interpretation (test Abnormal code = 16695-1) [facility] [id number] 22:13:46 Test Item Value Reference Range Interpretation Comments A1C (test code = 4548-4) 6.7 % 4.3-5.6 H HbA 1c values >=6.5% are diagnostic of diabetes mellitus.Diagno sis should be confi rmed by repeat testing.Therape utic Action suggeste d: >8.0% HbA1c; Go al oftherapy: <7.0 % HbA1c Lab Interpretation (test Abnormal code = 96323-5) [facility] [id number] 22:13:46 Test Item Value Reference Range Interpretation Comments A1C (test code = 4548-4) 6.7 % 4.3-5.6 H HbA 1c values >=6.5% are diagnostic of diabetes mellitus.Diagno sis should be confi rmed by repeat testing.Therape utic Action suggeste d: >8.0% HbA1c; Go al oftherapy: <7.0 % HbA1c Lab Interpretation (test Abnormal code = 11951-9) [facility] [id number] 22:13:46 Test Item Value Reference Range Interpretation Comments A1C (test code = 4548-4) 6.7 % 4.3-5.6 H HbA 1c values >=6.5% are diagnostic of diabetes mellitus.Diagno sis should be confi rmed by repeat testing.Therape utic Action suggeste d: >8.0% HbA1c; Go al oftherapy: <7.0 % HbA1c Lab Interpretation (test Abnormal code = 32534-4) [facility] [id number] 22:13:46 Test Item Value Reference Range Interpretation Comments A1C (test code = 4548-4) 6.7 % 4.3-5.6 H HbA 1c values >=6.5% are diagnostic of diabetes mellitus.Diagno sis should be confi rmed by repeat testing.Therape utic Action suggeste d: >8.0% HbA1c; Go al oftherapy: <7.0 % HbA1c Lab Interpretation (test Abnormal code = 26379-3) [facility] [id number] 22:13:46 Test Item Value Reference Range Interpretation Comments A1C (test code = 4548-4) 6.7 % 4.3-5.6 H HbA 1c values >=6.5% are diagnostic of diabetes mellitus.Diagno sis should be confi rmed by repeat testing.Therape utic Action suggeste d: >8.0% HbA1c; Go al oftherapy: <7.0 % HbA1c Lab Interpretation (test Abnormal code = 57687-5) [facility] [id number] 22:13:46 Test Item Value Reference Range Interpretation Comments A1C (test code = 4548-4) 6.7 % 4.3-5.6 H HbA 1c values >=6.5% are diagnostic of diabetes mellitus.Diagno sis should be confi rmed by repeat testing.Therape utic Action suggeste d: >8.0% HbA1c; Go al oftherapy: <7.0 % HbA1c Lab Interpretation (test Abnormal code = 69625-2) [facility] Notes Date/Time Note Provider Source 2023-05-02 Formatting of this note might be differe nt from the original. Brenna North RN [facility] 12:04:20-00:00 called regarding nose bleeds Patient on ASA and Plavix Hx of bone cancer, has had 7 units PRBCs last 6 weeks. She held ASA this AM, but he took his Plavix. Dr Ahn notified Stated to stop Plavix and continue ASA notified, verbalized understanding 2023-05-02 Formatting of this note might be differe nt from the original. Alexa Banda [facility] 11:58:44-00:00 Patients spouse is calling r equesting to speak to a nurse in regards patient. Patient was prescribed asprin and plavix after a stent placement and now he is having nose bleeds in the morning. Please advise. Electronically signed by Alexa Banda at 023 12:00 PM CDT 2023-03-23 [facility] 13:47:34-00:00 Dr. Ahn completed chart revi ew for clearance. Faxing over last ov notes as Dr. Ahn ordered. Electronically signed by Andi Vang MA a t 03/23/2023 1:47 PM CDT 2023-03-23 Formatting of this note is different fro m the original. Mary Lou Villa MA [facility] 11:32:39-00:00 Images from the original note were not included. Catalina Sandhu MA SG 03/23/23 10:33 AM Note Notified patient per Dr. Ahn: Wanda Ahn MD P Cardiology Nurse Nuclear stress test is sligh tly abnormal but nothing major. I have cleared him for surgery. Recommend to add Toprol-XL 25 mg daily. Follow-up in 2 to 3 months. Patient verbal understanding and request RX to be sent to [facility] pharmacy in [place]. Electronically signed by Mary Lou Villa MA a t 03/23/2023 11:32 AM CDT 2023-03-23 [facility] 10:32:16-00:00 Images from the original note were not included. Notified patient per Dr. Ahn: Wanda Ahn MD P Cardiology Nurse Nuclear stress test is sligh tly abnormal but nothing major. I have cleared him for surgery. Recommend to add Toprol-XL 25 mg daily. Follow-up in 2 to 3 months. Patient verbal understanding and request RX to be sent to [facility] pharmacy in [place]. 2023-03-23 Formatting of this note might be differe nt from the original. Maggie Mirza [facility] 10:08:31-00:00 Yoel Villarreal is a 77 year old male [place] w/[facility] calling to check status of Cardiac Clearance. Please call [phone] Electronically signed by Maggie Mirza at 03/05 10:10 AM CDT 2023-03-21 Summary: Lexiscan stress test [facility] 09:00:00-00:00 Yoel Villarreal is a 77 year old male received to Nuclear Medicine for Stress Test. Pt is AAOx4 and is in NAD. Pt identified using Name & . Pt endorses bein g NPO since 03/20/2023. Indication for this Stress Test is pre surgery e valuation. Last caffeine intake > 12 hours NM Tech monitoring is Tana NM Supervising physician Jimy obtained consent at Time out completed 1042 Lexiscan 0.4mg/5mL injected at 1042, followed by 5mL NS flush. Pre Stress Test vitals are: BP 115/59 HR 90 Resp 20 O2 sat 100 Injection vitals are: BP 109/59 HR 94 Resp 20 O2 sat 99 Recovery vitals are: BP 113/60 HR 92 Resp 20 O2 sat 99 2022-11-21 Addended by: WANDA AHN MD on: 11/29/2022 08: 55 AM [facility] 13:20:00-00:00 Modules accepted: Orders Electronically signed by Wanda Ahn MD at 8:55 AM CDT 2022-11-21 Addended by: WANDA AHN MD on: 02/22/2023 07: 27 AM [facility] 13:20:00-00:00 Modules accepted: Orders Electronically signed by Wanda Ahn MD at 7:27 AM T"
[2023-05-05 21:37] LABS: Absolute Lymphocytes (CBC) 0.4 K/uL (0.7-4.9); Hematocrit 21.7 % (39.6-49.0); Lymphocytes % 11.1 % (15.3-44.8); MCV 87.4 fL (80-100); MPV 7.6 fL (7.6-11.3); Platelets 110 thou/uL (152-406); RBC Red Blood Cell Count 2.49 M/uL (4.33-5.43)
[2023-05-05 21:38] LABS: Protime INR 1.35
[2023-05-05] MEDS ORDERED: NA CHLORIDE 0.9% 500 ML ONE (21:41)
[2023-05-05] MEDS ORDERED: NA CHLORIDE 0.9% 1,000 ML ONE (21:41)
[2023-05-05] MEDS ORDERED: ONDANSETRON 4 MG/2 ML VIAL ONE (21:41)
--- NOTE | 2023-05-05 21:53 | RAD REPORT ---
EXAM DESCRIPTION: RAD - Chest Single View - 05/05/2023 9:45 pm CLINICAL HISTORY: COUGH Chest pain. COMPARISON: No comparisons FINDINGS: Portable technique limits examination quality. The lungs are grossly clear. The heart is normal in size. Areas of sclerosis noted in the osseous str uctures.
--- NOTE | 2023-05-05 21:56 | RAD REPORT ---
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 Areas of sclerosis are present throughout the bony structures. No acute fracture or dislocation seen. If pain persists, MRI followup would be helpful.
--- NOTE | 2023-05-05 21:57 | RAD REPORT ---
EXAM DESCRIPTION: RAD - Femur Left - 05/05/2023 9:46 pm CLINICAL HISTORY: PAIN COMPARISON: No comparisons FINDINGS: Areas of bony sclerosis noted in a relatively diffuse fashion. Mild osteoarthritis affects the left hip. No fracture or dislocation seen. If pain persists, MR imaging would be recommended.
--- NOTE | 2023-05-05 21:57 | RAD REPORT ---
EXAM DESCRIPTION: RAD - Hip Left 2 View - 05/05/2023 9:46 pm CLINICAL HISTORY: PAIN COMPARISON: <Comparisons> FINDINGS: Areas of bony sclerosis are present. [id number] osteoarthritis affects the left hip. No acute fracture seen.
[2023-05-05 22:05] LABS: Albumin 2.9 g/dL (3.4-5.0); Bilirubin Direct 0.4 mg/dL (0-0.2); Bilirubin Indirect, Calculated 0.6 mg/dL (0.2-0.8); Magnesium 1.7 mg/dL (1.6-2.4); Potassium 3.8 mEq/L (3.5-5.1); Troponin High Sensitivity 10.2 pg/mL (<58.9)
[2023-05-05 22:14] LABS: White Blood Cell Scan OK (OK)
[2023-05-05 22:15] LABS: Blood Morphology Comment NOT SEEN (NOT SEEN); Platelet Estimate DECR
--- NOTE | 2023-05-05 23:34 | ER ---
Nurse's Notes [facility] Name: Yoel Villarreal Age: 77 yrs Sex: Male : 1945 Arrival Date: 05/05/2023 Time: 20:52 Bed 15 Private MD: Diagnosis: Nondisplaced fracture of base of neck of unspecified femur, sequela-pathologic, left;Anemia in neoplastic disease Presentation: 05/05 20:58 Chief complaint: Patient states: current bone cancer diagnosis. i was walking and my lg3 left hip popped and now i cant move it. 10mg ketamine and 4mg zofran administered by EMS [facility]. Coronavirus screen: Client denies travel out of the [place] in the last 14 days. At this time, the client does not indicate any symptoms associated with coronavirus-19. Ebola Screen: No symptoms or risks identified at this time. Initial Sepsis Screen: Does the patient meet any 2 criteria? No. Patient's initial sepsis screen is negative. Does the patient have a suspected source of infection? No. Patient's initial sepsis screen is negative. Risk Assessment: Do you want to hurt yourself or someone else? Patient reports no desire to harm self or others. Onset of symptoms was May 05, 2023. 20:58 Method Of Arrival: EMS: [facility] 3 20:58 Acuity: NIKKI 3 lg3 Triage Assessment: 21:00 General: Appears in no apparent distress. uncomfortable, Behavior is calm, cooperative. lg3 Pain: Complains of pain in lefrt hip. EENT: No deficits noted. No signs and/or symptoms were reported regarding the EENT system. Neuro: No deficits noted. Zelaya Agitation-Sedation Scale (RASS): 0 - Alert and Calm Level of Consciousness is awake, alert, obeys commands, Oriented to person, place, time, situation. Cardiovascular: No deficits noted. Denies chest pain, shortness of breath, Capillary refill < 3 seconds Clubbing of nail beds is absent JVD is absent Patient's skin is warm and dry. Respiratory: No deficits noted. Airway is patent Respiratory effort is even, unlabored, Respiratory pattern is regular, symmetrical. GI: No deficits noted. No signs and/or symptoms were reported involving the gastrointestinal system. : No deficits noted. No signs and/or symptoms were reported regarding the genitourinary system. Derm: No deficits noted. No signs and/or symptoms reported regarding the dermatologic system. Skin is intact, is healthy with good turgor, Skin is dry, Skin is normal, Skin temperature is warm. Musculoskeletal: Circulation, motion, and sensation intact. Range of motion: limited in left hip Reports pain in left hip. Historical: - Allergies: 21:00 PCN; lg3 21:00 iv iodine; lg3 - Home Meds: 21:00 Morphine Oral [Active]; Prednisone Oral [Active]; lg3 - PMHx: 21:00 bone cancer; prostate cancer; lg3 - PSHx: 21:00 None; lg3 - Immunization history:: Adult Immunizations up to date, Client reports having NOT received the Covid vaccine. Flu vaccine is not up to date. - Social history:: Smoking status: Patient denies any tobacco usage or history of. Patient/guardian denies using alcohol, street drugs. - Family history:: not pertinent. Screenin:00 [facility] ED Fall Risk Assessment (Adult) History of falling in the last 3 months, ha1 including since admission Yes- single mechanical fall (1 pt) Confusion or Disorientation No (0 pts) Intoxicated or Sedated No (0 pts) Impaired Gait Yes (1 pt) Mobility Assist Device Used Yes (1 pt) Altered Elimination No (0 pt) Score/Fall Risk Level 3 or more points = High Risk Oriented to surroundings, Maintained a safe environment, Educated pt \T\ family on fall prevention, incl call for assistance when getting out of bed, Hourly rounding (assess needs \T\ fall precautionary measures) done. Abuse screen: Denies threats or abuse. Denies injuries from another. Nutritional screening: No deficits noted. Tuberculosis screening: No symptoms or risk factors identified. Assessment: 20:57 General: Appears uncomfortable, Behavior is cooperative. Pain: Complains of pain in ha1 left leg and left hip Pain does not radiate. Pain currently is 10 out of 10 on a pain scale. Quality of pain is described as throbbing, Pain began suddenly. Neuro: Level of Consciousness is awake, alert, obeys commands, Oriented to person, place, time, situation. Cardiovascular: Patient's skin is warm and dry. Respiratory: Airway is patent Respiratory effort is even, unlabored, Respiratory pattern is regular, symmetrical. GI: No signs and/or symptoms were reported involving the gastrointestinal system. Abdomen is flat, non-distended. Derm: Skin is pale. Musculoskeletal: Range of motion: limited in left leg Reports bone cancer is causing severe pain. 21:50 Reassessment: Patient and/or family updated on plan of care and expected duration. Pain ha1 level reassessed. Patient is alert, oriented x 3, equal unlabored respirations, skin warm/dry/pink. requesting more pain medication. 22:27 General: : Nicole [phone]. lg3 23:00 Reassessment: Patient and/or family updated on plan of care and expected duration. Pain ha1 level reassessed. Patient is alert, oriented x 3, equal unlabored respirations, skin warm/dry/pink. 05/06 00:00 Reassessment: Patient and/or family updated on plan of care and expected duration. Pain ha1 level reassessed. Patient is alert, oriented x 3, equal unlabored respirations, skin warm/dry/pink. requesting pain medication. 00:15 Reassessment: received verbal order from Dr. Vigil to give 1 mg of Hydromorphone. ha1 with 100% read back. 01:00 Reassessment: Patient and/or family updated on plan of care and expected duration. Pain ha1 level reassessed. Patient is alert, oriented x 3, equal unlabored respirations, skin warm/dry/pink. 02:00 Reassessment: Patient and/or family updated on plan of care and expected duration. Pain ha1 level reassessed. Patient is alert, oriented x 3, equal unlabored respirations, skin warm/dry/pink. 03:00 Reassessment: Patient and/or family updated on plan of care and expected duration. Pain ha1 level reassessed. Patient is alert, oriented x 3, equal unlabored respirations, skin warm/dry/pink. 04:00 Reassessment: Patient and/or family updated on plan of care and expected duration. Pain ha1 level reassessed. Patient is alert, oriented x 3, equal unlabored respirations, skin warm/dry/pink. Vital Signs: 05/05 20:58 BP 134 / 65; Pulse 108; Resp 19 S; Temp 98.1(O); Pulse Ox 100% on R/A; Weight 61.23 kg lg3 (R); Height 5 ft. 10 in. (R); Pain 10/10; 21:30 BP 111 / 56; Pulse 108; Resp 18 S; Pulse Ox 95% on R/A; ha1 22:00 BP 109 / 62; Pulse 106; Resp 18 S; Pulse Ox 97% ; ha1 05/06 00:00 BP 108 / 59; Pulse 114; Resp 20; Pulse Ox 96% on R/A; ha1 01:15 BP 109 / 55; Pulse 114; Resp 14 S; Temp 98.1(O); Pulse Ox 94% on R/A; ha1 02:00 BP 114 / 55; Pulse 114; Resp 13 S; Temp 98.5(O); Pulse Ox 95% on R/A; ha1 04:10 BP 108 / 53; Pulse 103; Resp 13 S; Temp 98.4; Pulse Ox 95% on R/A; ha1 05/05 20:58 Body Mass Index 19.37 (61.23 kg, 177.8 cm) lg3 05/05 20:58 Pain Scale: Adult lg3 ED Course: 05/05 20:57 Patient arrived in ED. lg3 20:57 Patient has correct armband on for positive identification. Placed in gown. Bed in low ha1 position. Call light in reach. Side rails up X 1. Adult w/ patient. 21:00 Triage completed. lg3 21:00 Arm band placed on right wrist. lg3 21:02 Dave Vigil MD is Attending Physician. mouna 21:03 Maintain EMS IV. Dressing intact. Good blood return noted. Site clean \T\ dry. Gauge \T\ lg 3 site: 20L hand. 21:41 Jessica Padilla, RN is Primary Nurse. ha1 21:47 XRAY Chest (1 view) In Process Unspecified. EDMS 21:47 Pelvis XRAY In Process Unspecified. EDMS 21:47 Hip Left 2 View XRAY In Process Unspecified. EDMS 21:47 Femur Left XRAY In Process Unspecified. EDMS 22:15 Inserted saline lock: 22 gauge in right antecubital area, using aseptic technique. ha1 Blood collected. 22:59 CT Lumbar Spine Wo Con In Process Unspecified. EDMS 22:59 CT Pelvis wo Cont: go through hips please, atten left In Process Unspecified. EDMS 23:00 Inserted saline lock: 22 gauge in left forearm, using aseptic technique. ha1 23:46 Dr. Vigil initiated transfer to [facility], spoke with Mary Ann Oliver. 05/06 03:41 Pt accepted for transfer by to [facility] RM: [address] Sherman, Afaq \T\ 0332 per Mary Ann Oliver. wm 04:00 Provided Education on: need to transfer. ha1 04:10 EMS accepted Pt for transport, ETA \T\ 0430 per Al. wm 04:43 No provider procedures requiring assistance completed. ha1 04:43 Patient transferred, IV remains in place. ha1 Administered Medications: 05/05 21:18 Drug: Ondansetron IVP 4 mg Route: IVP; Site: right antecubital; ha1 22:00 Follow up: Response: No adverse reaction ha1 21:18 Drug: NS 0.9% IV 500 ml Route: IV; Rate: bolus; Site: right antecubital; ha1 21:18 Drug: NS 0.9% IV 1000 ml Route: IV; Rate: 125 ml/hr; Site: right antecubital; ha1 21:20 Drug: HYDROmorphone IVP 1 mg Route: IVP; Site: right antecubital; ha1 22:00 Follow up: Response: No adverse reaction; Pain is unchanged, physician notified; RASS: ha1 Alert and Calm (0) 05/06 00:25 Drug: HYDROmorphone IVP 1 mg Route: IVP; Site: right antecubital; ha1 00:45 Follow up: Response: No adverse reaction; Pain is unchanged, physician notified; RASS: ha1 Alert and Calm (0) 01:45 Drug: HYDROmorphone IVP 1 mg Route: IVP; Site: left forearm; ha1 02:00 Follow up: Response: No adverse reaction; Pain is decreased; RASS: Alert and Calm (0) ha1 Medication: 04:00 VIS not applicable for this client. ha1 Outcome: 05/05 23:34 ER care complete, transfer ordered by MD. freire 05/06 04:43 Patient left the ED. ha1 04:43 Transferred by [facility] to [facility]. ha1 04:43 Condition: stable 04:43 Discharge instructions given to patient, family, Instructed on the need for admit, Demonstrated understanding of instructions. Signatures: Dispatcher [employer] Dave Otoole MD MD cha Gibson, Lacie RN RN lg3 Monica Hennessy Heidy RN RN ha1
--- NOTE | 2023-05-05 23:34 | EDPHYS ---
Physician Documentation [facility] Name: Yoel Villarreal Age: 77 yrs Sex: Male : 1945 Arrival Date: 05/05/2023 Time: 20:52 Bed 15 Private MD: Dave Frank HPI: 05/05 21:08 This 77 yrs old Male presents to ER via EMS with complaints of left hip, pain mouna , hx bone cancer. 21:08 The patient or guardian reports decreased range of motion, deformity. that occurred at [facility] home, sustained from unknown reason, There is no obvious deformity, The patient is not able to ambulate. Patient is not able to bear weight. There is no radiation of the patient's discomfort. The patient was discovered at or immediately after the incident. The complaints affect the left hip. Onset: The symptoms/episode began/occurred just prior to arrival. Modifying factors: The symptoms are alleviated by nothing, remaining still. The patient presents with decreased range of motion, pain. The complaints affect the left hip and left upper thigh. Context: The problem was sustained at home. Modifying factors: The symptoms are alleviated by remaining still, the symptoms are aggravated by movement, weight bearing. Historical: - Allergies: 21:00 PCN; lg3 21:00 iv iodine; lg3 - Home Meds: 21:00 Morphine Oral [Active]; Prednisone Oral [Active]; lg3 - PMHx: 21:00 bone cancer; prostate cancer; lg3 - PSHx: 21:00 None; lg3 - Immunization history:: Adult Immunizations up to date, Client reports having NOT received the Covid vaccine. Flu vaccine is not up to date. - Social history:: Smoking status: Patient denies any tobacco usage or history of. Patient/guardian denies using alcohol, street drugs. - Family history:: not pertinent. ROS: 21:08 Constitutional: Negative for fever, chills, and weight loss, Eyes: Negative for injury, mouna pain, redness, and discharge, ENT: Negative for injury, pain, and discharge, Neck: Negative for injury, pain, and swelling, Cardiovascular: Negative for chest pain, palpitations, and edema, Respiratory: Negative for shortness of breath, cough, wheezing, and pleuritic chest pain, Abdomen/GI: Negative for abdominal pain, nausea, vomiting, diarrhea, and constipation, Back: Negative for injury and pain, : Negative for injury, bleeding, discharge, and swelling, Skin: Negative for injury, rash, and discoloration, Neuro: Negative for headache, weakness, numbness, tingling, and seizure, Psych: Negative for depression, anxiety, suicide ideation, homicidal ideation, and hallucinations, Allergy/Immunology: Negative for hives, rash, and allergies, Endocrine: Negative for neck swelling, polydipsia, polyuria, polyphagia, and marked weight changes, Hematologic/Lymphatic: Negative for swollen nodes, abnormal bleeding, and unusual bruising. 21:08 MS/extremity: Positive for decreased range of motion, pain, tenderness, of the left hip and left upper thigh. Exam: 21:14 Constitutional: This is a well developed, well nourished patient who is awake, alert, mouna and in no acute distress. Head/Face: Normocephalic, atraumatic. Eyes: Pupils equal round and reactive to light, extra-ocular motions intact. Lids and lashes normal. Conjunctiva and sclera are non-icteric and not injected. Cornea within normal limits. Periorbital areas with no swelling, redness, or edema. ENT: Nares patent. No nasal discharge, no septal abnormalities noted. Tympanic membranes are normal and external auditory canals are clear. Oropharynx with no redness, swelling, or masses, exudates, or evidence of obstruction, uvula midline. Mucous membranes moist. Neck: Trachea midline, no thyromegaly or masses palpated, and no cervical lymphadenopathy. Supple, full range of motion without nuchal rigidity, or vertebral point tenderness. No Meningismus. Chest/axilla: Normal chest wall appearance and motion. Nontender with no deformity. No lesions are appreciated. Cardiovascular: Regular rate and rhythm with a normal S1 and S2. No gallops, murmurs, or rubs. Normal PMI, no JVD. No pulse deficits. Respiratory: Lungs have equal breath sounds bilaterally, clear to auscultation and percussion. No rales, rhonchi or wheezes noted. No increased work of breathing, no retractions or nasal flaring. Abdomen/GI: Soft, non-tender, with normal bowel sounds. No distension or tympany. No guarding or rebound. No evidence of tenderness throughout. Back: No spinal tenderness. No costovertebral tenderness. Full range of motion. Skin: Warm, dry with normal turgor. Normal color with no rashes, no lesions, and no evidence of cellulitis. MS/ Extremity: Pulses equal, no cyanosis. Neurovascular intact. Full, normal range of motion. Neuro: Awake and alert, GCS 15, oriented to person, place, time, and situation. Cranial nerves II-XII grossly intact. Motor strength 5/5 in all extremities. Sensory grossly intact. Cerebellar exam normal. Normal gait. Psych: Awake, alert, with orientation to person, place and time. Behavior, mood, and affect are within normal limits. 21:14 Musculoskeletal/extremity: Extremities: grossly normal except: noted in the left hip, left inner thigh and left upper thigh: decreased ROM, pain, ROM: intact in all extremities, full active range of motion, Pulses: are normal with no appreciated deficits, Sensation intact. Compartment Syndrome exam of affected extremity: Weight bearing: is unable to bear weight, DVT Exam: no swelling, negative Homans' sign noted on exam, no appreciated bluish discoloration, no erythema, no increased warmth, pain, tenderness. 05/06 02:41 ECG was reviewed by the Attending Physician. mouna Vital Signs: 05/05 20:58 BP 134 / 65; Pulse 108; Resp 19 S; Temp 98.1(O); Pulse Ox 100% on R/A; Weight 61.23 kg lg3 (R); Height 5 ft. 10 in. (R); Pain 10/10; 21:30 BP 111 / 56; Pulse 108; Resp 18 S; Pulse Ox 95% on R/A; ha1 22:00 BP 109 / 62; Pulse 106; Resp 18 S; Pulse Ox 97% ; ha1 05/06 00:00 BP 108 / 59; Pulse 114; Resp 20; Pulse Ox 96% on R/A; ha1 01:15 BP 109 / 55; Pulse 114; Resp 14 S; Temp 98.1(O); Pulse Ox 94% on R/A; ha1 02:00 BP 114 / 55; Pulse 114; Resp 13 S; Temp 98.5(O); Pulse Ox 95% on R/A; ha1 04:10 BP 108 / 53; Pulse 103; Resp 13 S; Temp 98.4; Pulse Ox 95% on R/A; ha1 0901 20:58 Body Mass Index 19.37 (61.23 kg, 177.8 cm) lg3 05/05 20:58 Pain Scale: Adult lg3 MDM: 05/05 21:02 Patient medically screened. [facility] 21:12 Differential diagnosis: dislocation, closed fracture, contusion, hip fracture, mouna intertrochanteric fracture, femoral neck fracture, femoral shaft fracture, bursitis, arthritis, strain. Data reviewed: vital signs, nurses notes, lab test result(s), EKG, radiologic studies, plain films. Consideration of Admission/Observation Escalation of care including admission/observation considered. I considered the following discharge prescriptions or medication management in the emergency department Medications were administered in the Emergency Department. See MAR. Independent interpretation of the following test(s) in the Emergency Department X-Ray: My interpretation is pelvis, left hip. Test considered but Not performed: CT: no ct hip. Historians other than the Patient: Spouse/Significant Other: . Care significantly affected by the following chronic conditions: prostrate, bone. Counseling: I had a detailed discussion with the patient and/or guardian regarding the historical points, exam findings, and any diagnostic results supporting the discharge/admit diagnosis, lab results, radiology results. 05/05 21:08 Order name: Basic Metabolic Panel; Complete Time: 02:41 [facility] 05/05 21:08 Order name: CBC with Diff; Complete Time: 02:41 [facility] 05/05 21:08 Order name: LFT's; Complete Time: 02:41 [facility] 05/05 21:08 Order name: Magnesium; Complete Time: 02:41 [facility] 05/05 21:08 Order name: NT PRO-BNP; Complete Time: 02:41 [facility] 05/05 21:08 Order name: PT-INR; Complete Time: 21:59 [facility] 05/05 21:08 Order name: Troponin HS; Complete Time: 02:41 [facility] 05/05 21:40 Order name: CBC Smear Scan; Complete Time: 02:41 [facility] 05/05 22:00 Order name: Type And Screen [facility] 05/05 23:24 Order name: Packed RBC Leukored [facility] 05/06 00:17 Order name: ABO/RH no charge; Complete Time: 02:41 [facility] 05/06 02:40 Order name: CBC with Diff [facility] 05/05 21:08 Order name: XRAY Chest (1 view); Complete Time: 21:59 [facility] 05/05 21:08 Order name: Pelvis XRAY; Complete Time: 21:59 [facility] 05/05 21:08 Order name: Hip Left 2 View XRAY; Complete Time: 21:59 [facility] 05/05 21:08 Order name: Femur Left XRAY; Complete Time: 21:59 [facility] 05/05 21:59 Order name: CT Lumbar Spine Wo Con [facility] 05/05 21:59 Order name: CT Pelvis wo Cont: go through hips please, atten left [facility] 05/05 21:08 Order name: EKG; Complete Time: 21:08 [facility] 05/05 21:08 Order name: Cardiac monitoring; Complete Time: 02:12 [facility] 05/05 21:08 Order name: EKG - Nurse/Tech; Complete Time: 02:40 [facility] 05/05 21:08 Order name: IV Saline Lock; Complete Time: 02:12 [facility] 05/05 21:08 Order name: Labs collected and sent; Complete Time: 02:12 [facility] 05/05 21:08 Order name: O2 Per Protocol; Complete Time: 02:12 [facility] 05/05 21:08 Order name: O2 Sat Monitoring; Complete Time: 02:12 [facility] 05/05 22:00 Order name: Transfuse; Complete Time: 01:58 [facility] EC/02 02:41 Rate is 115 beats/min. Rhythm is regular. QRS [place] is Normal. NE interval is normal. [facility] QRS interval is normal. QT interval is normal. No Q waves. T waves are Normal. No ST changes noted. Clinical impression: Sinus tachycardia and No evidence of ischemia. Interpreted by me. Reviewed by me. Administered Medications: 05/05 21:18 Drug: Ondansetron IVP 4 mg Route: IVP; Site: right antecubital; ha1 22:00 Follow up: Response: No adverse reaction ha1 21:18 Drug: NS 0.9% IV 500 ml Route: IV; Rate: bolus; Site: right antecubital; ha1 21:18 Drug: NS 0.9% IV 1000 ml Route: IV; Rate: 125 ml/hr; Site: right antecubital; ha1 21:20 Drug: HYDROmorphone IVP 1 mg Route: IVP; Site: right antecubital; ha1 22:00 Follow up: Response: No adverse reaction; Pain is unchanged, physician notified; RASS: ha1 Alert and Calm (0) 05/06 00:25 Drug: HYDROmorphone IVP 1 mg Route: IVP; Site: right antecubital; ha1 00:45 Follow up: Response: No adverse reaction; Pain is unchanged, physician notified; RASS: ha1 Alert and Calm (0) 01:45 Drug: HYDROmorphone IVP 1 mg Route: IVP; Site: left forearm; ha1 02:00 Follow up: Response: No adverse reaction; Pain is decreased; RASS: Alert and Calm (0) ha1 Disposition Summary: 05/05/23 23:34 Transfer Ordered Transfer Location: [facility] mouna Reason: Higher level of care mouna Condition: Stable mouna Problem: new mouna Symptoms: have improved mouna Accepting Physician: to [facility](05/06/23 04:43) ha1 Diagnosis - Nondisplaced fracture of base of neck of unspecified femur, sequela - pathologic, mouna 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
[2023-05-06] MEDS ORDERED: HYDROMORPHONE HCL 1 MG/ML INJ ONE ×2 (00:34→02:00)
[2023-05-06] MEDS ORDERED: NA CHLORIDE 0.9% 250 ML ONE ×2 (01:09→03:40)
[2023-05-06 03:45] LABS: Absolute Lymphocytes (CBC) 0.4 K/uL (0.7-4.9); Hematocrit 22.3 % (39.6-49.0); Lymphocytes % 11.1 % (15.3-44.8); Platelets 92 thou/uL (152-406); RBC Red Blood Cell Count 2.56 M/uL (4.33-5.43)
[2023-05-06 05:12] VITALS: O2SAT 95
[2023-05-06 05:13] VITALS: BP 108/53; TEMP 98.4
--- NOTE | 2023-05-06 20:59 | RAD REPORT ---
EXAM DESCRIPTION: CT - Pelvis Wo Cont - 05/06/2023 6:17 am CLINICAL HISTORY 77 years Male PAIN TECHNIQUE: Contiguous axial images obtained through the pelvis without IV contrast. Coronal and sa gittal reformatted images provided. This CT exam was performed according to our departmental dose-optimization program, which includes on e or more of the following dose reduction techniques: automated exposure control, adjustment of the m A and/or kV according to patient size, and/or use of iterative reconstruction technique. COMPARISON: CT scan of the abdomen and pelvis dated 06/29/2022 FINDINGS: Since the prior exam there has been development of widespread mixed sclerotic and lytic os seous metastases. There appears to be an acute, possibly incomplete, pathologic transcervical fracture of the left femo ral neck. There is a left hip joint effusion. Small amount of hemorrhage in the left iliopsoas. No free fluid in the pelvis. Sigmoid diverticuli. L eft inguinal testicle. Chronic fusion across the sacroiliac joints. Mild bilateral hip osteoarthritis. IMPRESSION: Widespread osseous metastases. Suspected acute, nondisplaced, possibly incomplete left t ranscervical femoral neck fracture. Electronically signed by: Stormy Pollard MD 05/05/2023 11:22 PM CDT Due to temporary technical issues with the PACS/Fluency reporting system, reports are being signed by the in house radiologists without review as a courtesy to insure prompt reporting. The interpreting radiologist is fully responsible for the content of the report.
--- NOTE | 2023-05-06 21:00 | RAD REPORT ---
EXAM DESCRIPTION: CT - Spine Lumbar Wo Con - 05/06/2023 6:17 am CLINICAL HISTORY: 77 years Male PAIN TECHNIQUE: Contiguous axial CT images obtained through the lumbar spine without IV contrast. Coronal and sagittal reformatted images also provided. This CT exam was performed according to our departmental dose-optimization program, which includes on e or more of the following dose reduction techniques: automated exposure control, adjustment of the m A and/or kV according to patient size, and/or use of iterative reconstruction technique. COMPARISON: CT scan of the abdomen dated 06/29/2022 FINDINGS: New since the prior exam are widespread osseous metastases, predominantly sclerotic. There are now chronic compression deformities at L3, L4, and L5 status post vertebroplasty is. There are a lso compression deformities at the inferior endplate of L1 (subacute), and L5 (chronic). Stable fusio n across both sacroiliac joints. No visualized soft tissue mass. Atherosclerosis without abdominal aortic aneurysm or retroperitoneal hemorrhage. Sigmoid diverticuli. At L2-L3, there is mild central canal stenosis without neural foraminal stenosis. At L3-L4, there is slight bilateral neural foraminal narrowing. At L4-L5, there is slight central canal stenosis with mild left neural foraminal narrowing. At L5-S1, there is mild bilateral neural foraminal narrowing. IMPRESSION: Widespread osseous metastases new since the prior exam. No acute fracture. Subacute and chronic fractures as described. No moderate or severe lumbar stenosis. Electronically signed by: Stormy Pollard MD 05/05/2023 11:17 PM CDT Due to temporary technical issues with the PACS/Fluency reporting system, reports are being signed by the in house radiologists without review as a courtesy to insure prompt reporting. The interpreting radiologist is fully responsible for the content of the report.
--- NOTE | 2023-05-09 16:58 | EKG ---
Test Date: 2023-05-06 Test Time: 02:29:42 Piercer Operator: MARY LOU MEASUREMENT RESULTS: Intervals: Rate: 115 ID: [id number] QRSD: 96 QT: 320 QTc: 442 [place]: P: 42 ID: [id number] QRS: -15 T: 79 INTERPRETIVE STATEMENTS: Sinus tachycardia Possible Anterior infarct, age undetermined Abnormal ECG No previous ECG available for comparison Electronically Signed On 05-09-23 16:48:08 CDT by Gulshan Ernst
== END 2023-05-06 04:43 | disposition short-term general hospital (02) ==
LOC: ER 20:52
PROC: 30233N1 Transfusion of Nonautologous Red Blood Cells into Peripheral Vein, Percutaneous Approach (ICD-10-PCS; principal; 2023-05-06)
DX: M84.552S Pathological fracture in neoplastic disease, left femur, sequela (principal); C41.9 Malignant neoplasm of bone and articular cartilage, unspecified; D63.0 Anemia in neoplastic disease; C61 Malignant neoplasm of prostate; Z88.0 Allergy status to penicillin; Z91.048 Other nonmedicinal substance allergy status
CPT/HCPCS: 93005; 85025 ×2; 80048; 36415; 86900; 83735; 86850; 85610; 86901; 80076; 86920 ×2; 84484; 83880; 72131; 72192; 71045; 72170; 73502; 73552; 99285; 36430; J1170 ×3; J2405; P9016 ×2; J7050 ×2; J7040; J7030